=== PATIENT | male | born 1935 ===

== ENCOUNTER → 2018-06-03 11:57 | Outpatient (CLI) | payer OTHER, SELFPAY ==
[2018-06-03 12:54] LABS: BUN Creatinine Ratio 13.5 (6-22); Blood Urea Nitrogen 23 mg/dL (9-20); Calcium 9.5 mg/dL (8.4-10.2); Carbon Dioxide 31 mmol/L (22-32); Chloride 101 mmol/L (98-107); Estimated Glomerular Filt Rate 38.7 mL/min (>60); Glucose 103 mg/dL (80-110); HEMOLYSIS < 15 (0-50); Potassium 4.1 mmol/L (3.4-5.1); Sodium 143 mmol/L (137-145)
== END ==
PROVIDERS: PCP Internal Medicine; Visit Provider Internal Medicine
DX: I48.1 Persistent atrial fibrillation (principal); J44.9 Chronic obstructive pulmonary disease, unspecified; E78.00 Pure hypercholesterolemia, unspecified
CPT/HCPCS: 36415; 80048

== ENCOUNTER 2018-06-07 16:28 | Inpatient (IN) | payer OTHER, SELFPAY ==
[2018-06-07] VITALS (14 sets, daily range): BP systolic 154–196; BP diastolic 76–105; PULSE 66–94; RESP 11–79; TEMP 36.6–37.1; O2SAT 88–100; BMI 26.4; BMI 12.3
--- NOTE | 2018-06-07 16:36 | ED_ITS ---
HPI - SOB/Dyspnea General Chief Complaint: Shortness of Breath/Dyspnea Stated Complaint: sob,chest pain from coughing Time Seen by Provider: 06/07/18 16:35 Source: patient Mode of arrival: ambulatory Limitations: no limitations History of Present Illness 83-year-old male who states he does have a history of COPD who does not use regular home inhalers here for approximately 2-4 weeks of worsening shortness of breath and coughing and wheezing and decreased exercise tolerance secondary to shortness of breath. Denies any chest pain. Went to the walk-in clinic prior to arrival here in the emergency department where he was found to be wheezing bilaterally. According to the note from that visit he had an ambulation trial with a desaturation into the 80s. Patient does report a productive cough. No fevers. Related Data Home Medications Medication Instructions Recorded Confirmed [british blk radish] BID #0 10/26/16 06/07/18 atorvastatin [Lipitor] 10 mg PO HS #0 10/26/16 06/07/18 LBP medication PO 06/07/18 06/07/18 thyroid medication PO 06/07/18 06/07/18 warfarin PO 06/07/18 06/07/18 Allergies Allergy/AdvReac Type Severity Reaction Status Date / Time No Known Drug Allergies Allergy Unknown Verified 06/07/18 16:43 [NO KNOWN DRUG ALLERGIES] Review of Systems Constitutional Denies fever(s) and Denies headache(s) ENT Ears, Nose, Mouth, and Throat: Denies headache(s) Cardiovascular Denies chest pain, Denies irregular heart rhythm, Denies palpitations, Reports dyspnea and Reports dyspnea on exertion Respiratory Reports change in phlegm color, Reports cough, Reports excessive phlegm production, Denies pain with cough, Reports dyspnea, Reports dyspnea on exertion and Reports wheezing Gastrointestinal Gastrointestinal: Denies abdominal pain, Denies nausea and Denies vomiting Musculoskeletal Denies myalgias and Denies arthralgias Integumentary/Breasts Denies rash Neurologic Denies headache(s) Endocrine Denies palpitations Hematologic/Lymphatic Comments: On Coumadin Allergic/Immunologic Reports wheezing PFSH Medical History Atrial fibrillation (Acute) COPD (chronic obstructive pulmonary disease) (Acute) Colon cancer (Acute) Pacemaker (Acute) Surgical History History of colon resection (Acute) Social History marital status: Smoking Status: Former smoker Exam Initial Vital Signs Initial Vital Signs: Vital Signs Pulse Rate 69 06/07/18 16:41 Respiratory Rate 14 06/07/18 16:41 Pulse Oximetry 95 06/07/18 16:41 Const General: cooperative, well developed, well groomed and No acute distress Orientation: alert, awake and oriented x3 HENMT Head: normal to inspection and normocephalic Chest Chest: normal inspection of the chest Resp Effort & Inspection: audible wheezes, no grunting, not labored, no respiratory distress, no retractions, no stridor and tachypneic Auscultation: rhonchi upper bilaterally and lower bilaterally and wheezes expiratory wheezes, lower bilaterally and upper bilaterally Cardio Rate: regular rate Pulses: radial pulses present GI Inspection: non-distended Palpation: soft Skin Rashes: no rashes Neuro General: alert, awake and oriented x3 Extrem General: normal to inspection and no pedal edema Psych Appearance: grossly normal and well kempt Course Orders Ordered: ED Orders 06/07/18 16:35 B Type Natriuretic Peptide Stat Basic Metabolic Panel Stat Complete Blood Count AUTO DIFF Stat Prothrombin Time INR Stat 06/07/18 16:38 XR chest 1V Stat EKG-12 Lead Stat Albuterol (Ventolin) 2.5 mg INH Q20M PILAR Stop: 06/07/18 18:41 Last Admin: 06/07/18 18:27 Dose: 2.5 mg Admin: 06/07/18 18:19 Dose: 2.5 mg Admin: 06/07/18 18:19 Dose: 2.5 mg Albuterol/Ipratropium (Duoneb) 3 ml INH NOW PRN PRN Reason: Wheezing Last Admin: 06/07/18 17:09 Dose: 3 ml Admin: 06/07/18 16:53 Dose: 3 ml Discontinued Medications Albuterol/Ipratropium (Duoneb) 3 ml INH NOW ONE Stop: 06/07/18 16:37 Last Admin: 06/07/18 16:39 Dose: 3 ml Azithromycin (Zithromax) 500 mg PO NOW ONE Stop: 06/07/18 18:28 Levofloxacin (Levaquin) 750 mg PO NOW ONE Stop: 06/07/18 17:50 Methylprednisolone (Solu-Medrol 125 Mg Vial) 125 mg IV NOW ONE Stop: 06/07/18 16:56 Last Admin: 06/07/18 17:11 Dose: 125 mg Vital Signs - 8 hr 06/07/18 16:41 06/07/18 16:43 06/07/18 17:03 Temperature 97.9 F Pulse Rate 69 69 66 Respiratory Rate 14 22 11 L Blood Pressure 196/105 H Blood Pressure [Right Arm] 188/86 H Pulse Oximetry 95 100 100 06/07/18 17:38 06/07/18 17:58 06/07/18 18:00 Temperature Pulse Rate 78 94 H 79 Respiratory Rate 18 24 Blood Pressure Blood Pressure [Right Arm] 185/84 H 182/87 H Pulse Oximetry 97 88 L MDM - SOB/Dyspnea Lab Data Attestation: I reviewed the patient's lab results. Result diagrams: 06/07/18 16:35 06/07/18 16:35 Lab Results 06/07/18 06/07/18 06/07/18 Range/Units 16:35 16:35 16:35 WBC 8.6 (4.5-11.0) X10^3/uL RBC 4.12 L (4.5-5.9) X10^6/uL Hgb 13.1 L (13.5-17.5) g/dL Hct 38.3 L (41-53) % MCV 92.9 (80-100) fL MCH 31.9 (26-34) PG MCHC 34.3 (30-36) % RDW 14.8 (11.6-14.8) % Plt Count 195 (150-400) X10^3/uL Neut % (Auto) 78.6 H (50-75) % Lymph % (Auto) 10.8 L (25-40) % [place] % (Auto) 9.1 (3-14) % Eos % (Auto) 1.1 L (2-4) % Baso % (Auto) 0.4 (0-2) % Neut # (Auto) 6700 H (3902-1669) /uL PT 19.7 H (10.1-12.7) SECONDS INR 1.8 H (0.9-1.3) Sodium 143 (137-145) mmol/L Potassium 4.6 (3.4-5.1) mmol/L Chloride 101 (98-107) mmol/L Carbon Dioxide 31 (22-32) mmol/L BUN 21 H (9-20) mg/dL Creatinine 1.40 H (0.66-1.25) mg/dL Estimated GFR 48.4 L (>60) mL/min BUN/Creatinine Ratio 15.0 (6-22) Glucose 94 (80-110) mg/dL Calcium 9.6 (8.4-10.2) mg/dL Imaging Data Chest x-ray: Radiologist's impression: PROCEDURE: XR CHEST 1V INDICATIONS: Shortness of breath TECHNIQUE: One view of the chest was acquired. COMPARISON: [facility], , CHEST 2 VIEW, 03/05/2017, 13:08. FINDINGS: Surgical changes and devices: Left-sided pacer. Lungs and pleura: No pleural effusions or pneumothorax. Lungs are clear. Mediastinum: Mediastinal contours appear normal. Heart size is normal. Bones and chest wall: No suspicious bony lesions. Overlying soft tissues appear unremarkable. IMPRESSION: No acute process. Dictated by: Diaz Green M.D. on 06/07/2018 at 17:08 Approved by: Diaz Green M.D. on 06/07/2018 at 17:08 ECG Data Attestation: I personally reviewed and interpreted this ECG as follows: Prior ECG tracings: not available for review Interpretation: Ventricular paced Rate is 69 Left axis deviation QRS [address] T wave changes concerning for ischemia MDM Narrative Medical decision making narrative: Patient received 3 DuoNeb here in the emergency department with some improvement of his symptoms. He was no longer hypoxic while he was lying in bed. He was given Solu-Medrol. The patient was ambulated in the emergency department with his oxygen saturations dropping into the 80s. We sat back down in bed he was much more tachypneic and had increased work of breathing. Will start the patient on azithromycin for this COPD exacerbation and secondary to the increased sputum production. Discussed the case with Dr. Donald with internal medicine will that the patient. Discussed admission with the patient and his were at bedside. They both expressed understanding and agreement this plan. Discharge Plan Departure Patient Disposition: Admitted as Observation Clinical Impression: COPD exacerbation, Hypoxia, Hypertension
[2018-06-07] MEDS: ALBUTEROL/IPRATROPIUM 3 ML AMPUL INH ×4 (16:39→21:56)
[2018-06-07] MEDS: methylPREDNISolone 125 MG/2 ML VIAL IV (17:11)
[2018-06-07 18:12] LABS: INR 1.8 (0.9-1.3); Prothrombin Time 19.7 SECONDS (10.1-12.7)
[2018-06-07 18:13] LABS: Add Manual Diff / Slide Review NO; Basophils Percent Auto 0.4 % (0-2); Eosinophils Percent Auto 1.1 % (2-4); Hematocrit 38.3 % (41-53); Hemoglobin 13.1 g/dL (13.5-17.5); Lymphocytes Percent Auto 10.8 % (25-40); Mean Corpuscular HGB Conc 34.3 % (30-36); Mean Corpuscular Hemoglobin 31.9 PG (26-34); Mean Corpuscular Volume 92.9 fL (80-100); Monocytes Percent Auto 9.1 % (3-14); Neutrophils Absolute Auto 6700 /uL (3000-5900); Neutrophils Percent Auto 78.6 % (50-75); Platelet Count 195 X10^3/uL (150-400); Red Blood Cell Count 4.12 X10^6/uL (4.5-5.9); Red Cell Distribution Width 14.8 % (11.6-14.8); White Blood Cell Count 8.6 X10^3/uL (4.5-11.0)
[2018-06-07 18:17] LABS: Blood Urea Nitrogen 21 mg/dL (9-20); Calcium 9.6 mg/dL (8.4-10.2); Carbon Dioxide 31 mmol/L (22-32); Chloride 101 mmol/L (98-107); Estimated Glomerular Filt Rate 48.4 mL/min (>60); Glucose 94 mg/dL (80-110); HEMOLYSIS < 15 (0-50); Potassium 4.6 mmol/L (3.4-5.1); Sodium 143 mmol/L (137-145)
[2018-06-07] MEDS: ALBUTEROL 2.5 MG/3 ML NEB (ADULT) INH ×3 (18:19→18:27)
[2018-06-07] MEDS: AZITHROMYCIN 250 MG TABLET 500 MG PO (18:49)
--- NOTE | 2018-06-07 19:40 | PM.HP.1 ---
History of Present Illness Date Patient Seen: 06/07/18 Time Patient Seen: 19:41 Chief complaint: sob,chest pain from coughing Narrative: The patient is an 83-year-old male w/ PMH significant for COPD (mild), restrictive lung disease, CAD (no h/o [place]), AFIB (AC w/ warfarin), cardiomyopathy (s/p PPM, [facility], w/ complication of punctured lung / chest tube), hypothyroidism, Hodgkin's lymphoma, colon cancer (s/p colon resection 1999), sigmoid diverticulosis, and prior h/o tobacco dependence (quit 1982). Patient presented to the ED after being sent from a walk-in clinic for further evaluation of hypoxia. Patient complains of progressively worsening dyspnea (from his baseline) for a period of 4 weeks. Prior to that patient has been experiencing symptoms of bronchitis. Also, reports sinus drainage and congestion, which he experiences from time to time, but notes it to be worse recently. Reports receiving a flu shot 1 month ago. Associated symptoms include cough w/ phlegm production and increased purulence, wheezing, hypoxia (noted in the walk-in clinic today), and fatigue. Noticed purulence 1 week ago, progressively increasing in quantity, initially yellow-green in color and now reported as green-brown. Patient is known to have COPD, which is noted to be mild per PFTs on 04/05/2017; does not use bronchodilators routinely. Denies recurrent COPD exacerbations. Patient tried to use his inhaler; however, which he noted to be ineffective in symptom relief. Patient also commented that his inhaler was nearly empty. Denies recent hospitalization. Denies experiencing fever/chills, chest pain, palpitations, dizziness, lightheadedness, syncopal events, peripheal edema, PND, abdominal pain, gastrointestinal distress, change in micturition (baseline nocturia), blood in urine/stool, malaise or myalgia. Typically he does not lay flat and could not comment on orthopnea. He is known to snore, had a sleep study 6-10 yrs ago by reports. Does not wear a CPAP. He is not oxygen dependent. Does not follow w/ pulmonology. Patient is known to have cardiomyopathy with a history of pacemaker implantation (10-12 yrs ago). He does have a h/o heart failure. Weighs himself daily (typically 195 lbs), reports no change in weight. Follows w/ cardiology every 6 months (Dr. Del Haley / [facility]). Patient History Medical History Atrial fibrillation (Acute) CAD (coronary artery disease) (Acute) CHF (congestive heart failure) (Acute) COPD (chronic obstructive pulmonary disease) (Acute) Colon cancer (Acute) Hodgkin lymphoma (Acute) Pacemaker (Acute) Surgical History History of colon resection (Acute) Family & Social History Family History: Reviewed 06/07/18 by SOLOMON Shaikh Social History: , lives in his own home, functionally independent Safety & Behavioral: Feels safe in current environment yes Tobacco & Substance use: Smoking Status Former smoker, quit 1983 Substance Use Type Denies recreational drug use. Denies alcohol use. Meds Home Medications Medication Instructions Recorded Confirmed Type [argentine blk radish] BID #0 10/26/16 06/07/18 History atorvastatin [Lipitor] 10 mg PO HS #0 10/26/16 06/07/18 History amiodarone 200 mg PO DAILY 06/07/18 06/07/18 History fludrocortisone 0.1 mg PO DAILY 06/07/18 06/07/18 History levothyroxine 100 mcg PO DAILY 06/07/18 06/07/18 History midodrine 5 mg PO BID 06/07/18 06/07/18 History warfarin See Label Instructions .ROUTE 06/07/18 06/07/18 History .COMPLEX Allergies Allergy/AdvReac Type Severity Reaction Status Date / Time No Known Drug Allergies Allergy Unknown Verified 06/07/18 16:43 [NO KNOWN DRUG ALLERGIES] Review of Systems Review of Systems All systems reviewed & are unremarkable except as noted in HPI and below Constitutional Comments: Fatigue. No fever or chills. No falls. Appetite decreased 24-48 hours prior to admission. ENT Comments: Nasal congestion and discharge. Sore throat. Denies headache, ear pain, and sinus pressure. Cardiovascular Comments: Exertional dyspnea (chronic), recently worse No peripheral edema. No chest pain, palpitations, dizziness, lightheadedness, or syncopal events Unable to comment on presence of orthopnea. Sleeps w/ HOB in elevated position. Respiratory Comments: Exertional dyspnea, cough, phlegm, purulence, snoring Denies pleurisy, hemoptysis Gastrointestinal Gastrointestinal: Reports as per HPI Genitourinary Comments: Nocturia Denies dysuria, urinary frequency, hematuria, or decrease in UO Musculoskeletal Comments: Neck pain (no change from baseline, reports to be chronic) No numbness or tingling of upper extremities. Denies neck or head trauma. Gait steady. Ambulance without use of assistive device. Denies muscle weakness. Neurologic Comments: Denies confusion. Denies paresthesia of upper and lower extremities Hematologic/Lymphatic Comments: Denies history of diabetes and thrombosis. RLE (ankle) ecchymosis (present for a number of months, has been evaluated and was told it's a chronic change) Exam Vital Signs (past 8 hours): - 06/07/18 16:41 06/07/18 16:43 06/07/18 17:03 Temperature 97.9 F Pulse Rate 69 69 66 Respiratory Rate 14 22 11 L Blood Pressure 196/105 H Blood Pressure [Right Arm] 188/86 H Pulse Oximetry 95 100 100 06/07/18 17:38 06/07/18 17:58 06/07/18 18:00 Temperature Pulse Rate 78 94 H 79 Respiratory Rate 18 24 Blood Pressure Blood Pressure [Right Arm] 185/84 H 182/87 H Pulse Oximetry 97 88 L 06/07/18 18:21 06/07/18 19:01 Temperature Pulse Rate 80 84 Respiratory Rate 20 14 Blood Pressure Blood Pressure [Right Arm] 173/80 H Pulse Oximetry 99 96 Oxygen Delivery Method Room Air Narrative Exam Narrative: Constitutional: pleasant older adult male, appears stated age; observed to be in mild respiratory distress Neurologic: AOx3, no focal neurological deficits, adequate account of history and symptoms Head: NC, AT Eyes: Pupils equal and reactive, gaze conjugate Ears: external ears normal, no otorrhea, diminished hearing acuity / hearing aids present Nose: external nose normal, no rhinorrhea or epistaxis Throat: DRY MM, oropharynx w/o exudate Neck: no masses, lymphadenopathy, no JVD, neck ROM intact, no focal cervical tenderness Chest / Respiratory: equal chest rise, tachypneic (RR 26), prolonged expiratory phase w/ wheezing - b/l, rhonchi predominantly right lobe posteriorly on O2 at 2L - SpO2 97% on monitor, no retractions or accessory muscle use Heart / CV: S1S2, no murmur, PPM palpated (left upper chest, anterior aspect) Abdomen / GI: round, NT, ND, + BS, no organomegaly : no suprapubic tenderness, no CVA Peripheral / Vascular: warm to touch, DP 2+ bilat, no overt unilateral edema Musc: full ROM of upper and lower extremities, adequate muscle tone and bulk Skin: right ankle ecchymosis, hyperpigmentation of BLE, no suspicious lesions / ulcers, facial flushing noted Objective Labs Result Diagrams: 06/07/18 16:35 06/07/18 16:35 Labs: Laboratory Results - last 24 hr 06/07/18 06/07/18 06/07/18 16:35 16:35 16:35 WBC 8.6 RBC 4.12 L Hgb 13.1 L Hct 38.3 L MCV 92.9 MCH 31.9 MCHC 34.3 RDW 14.8 Plt Count 195 Neut % (Auto) 78.6 H Lymph % (Auto) 10.8 L [place] % (Auto) 9.1 Eos % (Auto) 1.1 L Baso % (Auto) 0.4 Neut # (Auto) 6700 H PT 19.7 H INR 1.8 H Sodium 143 Potassium 4.6 Chloride 101 Carbon Dioxide 31 BUN 21 H Creatinine 1.40 H Estimated GFR 48.4 L BUN/Creatinine Ratio 15.0 Glucose 94 Calcium 9.6 B-Natriuretic Peptide 444.0 H Assessment & Plan Plan: Assessment/Plan Narrative: Acute exacerbation of COPD w/ hypoxia Ddx: heart failure exacebation, pneumonia, pulmonary embolism, amiodarone induced pulmonary toxicity CXR not indicative of acute cardipulmonary process. No cardiomegaly, pulmonary congestion, atelectasis or pleural effusions. - Consult respiratory therapy, eval and treat - Supplemental oxygen, goal SpO2 88-94%; titrate O2 accordingly - DuoNeb Tx Q4H scheduled x24 hours, then re-evaluate - Baseline AGB - Empiric therapy w/ azithromycin - Consider outpatient referral to pulmonology. Patient would benefit from CT of chest, serial PFTs (given risk of amiodarone induced pumonary toxicity) and JOSE evaluation. - received flu shot 1 month ago Hypoxia - see COPD plan of care - will need to make sure that patient is able to ambulate without becoming hypoxic prior to discharge Chronic atrial fibrillation, V-Paced rhythm - Continue amiodarone for rate/rhythm control - Continue warfarin for anticoagulation Cardiomyopathy w/ PPM, h/o HF, EF not known Potentially in decompensated heart failure Does not appear to be in overt volume excess. BNP 444, but not necessarily abnormal for patient's age and renal function. Some indications of volume excess on physical exam, but could also be consistent w/ COPD exacerbation. Patient was on a diuretic at least 1 year ago. Current med list does not include a diuretic, will investigate when patient was taken off. Subtherapeutic INR Chronic anticoagulation w/ warfarin 2/2 chronic AFIB, INR 1.8 - No dose on warfarin, will need to clarify w/ family - Will plan on titrating warfarin accordingly for a goal INR range b/w 2-3 - Daily PT/INR Hypothyroidism - check TSH in am (upward trending per history); also, on amiodarone - resume QUALITY CONTROL CHEMIST regimen of levothyroxine CKD Stage 3A Baseline renal fx unknown. Patient recently made aware that he has renal problems. Current renal fx w/ sCr 1.4 is adequate for age and underlying co-morbidities. - Monitor / trend renal fx w/ routine lab Code status: Full code. Patient has a health directive, which per patient is a DNR; however, wishes to be full code at this time. Designated DPOA is kaylie Perez. Home medications reviewed and reconciled. Need to clarify diuretic use and warfarin dose w/ patient's .
--- NOTE | 2018-06-07 19:52 | P.HP_ITS ---
History of Present Illness Date Patient Seen: 06/07/18 Time Patient Seen: 19:41 Chief complaint: sob,chest pain from coughing Narrative: The patient is an 83-year-old male w/ PMH significant for COPD (mild), restrictive lung disease, CAD (no h/o KS), AFIB (AC w/ warfarin), cardiomyopathy (s/p PPM, [facility], w/ complication of punctured lung / chest tube), hypothyroidism, Hodgkin's lymphoma, colon cancer (s/p colon resection 1999), sigmoid diverticulosis, and prior h/o tobacco dependence (quit 1982). Patient presented to the ED after being sent from a walk-in clinic for further evaluation of hypoxia. Patient complains of progressively worsening dyspnea ( from his baseline) for a period of 4 weeks. Prior to that patient has been experiencing symptoms of bronchitis. Also, reports sinus drainage and congestion, which he experiences from time to time, but notes it to be worse recently. Reports receiving a flu shot 1 month ago. Associated symptoms include cough w/ phlegm production and increased purulence, wheezing, hypoxia ( noted in the walk-in clinic today), and fatigue. Noticed purulence 1 week ago, progressively increasing in quantity, initially yellow-green in color and now reported as green-brown. Patient is known to have COPD, which is noted to be mild per PFTs on 04/05/2017; does not use bronchodilators routinely. Denies recurrent COPD exacerbations. Patient tried to use his inhaler; however, which he noted to be ineffective in symptom relief. Patient also commented that his inhaler was nearly empty. Denies recent hospitalization. Denies experiencing fever/chills, chest pain, palpitations, dizziness, lightheadedness, syncopal events, peripheal edema, PND, abdominal pain, gastrointestinal distress, change in micturition (baseline nocturia), blood in urine/stool, malaise or myalgia. Typically he does not lay flat and could not comment on orthopnea. He is known to snore, had a sleep study 6-10 yrs ago by reports. Does not wear a CPAP. He is not oxygen dependent. Does not follow w/ pulmonology. Patient is known to have cardiomyopathy with a history of pacemaker implantation (10-12 yrs ago). He does have a h/o heart failure. Weighs himself daily (typically 195 lbs), reports no change in weight. Follows w/ cardiology every 6 months (Dr. Del Haley / [facility]). Patient History Medical History Atrial fibrillation (Acute) CAD (coronary artery disease) (Acute) CHF (congestive heart failure) (Acute) COPD (chronic obstructive pulmonary disease) (Acute) Colon cancer (Acute) Hodgkin lymphoma (Acute) Pacemaker (Acute) Surgical History History of colon resection (Acute) Family & Social History Family History: Reviewed 06/07/18 by SOLOMON Shaikh Social History: , lives in his own home, functionally independent Safety & Behavioral: Feels safe in current environment yes Tobacco & Substance use: Smoking Status Former smoker, quit 1983 Substance Use Type Denies recreational drug use. Denies alcohol use. Meds Home Medications Medication Instructions Recorded Confirmed Type [kittitian blk radish] BID #0 10/26/16 06/07/18 History atorvastatin [Lipitor] 10 mg PO HS #0 10/26/16 06/07/18 History amiodarone 200 mg PO DAILY 06/07/18 06/07/18 History fludrocortisone 0.1 mg PO DAILY 06/07/18 06/07/18 History levothyroxine 100 mcg PO DAILY 06/07/18 06/07/18 History midodrine 5 mg PO BID 06/07/18 06/07/18 History warfarin See Label Instructions .ROUTE 06/07/18 06/07/18 History .COMPLEX Allergies Allergy/AdvReac Type Severity Reaction Status Date / Time No Known Drug Allergies Allergy Unknown Verified 06/07/18 16:43 [NO KNOWN DRUG ALLERGIES] Review of Systems Review of Systems All systems reviewed & are unremarkable except as noted in HPI and below Constitutional Comments: Fatigue. No fever or chills. No falls. Appetite decreased 24-48 hours prior to admission. ENT Comments: Nasal congestion and discharge. Sore throat. Denies headache, ear pain , and sinus pressure. Cardiovascular Comments: Exertional dyspnea (chronic), recently worse No peripheral edema. No chest pain, palpitations, dizziness, lightheadedness, or syncopal events Unable to comment on presence of orthopnea. Sleeps w/ HOB in elevated position. Respiratory Comments: Exertional dyspnea, cough, phlegm, purulence, snoring Denies pleurisy, hemoptysis Gastrointestinal Gastrointestinal: Reports as per HPI Genitourinary Comments: Nocturia Denies dysuria, urinary frequency, hematuria, or decrease in UO Musculoskeletal Comments: Neck pain (no change from baseline, reports to be chronic) No numbness or tingling of upper extremities. Denies neck or head trauma. Gait steady. Ambulance without use of assistive device. Denies muscle weakness. Neurologic Comments: Denies confusion. Denies paresthesia of upper and lower extremities Hematologic/Lymphatic Comments: Denies history of diabetes and thrombosis. RLE (ankle) ecchymosis ( present for a number of months, has been evaluated and was told it's a chronic change) Exam Vital Signs (past 8 hours): - 06/07/18 16:41 06/07/18 16:43 06/07/18 17:03 Temperature 97.9 F Pulse Rate 69 69 66 Respiratory Rate 14 22 11 L Blood Pressure 196/105 H Blood Pressure [Right Arm] 188/86 H Pulse Oximetry 95 100 100 06/07/18 17:38 06/07/18 17:58 06/07/18 18:00 Temperature Pulse Rate 78 94 H 79 Respiratory Rate 18 24 Blood Pressure Blood Pressure [Right Arm] 185/84 H 182/87 H Pulse Oximetry 97 88 L 06/07/18 18:21 06/07/18 19:01 Temperature Pulse Rate 80 84 Respiratory Rate 20 14 Blood Pressure Blood Pressure [Right Arm] 173/80 H Pulse Oximetry 99 96 Oxygen Delivery Method Room Air Narrative Exam Narrative: Constitutional: pleasant older adult male, appears stated age; observed to be in mild respiratory distress Neurologic: AOx3, no focal neurological deficits, adequate account of history and symptoms Head: NC, AT Eyes: Pupils equal and reactive, gaze conjugate Ears: external ears normal, no otorrhea, diminished hearing acuity / hearing aids present Nose: external nose normal, no rhinorrhea or epistaxis Throat: DRY MM, oropharynx w/o exudate Neck: no masses, lymphadenopathy, no JVD, neck ROM intact, no focal cervical tenderness Chest / Respiratory: equal chest rise, tachypneic (RR 26), prolonged expiratory phase w/ wheezing - b/l, rhonchi predominantly right lobe posteriorly on O2 at 2L - SpO2 97% on monitor, no retractions or accessory muscle use Heart / CV: S1S2, no murmur, PPM palpated (left upper chest, anterior aspect) Abdomen / GI: round, NT, ND, + BS, no organomegaly : no suprapubic tenderness, no CVA Peripheral / Vascular: warm to touch, DP 2+ bilat, no overt unilateral edema Musc: full ROM of upper and lower extremities, adequate muscle tone and bulk Skin: right ankle ecchymosis, hyperpigmentation of BLE, no suspicious lesions / ulcers, facial flushing noted Objective Labs Result Diagrams: 06/07/18 16:35 06/07/18 16:35 Labs: Laboratory Results - last 24 hr 06/07/18 06/07/18 06/07/18 16:35 16:35 16:35 WBC 8.6 RBC 4.12 L Hgb 13.1 L Hct 38.3 L MCV 92.9 MCH 31.9 MCHC 34.3 RDW 14.8 Plt Count 195 Neut % (Auto) 78.6 H Lymph % (Auto) 10.8 L Hardee % (Auto) 9.1 Eos % (Auto) 1.1 L Baso % (Auto) 0.4 Neut # (Auto) 6700 H PT 19.7 H INR 1.8 H Sodium 143 Potassium 4.6 Chloride 101 Carbon Dioxide 31 BUN 21 H Creatinine 1.40 H Estimated GFR 48.4 L BUN/Creatinine Ratio 15.0 Glucose 94 Calcium 9.6 B-Natriuretic Peptide 444.0 H Assessment & Plan Plan: Assessment/Plan Narrative: Acute exacerbation of COPD w/ hypoxia Ddx: heart failure exacebation, pneumonia, pulmonary embolism, amiodarone induced pulmonary toxicity CXR not indicative of acute cardipulmonary process. No cardiomegaly, pulmonary congestion, atelectasis or pleural effusions. - Consult respiratory therapy, eval and treat - Supplemental oxygen, goal SpO2 88-94%; titrate O2 accordingly - DuoNeb Tx Q4H scheduled x24 hours, then re-evaluate - Baseline AGB - Empiric therapy w/ azithromycin - Consider outpatient referral to pulmonology. Patient would benefit from CT of chest, serial PFTs (given risk of amiodarone induced pumonary toxicity) and JOSE evaluation. - received flu shot 1 month ago Hypoxia - see COPD plan of care - will need to make sure that patient is able to ambulate without becoming hypoxic prior to discharge Chronic atrial fibrillation, V-Paced rhythm - Continue amiodarone for rate/rhythm control - Continue warfarin for anticoagulation Cardiomyopathy w/ PPM, h/o HF, EF not known Potentially in decompensated heart failure Does not appear to be in overt volume excess. BNP 444, but not necessarily abnormal for patient's age and renal function. Some indications of volume excess on physical exam, but could also be consistent w/ COPD exacerbation. Patient was on a diuretic at least 1 year ago. Current med list does not include a diuretic, will investigate when patient was taken off. Subtherapeutic INR Chronic anticoagulation w/ warfarin 2/2 chronic AFIB, INR 1.8 - No dose on warfarin, will need to clarify w/ family - Will plan on titrating warfarin accordingly for a goal INR range b/w 2-3 - Daily PT/INR Hypothyroidism - check TSH in am (upward trending per history); also, on amiodarone - resume EMR IMPLEMENTATION SPECIALIST regimen of levothyroxine CKD Stage 3A Baseline renal fx unknown. Patient recently made aware that he has renal problems. Current renal fx w/ sCr 1.4 is adequate for age and underlying co- morbidities. - Monitor / trend renal fx w/ routine lab Code status: Full code. Patient has a health directive, which per patient is a DNR; however, wishes to be full code at this time. Designated DPOA is kaylie Perez. Home medications reviewed and reconciled. Need to clarify diuretic use and warfarin dose w/ patient's .
[2018-06-07] MEDS: guaiFENesin ER 600 MG TAB PO (21:36)
--- NOTE | 2018-06-07 21:41 | PC.NURSE ---
Addendum entered by Jayleen Ohara R.N. 06/07/18 22:47: Clarified warfarin doses with . Pt uses [facility]. Pt/ deny any recent/or chronic diuretics. RT in room/ABG done. RT tx also given. DEHYDRATION PLANT OPERATOR notified of pt status/results/med clarifications. Pt using call light appropriately. Original Note: Pt to acute care from ER. Transferred via wheelchair, pivot transferred to bed. A/O, denies pain. LS decreased, coarse, audible wheezing at rest. Shortness of breath at rest/with talking. 1.5L 95%. Intermittent, productive cough. Pt informed sputum sample is needed. Tele on, paced. Continuous pulse ox on. SCDs applied. Pt is hard of hearing/hearing aides present. Oriented to room and call light. Snack given.
--- NOTE | 2018-06-07 22:15 | RT ---
SUGGESTED TO RN POSSIBLE NEED FOR DIURESING OF PT. PT APPEARS W/ FLUID OVERLOAD.
[2018-06-07 22:23] LABS: HCO3 ABG 22 mmol/L (23-27); Oxygen Saturation ABG 90 % (95-100); PO2 ABG 57 mmHg (80-105); TCO2 ABG 23 mmol/L (23-27); pH ABG 7.43 (7.35-7.45)
[2018-06-07 22:24] LABS: Fractionated Inspired Oxygen 21
[2018-06-07] MEDS: WARFARIN 5 MG TABLET 10 MG PO (23:55)
[2018-06-07] MEDS: AMIODARONE 200 MG TABLET PO (23:55)
[2018-06-07] MEDS: ATORVASTATIN 10 MG TABLET PO (23:56)
[2018-06-08] VITALS (11 sets, daily range): BP systolic 124–182; BP diastolic 71–98; PULSE 78–90; RESP 15–22; TEMP 36.3–36.8; O2SAT 93–100
--- NOTE | 2018-06-08 | DI.RAD.S_ITS ---
PROCEDURE: XR CHEST 2V INDICATIONS: dyspnea, COPD exacerbation, r/o heart failure and pneumonia TECHNIQUE: 2 views of the chest were acquired. COMPARISON: [facility], CR, XR CHEST 1V, 06/07/2018, 16:41. FINDINGS: Surgical changes and devices: Pacemaker. Lungs and pleura: Increased pulmonary vascularity is present. There is blunting of the left costophrenic angle, new compared to prior exam. There is slight appearance of increased bibasilar opacities compared to prior exam. Mediastinum: Mediastinal contours are normal. Heart size is normal. Bones and chest wall: No suspicious bony abnormalities. Soft tissues appear unremarkable. IMPRESSION: Interval increase in pulmonary vascularity trace effusion suggestive of edema. Developing area bibasilar air space disease such as atelectasis/pneumonia cannot be excluded. Dictated by: Terrie Watson M.D. on 06/08/2018 at 8:32 Approved by: Terrie Watson M.D. on 06/08/2018 at 8:33
--- NOTE | 2018-06-08 | DI.ECHO.S_ITS ---
[place] [facility]---------+ [facility] +---------+ : : [address] : : : : [id number] : : : : Phone: [phone] Echocardiogram Report + + :Name: JEFFY MARTE Study Date: 06/09/2018 Height: 72 in : :[facility] Weight: 191 lb : : Gender: Male BSA: 2.1 m2 : :: 1935 Age: 83 yrs BP: 144/87 mmHg: :Reason For Study: Dyspnea : : Performed By: Ramona Tran : :Referring: ANU LAINEZ : + + Interpretation Summary Left ventricular wall thickness is mildly increased. The ejection fraction is estimated to be 55-60%. Apical wall motion abnormality may reflect pacemaker activation. There is inferior wall hypokinesis. There is a pacemaker lead in the right ventricle. The left atrium is moderately dilated. The right atrium is severely dilated. The interatrial septum is intact with no evidence for an atrial septal defect. There is mild aortic regurgitation. There is mild tricuspid regurgitation. The right ventricular systolic pressure is estimated to be at least 38 mmHg based on an estimated right atrial pressure of 8 mm Hg. Procedure: A two-dimensional transthoracic echocardiogram with color flow and Doppler was performed. The study quality was technically adequate. There is no prior echocardiogram noted for this patient. The patient was in atrial flutter with heart rates between 74-86 bpm during the exam. Left Ventricle: The left ventricle is normal in size. Left ventricular wall thickness is mildly increased. The ejection fraction is estimated to be 55- 60%. Apical wall motion abnormality may reflect pacemaker activation. There is inferior wall hypokinesis. Diastolic function could not be accurately assessed due to atrial fibrillation. Right Ventricle: Borderline right ventricular enlargement. There is a pacemaker lead in the right ventricle. Right ventricular systolic function is mildly reduced. Atria: The left atrium is moderately dilated. The right atrium is severely dilated. There is a catheter/pacemaker lead seen in the right atrium. The interatrial septum is intact with no evidence for an atrial septal defect. Mitral Valve: The mitral valve leaflets appear mildly thickened, but open well. Aortic Valve: The aortic valve is trileaflet. The aortic valve opens well. There is mild aortic regurgitation. Tricuspid Valve: The tricuspid valve leaflets are thin and pliable. There is mild tricuspid regurgitation. The right ventricular systolic pressure is estimated to be at least 38 mmHg based on an estimated right atrial pressure of 8 mm Hg. Pulmonic Valve: The pulmonic valve is not well seen, but is grossly normal. There is trace pulmonic regurgitation. Great Vessels: The aortic root is normal size. The ascending aorta is mildly enlarged. The IVC is dilated (diameter is greater than 2.1 cm) yet it collapses greater than 50% with a sniff. This suggests a right atrial pressure of 8 mm Hg. Pericardium/ Pleura There is no pericardial effusion. There is no pleural effusion. MMode/2D Measurements & Calculations LVIDd: 5.2 cm Ao root diam: 3.7 cm LVIDs: 3.4 cm Aortic Jxn: 3.3 cm FS: 33.5 % asc Aorta Diam: 3.8 cm EPSS: 1.2 cm IVSd: 1.3 cm LVPWd: 0.96 cm LV webb. diameter/BSA (cm/m^2): 2.5 LV sys. diameter/BSA (cm/m^2): 1.6 LA dimension: 3.8 cm RA long axis: 5.2 cm LA A2 area: 27.4 cm2 RA area: 26.9 cm2 LA A4 area: 24.4 cm2 RA vol: 119.1 ml LA length (vol): 5.7 cm RA : 57.0 ml/m2 LA vol: 99.0 ml IVC diam: 2.1 cm LA vol index: 47.4 ml/m2 RVDd major: 7.2 cm RVD1 (basal): 5.7 cm RVD2 (mid): 4.7 cm Doppler Measurements & Calculations Ao V2 max: 124.0 cm/sec MV E max bao: 82.8 cm/sec Ao V2 mean: 83.8 cm/sec MV A max bao: 121.6 cm/sec Ao max P.2 mmHg MV E/A: 0.68 Ao mean P.2 mmHg Med Peak E' Bao: 2.6 cm/sec Ao V2 VTI: 28.8 cm E/E' med: 31.5 Lat Peak E' Bao: 5.5 cm/sec E/E' lat: 15.1 E/e' average: 23.3 MV dec time: 0.25 sec MV P1/2t: 75.1 msec TR max bao: 275.4 cm/sec MV P1/2t max bao: 82.9 cm/sec TR max P.3 mmHg MVA(P1/2t): 2.9 cm2 PA V2 max: 63.0 cm/sec PA V2 mean: 34.5 cm/sec PA mean P.64 mmHg PA Accel Time: 0.17 sec Reading Physician:01:23 PM
[2018-06-08] MEDS: FUROSEMIDE 20 MG/2 ML VIAL IV (01:04)
[2018-06-08 06:16] LABS: INR 1.9 (0.9-1.3); Prothrombin Time 20.8 SECONDS (10.1-12.7)
[2018-06-08 06:17] LABS: Add Manual Diff / Slide Review NO; Basophils Percent Auto 0.1 % (0-2); Hematocrit 35.3 % (41-53); Hemoglobin 12.1 g/dL (13.5-17.5); Lymphocytes Percent Auto 3.9 % (25-40); Mean Corpuscular HGB Conc 34.3 % (30-36); Mean Corpuscular Volume 93.2 fL (80-100); Monocytes Percent Auto 1.6 % (3-14); Neutrophils Absolute Auto 8900 /uL (3000-5900); Neutrophils Percent Auto 94.4 % (50-75); Platelet Count 179 X10^3/uL (150-400); Red Blood Cell Count 3.79 X10^6/uL (4.5-5.9); Red Cell Distribution Width 14.7 % (11.6-14.8); White Blood Cell Count 9.4 X10^3/uL (4.5-11.0)
[2018-06-08 06:42] LABS: BUN Creatinine Ratio 16.9 (6-22); Blood Urea Nitrogen 22 mg/dL (9-20); Calcium 9.2 mg/dL (8.4-10.2); Carbon Dioxide 27 mmol/L (22-32); Chloride 101 mmol/L (98-107); Estimated Glomerular Filt Rate 52.7 mL/min (>60); Glucose 159 mg/dL (80-110); HEMOLYSIS < 15 (0-50); Magnesium 2.4 mg/dL (1.6-2.3); Potassium 4.1 mmol/L (3.4-5.1); Sodium 141 mmol/L (137-145)
[2018-06-08 06:50] LABS: Thyroid Stimulating Hormone 5.02 uIU/mL (0.47-4.68)
[2018-06-08] MEDS: ALBUTEROL/IPRATROPIUM 3 ML AMPUL INH ×3 (07:36→20:07)
[2018-06-08] MEDS: predniSONE 20 MG TABLET 40 MG PO (09:04)
[2018-06-08] MEDS: guaiFENesin ER 600 MG TAB PO ×2 (09:04→20:34)
[2018-06-08] MEDS: LEVOTHYROXINE 100 MCG TABLET PO (09:05)
--- NOTE | 2018-06-08 09:17 | CM.DANOTE ---
DCP: Case received, EMR reviewed and met with patient. Introduced self and role. DCP template completed with information currently available. Patient is an 83 year old male who admitted yesterday afternoon to the care of the hosptitalist team. PCP: Dr. Vu. Payer: confirmed: [facility]. Patient came to hospital via family vehicle due to shortness of breath and coughing episode. Patient has history of COPD, as well as A-fib. Patient carries diagnosis of possible Pneumonia. Met with patient in room, pleasant, was coughing. Stated He was feeling better. Patient livews in [place] with his spouse. Stated that he has been independent at home, and drives as well. P: DCP to follow closely, as plan unfolds. Patient should be able to return home when stable, but will depend upon progress here at hospital. Lani Kebede RN/Glazier Apprentice
--- NOTE | 2018-06-08 09:20 | PM.PN.1 ---
Subjective Date Patient Seen: 06/08/18 Time Patient Seen: 09:21 Interval history: Follow-up on COPD exacerbation Patient seen at bedside. He is doing well, states that his breathing mildly improved. No acute overnight events, but patient continues to have significant wheezing and oxygen requirement. No fever or chills. Continues to have cough. Exam Vital Signs (past 8 hours): - 06/08/18 05:15 06/08/18 07:37 06/08/18 07:40 Temperature 97.4 F L 98.3 F Pulse Rate 78 78 90 Respiratory Rate 16 15 17 Blood Pressure 170/92 H 144/84 H Pulse Oximetry 98 96 93 Oxygen Delivery Method Nasal Cannula Oxygen Flow Rate 1.5 Narrative Exam Narrative: General: No acute distress, A/O x3 HEENT: PERRLA bilaterally, decreased hearing bilaterally. Oxygen nasal cannula in place Neck: Supple, no LAD or JVD CV: Regular rate rhythm, no murmurs or gallops Respiratory: Profound wheezes heard in all lung wheat. Intermittent rhonchi bilaterally. No crackles noted GI: Positive bowel sounds in all 4 quadrants, no tenderness to palpation, no organomegaly Extremities: No edema, 2+ pulses in all 4 extremities Musculoskeletal: Moves all extremities without difficulty Skin: No bruises or lesions Neuro: No focal deficits Psych: AAO x3, mood is appropriate Objective Labs Result Diagrams: 06/08/18 05:32 06/08/18 05:32 Labs: Laboratory Results - last 24 hr 06/07/18 06/07/18 06/07/18 16:35 16:35 16:35 WBC 8.6 RBC 4.12 L Hgb 13.1 L Hct 38.3 L MCV 92.9 MCH 31.9 MCHC 34.3 RDW 14.8 Plt Count 195 Neut % (Auto) 78.6 H Lymph % (Auto) 10.8 L Johnson % (Auto) 9.1 Eos % (Auto) 1.1 L Baso % (Auto) 0.4 Neut # (Auto) 6700 H PT 19.7 H INR 1.8 H ABG pH ABG pCO2 ABG pO2 ABG HCO3 ABG Total CO2 ABG O2 Saturation ABG Base Excess FiO2 Sodium 143 Potassium 4.6 Chloride 101 Carbon Dioxide 31 BUN 21 H Creatinine 1.40 H Estimated GFR 48.4 L BUN/Creatinine Ratio 15.0 Glucose 94 Calcium 9.6 Magnesium B-Natriuretic Peptide 444.0 H TSH 06/07/18 06/08/18 06/08/18 22:05 05:32 05:32 WBC 9.4 RBC 3.79 L Hgb 12.1 L Hct 35.3 L MCV 93.2 MCH 32.0 MCHC 34.3 RDW 14.7 Plt Count 179 Neut % (Auto) 94.4 H Lymph % (Auto) 3.9 L Johnson % (Auto) 1.6 L Eos % (Auto) 0.0 L Baso % (Auto) 0.1 Neut # (Auto) 8900 H PT INR ABG pH 7.43 ABG pCO2 34.0 L ABG pO2 57 L ABG HCO3 22 L ABG Total CO2 23 ABG O2 Saturation 90 L ABG Base Excess -2.0 FiO2 21 Sodium Potassium Chloride Carbon Dioxide BUN Creatinine Estimated GFR BUN/Creatinine Ratio Glucose Calcium Magnesium B-Natriuretic Peptide TSH 5.02 H 06/08/18 06/08/18 05:32 05:32 WBC RBC Hgb Hct MCV MCH MCHC RDW Plt Count Neut % (Auto) Lymph % (Auto) Johnson % (Auto) Eos % (Auto) Baso % (Auto) Neut # (Auto) PT 20.8 H INR 1.9 H ABG pH ABG pCO2 ABG pO2 ABG HCO3 ABG Total CO2 ABG O2 Saturation ABG Base Excess FiO2 Sodium 141 Potassium 4.1 Chloride 101 Carbon Dioxide 27 BUN 22 H Creatinine 1.30 H Estimated GFR 52.7 L BUN/Creatinine Ratio 16.9 Glucose 159 H Calcium 9.2 Magnesium 2.4 H B-Natriuretic Peptide TSH Assessment & Plan Plan: Assessment/Plan Narrative: 1. Acute on chronic COPD exacerbation with hypoxia -chest x-ray showed no acute cardiopulmonary processes, no pneumothorax, no atelectasis or pleural effusions -patient continues to have wheezes and requiring 2 L oxygen -continue DuoNeb q.4 hours scheduled as well as albuterol q.2 hours as needed -continue prednisone 40 mg p.o. daily for 5 days -continue azithromycin to 500 mg IV daily and transition to p.o. as needed on discharge -patient may need home O2 evaluation if continues to fail weaning 2. Chronic atrial fibrillation -currently rate controlled -continue amiodarone and warfarin 3. Cardiomyopathy -status post pacemaker placement -currently not in fluid overload -BNP on admission 444, however not reliable due to patient's age and renal function -echo pending, will follow up -continue atorvastatin 4. Hypothyroidism -continue levothyroxine 5. CKD stage IIIA -BUN 22, creatinine 1.3, baseline Avoid nephrotoxins and monitor renal function 6. Subtherapeutic INR -despite being on warfarin, improving -INR 1.9, trending up -Continue warfarin and monitor INR levels Quality VTE Deep Vein Thrombosis/Pulmonary Embolism Present on Admission: No
--- NOTE | 2018-06-08 10:38 | PC.NURSE ---
Day shift. 0830: Pt assessed. A/Ox3. Pt resting in bed. Denies pain at this time. Pt has fine crackles bilaterally in lungs. Expiratory wheezing while at rest. Reports SOB after talking. Education done on ambulation. Will let pt continue to rest at this time until he no longer feels SOB. 1000: Pt ambulated to bathroom with SBA. Pt tolerated will. in room while pt uses bathroom.
--- NOTE | 2018-06-08 11:07 | CM.DPC ---
Met patient's , in room, named Wanda. Kim. Stated that her is very active. Has been going to the gym, and takes care of their one acre property. Stated that they live in a home with a daylight basement in [facility]. Stated that they spend most of their time on the main living area, but patient can use stairs, but gets short of breath. Has not smoked recently, but years ago. Also have family that live in [facility] [facility], and have a daughter there that is disabled. Discussed plan at discharge. stated jokingly, if you know a good brock, we could use one. Discussed resources, such as home health, if patient needs any assist with medication management, such as proper use of inhalers. To be discussed further during hospital stay. P: DCP to continue to follow closely, to determine if patient will need any resources at discharge. Lani Kebede RN/Manager Case
[2018-06-08] MEDS: WARFARIN 5 MG TABLET 10 MG PO (18:16)
[2018-06-08] MEDS: AZITHROMYCIN 500 MG in DEXTROSE 5% IN WATER 250 ML IV (18:16)
[2018-06-08] MEDS: AMIODARONE 200 MG TABLET PO (18:16)
--- NOTE | 2018-06-08 18:47 | PC.NURSE ---
1500- assumed care of pt from outgoing shift. Pt awake. breathing treatment is under way. rt states pt is doing better. pt has been calling. up with sba. ate dinner. cooperative. brushed teeth. requested prune juice. given and Pt drank. Pt bed alarm on. cooperative with nursing staff. 2L NC on. saturations anywhere from 96-99%. when pt is sleeping he does not have any audible wheezes. Pt has been coughing up thick, greenish/bell mucous. this started after he drank juice. but no evidence of aspiration noted. Pt belongings and call light within reach. will continue to monitor pt for safety.
[2018-06-08] MEDS: FUROSEMIDE 40 MG/4 ML VIAL IV (20:34)
[2018-06-08] MEDS: ATORVASTATIN 10 MG TABLET PO (20:34)
[2018-06-08] MEDS: MIDODRINE HCL 5 MG TABLET PO (20:34)
[2018-06-09] VITALS (17 sets, daily range): BP systolic 107–157; BP diastolic 64–88; PULSE 68–77; RESP 16–22; TEMP 36.4–37.3; O2SAT 92–99
--- NOTE | 2018-06-09 02:01 | PC.NURSE ---
Addendum entered by Darshana Ruvalcaba R.N. 06/09/18 05:52: Slept at intervals. Not sounding as wheezy this morning. Continues to deny pain. O2 sat continues at 99% on 1L/min oxygen. Original Note: Patient is alert and oriented. Breath sounds with audible expiratory wheezes at rest. Auscultated coarse crackles with expiratory wheezing throughout; RT informed and will be up to give 0200 neb Rx. Is on oxygen at 1L/min with sat of 99%. Does desat with activity; was down to 92% when gotten back into bed after being up to bathroom. HRR. BP notably elevated ta 182/98. Denies nausea. BT present and did have BM tonight. At start of shift was having urinary frequency related to administration of diuretic earlier but states that has resolved; using urinal at in bed. Turns self and is up to bathroom with walker and 1 assist and states he feels unsteady on feet when initially up. Wearing bilateral SCD's. Denies pain. Fall risk score is high and bed alarm is activated.
[2018-06-09] MEDS: ALBUTEROL/IPRATROPIUM 3 ML AMPUL INH ×4 (02:09→20:41)
[2018-06-09] MEDS: LEVOTHYROXINE 100 MCG TABLET PO (05:59)
[2018-06-09 06:01] LABS: INR 2.7 (0.9-1.3); Prothrombin Time 29.8 SECONDS (10.1-12.7)
[2018-06-09 06:04] LABS: PTT Partial Thromboplastin Tim 35 SECONDS (26.4-36.2)
[2018-06-09 06:06] LABS: Add Manual Diff / Slide Review NO; Basophils Percent Auto 0.1 % (0-2); Hematocrit 34.6 % (41-53); Hemoglobin 11.9 g/dL (13.5-17.5); Lymphocytes Percent Auto 5.5 % (25-40); Mean Corpuscular HGB Conc 34.3 % (30-36); Mean Corpuscular Hemoglobin 31.6 PG (26-34); Mean Corpuscular Volume 92.3 fL (80-100); Monocytes Percent Auto 5.6 % (3-14); Neutrophils Absolute Auto 15600 /uL (3000-5900); Neutrophils Percent Auto 88.8 % (50-75); Platelet Count 191 X10^3/uL (150-400); Red Blood Cell Count 3.75 X10^6/uL (4.5-5.9); Red Cell Distribution Width 14.9 % (11.6-14.8); White Blood Cell Count 17.6 X10^3/uL (4.5-11.0)
[2018-06-09 06:11] LABS: BUN Creatinine Ratio 23.6 (6-22); Blood Urea Nitrogen 33 mg/dL (9-20); Calcium 9.4 mg/dL (8.4-10.2); Carbon Dioxide 31 mmol/L (22-32); Chloride 100 mmol/L (98-107); Estimated Glomerular Filt Rate 48.4 mL/min (>60); Glucose 120 mg/dL (80-110); HEMOLYSIS < 15 (0-50); Potassium 4.4 mmol/L (3.4-5.1); Sodium 140 mmol/L (137-145)
[2018-06-09] MEDS: predniSONE 20 MG TABLET 40 MG PO (10:05)
[2018-06-09] MEDS: SODIUM CHLORIDE 0.9% FLUSH 10 ML IV ×2 (10:05→21:12)
[2018-06-09] MEDS: guaiFENesin ER 600 MG TAB PO ×2 (10:05→21:12)
--- NOTE | 2018-06-09 10:37 | PC.NURSE ---
Addendum entered by Staci Harrison R.N. 06/09/18 12:21: Lunch was held. ECHO being done in room at this time. Original Note: Shift summary: Dozing intermittently, awakens easily. A&O X3. Definitely SOB with exertion. Denies SOB at rest. Audible expiratory wheezing throughout lung wheat- offered to call RT but patient reports he just had a treatment not too long ago and I don't really notice a difference. SpO2 on 1L mid-upper 90's. HRR, tele monitoring in place. Denies chest pain or pressure. Intermittent cough, yellow sputum. OOB with SBA, calls appropriately. in visiting. Call light in reach, bed alarm on.
--- NOTE | 2018-06-09 14:45 | P.PN_ITS ---
Subjective Date Patient Seen: 06/09/18 Time Patient Seen: 07:34 Interval history: This is an 83-year-old male for past medical history significant for prior CHF. Patient's ejection fraction is unknown. He presented to the hospital shortness of breath and significant dyspnea on exertion. At this time patient continued to report some shortness of breath. Continued to have significant dyspnea on exertion as well. He denied any fever. He reported some cough. No difficulty swallowing. reported fatigue. Tiredness. No edema to lower extremities. No recent weight loss or weight gain. No chest pain. No chest palpitations. Spoke in the room with patient present. Questions and concerns addressed Exam Vital Signs (past 8 hours): - 06/09/18 07:28 06/09/18 07:54 06/09/18 08:30 Temperature 97.6 F Pulse Rate 68 Respiratory Rate 18 Blood Pressure 144/87 H Pulse Oximetry 99 98 96 06/09/18 09:08 06/09/18 10:17 06/09/18 12:42 Temperature 97.8 F Pulse Rate 77 Respiratory Rate 20 Blood Pressure 153/78 H Pulse Oximetry 94 98 97 06/09/18 13:45 06/09/18 14:23 Temperature Pulse Rate Respiratory Rate Blood Pressure Pulse Oximetry 97 92 Oxygen Delivery Method Nasal Cannula Oxygen Flow Rate 2 Const General: cooperative, healthy appearing and comfortable [facility] Head: normal to inspection, normocephalic and atraumatic Nose: external nose normal Face and sinus: normal facial exam Eyes General: appearance normal, both eyes and all related structures Alignment and Position: alignment normal and position normal Conjunctivae: conjunctivae normal Sclera: sclerae normal Pupils: PERRL Neck Neck: normal visual inspection, full ROM, no meningeal signs, trachea midline and supple Thyroid: thyroid normal Resp Effort & Inspection: normal respiratory effort, able to speak in complete sentences and cough Auscultation: crackles, diminished lung sounds and rales Cardio Palpation: normal PMI Rate: regular rate Heart Sounds: S1 normal and S2 normal GI Inspection: normal to inspection and obesity Palpation: soft and no hepatosplenomegaly Percussion: normal to percussion Auscultation: normal bowel sounds Penis: normal penis Scrotum: scrotum normal Testes: normal Back/Spine/Pelvis Back: normal to inspection Cervical Spine: normal cervical lordosis Thoracic/Lumbar Spine: thoracic and lumbar spine normal to inspection Skin General: no rashes or lesions noted, elasticity normal and turgor normal Lesions: no lesions Rashes: no rashes Neuro General: alert, awake, oriented x3, gait normal and CN's II-XI intact bilaterally Gait: normal gait Extrem General: normal to inspection and no joint enlargement Right upper extremity: normal to inspection, full ROM and no joint enlargement Psych Appearance: grossly normal Mental Status: mental status grossly normal Thought Process: normal Judgment: judgment good Objective Labs Result Diagrams: 06/09/18 05:30 06/09/18 05:30 Labs: Laboratory Results - last 24 hr 06/09/18 06/09/18 06/09/18 05:30 05:30 05:30 WBC 17.6 H D RBC 3.75 L Hgb 11.9 L Hct 34.6 L MCV 92.3 MCH 31.6 MCHC 34.3 RDW 14.9 H Plt Count 191 Neut % (Auto) 88.8 H Lymph % (Auto) 5.5 L [place] % (Auto) 5.6 Eos % (Auto) 0.0 L Baso % (Auto) 0.1 Neut # (Auto) 13221 H PT 29.8 H D INR 2.7 H APTT 35 Sodium 140 Potassium 4.4 Chloride 100 Carbon Dioxide 31 BUN 33 H Creatinine 1.40 H Estimated GFR 48.4 L BUN/Creatinine Ratio 23.6 H Glucose 120 H Calcium 9.4 Assessment & Plan Plan: Assessment/Plan Narrative: Impression and plan Shortness of breath/dyspnea on exertion. POSSIBLE ACUTE ON CHRONIC COPD EXACERBATION Echocardiogram done today showed ejection fraction about 60%: This could be exacerbation of heart failure with preserved systolic function as well. This could also represent exacerbation of diastolic heart failure. Patient will be continued on the current therapy with Lasix daily. Electrolytes be watched closely. Daily weight weight same scale as well as strict input and output Watch fluid intake closely CONTINUE CURRENT ANTIBIOTICS. Continue DuoNeb treatment as scheduled. Repeat chest x-ray superiorly to follow. Consider serial ABGs weight any signs of respiratory distress Additional management as indicated clinically Possible acute on chronic heart failure with preserved systolic function. Treatment as above Chronic atrial fibrillation. Ventricular rate is well controlled. Continue with amiodarone. Warfarin is also on board. Leukocytosis. This is most likely acute reactant to steroid therapy. Could also be related to underlying acute on chronic bronchitis. Patient is on antibiotics. follow cx Possible physical deconditioning. PT OT will be ordered. ENCOURAGE AMBULATION TOLERATED; fall precautions anemia of cd; monitor H&H closely. Further workup as outpatient Coumadin coagulopathy. INR is therapeutic. Continue current dose CKD stage 3 to 4. Creatinine and BUN appear to be at baseline. Avoid all nephrotoxin medications. Dose all medications for GFR. Daily labs to follow. strict i/o. AEIOU Patient estimated stay in the hospital should be more than 2 midnight. Patient will need to remain inpatient for 2- 3 more days. Quality VTE Deep Vein Thrombosis/Pulmonary Embolism Present on Admission: No
[2018-06-09] MEDS: WARFARIN 5 MG TABLET PO (16:35)
[2018-06-09] MEDS: AMIODARONE 200 MG TABLET PO (16:35)
--- NOTE | 2018-06-09 17:21 | PC.NURSE ---
Addendum entered by Lillian Varner R.N. 06/09/18 21:45: Relativelynuneventful evening. Amb in hallway w/staff, tolerated w/o incidence. Continues w/wheezes throughout. Tele NSR/first degree AVB per ICU staff. Call light w/in reach, bed alarm on for pt safety. Continue w/plan of care. Original Note: Pt resting quietly this afternoon. Denies any discomfort. Lungs w/inspiratory and expiratory wheezes. SpO2 94% 2LNC. Tele in place, NSR/first degree AVB/BBB per ICU staff. Call light w/in reach.
[2018-06-09] MEDS: AZITHROMYCIN 500 MG in DEXTROSE 5% IN WATER 250 ML IV (20:30)
[2018-06-09] MEDS: ATORVASTATIN 10 MG TABLET PO (21:11)
[2018-06-09] MEDS: MIDODRINE HCL 5 MG TABLET PO (21:12)
[2018-06-10] VITALS (9 sets, daily range): BP systolic 137–168; BP diastolic 69–84; PULSE 65–78; RESP 18–20; TEMP 36.4–37; O2SAT 93–98
--- NOTE | 2018-06-10 02:14 | PC.NURSE ---
Addendum entered by Darshana Ruvalcaba R.N. 06/10/18 06:02: Slept most of shift. Denies any pain. Sat remains in upper 90's on 1L/min oxygen but still has audible expiratory wheezing. Original Note: Alert and oriented but NEWHALEN without hearing aids in for the night. Breath sounds coarse with continued expiratory wheezing/rhonchi. At shift change was on RA with sat of 90-91% so put back on oxygen and sat now in upper 90's. BP improved but still elevated at 145/74. Denies nausea. BT present and abdomen is soft. Denies urinary problems and is voiding per urinal. Turns self in bed. Unsteady on feet when first getting up but then denies weakness or unsteadiness; walks with walker and 1 assist. Agreeable now to having SCD's replaced. Fall risk score is high and bed alarm is activated. Denies pain.
[2018-06-10] MEDS: ALBUTEROL/IPRATROPIUM 3 ML AMPUL INH ×2 (02:20→09:57)
[2018-06-10] MEDS: LEVOTHYROXINE 100 MCG TABLET PO (05:59)
[2018-06-10] MEDS: guaiFENesin ER 600 MG TAB PO ×2 (08:31→21:14)
[2018-06-10] MEDS: predniSONE 20 MG TABLET 40 MG PO (08:31)
[2018-06-10] MEDS: FUROSEMIDE 40 MG TABLET PO (08:31)
[2018-06-10] MEDS: MIDODRINE HCL 5 MG TABLET PO (08:31)
[2018-06-10] MEDS: SODIUM CHLORIDE 0.9% FLUSH 10 ML IV ×2 (08:32→21:14)
[2018-06-10 09:38] LABS: Add Manual Diff / Slide Review NO; Basophils Percent Auto 0.3 % (0-2); Eosinophils Percent Auto 0.3 % (2-4); Hematocrit 40.6 % (41-53); Hemoglobin 13.6 g/dL (13.5-17.5); Lymphocytes Percent Auto 12.7 % (25-40); Mean Corpuscular HGB Conc 33.5 % (30-36); Mean Corpuscular Hemoglobin 30.9 PG (26-34); Mean Corpuscular Volume 92.3 fL (80-100); Monocytes Percent Auto 6.3 % (3-14); Neutrophils Absolute Auto 10800 /uL (3000-5900); Neutrophils Percent Auto 80.4 % (50-75); Platelet Count 232 X10^3/uL (150-400); Red Cell Distribution Width 14.9 % (11.6-14.8); White Blood Cell Count 13.4 X10^3/uL (4.5-11.0)
[2018-06-10 09:50] LABS: Alanine Aminotransferase 29 IU/L (21-72); Albumin 4.5 g/dL (3.5-5.0); Albumin Globulin Ratio 1.4 (1.0-2.8); Alkaline Phosphatase 38 U/L (38-126); Aspartate Aminotransferase 36 IU/L (17-59); BUN Creatinine Ratio 19.3 (6-22); Bilirubin Total 0.5 mg/dL (0.2-1.3); Blood Urea Nitrogen 27 mg/dL (9-20); Calcium 9.5 mg/dL (8.4-10.2); Carbon Dioxide 32 mmol/L (22-32); Chloride 99 mmol/L (98-107); Estimated Glomerular Filt Rate 48.4 mL/min (>60); Globulin 3.2 g/dL (1.7-4.1); Glucose 103 mg/dL (80-110); HEMOLYSIS 28 (0-50); Magnesium 2.6 mg/dL (1.6-2.3); Phosphorous 4.2 mg/dL (2.3-3.7); Potassium 4.4 mmol/L (3.4-5.1); Sodium 142 mmol/L (137-145); Total Protein 7.7 g/dL (6.3-8.2)
--- NOTE | 2018-06-10 10:15 | OT.IP.EVAL ---
Current Diagnoses Chronic obstructive pulmonary disease with (acute) exacerbation (06/09/18) Past Medical History (Last Updated 06/07/18 @ 21:20 by Jayleen Ohara RN) Atrial fibrillation (Acute) CAD (coronary artery disease) (Acute) CHF (congestive heart failure) (Acute) COPD (chronic obstructive pulmonary disease) (Acute) Colon cancer (Acute) Hodgkin lymphoma (Acute) Pacemaker (Acute) Surgical History (Last Reviewed 06/07/18 @ 20:45 by SOLOMON Shaikh) History of colon resection (Acute) Occupational Therapy Inpatient Evaluation/Re-Eval M1 PT/OT-IP Prior Functional Status Start: 06/10/18 10:00 Freq: NEEDED Status: Active Protocol: Document 06/10/18 10:01 [facility] (Rec: 06/10/18 10:14 [facility] [id number]) Medical Review Prior Functional Status Medical History Reviewed Yes Diet/Fluid Consistency Regular Thin Liquids Communication Independent Mobility and Gait Independent and did not use any devices. Activities of Daily Living and IADL's COmpletely independent, however per recently having to sit to put pants on versus standing. 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 Social History Household Members spouse Living Arrangements House Number of Stairs To Enter/Railing? 2 steps with no rails and able to stay on the main level. Home Environment High Toilet Walk in Shower Home Equipment Crutches Hand Held Shower Grab Bars In Shower Employment Status Retired M2 OT-IP Current Condition Start: 06/10/18 10:00 Freq: Status: Active Protocol: Document 06/10/18 10:01 [facility] (Rec: 06/10/18 10:14 [facility] [id number]) Occupational Therapy Current Condition Current Condition Evaluation Date 06/10/18 Treatment Diagnosis SOB with hypoxia Diagnosis Onset Date 06/09/18 M3 OT- IP Subjective and Pain Start: 06/10/18 10:00 Freq: Status: Active Protocol: Document 06/10/18 10:01 [facility] (Rec: 06/10/18 10:14 [facility] [id number]) OT- Subjective Occupational Therapy Visit Type Type Initial Evaluation Visit Start Time 09:28 Visit Stop Time 09:58 Total Visit Minutes 30 Occupational Therapy Visit Comments Patient Comments Pt states has had trouble with BP dropping when he gets up. Patient/Caregiver Goals Pt wanting to go home when medically stable. OT Pain Assessment Pain When Pain Assessed At Rest Pain Present Pain Present Denied Pain M4 OT- IP ADL's Start: 06/10/18 10:00 Freq: Status: Active Protocol: Document 06/10/18 10:01 [facility] (Rec: 06/10/18 10:14 [facility] [id number]) OT ADL-Grooming Comments OT Grooming Comments Pt report already did grooming needs earlier. OT ADL-Dressing General Eval Lower Body Dressing Ability Standby Assistance Comments OT Dressing Comments Pt struggling a little to wes socks while sitting from the edge of the bed, pt's O2 drops from 99 to 91%. M5 OT- IP IADL's Start: 06/10/18 10:00 Freq: Status: Active Protocol: Document 06/10/18 10:01 [facility] (Rec: 06/10/18 10:14 [facility] [id number]) OT-Instrumental Activities of Daily Living Medication Management Medication Management Comments Pt does he own. Money Management Money Management Comments Pt does all. M6 OT- IP Functional Cognition Start: 06/10/18 10:00 Freq: Status: Active Protocol: Document 06/10/18 10:01 [facility] (Rec: 06/10/18 10:14 [facility] [id number]) Cognitive Factors Limiting Selfcare Function Cognitive Ability Level of Alertness Alert Patient Orientation Name Place Situation Attention Span Ability Capable of Focused Attention Capable of Sustained Attention Ability to Follow Commands Able to Follow Multi-Step Commands Memory Description Immediate Intact Short Term Intact Safety Awareness Underestimates Need for Assistance Cognitive Comments Cognitive Assessment Comments Pt able to follow multiple commands and does realize a bit shaky on his feet and agrees to suggestion of use of shoes when up. OT- Vision and Hearing OT- Hearing Assessment OT- Hearing Assessment Use of Hearing Aids M7 OT- IP Mobility and Balance Start: 06/10/18 10:00 Freq: Status: Active Protocol: Document 06/10/18 10:01 [facility] (Rec: 06/10/18 10:14 [facility] [id number]) OT- Bed Mobility Assessment Rolling Type of Rolling Roll to Left Level of Assistance Standby Assistance Supine to Sit Supine to Sit Assist Standby Assistance Sit to Supine Sit to Supine Assist Standby Assistance Scooting Scooting to Edge of Bed Standby Assistance Scooting Up and Down in Bed Standby Assistance OT-Transfer Assessment Sit to and From Stand Sit to and from Stand Standby Assistance Transfers Transfer Ability Standby Assistance Contact Guard Assistance Devices Transfer Assistive Devices Gait Belt Front Wheeled Walker Comments Mobility Comments SBA with FWW, CGA at times without FWW, pt tends to have slight sway when up and walking without the walker. OT- Balance Assessment Sitting Balance and Reactions Static Sitting Balance Ability Normal Dynamic Sitting Balance Ability Good Standing Balance and Reactions Static Standing Balance Ability Good Dynamic Standing Balance Ability Fair M8 OT- IP Objective Assessments Start: 06/10/18 10:00 Freq: Status: Active Protocol: Document 06/10/18 10:01 [facility] (Rec: 06/10/18 10:14 [facility] [id number]) OT Gross Range of Motion Upper Extremity Range of Motion Assessment Within Functional Limits OT Strength Upper Extremity Strength Assessment Within Functional Limits M9 OT- IP Assessment and Plan Start: 06/10/18 10:00 Freq: Status: Active Protocol: Document 06/10/18 10:01 [facility] (Rec: 06/10/18 10:14 [facility] [id number]) OT Summary Assessment and Plan Potential Rehabilitation Potential Excellent Analytic Complexity at Evaluation Low Summary OT Impairments Strength Balance Functional Mobility Progress Towards Goals Progressing Toward Goals Slow Progress due to Medical Issues Slow Progress due to Activity Tolerance Assessment Summary Pt low complexity and main barrier is decreased dynamic balance, activity tolerance, and may need device for gait - PT to determine best option for safety. Pt has a supportive and looking to go home when stable. Goals Grooming Goal Independent Dressing Goal Independent Toileting Goal Independent Bathing Goal Standby Assistance Toilet Transfer Goal Independent Shower Transfer Goal Independent Patient/Caregiver Education Goal Demonstrate Energy Conservation and Pacing Days to Meet Goals 3 Frequency of Treatment Frequency Of Treatment Once a Day Treatment Plan OT Treatment Plan ADL Training Functional Mobility Patient/Family Education Discharge Planning Other Treatment Recommendations and Next Energy conservation/work Treatment Focus simplification Discharge Recommendations OT Discharge Recommendations Home with Assistance Home Equipment Needs Shower chair
--- NOTE | 2018-06-10 11:11 | PT.IIE ---
Current Diagnoses Chronic obstructive pulmonary disease with (acute) exacerbation (06/09/18) Surgical History (Last Reviewed 06/07/18 @ 20:45 by SOLOMON Shaikh) History of colon resection (Acute) Medical History (Last Updated 06/07/18 @ 21:20 by Jayleen Ohara RN) Atrial fibrillation (Acute) CAD (coronary artery disease) (Acute) CHF (congestive heart failure) (Acute) COPD (chronic obstructive pulmonary disease) (Acute) Colon cancer (Acute) Hodgkin lymphoma (Acute) Pacemaker (Acute) Physical Therapy Inpatient Evaluation/Re-Eval M1 PT/OT-IP Prior Functional Status Start: 06/10/18 10:00 Freq: NEEDED Status: Active Protocol: Document 06/10/18 10:01 [facility] (Rec: 06/10/18 10:14 [facility] [id number]) Medical Review Prior Functional Status Medical History Reviewed Yes Diet/Fluid Consistency Regular Thin Liquids Communication Independent Mobility and Gait Independent and did not use any devices. Activities of Daily Living and IADL's COmpletely independent, however per recently having to sit to put pants on versus standing. 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 Social History Household Members spouse Living Arrangements House Number of Stairs To Enter/Railing? 2 steps with no rails and able to stay on the main level. Home Environment High Toilet Walk in Shower Home Equipment Crutches Hand Held Shower Grab Bars In Shower Employment Status Retired M1 PT/OT-IP Prior Functional Status Start: 06/10/18 13:05 Freq: NEEDED Status: Active Protocol: Document 06/10/18 11:11 [facility] (Rec: 06/10/18 13:17 [facility] [id number]) Medical Review Prior Functional Status Medical History Reviewed Yes Diet/Fluid Consistency Regular Thin Liquids Communication Independent Mobility and Gait Independent and did not use any devices. Activities of Daily Living and IADL's COmpletely independent, however per recently having to sit to put pants on versus standing. 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 Social History Household Members spouse Living Arrangements House Number of Floors (Floors) Two Floors Number of Stairs To Enter/Railing? pt lives on main level of the house; 2 steps with no rails but spouse stated that there are cabinets and things on B side that pt can hold on to. Home Environment High Toilet Walk in Shower Home Equipment Crutches Hand Held Shower Grab Bars In Shower Employment Status Retired M2 PT-IP Current Condition Start: 06/10/18 13:05 Freq: NEEDED Status: Active Protocol: Document 06/10/18 11:11 [facility] (Rec: 06/10/18 13:17 AB [id number]) Physical Therapy Current Condition Current Condition Evaluation Date 06/10/18 Treatment Diagnosis COPD exacerbation; difficulty in walking Onset Date 06/09/18 M3 PT-IP Subjective Start: 06/10/18 13:05 Freq: NEEDED Status: Active Protocol: Document 06/10/18 11:11 [facility] (Rec: 06/10/18 13:17 AB [id number]) Subjective Physical Therapy Visit Type Type Initial Evaluation Visit Start Time 11:11 Visit Stop Time 11:44 Total Visit Minutes 33 Number of WOUND SPECIALIST Visits 0 Physical Therapy Visit Comments Patient Comments pt agreeable to do PT Therapy Pain Assessment Pain Present Pain Present Denied Pain M4 PT-IP Mobility and Gait Start: 06/10/18 13:05 Freq: NEEDED Status: Active Protocol: Document 06/10/18 11:11 [facility] (Rec: 06/10/18 13:17 AB [id number]) PT-Bed Mobility Assessment Supine to Sit Supine to Sit Standby Assistance Scooting Scooting to Edge of Bed Standby Assistance PT-Transfer Assessment Sit to and From Stand Sit to and from Stand Standby Assistance Equipment Transfer Assistive Device None Gait Belt Orthotic/Prosthetic Devices or Brace: No Transfers Transfer Destination Toilet Transfer Technique pt ambulated to the toilet Transfer Ability Level of Assist Contact Guard Assistance Gait Assessment Gait Gait Assistance Required: Contact Guard Assist Distance (Feet) 100 Able to Maintain Weight Bearing Status Yes During Gait Assistive Devices Assistive Device None Gait Belt Orthotic/Prosthetic Devices or Brace: No Gait Deviations General Gait Pattern Decreased Stride Length Decreased Feet Clearance Factors Limiting Gait Function Factors Limiting Gait Function Decreased Activity Tolerance Decreased Strength Respiratory Distress Comments Gait Comments O2 sat at room air : at rest: 89-92% during ambulation: 91-95% Stair Climbing Assessment Evaluation Level of Assist On Stairs Contact Guard Assistance Minimal Assistance 1 Person Assistance Devices Stair Climbing Assistive Devices None Technique/Endurance Stair Climbing Direction Ascend and Descend Stair Climbing Technique Step to Step Number of Steps Climbed 1 Query Text: Stair Climbing Set # Repetitions (reps) 3 Comments Stair Climbing Comments pt completed up/down 1 steps without support CGA ascending but required min A descending for control. PT-Balance Assessment Sitting Balance and Reactions Static Sitting Balance Ability Good Dynamic Sitting Balance Ability Good Standing Balance and Reactions Static Standing Balance Ability Fair Dynamic Standing Balance Ability Fair Device Used without AD M5 PT-IP Objective Assessments Start: 06/10/18 13:05 Freq: NEEDED Status: Active Protocol: Document 06/10/18 11:11 [facility] (Rec: 06/10/18 13:17 AB [id number]) Orientation Orientation/Cognition Level of Alertness Alert Orientation Name Age Birthday Month Date Year Day of Week Place Situation Language Function Ability Hard of Hearing Gross Range of Motion Lower Extremity ROM Assessment Within Functional Limits Strength Lower Extremity Strength Assessment Within Functional Limits Sensation Assessment Sensation Gross Sensation WNL Muscle Tone Muscle Tone WNL Yes M6 PT-IP Treatment Start: 06/10/18 13:05 Freq: NEEDED Status: Active Protocol: Document 06/10/18 11:11 [facility] (Rec: 06/10/18 13:18 AB [id number]) Physical Therapy Treatment Education Education Provided Safety M7 PT-IP Assessment and Plan Start: 06/10/18 13:05 Freq: NEEDED Status: Active Protocol: Document 06/10/18 11:11 [facility] (Rec: 06/10/18 13:17 AB [id number]) PT Summary Assessment and Plan Potential Rehabilitation Potential Fair Status of Condition at Evaluation Evolving Summary Impairments Strength Balance Bed Mobility Transfers Gait Activity Tolerance Assessment Summary pt requiring CGA with ambulation and plans to go home with spouse to assist him . pt will benefit from cardiopulmonary rehab to improve activity tolerance. Goals Bed Mobility Goal Independent Transfer Goal Independent Gait Goal Independent Gait Distance 250 Other Goals up/down 2 steps without rails SBA Days to Meet Goals 3 Frequency of Treatment Frequency Of Treatment Once a Day Treatment Plan Physical Therapy Treatment Plan Bed Mobility Training Transfer Training Gait Training Therapeutic Exercise Balance Retraining Post Op Education Discharge Planning Hot or Cold Pack Neuromuscular Re-ed Coordination Retraining Manual Therapy Other Recommendations and Next Treatment ambulation; stairclimbing Focus Recommendations To Nursing Amount of Assist Needed 1 Person Assist Discharge Recommendations PT Discharge Recommendations Home with Assistance Outpatient PT Other Discharge Recommendations home with assist and cardiopulmo rehab
--- NOTE | 2018-06-10 14:47 | PM.PN.1 ---
Subjective Date Patient Seen: 06/10/18 Time Patient Seen: 08:52 Interval history: HAD A SIGNIFICANT BM TODAY FEELING BETTER NO FEVER OR CHILLS REPORT NO CP/CHEST PALP REPORTED DIGGS NO SIGNFCT ISSUES OVERNIGHT Exam Vital Signs (past 8 hours): - 06/10/18 07:57 06/10/18 09:35 06/10/18 11:12 Temperature 98.2 F 97.5 F L Pulse Rate 67 70 Respiratory Rate 18 18 Blood Pressure 168/84 H 137/70 Pulse Oximetry 98 98 93 Oxygen Delivery Method Room Air Oxygen Flow Rate 0 Narrative Exam Narrative: NO ACUTE DISTRESS. PATIENT IS ALERT ORIENTED X3. VITAL SIGNS STABLE HEAD ATRAUMATIC NORMOCEPHALIC NECK : SUPPLE WITHOUT ADENOPATHY BECAUSE SHE WOULD HAS REVIEWED THE EYE: EOMI, PERRLA, NORMAL CONJUNCTIVA CHEST: REGULAR RATE.. NO RUBS. PMI IS NON DISPLACED. 2/6 SYSTOLIC MURMUR NOTED ON THE 2ND INTRACOSTAL IN THE RIGHT; NO HEAVE PULMONARY: DECREASED BREATH SOUNDS OVER THE BASES. BIBASILAR CRACKLES NOTED; NO INCREASED DULLNESS TO PERCUSSION; MILD WHEEZING AT THE APICES EXTREMITIES: 1+ EDEMA. NONPITTING. NO CYANOSIS CLUBBING NOTED. NEURO: CRANIAL NERVES 2-12 GROSSLY INTACT. NO FOCAL NEUROLOGICAL DEFICIT NOTED. MSK: NORMAL RANGE OF MOTION FOR AGE. NO JOINT EFFUSION. SKIN: NORMAL FOR ETHNICITY; NO ECCHYMOSIS. NO LESION. FAIR TURGOR. : NORMAL EXTERNAL GENITALIA. PSYCH : APPROPRIATE MOOD AND AFFECT. ALERT AWAKE ORIENTED X3 Objective Labs Result Diagrams: 06/10/18 09:25 06/10/18 09:25 Labs: Laboratory Results - last 24 hr 06/10/18 06/10/18 09:25 09:25 WBC 13.4 H RBC 4.40 L Hgb 13.6 Hct 40.6 L MCV 92.3 MCH 30.9 MCHC 33.5 RDW 14.9 H Plt Count 232 Neut % (Auto) 80.4 H Lymph % (Auto) 12.7 L [place] % (Auto) 6.3 Eos % (Auto) 0.3 L Baso % (Auto) 0.3 Neut # (Auto) 19744 H Sodium 142 Potassium 4.4 Chloride 99 Carbon Dioxide 32 BUN 27 H Creatinine 1.40 H Estimated GFR 48.4 L BUN/Creatinine Ratio 19.3 Glucose 103 Calcium 9.5 Phosphorus 4.2 H Magnesium 2.6 H Total Bilirubin 0.5 AST 36 ALT 29 Alkaline Phosphatase 38 Total Protein 7.7 Albumin 4.5 Globulin 3.2 Albumin/Globulin Ratio 1.4 Assessment & Plan Plan: Assessment/Plan Narrative: Impression and plan ACUTE RESP FAILURE; 2/2 TO ACOPDE AND POSS HF; CXR AND ABG TO FOLLOW INDICATED POSSIBLE ACUTE COPD EXACERBATION; WILL CONT TREATMENT WITH DUONEBS WELL STEROIDS; ABX ORDERED WELL; SERIAL CXR / ABG TO FOLLOW; CONT PULSE OX INDICATED; MONITOR CLOSELY Possible acute on chronic heart failure with preserved systolic function. echo showing ef at 60% with some mild to moderate valvulopathy; tele at all times; cont lasix; strict io; daily wt; low salt diet; restrict fluids as indicated Chronic atrial fibrillation. Ventricular rate is well controlled. Continue with amiodarone. Warfarin is also on board. Leukocytosis. consider acute reactant to steroid therapy. improved today; Could also be related to underlying acute on chronic bronchitis. Patient is on doxy. follow cx Possible physical deconditioning. PT OT will be ordered. ENCOURAGE AMBULATION TOLERATED; fall precautions anemia of cd; monitor H&H closely. Further workup as outpatient Coumadin coagulopathy. INR is therapeutic. daily pt/inr; Continue current dose CKD stage 3 to 4. Creatinine appears to be at baseline. Avoid all nephrotoxic medications. Dose all medications for GFR. Daily labs to follow. strict i/o. AEIOU dc in next 48-72 hrs if stable Quality VTE Deep Vein Thrombosis/Pulmonary Embolism Present on Admission: No
--- NOTE | 2018-06-10 15:07 | P.PN_ITS ---
Subjective Date Patient Seen: 06/10/18 Time Patient Seen: 08:52 Interval history: HAD A SIGNIFICANT BM TODAY FEELING BETTER NO FEVER OR CHILLS REPORT NO CP/CHEST PALP REPORTED DIGGS NO SIGNFCT ISSUES OVERNIGHT Exam Vital Signs (past 8 hours): - 06/10/18 07:57 06/10/18 09:35 06/10/18 11:12 Temperature 98.2 F 97.5 F L Pulse Rate 67 70 Respiratory Rate 18 18 Blood Pressure 168/84 H 137/70 Pulse Oximetry 98 98 93 Oxygen Delivery Method Room Air Oxygen Flow Rate 0 Narrative Exam Narrative: NO ACUTE DISTRESS. PATIENT IS ALERT ORIENTED X3. VITAL SIGNS STABLE HEAD ATRAUMATIC NORMOCEPHALIC NECK : SUPPLE WITHOUT ADENOPATHY BECAUSE SHE WOULD HAS REVIEWED THE EYE: EOMI, PERRLA, NORMAL CONJUNCTIVA CHEST: REGULAR RATE.. NO RUBS. PMI IS NON DISPLACED. 2/6 SYSTOLIC MURMUR NOTED ON THE 2ND INTRACOSTAL IN THE RIGHT; NO HEAVE PULMONARY: DECREASED BREATH SOUNDS OVER THE BASES. BIBASILAR CRACKLES NOTED ; NO INCREASED DULLNESS TO PERCUSSION; MILD WHEEZING AT THE APICES EXTREMITIES: 1+ EDEMA. NONPITTING. NO CYANOSIS CLUBBING NOTED. NEURO: CRANIAL NERVES 2-12 GROSSLY INTACT. NO FOCAL NEUROLOGICAL DEFICIT NOTED. MSK: NORMAL RANGE OF MOTION FOR AGE. NO JOINT EFFUSION. SKIN: NORMAL FOR ETHNICITY; NO ECCHYMOSIS. NO LESION. FAIR TURGOR. : NORMAL EXTERNAL GENITALIA. PSYCH : APPROPRIATE MOOD AND AFFECT. ALERT AWAKE ORIENTED X3 Objective Labs Result Diagrams: 06/10/18 09:25 06/10/18 09:25 Labs: Laboratory Results - last 24 hr 06/10/18 06/10/18 09:25 09:25 WBC 13.4 H RBC 4.40 L Hgb 13.6 Hct 40.6 L MCV 92.3 MCH 30.9 MCHC 33.5 RDW 14.9 H Plt Count 232 Neut % (Auto) 80.4 H Lymph % (Auto) 12.7 L [place] % (Auto) 6.3 Eos % (Auto) 0.3 L Baso % (Auto) 0.3 Neut # (Auto) 05627 H Sodium 142 Potassium 4.4 Chloride 99 Carbon Dioxide 32 BUN 27 H Creatinine 1.40 H Estimated GFR 48.4 L BUN/Creatinine Ratio 19.3 Glucose 103 Calcium 9.5 Phosphorus 4.2 H Magnesium 2.6 H Total Bilirubin 0.5 AST 36 ALT 29 Alkaline Phosphatase 38 Total Protein 7.7 Albumin 4.5 Globulin 3.2 Albumin/Globulin Ratio 1.4 Assessment & Plan Plan: Assessment/Plan Narrative: Impression and plan ACUTE RESP FAILURE; 2/2 TO ACOPDE AND POSS HF; CXR AND ABG TO FOLLOW INDICATED POSSIBLE ACUTE COPD EXACERBATION; WILL CONT TREATMENT WITH DUONEBS WELL STEROIDS; ABX ORDERED WELL; SERIAL CXR / ABG TO FOLLOW; CONT PULSE OX INDICATED; MONITOR CLOSELY Possible acute on chronic heart failure with preserved systolic function. echo showing ef at 60% with some mild to moderate valvulopathy; tele at all times; cont lasix; strict io; daily wt; low salt diet; restrict fluids as indicated Chronic atrial fibrillation. Ventricular rate is well controlled. Continue with amiodarone. Warfarin is also on board. Leukocytosis. consider acute reactant to steroid therapy. improved today; Could also be related to underlying acute on chronic bronchitis. Patient is on doxy. follow cx Possible physical deconditioning. PT OT will be ordered. ENCOURAGE AMBULATION TOLERATED; fall precautions anemia of cd; monitor H&H closely. Further workup as outpatient Coumadin coagulopathy. INR is therapeutic. daily pt/inr; Continue current dose CKD stage 3 to 4. Creatinine appears to be at baseline. Avoid all nephrotoxic medications. Dose all medications for GFR. Daily labs to follow. strict i/o. AEIOU dc in next 48-72 hrs if stable Quality VTE Deep Vein Thrombosis/Pulmonary Embolism Present on Admission: No
--- NOTE | 2018-06-10 16:34 | CM.DPNOTE ---
DCP: case received and discussed in Team Rounds today. Hospitalist stated pt was not ready yet for a d/c to home. Pt's called this afternoon hoping for an update on her 's admission status (initially oBS) and said she had been trying to figure out what they might owe. Confirmed with UR RN Nathen that admission status had been changed to INPT on 06/09 and updated her accordingly. DCP team will continue to follow prn for any d/c needs that may arise.
[2018-06-10] MEDS: AMIODARONE 200 MG TABLET PO (17:31)
[2018-06-10] MEDS: WARFARIN 5 MG TABLET 10 MG PO (17:31)
[2018-06-10 19:01] LABS: INR 2.9 (0.9-1.3); Prothrombin Time 31.5 SECONDS (10.1-12.7)
--- NOTE | 2018-06-10 20:50 | PC.NURSE ---
Student Nurse Note: Patient is pleasant, desires highest level possible of independence. Wheezes present, and exacerbated with activity (ambulation to-from bathroom), but patient reported being unsure if a breathing treatment was needed, and reports no home oxygen. Wheezes and diminished lung sounds present, but O2 stayed around the low 90's consistently.
[2018-06-10] MEDS: DOXYCYCLINE HYCLATE 100 MG TABLET PO (21:14)
[2018-06-10] MEDS: ATORVASTATIN 10 MG TABLET PO (21:14)
[2018-06-11 00:03] VITALS: BP 154/74; PULSE 69; RESP 18; TEMP 36.7; O2SAT 94
[2018-06-11 04:40] VITALS: BP 151/67; PULSE 64; RESP 16; TEMP 36.4; O2SAT 95
[2018-06-11] MEDS: LEVOTHYROXINE 100 MCG TABLET PO (06:25)
[2018-06-11 08:00] VITALS: BP 144/79; PULSE 66; RESP 18; TEMP 36.4; O2SAT 93
[2018-06-11] MEDS: predniSONE 20 MG TABLET 40 MG PO (09:07)
[2018-06-11] MEDS: DOXYCYCLINE HYCLATE 100 MG TABLET PO (09:07)
[2018-06-11] MEDS: FUROSEMIDE 40 MG TABLET PO (09:07)
[2018-06-11] MEDS: SODIUM CHLORIDE 0.9% FLUSH 10 ML IV (09:07)
[2018-06-11] MEDS: guaiFENesin ER 600 MG TAB PO (09:07)
[2018-06-11] MEDS: MIDODRINE HCL 5 MG TABLET PO (09:07)
--- NOTE | 2018-06-11 10:55 | PC.NURSE ---
Elizabeth worked with Pt in room and reported that Pt' bp was 84/51 sitting and then down to 70/48 when he stood up, after 2-3 minutes his bp was up to 93/50. After Pt walked to the bathroom to void his bp was 74/47 and then up to 118/64 after 2-[address] Gomez of this occurence. Pt has a hx of orthostatic hypotension and is aware of safety measures such as getting up slowly from chair or bed and then standing for a moment to check for dizziness before he begins walking.
--- NOTE | 2018-06-11 11:05 | PT.IPTN ---
Current Diagnoses Chronic obstructive pulmonary disease with (acute) exacerbation (06/09/18) Physical Therapy Treatment Note M2 PT-IP Current Condition Start: 06/10/18 13:05 Freq: NEEDED Status: Active Protocol: Document 06/10/18 11:11 AB (Rec: 06/10/18 13:17 AB [id number]) Physical Therapy Current Condition Current Condition Evaluation Date 06/10/18 Treatment Diagnosis COPD exacerbation; difficulty in walking Onset Date 06/09/18 M3 PT-IP Subjective Start: 06/10/18 13:05 Freq: NEEDED Status: Active Protocol: Document 06/11/18 11:05 AB (Rec: 06/11/18 11:34 AB [id number]) Subjective Physical Therapy Visit Type Visit Start Time 11:05 Visit Stop Time 11:20 Total Visit Minutes 15 Number of 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 spouse stated that he is going home. M4 PT-IP Mobility and Gait Start: 06/10/18 13:05 Freq: NEEDED Status: Active Protocol: Document 06/11/18 11:05 AB (Rec: 06/11/18 11:34 AB [id number]) PT-Transfer Assessment Sit to and From Stand Sit to and from Stand Standby Assistance Equipment Orthotic/Prosthetic Devices or Brace: No Comments Mobility Comments OT informed PT that pt has low BP during OT session. talked to pt regarding BP and stated that it is a chronic thing. nurse stated that pt has h/o low BP and has d/c orders. BP monitored. BP in sittin/ 63 . pt completed sit to stand SBA and with c/o lightheadedness: BP: 78/48. pt stated that lightheadedness is nothing unusual. BP checked in standing after 2 min: 103/56. pt ambulated in room and caregiver training conducted with pt and spouse. BP after ambulation/end of session: 135/82 Gait Assessment Gait Gait Assistance Required: Standby Assistance Distance (Feet) 30 Able to Maintain Weight Bearing Status Yes During Gait Assistive Devices Assistive Device None Gait Belt Orthotic/Prosthetic Devices or Brace: No Gait Deviations General Gait Pattern Antalgic Factors Limiting Gait Function Factors Limiting Gait Function Decreased Activity Tolerance Decreased Strength Poor Balance Poor Safety Awareness Comments Gait Comments caregiver training conducted. educated spouse on how to don /doff safety belt and how to assist pt safely. Stair Climbing Assessment Evaluation Level of Assist On Stairs Minimal Assistance Technique/Endurance Stair Climbing Direction Ascend and Descend Stair Climbing Technique Step to Step Number of Steps Climbed 1 Query Text: Stair Climbing Set # Repetitions (reps) 2 M5 PT-IP Objective Assessments Start: 06/10/18 13:05 Freq: NEEDED Status: Active Protocol: Document 06/10/18 11:11 AB (Rec: 06/10/18 13:17 AB [id number]) Orientation Orientation/Cognition Level of Alertness Alert Orientation Name Age Birthday Month Date Year Day of Week Place Situation Language Function Ability Hard of Hearing Gross Range of Motion Lower Extremity ROM Assessment Within Functional Limits Strength Lower Extremity Strength Assessment Within Functional Limits Sensation Assessment Sensation Gross Sensation WNL Muscle Tone Muscle Tone WNL Yes M6 PT-IP Treatment Start: 06/10/18 13:05 Freq: NEEDED Status: Active Protocol: Document 06/11/18 11:05 AB (Rec: 06/11/18 11:34 AB [id number]) Physical Therapy Treatment Education Education Provided Safety Other Treatments Other Treatment Performed caregiver training conducted for ambulation and stair climbing training. spouse was able to assist pt safely. educated pt on PLB and to slow down. M7 PT-IP Assessment and Plan Start: 06/10/18 13:05 Freq: NEEDED Status: Active Protocol: Document 06/11/18 11:05 AB (Rec: 06/11/18 11:34 AB [id number]) PT Summary Assessment and Plan Potential Rehabilitation Potential Fair Summary Impairments Strength Balance Bed Mobility Transfers Gait Activity Tolerance Assessment Summary pt requiring CGA with ambulation and plans to go home with spouse to assist him . pt will benefit from cardiopulmonary rehab to improve activity tolerance. Goals Bed Mobility Goal Independent Transfer Goal Independent Gait Goal Independent Gait Distance 250 Other Goals up/down 2 steps without rails SBA Days to Meet Goals 3 Frequency of Treatment Frequency Of Treatment Once a Day Treatment Plan Physical Therapy Treatment Plan Bed Mobility Training Transfer Training Gait Training Therapeutic Exercise Balance Retraining Post Op Education Discharge Planning Hot or Cold Pack Neuromuscular Re-ed Coordination Retraining Manual Therapy Other Recommendations and Next Treatment ambulation; stairclimbing Focus Recommendations To Nursing Amount of Assist Needed 1 Person Assist Discharge Recommendations PT Discharge Recommendations Home with Assistance Outpatient PT Other Discharge Recommendations home with assist and cardiopulmo rehab
--- NOTE | 2018-06-11 11:20 | PM.DS.1 ---
History of Present Illness Date Patient Seen: 06/11/18 Chief complaint: sob,chest pain from coughing Narrative: The patient is an 83-year-old male w/ PMH significant for COPD (mild), restrictive lung disease, CAD (no h/o CT), AFIB (AC w/ warfarin), cardiomyopathy (s/p PPM, [facility], w/ complication of punctured lung / chest tube), hypothyroidism, Hodgkin's lymphoma, colon cancer (s/p colon resection 1999), sigmoid diverticulosis, and prior h/o tobacco dependence (quit 1982). Patient presented to the ED after being sent from a walk-in clinic for further evaluation of hypoxia. Patient complains of progressively worsening dyspnea (from his baseline) for a period of 4 weeks. Prior to that patient has been experiencing symptoms of bronchitis. Also, reports sinus drainage and congestion, which he experiences from time to time, but notes it to be worse recently. Reports receiving a flu shot 1 month ago. Associated symptoms include cough w/ phlegm production and increased purulence, wheezing, hypoxia (noted in the walk-in clinic today), and fatigue. Noticed purulence 1 week ago, progressively increasing in quantity, initially yellow-green in color and now reported as green-brown. Patient is known to have COPD, which is noted to be mild per PFTs on 04/05/2017; does not use bronchodilators routinely. Denies recurrent COPD exacerbations. Patient tried to use his inhaler; however, which he noted to be ineffective in symptom relief. Patient also commented that his inhaler was nearly empty. Denies recent hospitalization. Denies experiencing fever/chills, chest pain, palpitations, dizziness, lightheadedness, syncopal events, peripheal edema, PND, abdominal pain, gastrointestinal distress, change in micturition (baseline nocturia), blood in urine/stool, malaise or myalgia. Typically he does not lay flat and could not comment on orthopnea. He is known to snore, had a sleep study 6-10 yrs ago by reports. Does not wear a CPAP. He is not oxygen dependent. Does not follow w/ pulmonology. Patient is known to have cardiomyopathy with a history of pacemaker implantation (10-12 yrs ago). He does have a h/o heart failure. Weighs himself daily (typically 195 lbs), reports no change in weight. Follows w/ cardiology every 6 months (Dr. Del Haley / [facility]erged With [facility]). Discharge Providers Date of admission: 06/09/18 14:32 Primary care physician: Everton Riley MD Consults: 06/07/18 19:36 Consult to Discharge Planning Routine Comment: 06/07/18 19:37 Consult to Respiratory Therapy Evaluate & Treat Comment: COPD exacerbation Physician Instructions: Evaluate and treat 06/09/18 14:54 Consult to Discharge Planning Routine Comment: might need snf on disposition Consult to Occupational Therapy Evaluate & Treat Comment: Physician Instructions: Evaluate and treat Consult to Physical Therapy Evaluate & Treat Comment: Physician Instructions: Evaluate and Treat Discharge provider: Jayleen Gomez MD Discharge Date: 06/11/18 Summary Discharge Diagnosis: Acute Hypoxic Respiratory Failure Acute COPD Exacerbation Acute on Chronic Systolic Heart Failure with preserved Systolic Function Atrial Fibrillation on A/C Chronic Renal Failure, Stage 3 Chronic bronchitis orthostatic hypotension-chronic S/P pacemaker placement Hyperlipidemia Hospital Course: Patient admitted to the hospital for acute shortness of breath. He was initially treated for a COPD exacerbation with minimal improvement. His echocardiogram demonstrated an Ejection fraction of 60% with a dilated left atrium and dilated right atrium. Pacemaker placement was noted. The patient was placed on lasix with significant improvement in his breathing. He no longer required oxygen. He continued to have orthostatic hypotension but no dizziness. He made slow but steady progress and was deemed appropriate for discharge home. The patient will follow up with Dr. Vu next week for a post discharge evaluation. Status at Discharge Functional status at discharge: independent ambulation Overall status at discharge: patient is back to baseline Time Spent with Patient Less than 30 minutes Exam Vital Signs (past 8 hours): - 06/11/18 04:40 06/11/18 08:00 Temperature 97.6 F 97.5 F L Pulse Rate 64 66 Respiratory Rate 16 18 Blood Pressure 151/67 H 144/79 H Pulse Oximetry 95 93 Oxygen Delivery Method Room Air Oxygen Flow Rate 0 Narrative Exam Narrative: Pleasant gentleman resting comfortably in NAD Lungs: decreased with coarse breath sounds at bases CV:RRR nl Sl S2 Abd: soft/ non tender/ non distended Ext: no edema Objective Labs Result Diagrams: 06/10/18 09:25 06/10/18 09:25 Labs: Laboratory Results - last 24 hr 06/10/18 18:05 PT 31.5 H INR 2.9 H Discharge Plan Discharge Plan Patient Disposition: Home Discharge Med Rec/Prescriptions Prescriptions: New prednisone 20 mg Tablet 40 mg PO DAILY 1 Days RF: 0 guaifenesin 600 mg Tablet Extended Release 12hr 600 mg PO BID 5 Days Qty: 10 RF: 0 doxycycline hyclate 100 mg Tablet 100 mg PO BID 5 Days Qty: 10 RF: 0 Continue atorvastatin [Lipitor] 10 MG tablet 10 mg PO HS Qty: 0 RF: 0 [wolof blk radish] 1 dose PO BID Qty: 0 RF: 0 amiodarone 200 mg Tablet 200 mg PO DAILY RF: 0 midodrine 5 mg Tablet 5 mg PO BID RF: 0 levothyroxine 100 mcg Tablet 100 mcg PO DAILY RF: 0 fludrocortisone 0.1 mg Tablet 0.1 mg PO DAILY RF: 0 warfarin [Jantoven] 5 mg Tablet See Label Instructions .ROUTE .COMPLEX RF: 0 Follow up/Referrals: Everton Riley MD [Primary Care Provider] - (please call and schedule a follow up appointment with dr riley [phone]) Provider Discharge Instructions Diet: Low-sodium and Low-cholesterol Activity: As tolerated Oxygen: Not indicated Visit Report/Discharge Packet Instructions: DI for Heart Failure Visit Report Forms: Congestive Heart Failure, Stroke Signs & Symptoms Discharge Data Primary Care Provider: Everton Riley Attending Provider: Wilda Donald Admit Date/Time: 06/09/18 14:32 Quality VTE Deep Vein Thrombosis/Pulmonary Embolism Present on Admission: No
--- NOTE | 2018-06-11 11:22 | CM.DPC ---
DCP Cont: Met with patient and , as patient has discharge orders. Yun supportive, patient and feel that there are no barriers for his discharge, and do not feel that they need any resources at this time. Has been cleared by respiratory therapy as well for room air. P: Patient will be discharged home today. Lani Kebede RN/Quick Sketch Artist
--- NOTE | 2018-06-11 11:26 | P.DS_ITS ---
History of Present Illness Date Patient Seen: 06/11/18 Chief complaint: sob,chest pain from coughing Narrative: The patient is an 83-year-old male w/ PMH significant for COPD (mild), restrictive lung disease, CAD (no h/o PR), AFIB (AC w/ warfarin), cardiomyopathy (s/p PPM, [facility], w/ complication of punctured lung / chest tube), hypothyroidism, Hodgkin's lymphoma, colon cancer (s/p colon resection 1999), sigmoid diverticulosis, and prior h/o tobacco dependence (quit 1982). Patient presented to the ED after being sent from a walk-in clinic for further evaluation of hypoxia. Patient complains of progressively worsening dyspnea ( from his baseline) for a period of 4 weeks. Prior to that patient has been experiencing symptoms of bronchitis. Also, reports sinus drainage and congestion, which he experiences from time to time, but notes it to be worse recently. Reports receiving a flu shot 1 month ago. Associated symptoms include cough w/ phlegm production and increased purulence, wheezing, hypoxia ( noted in the walk-in clinic today), and fatigue. Noticed purulence 1 week ago, progressively increasing in quantity, initially yellow-green in color and now reported as green-brown. Patient is known to have COPD, which is noted to be mild per PFTs on 04/05/2017; does not use bronchodilators routinely. Denies recurrent COPD exacerbations. Patient tried to use his inhaler; however, which he noted to be ineffective in symptom relief. Patient also commented that his inhaler was nearly empty. Denies recent hospitalization. Denies experiencing fever/chills, chest pain, palpitations, dizziness, lightheadedness, syncopal events, peripheal edema, PND, abdominal pain, gastrointestinal distress, change in micturition (baseline nocturia), blood in urine/stool, malaise or myalgia. Typically he does not lay flat and could not comment on orthopnea. He is known to snore, had a sleep study 6-10 yrs ago by reports. Does not wear a CPAP. He is not oxygen dependent. Does not follow w/ pulmonology. Patient is known to have cardiomyopathy with a history of pacemaker implantation (10-12 yrs ago). He does have a h/o heart failure. Weighs himself daily (typically 195 lbs), reports no change in weight. Follows w/ cardiology every 6 months (Dr. Del Haley / [facility]). Discharge Providers Date of admission: 06/09/18 14:32 Primary care physician: Everton Riley MD Consults: 06/07/18 19:36 Consult to Discharge Planning Routine Comment: 06/07/18 19:37 Consult to Respiratory Therapy Evaluate & Treat Comment: COPD exacerbation Physician Instructions: Evaluate and treat 06/09/18 14:54 Consult to Discharge Planning Routine Comment: might need snf on disposition Consult to Occupational Therapy Evaluate & Treat Comment: Physician Instructions: Evaluate and treat Consult to Physical Therapy Evaluate & Treat Comment: Physician Instructions: Evaluate and Treat Discharge provider: Jayleen Gomez MD Discharge Date: 06/11/18 Summary Discharge Diagnosis: Acute Hypoxic Respiratory Failure Acute COPD Exacerbation Acute on Chronic Systolic Heart Failure with preserved Systolic Function Atrial Fibrillation on A/C Chronic Renal Failure, Stage 3 Chronic bronchitis orthostatic hypotension-chronic S/P pacemaker placement Hyperlipidemia Hospital Course: Patient admitted to the hospital for acute shortness of breath. He was initially treated for a COPD exacerbation with minimal improvement. His echocardiogram demonstrated an Ejection fraction of 60% with a dilated left atrium and dilated right atrium. Pacemaker placement was noted. The patient was placed on lasix with significant improvement in his breathing. He no longer required oxygen. He continued to have orthostatic hypotension but no dizziness. He made slow but steady progress and was deemed appropriate for discharge home. The patient will follow up with Dr. Vu next week for a post discharge evaluation. Status at Discharge Functional status at discharge: independent ambulation Overall status at discharge: patient is back to baseline Time Spent with Patient Less than 30 minutes Exam Vital Signs (past 8 hours): - 06/11/18 04:40 06/11/18 08:00 Temperature 97.6 F 97.5 F L Pulse Rate 64 66 Respiratory Rate 16 18 Blood Pressure 151/67 H 144/79 H Pulse Oximetry 95 93 Oxygen Delivery Method Room Air Oxygen Flow Rate 0 Narrative Exam Narrative: Pleasant gentleman resting comfortably in NAD Lungs: decreased with coarse breath sounds at bases CV:RRR nl Sl S2 Abd: soft/ non tender/ non distended Ext: no edema Objective Labs Result Diagrams: 06/10/18 09:25 06/10/18 09:25 Labs: Laboratory Results - last 24 hr 06/10/18 18:05 PT 31.5 H INR 2.9 H Discharge Plan Discharge Plan Patient Disposition: Home Discharge Med Rec/Prescriptions Prescriptions: New prednisone 20 mg Tablet 40 mg PO DAILY 1 Days RF: 0 guaifenesin 600 mg Tablet Extended Release 12hr 600 mg PO BID 5 Days Qty: 10 RF: 0 doxycycline hyclate 100 mg Tablet 100 mg PO BID 5 Days Qty: 10 RF: 0 Continue atorvastatin [Lipitor] 10 MG tablet 10 mg PO HS Qty: 0 RF: 0 [maori blk radish] 1 dose PO BID Qty: 0 RF: 0 amiodarone 200 mg Tablet 200 mg PO DAILY RF: 0 midodrine 5 mg Tablet 5 mg PO BID RF: 0 levothyroxine 100 mcg Tablet 100 mcg PO DAILY RF: 0 fludrocortisone 0.1 mg Tablet 0.1 mg PO DAILY RF: 0 warfarin [Jantoven] 5 mg Tablet See Label Instructions .ROUTE .COMPLEX RF: 0 Follow up/Referrals: Everton Riley MD [Primary Care Provider] - (please call and schedule a follow up appointment with dr riley [phone]) Provider Discharge Instructions Diet: Low-sodium and Low-cholesterol Activity: As tolerated Oxygen: Not indicated Visit Report/Discharge Packet Instructions: DI for Heart Failure Visit Report Forms: Congestive Heart Failure, Stroke Signs & Symptoms Discharge Data Primary Care Provider: Everton Riley Attending Provider: Wilda Donald Admit Date/Time: 06/09/18 14:32 Quality VTE Deep Vein Thrombosis/Pulmonary Embolism Present on Admission: No
[2018-06-11 11:37] VITALS: O2SAT 93
--- NOTE | 2018-06-11 12:04 | PC.NURSE ---
Pt has showered and is ready for discharge home with Spouse as soon as he completes lunch. HL removed. Reviewed stroke education, CHF guidelines, discharge meds, time of last dose, and encouraged Pt to get up slowly to prevent orthostatic hypotension and dizziness. Spouse made Pt repeat these instructions to check for understanding. Pt and Spouse have no further questions.
--- NOTE | 2018-06-11 12:05 | OT.IP.TRT ---
Current Diagnoses Chronic obstructive pulmonary disease with (acute) exacerbation (06/09/18) Occupational Therapy Treatment Note M2 OT-IP Current Condition Start: 06/10/18 10:00 Freq: Status: Active Protocol: Document 06/10/18 10:01 [facility] (Rec: 06/10/18 10:14 [facility] [id number]) Occupational Therapy Current Condition Current Condition Evaluation Date 06/10/18 Treatment Diagnosis SOB with hypoxia Diagnosis Onset Date 06/09/18 M3 OT- IP Subjective and Pain Start: 06/10/18 10:00 Freq: Status: Active Protocol: Document 06/11/18 11:54 [facility] (Rec: 06/11/18 12:04 [facility] [id number]) OT- Subjective Occupational Therapy Visit Type Type Treatment Note Visit Start Time 10:15 Visit Stop Time 10:40 Total Visit Minutes 40 Notes Pt seen again at 1130 to 1145 for a shower. Occupational Therapy Visit Comments Patient/Caregiver Goals Pt feels ready to go home. OT Pain Assessment Pain When Pain Assessed At Rest Pain Present Pain Present Denied Pain M4 OT- IP ADL's Start: 06/10/18 10:00 Freq: Status: Active Protocol: Document 06/11/18 11:54 [facility] (Rec: 06/11/18 12:04 [facility] [id number]) OT ADL-Grooming General Evaluation Areas Needing Assistance Retrieving/Set-up of Grooming Items Comments OT Grooming Comments SBA at sink to do all grooming needs. OT ADL-Dressing General Eval Upper Body Dressing Ability Independent Lower Body Dressing Ability Moderate Assistance Areas Needing Assistance Underpants/Brief Pants/Shorts Comments OT Dressing Comments Pt insisting on standing to wes pants/brief and having to assist to wes over his feet. Pt not open to sitting down to initiate any LB dressing needs. OT ADL-Bathing Bathing Type Bathing Type Shower General Evaluation Bathing Ability Minimal Assistance Areas Needing Assistance Wash/Dry Back Wash/Dry Lower Extremities Devices Bathing Equipment Grab Bars Comments OT Bathing Comments Pt not wanting to use shower chair, insisting on standing even though noted pt wheezing and SOB while taking a shower. Pt needing to use grab bars and assisting as needed. M5 OT- IP IADL's Start: 06/10/18 10:00 Freq: Status: Active Protocol: Document 06/10/18 10:01 [facility] (Rec: 06/10/18 10:14 [facility] [id number]) OT-Instrumental Activities of Daily Living Medication Management Medication Management Comments Pt does he own. Money Management Money Management Comments Pt does all. M6 OT- IP Functional Cognition Start: 06/10/18 10:00 Freq: Status: Active Protocol: Document 06/11/18 11:54 [facility] (Rec: 06/11/18 12:04 [facility] [id number]) Cognitive Factors Limiting Selfcare Function Cognitive Ability Level of Alertness Alert Patient Orientation Name Place Situation Attention Span Ability Capable of Focused Attention Capable of Sustained Attention Ability to Follow Commands Able to Follow Multi-Step Commands Safety Awareness Underestimates Need for Assistance Cognitive Comments Cognitive Assessment Comments Pt resistant to taking rest breaks even though getting SOB . M7 OT- IP Mobility and Balance Start: 06/10/18 10:00 Freq: Status: Active Protocol: Document 06/11/18 11:54 [facility] (Rec: 06/11/18 12:04 [facility] [id number]) OT-Transfer Assessment Sit to and From Stand Sit to and from Stand Standby Assistance Transfers Transfer Ability Standby Assistance Technique Transfer Destination Chair Toilet Transfer Technique Stand Step Pivot Devices Transfer Assistive Devices None Gait Belt Comments Mobility Comments At times pt a bit unsteady on his feet and needing to hold to gait belt, especially when pt moving fast and turning. OT- Balance Assessment Sitting Balance and Reactions Static Sitting Balance Ability Normal Dynamic Sitting Balance Ability Normal Standing Balance and Reactions Static Standing Balance Ability Normal Dynamic Standing Balance Ability Good M8 OT- IP Objective Assessments Start: 06/10/18 10:00 Freq: Status: Active Protocol: Document 06/10/18 10:01 [facility] (Rec: 06/10/18 10:14 [facility] [id number]) OT Gross Range of Motion Upper Extremity Range of Motion Assessment Within Functional Limits OT Strength Upper Extremity Strength Assessment Within Functional Limits M9 OT- IP Assessment and Plan Start: 06/10/18 10:00 Freq: Status: Active Protocol: Document 06/11/18 11:54 [facility] (Rec: 06/11/18 12:04 [facility] [id number]) OT Summary Assessment and Plan Potential Rehabilitation Potential Excellent Analytic Complexity at Evaluation Low Summary OT Impairments Balance Functional Mobility Progress Towards Goals Progressing Toward Goals Slow Progress due to Cognition Assessment Summary Pt doing better, however, main barrier pt not wanting to take rest breaks, slow down or use of AED. Pt's has good understanding and demonstration for pt's needs. Goals Days to Meet Goals 1 Frequency of Treatment Frequency Of Treatment Once a Day Treatment Plan OT Treatment Plan Discharge Planning Discharge Recommendations OT Discharge Recommendations Home with Assistance Home Equipment Needs Shower chair
== END 2018-06-11 12:40 | disposition home or self-care (01) | DRG 190 ==
LOC: ED 18:01 → AC 18:31
PROVIDERS: Hospitalist; Nurse Practitioner Gerontology; Admitting Provider Internal Medicine; Emergency Provider Emergency Medicine; PCP Internal Medicine; Visit Provider Internal Medicine
DX: J44.1 Chronic obstructive pulmonary disease with (acute) exacerbation (principal); J96.01 Acute respiratory failure with hypoxia; I50.23 Acute on chronic systolic (congestive) heart failure; I48.2 Chronic atrial fibrillation; Z79.01 Long term (current) use of anticoagulants; I25.10 Atherosclerotic heart disease of native coronary artery without angina pectoris; E03.9 Hypothyroidism, unspecified; Z95.0 Presence of cardiac pacemaker; Z87.891 Personal history of nicotine dependence; N18.3 Chronic kidney disease, stage 3 (moderate); D63.8 Anemia in other chronic diseases classified elsewhere; I95.1 Orthostatic hypotension
CPT/HCPCS: 36415; 36591; 36600; 71045; 71046; 80048; 80053; 82805; 83735; 83880; 84100; 84443; 85025; 85610; 85730; 87070; 87205; 93005; 93041; 93306; 94640; 94760; 94762; 96374; 97162; 97165; 97530; 97535; 99284; 99285; G0378; J1940; J2930; J7613

== ENCOUNTER → 2018-08-19 15:54 | Outpatient (CLI) | payer MEDICARE, SELFPAY ==
[2018-06-07 20:49] VITALS: BMI 12.3
[2018-08-19 16:49] LABS: BUN Creatinine Ratio 16.9 (6-22); Blood Urea Nitrogen 27 mg/dL (9-20); Calcium 9.7 mg/dL (8.4-10.2); Carbon Dioxide 29 mmol/L (22-32); Chloride 102 mmol/L (98-107); Estimated Glomerular Filt Rate 41.5 mL/min (>60); Glucose 123 mg/dL (80-110); HEMOLYSIS < 15 (0-50); Potassium 4.5 mmol/L (3.4-5.1); Sodium 141 mmol/L (137-145)
== END ==
PROVIDERS: PCP Internal Medicine; Visit Provider Internal Medicine
DX: J44.9 Chronic obstructive pulmonary disease, unspecified (principal); J20.9 Acute bronchitis, unspecified; N18.9 Chronic kidney disease, unspecified
CPT/HCPCS: 36415; 80048

== ENCOUNTER → 2018-10-24 11:42 | Outpatient (CLI) | payer MEDICARE, SELFPAY ==
[2018-06-07 20:49] VITALS: BMI 12.3
[2018-10-24 12:50] LABS: Add Manual Diff / Slide Review NO; Basophils Absolute Auto 0 /uL (0-100); Basophils Percent Auto 0.5 % (0-2); Eosinophils Absolute Auto 100 /uL (0-450); Eosinophils Percent Auto 1.7 % (2-4); Hematocrit 39.8 % (41-53); Hemoglobin 13.6 g/dL (13.5-17.5); Lymphocytes Absolute Auto 1000 /uL (1100-4500); Lymphocytes Percent Auto 14.6 % (25-40); Mean Corpuscular HGB Conc 34.2 % (30-36); Mean Corpuscular Hemoglobin 30.8 PG (26-34); Mean Corpuscular Volume 90.1 fL (80-100); Monocytes Absolute Auto 500 /uL (0-900); Monocytes Percent Auto 7.8 % (3-14); Neutrophils Absolute Auto 5100 /uL (1500-7000); Neutrophils Percent Auto 75.4 % (50-75); Platelet Count 185 X10^3/uL (150-400); Red Blood Cell Count 4.42 X10^6/uL (4.5-5.9); Red Cell Distribution Width 14.6 % (11.6-14.8); White Blood Cell Count 6.8 X10^3/uL (4.5-11.0)
[2018-10-24 13:02] LABS: BUN Creatinine Ratio 19.3 (6-22); Blood Urea Nitrogen 29 mg/dL (9-20); Carbon Dioxide 29 mmol/L (22-32); Chloride 103 mmol/L (98-107); Estimated Glomerular Filt Rate 44.7 mL/min (>60); Glucose 85 mg/dL (80-110); HEMOLYSIS < 15 (0-50); Potassium 4.9 mmol/L (3.4-5.1); Sodium 139 mmol/L (137-145)
== END ==
PROVIDERS: PCP Internal Medicine; Visit Provider Internal Medicine
DX: I48.0 Paroxysmal atrial fibrillation (principal); N18.9 Chronic kidney disease, unspecified
CPT/HCPCS: 36415; 80048; 85025

== ENCOUNTER → 2019-04-10 11:57 | Outpatient (CLI) | payer MEDICARE, SELFPAY ==
[2018-06-07 20:49] VITALS: BMI 12.3
--- NOTE | 2019-04-10 | DI.RAD.S_ITS ---
PROCEDURE: XR CHEST 2V INDICATIONS: COUGH TECHNIQUE: 2 views of the chest were acquired. COMPARISON: [facility], CR, XR CHEST 2V, 06/08/2018, 6:53. FINDINGS: Surgical changes and devices: Left chest wall cardiac device leads are seen in the region of right atrium and right ventricle. Lungs and pleura: Lungs are clear. No pleural effusions or pneumothorax. Mediastinum: Mediastinal contours are normal. Heart size is normal. Bones and chest wall: No suspicious bony abnormalities. Soft tissues appear unremarkable. IMPRESSION: No acute cardiopulmonary pathology. Dictated by: Franklin Marks M.D. on 04/10/2019 at 12:44 Approved by: Franklin Marks M.D. on 04/10/2019 at 12:45
== END ==
PROVIDERS: PCP Internal Medicine; Visit Provider Internal Medicine
DX: R05 Cough (principal)
CPT/HCPCS: 71046

== ENCOUNTER 2019-06-23 10:24 | Inpatient (IN) | payer MEDICARE, SELFPAY ==
[2018-06-07 20:49] VITALS: BMI 12.3
[2019-06-23] VITALS (8 sets, daily range): BP systolic 106–149; BP diastolic 61–77; PULSE 74–93; RESP 14–24; TEMP 36.7–37; O2SAT 93–98; BMI 25.5
--- NOTE | 2019-06-23 10:37 | DI.RAD.S_ITS ---
PROCEDURE: XR CHEST 1V INDICATIONS: chest pain TECHNIQUE: One view of the chest was acquired. COMPARISON: [facility], CR, XR CHEST 2V, 04/10/2019, 12:01. FINDINGS: Surgical changes and devices: Left chest wall cardiac device leads are seen in the region of right atrium and right ventricle. Lungs and pleura: Lungs are clear. No pleural effusions or pneumothorax. Elevation of left hemidiaphragm is seen with left basilar atelectasis. Mediastinum: Mediastinal contours appear normal. Heart size is enlarged. Bones and chest wall: No suspicious bony lesions. Overlying soft tissues appear unremarkable. IMPRESSION: No acute cardiopulmonary pathology. Dictated by: Franklin Marks M.D. on 06/23/2019 at 11:25 Approved by: Franklin Marks M.D. on 06/23/2019 at 11:31
--- NOTE | 2019-06-23 10:42 | ED_ITS ---
HPI - Abdominal Pain General Chief Complaint: Abdominal Pain Stated Complaint: intestinal blockage,keep throwing up Time Seen by Provider: 06/23/19 10:39 Source: patient Mode of arrival: Wheelchair Limitations: other History of Present Illness HPI narrative: Patient is an 84-year-old male with history of colon cancer small bowel obstructions CHF atrial fibrillation on Coumadin pacemaker presenting with nausea vomiting abdominal pain ongoing for 2 days. He says this feels like previous small-bowel obstruction he has had many in the past. He denies any chest pain or heart palpitations. He has no increasing shortness of breath. MD complaint: abdominal pain Onset (ago): day(s) (2) Pain Consistency: constant Location: diffuse Quality: cramping and sharp Related Data Home Medications Medication Instructions Recorded Confirmed atorvastatin [Lipitor] 10 mg PO BEDTIME #0 10/26/16 06/23/19 levothyroxine 100 mcg PO DAILY 06/07/18 06/23/19 midodrine 10 mg PO QAM 06/07/18 06/23/19 CoQ-10 200 mg PO DAILY 06/23/19 06/23/19 albuterol sulfate [Ventolin HFA] 2 puff INHALATION Q6H PRN 06/23/19 06/23/19 amiodarone 100 mg PO Q OTHER DAY 06/23/19 06/23/19 cholecalciferol (vitamin D3) 1,000 unit PO DAILY 06/23/19 06/23/19 [Vitamin D3] flaxseed 4 oz PO DAILY 06/23/19 06/23/19 magnesium oxide 400 mg PO DAILY 06/23/19 06/23/19 midodrine 5 mg PO QPM 06/23/19 06/23/19 multivitamin 1 cap PO DAILY 06/23/19 06/23/19 [id number]-fish oil [[place]-3 1 cap PO DAILY 06/23/19 06/23/19 Fish Oil] tetrahydrozoline-peg 1 drp OPHTHALMIC (EYE) DIRECTED 06/23/19 06/23/19 warfarin 7.5 mg PO SUMOWEFRSA 06/23/19 06/23/19 warfarin 10 mg PO TUTH 06/23/19 06/23/19 Allergies Allergy/AdvReac Type Severity Reaction Status Date / Time No Known Drug Allergies Allergy Unknown Verified 06/23/19 10:41 [NO KNOWN DRUG ALLERGIES] Review of Systems Review of Systems Narrative: GENERAL: Denies chills, fatigue, malaise, fever, sweats, travel HEENT: Denies sinus pain, ear pain, sore throat, difficulty swallowing, neck pain RESPIRATORY: Denies dyspnea, cough, wheezing, hemoptysis, sputum. CARDIOVASCULAR: See HPI GASTROINTESTINAL: See HPI : Denies dysuria, frequency, incontinence, hematuria, urinary retention, flank pain. MUSCULOSKELETAL: Denies weakness, joint pain, or bony pain SKIN: No rash, no erythema, no pruritus NEUROLOGIC: Denies weakness, dizziness, headache, numbness, change in speech, confusion PSYCHIATRIC: No concerning psychosocial issues. 12 point review of systems is negative except for those stated above and HPI Patient History Medical History Atrial fibrillation (Acute) CAD (coronary artery disease) (Acute) CHF (congestive heart failure) (Acute) Chronic kidney disease (Acute) Colon cancer (Acute) COPD (chronic obstructive pulmonary disease) (Acute) Hearing loss (Acute) Hodgkin lymphoma (Acute) Hypothyroidism (Acute) Orthostatic hypotension (Acute) Pacemaker (Acute) Surgical History History of colon resection (Acute) Family History Mother No known health problems Father No known health problems Social History marital status: household members: spouse Smoking Status: Former smoker alcohol intake: never Smoking Status: Former smoker alcohol intake frequency: 0-2 drinks per day Substance Use Type: does not use Exam Initial Vital Signs Initial Vital Signs: Vital Signs Pulse Rate 93 H 06/23/19 10:25 Respiratory Rate 24 06/23/19 10:25 Blood Pressure 107/61 06/23/19 10:25 Pulse Oximetry 98 06/23/19 10:25 GENERAL: Weak alert male HEENT: Head atraumatic,EOMI, pupils reactive, face symmetric CARDIOVASCULAR: Regular rate and rhythm without murmurs, rubs or gallops. RESPIRATORY: Breath sounds equal bilaterally, no wheezes rales or rhonchi. ABDOMEN: Distended diffusely tender scar noted EXTREMITIES: Normal range of motion, no clubbing or edema. Neurovascularly intact NEUROLOGICAL: Alert and oriented x4.Normal gait and speech. Cranial nerves II through XII grossly intact. SKIN: Warm, dry, no laceration, no petechiae, no rashes or lesions. Course Orders Ordered: ED Orders 06/23/19 10:37 XR chest 1V Stat BNP [B Type Natriuretic Peptide] Stat Complete Blood Count AUTO DIFF Stat Comprehensive Metabolic Panel Stat Lactate (Lactic Acid) Stat Lipase Stat Partial Thromboplastin Time Stat Prothrombin Time INR Stat Troponin & CK Cardiac Panel Stat 06/23/19 10:46 EKG-12 Lead Stat 06/23/19 11:34 CT abdomen pelvis w con Stat 06/23/19 12:19 Consult to General Surgery Stat Enoxaparin Sodium (Lovenox) 85 mg 1 mg/kg (85 mg) SUBCUT BID PILAR Sodium Chloride (Normal Saline 0.9%) 1,000 mls @ 100 mls/hr IV CONT PILAR Last Admin: 06/23/19 17:09 Dose: 100 mls/hr Documented by: ANA Levothyroxine Sodium (Synthroid Inj) 50 mcg IV 1700 PILAR Metoclopramide HCl (Reglan) 10 mg IV Q8HR PILAR Morphine Sulfate (Morphine) 2 mg IV Q4HR PRN PRN Reason: Pain, Moderate (4-6) Naloxone HCl (Narcan) 0.2 mg IV Q2MIN PRN PRN Reason: Opiate Reversal Pantoprazole Sodium (Protonix) 20 mg IV BID PILAR Discontinued Medications Hydromorphone HCl (Dilaudid) 0.5 mg IV NOW ONE Stop: 06/23/19 10:39 Last Admin: 06/23/19 10:55 Dose: 0.5 mg Documented by: OPHELIA Sodium Chloride (Normal Saline 0.9%) 1,000 mls @ 1,000 mls/hr IV BOLUS ONE Stop: 06/23/19 11:36 Last Infusion: 06/23/19 13:08 Dose: 0 mls/hr Documented by: Admin: 06/23/19 10:54 Dose: 1,000 mls/hr Documented by: OPHELIA Ondansetron HCl (Zofran) 4 mg IV NOW ONE Stop: 06/23/19 10:38 Last Admin: 06/23/19 10:55 Dose: 4 mg Documented by: CSIEDLE Ondansetron HCl (Zofran) 4 mg IV Q8HR PRN PRN Reason: Nausea And Vomiting Pantoprazole Sodium (Protonix) 40 mg IV NOW ONE Stop: 06/23/19 12:19 Last Admin: 06/23/19 13:16 Dose: 40 mg Documented by: MADHAVI Consultations Consultation #1: Dr. Torrez request admit to medicine. hold coumadin. ppi Time: 12:18 Consultation #2: Dr. white and updated on patient's symptoms test results agrees with admission Vital Signs Vital signs: Vital Signs - 8 hr 06/23/19 10:25 06/23/19 11:02 06/23/19 11:31 Pulse Rate 93 H 80 80 Respiratory Rate 24 14 18 Blood Pressure 107/61 Blood Pressure [Left Arm] 106/71 106/70 Pulse Oximetry 98 94 96 06/23/19 12:30 06/23/19 13:00 Pulse Rate 74 88 Respiratory Rate 16 23 Blood Pressure Blood Pressure [Left Arm] 126/71 149/73 H Pulse Oximetry 93 95 MDM - Abdominal Pain Lab Data Attestation: I reviewed the patient's lab results. Result diagrams: 06/23/19 10:37 06/23/19 10:37 Labs: Lab Results 06/23/19 06/23/19 06/23/19 Range/Units 10:37 10:37 10:37 WBC 18.6 H (4.5-11.0) X10^3/uL RBC 4.67 (4.5-5.9) X10^6/uL Hgb 14.6 (13.5-17.5) g/dL Hct 42.3 (41-53) % MCV 90.4 (80-100) fL MCH 31.2 (26-34) PG MCHC 34.5 (30-36) % RDW 14.4 (11.6-14.8) % Plt Count 217 (150-400) X10^3/uL Neut % (Auto) 88.7 H (50-75) % Lymph % (Auto) 5.0 L (25-40) % [place] % (Auto) 6.1 (3-14) % Eos % (Auto) 0.0 L (2-4) % Baso % (Auto) 0.2 (0-2) % Neut # (Auto) 69484 H (9512-9084) /uL Lymph # (Auto) 900 L (9044-2706) /uL [place] # (Auto) 1100 H (0-900) /uL Eos # (Auto) 0 (0-450) /uL Baso # (Auto) 0 (0-100) /uL PT 17.9 H (10.1-12.7) SECONDS INR 1.5 H (0.9-1.3) APTT 37 H D (26.4-36.2) SECONDS Sodium 138 (137-145) mmol/L Potassium 4.2 (3.4-5.1) mmol/L Chloride 99 (98-107) mmol/L Carbon Dioxide 28 (22-32) mmol/L BUN 38 H (9-20) mg/dL Creatinine 1.90 H (0.66-1.25) mg/dL Estimated GFR 33.9 L (>60) mL/min BUN/Creatinine Ratio 20.0 (6-22) Glucose 139 H (80-110) mg/dL Lactate (0.7-2.1) mmol/L Calcium 10.5 H (8.4-10.2) mg/dL Total Bilirubin 1.2 (0.2-1.3) mg/dL AST 37 (17-59) IU/L ALT 21 (<50) IU/L Alkaline Phosphatase 46 (38-126) U/L Total Creatine Kinase 199 H (55-170) U/L CK-MB (CK-2) 5.49 H (<2.37) ng/mL CK-MB (CK-2) Rel Index 2.8 (1.5-5.0) % Troponin I 0.107 H (0.01-0.034) ng/mL B-Natriuretic Peptide (<100) Total Protein 8.0 (6.3-8.2) g/dL Albumin 4.7 (3.5-5.0) g/dL Globulin 3.3 (1.7-4.1) g/dL Albumin/Globulin Ratio 1.4 (1.0-2.8) Lipase 98 (23-300) U/L 06/23/19 06/23/19 06/23/19 Range/Units 10:37 10:37 13:05 WBC (4.5-11.0) X10^3/uL RBC (4.5-5.9) X10^6/uL Hgb (13.5-17.5) g/dL Hct (41-53) % MCV (80-100) fL MCH (26-34) PG MCHC (30-36) % RDW (11.6-14.8) % Plt Count (150-400) X10^3/uL Neut % (Auto) (50-75) % Lymph % (Auto) (25-40) % [place] % (Auto) (3-14) % Eos % (Auto) (2-4) % Baso % (Auto) (0-2) % Neut # (Auto) (7459-2047) /uL Lymph # (Auto) (9119-3477) /uL [place] # (Auto) (0-900) /uL Eos # (Auto) (0-450) /uL Baso # (Auto) (0-100) /uL PT (10.1-12.7) SECONDS INR (0.9-1.3) APTT (26.4-36.2) SECONDS Sodium (137-145) mmol/L Potassium (3.4-5.1) mmol/L Chloride (98-107) mmol/L Carbon Dioxide (22-32) mmol/L BUN (9-20) mg/dL Creatinine (0.66-1.25) mg/dL Estimated GFR (>60) mL/min BUN/Creatinine Ratio (6-22) Glucose (80-110) mg/dL Lactate 2.9 H 1.7 (0.7-2.1) mmol/L Calcium (8.4-10.2) mg/dL Total Bilirubin (0.2-1.3) mg/dL AST (17-59) IU/L ALT (<50) IU/L Alkaline Phosphatase (38-126) U/L Total Creatine Kinase (55-170) U/L CK-MB (CK-2) (<2.37) ng/mL CK-MB (CK-2) Rel Index (1.5-5.0) % Troponin I (0.01-0.034) ng/mL B-Natriuretic Peptide 296 H (<100) Total Protein (6.3-8.2) g/dL Albumin (3.5-5.0) g/dL Globulin (1.7-4.1) g/dL Albumin/Globulin Ratio (1.0-2.8) Lipase (23-300) U/L Imaging Data CT scan - abdomen: Radiologist's impression: PROCEDURE: CT ABDOMEN PELVIS W CON INDICATIONS: hs sbo vomiting TECHNIQUE: After the administration of oral and intravenous contrast, 5 mm thick sections acquired from the diaphragms to the symphysis. 5 mm thick coronal and sagittal reformats were performed. For radiation dose reduction, the following was used: automated exposure control, adjustment of mA and/or kV according to patient size. COMPARISON: None. FINDINGS: Image quality: Diagnostic. ABDOMEN: Lung bases: Lung bases are clear. However, there does appear to be mild scarring versus atelectasis within the lung bases. Heart size is normal. Solid organs: The liver is slightly hypodense when compared to the spleen. Small foci of low attenuation within the left hepatic lobe probably represent simple cysts, but are not adequately characterized given their small size. No intrahepatic or extrahepatic biliary dilatation is identified. The spleen, adrenals, pancreas, and kidneys appear to be within normal limits. There is no hydronephrosis of the kidneys. No definite renal calculi are appreciated. Peritoneum and bowel: There is a small hiatal hernia. The stomach is prominentl y distended with fluid. The duodenum and jejunal bowel loops aren't moderately distended and fluid-filled. The ilial bowel loops are decompressed. The exact transition point probably is at the jejunoileal junction. Colonic diverticulosis is identified without surrounding inflammation to suggest diverticulitis. Postoperative changes of the colon are present. There may be a small amount of free fluid within the right upper cord and mesentery. No drainable or loculated fluid collections are present. No definite free air is appreciated. Nodes and vessels: No retroperitoneal or mesenteric adenopathy. Aorta and inferior vena cava are normal in caliber. There is moderate aortic atherosclerosis. Iliac artery atherosclerotic changes are also present. Bones: No acute fracture or suspicious osseous lesion is evident. Age- appropriate degenerative changes of the imaged osseous structures are present. PELVIS: Genitourinary: Bladder wall thickness is normal. Miscellaneous: No definite inguinal hernias or adenopathy. No free fluid or loculated fluid collections are appreciated. Bones: No suspicious bony lesions. No acute pelvic fractures are identified. Uprc-[id number]-[id number] degenerative changes of the pelvic joints are present. IMPRESSION: 1. Small bowel obstruction with a transition point at the jejunoileal junction. This likely is on the basis of adhesions given prior bowel surgery. 2. Minimal abdominal free fluid adjacent to dilated small bowel loops probably is reactive. There is no abscess or free air. 3. Colonic diverticulosis without diverticulitis. 4. Small hiatal hernia. 5. Possible hepatic steatosis. Please correlate clinically. Dictated by: Aristeo Rios M.D. on 06/23/2019 at 10:56 Chest x-ray: Radiologist's impression: PROCEDURE: XR CHEST 1V INDICATIONS: chest pain TECHNIQUE: One view of the chest was acquired. COMPARISON: [facility], , XR CHEST 2V, 04/10/2019, 12:01. FINDINGS: Surgical changes and devices: Left chest wall cardiac device leads are seen in the region of right atrium and right ventricle. Lungs and pleura: Lungs are clear. No pleural effusions or pneumothorax. Elevation of left hemidiaphragm is seen with left basilar atelectasis. Mediastinum: Mediastinal contours appear normal. Heart size is enlarged. Bones and chest wall: No suspicious bony lesions. Overlying soft tissues appear unremarkable. IMPRESSION: No acute cardiopulmonary pathology. Dictated by: Franklin Marks M.D. on 06/23/2019 at 11:25 Approved by: Franklin Marks M.D. on 06/23/2019 at 11:31 ECG Data Attestation: I personally reviewed and interpreted this ECG as follows: Prior ECG tracings: available for review Interpretation: Paced rhythm rate 85 p.r. interval 204 QRS 209 QTC 585 similar to previous EKG no ST changes MDM Narrative Medical decision making narrative: He is noted to have leukocytosis and increased of creatinine of 1.9. He is likely dehydrated he is given IV fluids. He does not appear to be in congestive heart failure at this time. Troponin at this time is indeterminate likely from secondary response. Patient had signs symptoms consistent with small-bowel obstruction along a transition point seen on CT. NG was attempted to be placed by nursing and myself and was unsuccessful. Due to patient's complicated cardiac history surgery recommended admitting to medicine. Patient's pain overall is much better he still feels nauseous not actively vomiting. Discharge Plan Departure Patient Disposition: Admitted As Inpatient Clinical Impression: Small bowel obstruction Discharge Date/Time: 06/23/19 14:25 Admit Date/Time: 06/23/19 13:24 Admit Provider: Dennis Adams
[2019-06-23 10:45] LABS: Add Manual Diff / Slide Review NO; Basophils Absolute Auto 0 /uL (0-100); Basophils Percent Auto 0.2 % (0-2); Eosinophils Absolute Auto 0 /uL (0-450); Hematocrit 42.3 % (41-53); Hemoglobin 14.6 g/dL (13.5-17.5); Lymphocytes Absolute Auto 900 /uL (1100-4500); Mean Corpuscular HGB Conc 34.5 % (30-36); Mean Corpuscular Hemoglobin 31.2 PG (26-34); Mean Corpuscular Volume 90.4 fL (80-100); Monocytes Absolute Auto 1100 /uL (0-900); Monocytes Percent Auto 6.1 % (3-14); Neutrophils Absolute Auto 16500 /uL (1500-7000); Neutrophils Percent Auto 88.7 % (50-75); Platelet Count 217 X10^3/uL (150-400); Red Blood Cell Count 4.67 X10^6/uL (4.5-5.9); Red Cell Distribution Width 14.4 % (11.6-14.8); White Blood Cell Count 18.6 X10^3/uL (4.5-11.0)
[2019-06-23 10:53] LABS: INR 1.5 (0.9-1.3); Prothrombin Time 17.9 SECONDS (10.1-12.7)
[2019-06-23] MEDS: SODIUM CHLORIDE 0.9% 1,000 ML 1000 ML IV (10:54)
[2019-06-23] MEDS: ONDANSETRON 4 MG/2 ML INJ IV (10:55)
[2019-06-23] MEDS: HYDROMORPHONE 0.5 MG INJ IV (10:55)
[2019-06-23 10:56] LABS: PTT Partial Thromboplastin Tim 37 SECONDS (26.4-36.2)
[2019-06-23 11:01] LABS: Lactate (Lactic Acid) 2.9 mmol/L (0.7-2.1)
[2019-06-23 11:02] LABS: Alanine Aminotransferase 21 IU/L (<50); Albumin 4.7 g/dL (3.5-5.0); Albumin Globulin Ratio 1.4 (1.0-2.8); Alkaline Phosphatase 46 U/L (38-126); Aspartate Aminotransferase 37 IU/L (17-59); Bilirubin Total 1.2 mg/dL (0.2-1.3); Blood Urea Nitrogen 38 mg/dL (9-20); Calcium 10.5 mg/dL (8.4-10.2); Carbon Dioxide 28 mmol/L (22-32); Chloride 99 mmol/L (98-107); Creatine Kinase 199 U/L (55-170); Estimated Glomerular Filt Rate 33.9 mL/min (>60); Globulin 3.3 g/dL (1.7-4.1); Glucose 139 mg/dL (80-110); HEMOLYSIS < 15 (0-50); Lipase 98 U/L (23-300); Potassium 4.2 mmol/L (3.4-5.1); Sodium 138 mmol/L (137-145)
[2019-06-23 11:14] LABS: Troponin I 0.107 ng/mL (0.01-0.034)
[2019-06-23 11:15] LABS: B Type Natriuretic Peptide 296 (<100)
[2019-06-23 11:17] LABS: CKMB % Relative Index 2.8 % (1.5-5.0); Creatine Kinase MB 5.49 ng/mL (<2.37)
--- NOTE | 2019-06-23 11:34 | DI.CT.S_ITS ---
PROCEDURE: CT ABDOMEN PELVIS W CON INDICATIONS: hs sbo vomiting TECHNIQUE: After the administration of oral and intravenous contrast, 5 mm thick sections acquired from the diaphragms to the symphysis. 5 mm thick coronal and sagittal reformats were performed. For radiation dose reduction, the following was used: automated exposure control, adjustment of mA and/or kV according to patient size. COMPARISON: None. FINDINGS: Image quality: Diagnostic. ABDOMEN: Lung bases: Lung bases are clear. However, there does appear to be mild scarring versus atelectasis within the lung bases. Heart size is normal. Solid organs: The liver is slightly hypodense when compared to the spleen. Small foci of low attenuation within the left hepatic lobe probably represent simple cysts, but are not adequately characterized given their small size. No intrahepatic or extrahepatic biliary dilatation is identified. The spleen, adrenals, pancreas, and kidneys appear to be within normal limits. There is no hydronephrosis of the kidneys. No definite renal calculi are appreciated. Peritoneum and bowel: There is a small hiatal hernia. The stomach is prominently distended with fluid. The duodenum and jejunal bowel loops aren't moderately distended and fluid-filled. The ilial bowel loops are decompressed. The exact transition point probably is at the jejunoileal junction. Colonic diverticulosis is identified without surrounding inflammation to suggest diverticulitis. Postoperative changes of the colon are present. There may be a small amount of free fluid within the right upper cord and mesentery. No drainable or loculated fluid collections are present. No definite free air is appreciated. Nodes and vessels: No retroperitoneal or mesenteric adenopathy. Aorta and inferior vena cava are normal in caliber. There is moderate aortic atherosclerosis. Iliac artery atherosclerotic changes are also present. Bones: No acute fracture or suspicious osseous lesion is evident. Age-appropriate degenerative changes of the imaged osseous structures are present. PELVIS: Genitourinary: Bladder wall thickness is normal. Miscellaneous: No definite inguinal hernias or adenopathy. No free fluid or loculated fluid collections are appreciated. Bones: No suspicious bony lesions. No acute pelvic fractures are identified. Cbyv-[id number]-ohcunjbs degenerative changes of the pelvic joints are present. IMPRESSION: 1. Small bowel obstruction with a transition point at the jejunoileal junction. This likely is on the basis of adhesions given prior bowel surgery. 2. Minimal abdominal free fluid adjacent to dilated small bowel loops probably is reactive. There is no abscess or free air. 3. Colonic diverticulosis without diverticulitis. 4. Small hiatal hernia. 5. Possible hepatic steatosis. Please correlate clinically. Dictated by: Aristeo Rios M.D. on 06/23/2019 at 10:56 Approved by: Aristeo Rios M.D. on 06/23/2019 at 11:02
[2019-06-23] MEDS: LIDOCAINE 1% (PF) 2 ML (12:30)
[2019-06-23 12:45] LABS: Reflexed Lactate in 2 Hours Y
[2019-06-23] MEDS: PANTOPRAZOLE 40 MG VIAL IV (13:16)
[2019-06-23 13:28] LABS: Lactate 2HR (Lactic Acid Rflx) 1.7 mmol/L (0.7-2.1)
--- NOTE | 2019-06-23 15:31 | PC.NURSE ---
1430 Pt arrived from ED via stretcher. Pt able to stand and transfer to bed, Pt is slightly off balance, states HX of falls. Pt MARY'S IGLOO. Pt denies pain, has emesis bag in hand, with scant amt spit in the bag. Denies nausea. took Pts wallet & watch.
--- NOTE | 2019-06-23 15:48 | PM.CN ---
History of Present Illness Consult details Date Patient Seen: 06/23/19 Time Patient Seen: 15:48 Chief complaint: intestinal blockage,keep throwing up Reason for consult: BOWEL OBSTRUCTION Narrative: 84-year-old white male who had a colon resection for carcinoma approximately 20 years ago. He has had at least 3 episodes of small-bowel obstruction subsequent to that. The 1st bowel obstruction required surgery and it was only a few weeks after his colon resection. Today he comes in with a 2 day history of abdominal pain and vomiting. He passed some flatus even today but no bowel movement today was vomiting extensively yesterday.abdominal pain has subsided today. CT scan in the emergency department today reveals partial small bowel obstruction or possibly ileus. There is copious gas in the transverse and descending colon and rectum. He certainly does not have a complete bowel obstruction. I don't see any sign of recurring tumor on this scan. [facility] Medical History Atrial fibrillation (Acute) CAD (coronary artery disease) (Acute) CHF (congestive heart failure) (Acute) Chronic kidney disease (Acute) Colon cancer (Acute) COPD (chronic obstructive pulmonary disease) (Acute) Hearing loss (Acute) Hodgkin lymphoma (Acute) Hypothyroidism (Acute) Orthostatic hypotension (Acute) Pacemaker (Acute) Surgical History History of colon resection (Acute) Family History Mother No known health problems Father No known health problems Social History marital status: household members: spouse Smoking Status: Former smoker alcohol intake: never Meds Home Medications and Allergies Home Medications Medication Instructions Recorded Confirmed Type atorvastatin [Lipitor] 10 mg PO BEDTIME #0 10/26/16 06/23/19 History levothyroxine 100 mcg PO DAILY 06/07/18 06/23/19 History midodrine 10 mg PO QAM 06/07/18 06/23/19 History CoQ-10 200 mg PO DAILY 06/23/19 06/23/19 History albuterol sulfate [Ventolin HFA] 2 puff INHALATION Q6H PRN 06/23/19 06/23/19 History amiodarone 100 mg PO Q OTHER DAY 06/23/19 06/23/19 History cholecalciferol (vitamin D3) 1,000 unit PO DAILY 06/23/19 06/23/19 History [Vitamin D3] flaxseed 4 oz PO DAILY 06/23/19 06/23/19 History magnesium oxide 400 mg PO DAILY 06/23/19 06/23/19 History midodrine 5 mg PO QPM 06/23/19 06/23/19 History multivitamin 1 cap PO DAILY 06/23/19 06/23/19 History pctsq-2d-nrh-epa-fish oil [[place]-3 1 cap PO DAILY 06/23/19 06/23/19 History Fish Oil] tetrahydrozoline-peg 1 drp OPHTHALMIC (EYE) DIRECTED 06/23/19 06/23/19 History warfarin 7.5 mg PO SUMOWEFRSA 06/23/19 06/23/19 History warfarin 10 mg PO TUTH 06/23/19 06/23/19 History Allergies Allergy/AdvReac Type Severity Reaction Status Date / Time No Known Drug Allergies Allergy Unknown Verified 06/23/19 10:41 [NO KNOWN DRUG ALLERGIES] Exam Vital Signs (past 8 hours): - 06/23/19 10:25 06/23/19 11:02 06/23/19 11:31 Pulse Rate 93 H 80 80 Respiratory Rate 24 14 18 Blood Pressure 107/61 Blood Pressure [Left Arm] 106/71 106/70 Pulse Oximetry 98 94 96 06/23/19 12:30 06/23/19 13:00 06/23/19 14:24 Pulse Rate 74 88 79 Respiratory Rate 16 23 20 Blood Pressure 124/66 Blood Pressure [Left Arm] 126/71 149/73 H Pulse Oximetry 93 95 94 Oxygen Delivery Method Room Air Narrative Exam Narrative: Patient is resting comfortably in bed with no pain at this time. Patient is very hard of hearing but does communicate appropriately. Lungs are clear but he has very distant breath sounds Heart regular rhythm no murmur Abdomen is only slightly distended. It a has a well-healed midline incision with no sign of hernia. There are no inguinal hernias. He actually has no significant abdominal tenderness at this time. He does not have any abdominal masses palpable. The rectal vault is empty. Objective Labs Result Diagrams: 06/23/19 10:37 06/23/19 10:37 Labs: Laboratory Results - last 24 hr 06/23/19 06/23/19 06/23/19 10:37 10:37 10:37 WBC 18.6 H RBC 4.67 Hgb 14.6 Hct 42.3 MCV 90.4 MCH 31.2 MCHC 34.5 RDW 14.4 Plt Count 217 Neut % (Auto) 88.7 H Lymph % (Auto) 5.0 L [place] % (Auto) 6.1 Eos % (Auto) 0.0 L Baso % (Auto) 0.2 Neut # (Auto) 79923 H Lymph # (Auto) 900 L [place] # (Auto) 1100 H Eos # (Auto) 0 Baso # (Auto) 0 PT 17.9 H INR 1.5 H APTT 37 H D Sodium 138 Potassium 4.2 Chloride 99 Carbon Dioxide 28 BUN 38 H Creatinine 1.90 H Estimated GFR 33.9 L BUN/Creatinine Ratio 20.0 Glucose 139 H Lactate Calcium 10.5 H Total Bilirubin 1.2 AST 37 ALT 21 Alkaline Phosphatase 46 Total Creatine Kinase 199 H CK-MB (CK-2) 5.49 H CK-MB (CK-2) Rel Index 2.8 Troponin I 0.107 H B-Natriuretic Peptide Total Protein 8.0 Albumin 4.7 Globulin 3.3 Albumin/Globulin Ratio 1.4 Lipase 98 06/23/19 06/23/19 06/23/19 10:37 10:37 13:05 WBC RBC Hgb Hct MCV MCH MCHC RDW Plt Count Neut % (Auto) Lymph % (Auto) [place] % (Auto) Eos % (Auto) Baso % (Auto) Neut # (Auto) Lymph # (Auto) [place] # (Auto) Eos # (Auto) Baso # (Auto) PT INR APTT Sodium Potassium Chloride Carbon Dioxide BUN Creatinine Estimated GFR BUN/Creatinine Ratio Glucose Lactate 2.9 H 1.7 Calcium Total Bilirubin AST ALT Alkaline Phosphatase Total Creatine Kinase CK-MB (CK-2) CK-MB (CK-2) Rel Index Troponin I B-Natriuretic Peptide 296 H Total Protein Albumin Globulin Albumin/Globulin Ratio Lipase Assessment & Plan Assessment & Plan narrative: The patient has a history of colon resection and a subsequent enterolysis for bowel obstruction. This was all about 20 years ago. He has had several additional hospitalizations for small bowel obstruction. At this time he may have an adynamic ileus or partial mechanical small bowel obstruction. We have attempted to put an NG tube in the patient twice in the ED. We will try 1 more time up here on the floor. We will treat him with bowel rest IV fluids and enemas. I have started him on Reglan and because his obstruction is only partial. I will repeat his abdominal plain films tomorrow morning. The goal is non operative therapy for this elderly patient who has a history of a pacemaker congestive heart failure and repeated abdominal operations. Patient and his understand and agree to the plan. All questions were answered.
--- NOTE | 2019-06-23 16:23 | PM.HP.1 ---
History of Present Illness History of Present Illness Date Patient Seen: 06/23/19 Time Patient Seen: 15:45 Chief complaint: intestinal blockage,keep throwing up Narrative: Latonia Perez is an 83-year-old male w/ PMH significant for COPD (mild), restrictive lung disease, CAD (no h/o NM), AFIB (AC w/ warfarin), cardiomyopathy (s/p PPM, [facility], w/ complication of punctured lung / chest tube), hypothyroidism, Hodgkin's lymphoma, colon cancer (s/p colon resection 1999), sigmoid diverticulosis, and prior h/o tobacco dependence (quit 1982). He presented with 2 days of intermittent, sharp and severe abdominal pain, nausea and persistent bilious vomiting. He states on late Saturday night/early Saturday morning he began to have profuse vomiting with associated severe abdominal pain. He has had episodes of these before where his pain will resolve in about 8 hours however this time it continued. He continued to not be able to tolerate p.o. intake and he decided to come to the emergency room today. He may have passed gas yesterday but does not clearly recall. He has not had a bowel movement since Saturday. He states his abdominal pain has improved somewhat today, but is still present. CT scan done in the emergency room showed a small-bowel obstruction that is read is a transition point. Patient was seen by Dr. Torrez of general surgery who read the imaging as a partial obstruction and possible ileus. He recommended conservative management with NG tube placement at this time and repeat imaging in the morning. Patient was admitted to Medicine for small-bowel obstruction. Patient History Medical History Atrial fibrillation (Acute) CAD (coronary artery disease) (Acute) CHF (congestive heart failure) (Acute) Chronic kidney disease (Acute) Colon cancer (Acute) COPD (chronic obstructive pulmonary disease) (Acute) Hearing loss (Acute) Hodgkin lymphoma (Acute) Hypothyroidism (Acute) Orthostatic hypotension (Acute) Pacemaker (Acute) Surgical History History of colon resection (Acute) Family & Social History Family History Mother No known health problems Father No known health problems Social History: household members spouse Prior Living Arrangements House Safety & Behavioral: Feels Safe in Current Yes Environment Been Physically Hurt or No Threatened By a Person Tobacco & Substance use: Smoking Status Former smoker alcohol intake never alcohol intake frequency 0-2 drinks per day Substance Use Type does not use Meds Home Medications and Allergies Home Medications Medication Instructions Recorded Confirmed Type atorvastatin [Lipitor] 10 mg PO BEDTIME #0 10/26/16 06/23/19 History levothyroxine 100 mcg PO DAILY 06/07/18 06/23/19 History midodrine 10 mg PO QAM 06/07/18 06/23/19 History CoQ-10 200 mg PO DAILY 06/23/19 06/23/19 History albuterol sulfate [Ventolin HFA] 2 puff INHALATION Q6H PRN 06/23/19 06/23/19 History amiodarone 100 mg PO Q OTHER DAY 06/23/19 06/23/19 History cholecalciferol (vitamin D3) 1,000 unit PO DAILY 06/23/19 06/23/19 History [Vitamin D3] flaxseed 4 oz PO DAILY 06/23/19 06/23/19 History magnesium oxide 400 mg PO DAILY 06/23/19 06/23/19 History midodrine 5 mg PO QPM 06/23/19 06/23/19 History multivitamin 1 cap PO DAILY 06/23/19 06/23/19 History [id number]-fish oil [[place]-3 1 cap PO DAILY 06/23/19 06/23/19 History Fish Oil] tetrahydrozoline-peg 1 drp OPHTHALMIC (EYE) DIRECTED 06/23/19 06/23/19 History warfarin 7.5 mg PO SUMOWEFRSA 06/23/19 06/23/19 History warfarin 10 mg PO TUTH 06/23/19 06/23/19 History Allergies Allergy/AdvReac Type Severity Reaction Status Date / Time No Known Drug Allergies Allergy Unknown Verified 06/23/19 10:41 [NO KNOWN DRUG ALLERGIES] Review of Systems Review of Systems Narrative: All other systems reviewed with the patient and are negative unless otherwise stated. Exam Vital Signs (past 8 hours): - 06/23/19 10:25 06/23/19 11:02 06/23/19 11:31 Pulse Rate 93 H 80 80 Respiratory Rate 24 14 18 Blood Pressure 107/61 Blood Pressure [Left Arm] 106/71 106/70 Pulse Oximetry 98 94 96 06/23/19 12:30 06/23/19 13:00 06/23/19 14:24 Pulse Rate 74 88 79 Respiratory Rate 16 23 20 Blood Pressure 124/66 Blood Pressure [Left Arm] 126/71 149/73 H Pulse Oximetry 93 95 94 Oxygen Delivery Method Room Air Narrative Exam Narrative: GENERAL APPEARANCE: Well developed, well nourished, in no acute distress. SKIN: Inspection of the skin reveals no rashes, ulcerations or petechiae. HEENT: The sclerae were anicteric and conjunctivae were pink and moist. Extraocular movements were intact and pupils were equal, round with normal accommodation. External inspection of the ears and nose showed no scars, lesions, or masses. Lips, teeth, and gums showed normal mucosa. The oral mucosa, hard and soft palate, tongue and posterior pharynx were unremarkable. NECK: Supple and symmetric. There was no thyroid enlargement, and no tenderness, or masses were felt. CHEST: Normal AP diameter and normal contour without any kyphoscoliosis. LUNGS: Auscultation of the lungs revealed no wheezes, rhonchi, or rales. CARDIOVASCULAR: There was a regular rate and rhythm without any murmurs, gallops, rubs. Peripheral pulses were 2+ and symmetric. ABDOMEN: Soft and nontender, minimally distended with well-healed midline surgical scar. MUSCULOSKELETAL: There was no tenderness or effusions noted. Muscle strength and tone were normal. EXTREMITIES: No cyanosis, clubbing or edema. NEUROLOGIC: Alert and oriented x 3. Normal affect. Mild impairment in short-term memory. Strength is +5/5 in the Upper Extremities and Lower Extremities Bilaterally. Sensation to touch was normal. Objective ECG Impression: Ventricularly paced. Imaging CT scan - abdomen: Radiologist's impression: IMPRESSION: 1. Small bowel obstruction with a transition point at the jejunoileal junction. This likely is on the basis of adhesions given prior bowel surgery. 2. Minimal abdominal free fluid adjacent to dilated small bowel loops probably is reactive. There is no abscess or free air. 3. Colonic diverticulosis without diverticulitis. 4. Small hiatal hernia. 5. Possible hepatic steatosis. Please correlate clinically. Chest x-ray: My impression: Unremarkable chest x-ray Radiologist's impression: IMPRESSION: No acute cardiopulmonary pathology Labs Result Diagrams: 06/23/19 10:37 06/23/19 10:37 Labs: Laboratory Results - last 24 hr 06/23/19 06/23/19 06/23/19 10:37 10:37 10:37 WBC 18.6 H RBC 4.67 Hgb 14.6 Hct 42.3 MCV 90.4 MCH 31.2 MCHC 34.5 RDW 14.4 Plt Count 217 Neut % (Auto) 88.7 H Lymph % (Auto) 5.0 L [place] % (Auto) 6.1 Eos % (Auto) 0.0 L Baso % (Auto) 0.2 Neut # (Auto) 96449 H Lymph # (Auto) 900 L [place] # (Auto) 1100 H Eos # (Auto) 0 Baso # (Auto) 0 PT 17.9 H INR 1.5 H APTT 37 H D Sodium 138 Potassium 4.2 Chloride 99 Carbon Dioxide 28 BUN 38 H Creatinine 1.90 H Estimated GFR 33.9 L BUN/Creatinine Ratio 20.0 Glucose 139 H Lactate Calcium 10.5 H Total Bilirubin 1.2 AST 37 ALT 21 Alkaline Phosphatase 46 Total Creatine Kinase 199 H CK-MB (CK-2) 5.49 H CK-MB (CK-2) Rel Index 2.8 Troponin I 0.107 H B-Natriuretic Peptide Total Protein 8.0 Albumin 4.7 Globulin 3.3 Albumin/Globulin Ratio 1.4 Lipase 98 06/23/19 06/23/19 06/23/19 10:37 10:37 13:05 WBC RBC Hgb Hct MCV MCH MCHC RDW Plt Count Neut % (Auto) Lymph % (Auto) [place] % (Auto) Eos % (Auto) Baso % (Auto) Neut # (Auto) Lymph # (Auto) [place] # (Auto) Eos # (Auto) Baso # (Auto) PT INR APTT Sodium Potassium Chloride Carbon Dioxide BUN Creatinine Estimated GFR BUN/Creatinine Ratio Glucose Lactate 2.9 H 1.7 Calcium Total Bilirubin AST ALT Alkaline Phosphatase Total Creatine Kinase CK-MB (CK-2) CK-MB (CK-2) Rel Index Troponin I B-Natriuretic Peptide 296 H Total Protein Albumin Globulin Albumin/Globulin Ratio Lipase Assessment & Plan Assessment & Plan narrative: Latonia Perez is an 83-year-old male w/ PMH significant for COPD (mild), restrictive lung disease, CAD (no h/o NM), AFIB (AC w/ warfarin), cardiomyopathy (s/p PPM, [facility], w/ complication of punctured lung / chest tube), hypothyroidism, Hodgkin's lymphoma, colon cancer (s/p colon resection 1999), sigmoid diverticulosis, and prior h/o tobacco dependence (quit 1982) who was admitted to Medicine with a small-bowel obstruction. 1. Small-bowel obstruction, acute, present admission -CT read a small bowel obstruction a transition point. Dr. Torrez believes this to be a partial bowel obstruction or an ileus. Given his significant medical comorbidities will attempt NG tube decompression in the hopes that he will symptomatically improved. - NPO/IVF - NG tube - appreciate general surgery assistance with management 2. KAMALJIT on CKD III, present on admission - patient with cr of 1.9 up from baseline of 1.4. This is likely due to hypovolemia in setting of emesis and SBO. - continue IVF - avoid nephrotoxic medications 3. Leukocytosis, present on admission - likely reactive to SBO. Patient without other signs and symptoms of infection currently. CXR is negative. At risk for aspiration given SBO and frequent emesis. - continue to follow and treat SBO as noted above 4. Type II NM - elevated troponin of 0.107 likely secondary to demand in setting of known CAD and KAMALJIT. - repeat troponin to ensure downtrending 5. CAD / cardiomyopathy with PPM placement - - continue telemetry - appears to be euvolemic and stable - patient is ventriculary paced. - EF last admission was normal -resume home meds once tolerating PO - resume lipitor when able. 6. persistent atrial fibrilllation - V paced as noted above. On amiodarone. - resume amiodarone once tolerating PO - Lovenox 1mg / Kg BID tonight, hold in AM for possible OR until known in operative status. 7. Hypothyroidism, chronic - continue levothyroxin, home dosing 100 mcg. Continue IV at 50 mcg until tolerating PO. 8. hypotension, chronic - patient on home midodrine 10 in AM and 5 in PM. - continue to follow BP, resume if necessary and if able given Dispo: admit as inpatient Code: Full, patient elects spouse as surrogate decision maker DVT: Lovenox as noted above.
[2019-06-23] MEDS: SODIUM CHLORIDE 0.9% 1,000 ML 100 ML IV (17:09)
[2019-06-23 18:39] LABS: BUN Creatinine Ratio 22.2 (6-22); Blood Urea Nitrogen 40 mg/dL (9-20); Calcium 9.6 mg/dL (8.4-10.2); Carbon Dioxide 28 mmol/L (22-32); Chloride 103 mmol/L (98-107); Estimated Glomerular Filt Rate 36.1 mL/min (>60); Glucose 122 mg/dL (80-110); HEMOLYSIS < 15 (0-50); Potassium 4.4 mmol/L (3.4-5.1); Sodium 140 mmol/L (137-145)
[2019-06-23 18:51] LABS: Troponin I 0.074 ng/mL (0.01-0.034)
[2019-06-23] MEDS: PANTOPRAZOLE 40 MG VIAL 20 MG IV (21:05)
[2019-06-23] MEDS: ENOXAPARIN 100 MG/ML SYRINGE 85 MG SUBCUT (21:05)
[2019-06-23] MEDS: METOCLOPRAMIDE 10 MG/2 ML INJ IV (21:07)
[2019-06-23 22:47] LABS: Bacteria Urine None Seen; RBC Urine None Seen (0-5/HPF); WBC Urine None Seen (0-5/HPF)
[2019-06-23 22:52] LABS: Appearance Urine UA CLEAR; Bilirubin Urine UA NEGATIVE (NEGATIVE); Color Urine UA YELLOW; Glucose Urine UA NEGATIVE (Negative); Ketones Urine UA NEGATIVE (NEGATIVE); Leukocyte Esterase Urine UA NEGATIVE (NEGATIVE); Nitrite Urine UA NEGATIVE (Negative); Occult Blood Urine UA TRACE-LYSED (Negative); Protein Urine UA TRACE (Negative); Specific Gravity Urine UA <=1.005 (1.000-1.035); Urobilinogen Urine UA 0.2 E.U./dL (0.2)
[2019-06-23 23:13] LABS: Culture Indicated Urine Cult Not Indicated; Urine Comments Microscopic Normal
--- NOTE | 2019-06-23 23:30 | PC.NURSE ---
Report received, care assumed 1530. Pt. A&Ox3. Very [place] but cognitively appropriate. VSS. Denies pain, nausea and vomiting. Hypoactive bowel tones. NG placement attempted twice in ED. Lore at bedside, ordered another attempt. Inserted right nare, tubing pooled up in mouth. Attempted one more time, NG passed into stomach. Placement confirmed by auscultation and suction of copious volume of bile. 1300ml output initially. Kept on low continuous suction. Pt. up to bathroom, saline enema administered x2 during shift. First resulted in large, brown, formed stool. Second resulted in moderate, brown, softer stool. 1-person assist with walker.
[2019-06-24 05:00] VITALS: BP 140/73; PULSE 70; RESP 16; TEMP 36.9; O2SAT 94
[2019-06-24] MEDS: METOCLOPRAMIDE 10 MG/2 ML INJ IV ×3 (05:49→23:07)
[2019-06-24 06:01] LABS: Add Manual Diff / Slide Review NO; Basophils Absolute Auto 0 /uL (0-100); Basophils Percent Auto 0.3 % (0-2); Eosinophils Absolute Auto 100 /uL (0-450); Eosinophils Percent Auto 0.8 % (2-4); Hematocrit 36.7 % (41-53); Hemoglobin 12.4 g/dL (13.5-17.5); Lymphocytes Absolute Auto 1000 /uL (1100-4500); Lymphocytes Percent Auto 12.1 % (25-40); Mean Corpuscular HGB Conc 33.8 % (30-36); Mean Corpuscular Hemoglobin 30.9 PG (26-34); Mean Corpuscular Volume 91.3 fL (80-100); Monocytes Absolute Auto 800 /uL (0-900); Monocytes Percent Auto 9.7 % (3-14); Neutrophils Absolute Auto 6400 /uL (1500-7000); Neutrophils Percent Auto 77.1 % (50-75); Platelet Count 156 X10^3/uL (150-400); Red Blood Cell Count 4.02 X10^6/uL (4.5-5.9); Red Cell Distribution Width 14.3 % (11.6-14.8); White Blood Cell Count 8.3 X10^3/uL (4.5-11.0)
[2019-06-24 06:02] LABS: BUN Creatinine Ratio 22.9 (6-22); Blood Urea Nitrogen 39 mg/dL (9-20); Calcium 9.2 mg/dL (8.4-10.2); Carbon Dioxide 28 mmol/L (22-32); Chloride 104 mmol/L (98-107); Estimated Glomerular Filt Rate 38.6 mL/min (>60); Glucose 98 mg/dL (80-110); HEMOLYSIS < 15 (0-50); Magnesium 2.1 mg/dL (1.6-2.3); Phosphorous 3.3 mg/dL (2.3-3.7); Potassium 4.1 mmol/L (3.4-5.1); Sodium 138 mmol/L (137-145)
[2019-06-24] MEDS: PANTOPRAZOLE 40 MG VIAL 20 MG IV ×2 (08:33→20:48)
--- NOTE | 2019-06-24 08:46 | DI.RAD.S_ITS ---
PROCEDURE: XR ABDOMEN 3V INDICATIONS: Small bowel obstruction TECHNIQUE: One view chest and two views of the abdomen were acquired. COMPARISON: [facility], CT, CT ABDOMEN PELVIS W CON, 06/23/2019, 11:25. [facility], CR, XR CHEST 1V, 06/23/2019, 10:57. FINDINGS: Surgical changes and devices: Nasogastric tube is present with the tip likely in the second portion of the duodenum. Dual-lead left-sided cardiac pacemaker. Chest: Elevated left hemidiaphragm. Lungs are clear. Heart size is normal. No pleural effusions. No pneumoperitoneum. Abdomen: Bowel gas pattern demonstrates scattered fluid levels and relative paucity of small bowel gas. Small amount of gas and stool present in the distal colon.. No suspicious calcifications. Visualized solid organ contours appear normal. Excreted contrast present in the urinary bladder. Bones: No suspicious bony lesions. IMPRESSION: 1. Adequate position of nasogastric tube. 2. Scattered fluid levels suggesting persistent obstruction or ileus. Caliber of small bowel is not able to be assessed on this exam. 3. No pneumoperitoneum. Dictated by: Lianne Hua M.D. on 06/24/2019 at 8:10 Approved by: Lianne Hua M.D. on 06/24/2019 at 8:14
[2019-06-24 08:49] VITALS: BP 153/70; PULSE 76; RESP 17; TEMP 36.4; O2SAT 95
--- NOTE | 2019-06-24 09:36 | P.PN_ITS ---
Subjective Subjective Date Patient Seen: 06/24/19 Time Patient Seen: 09:36 Interval history: Patient resting comfortably in bed has no abdominal pain. He has no vomiting. Complaining of throat discomfort from his nasogastric tube. Exam Vital Signs (past 8 hours): - 06/24/19 05:00 06/24/19 08:49 Temperature 98.5 F 97.6 F Pulse Rate 70 76 Respiratory Rate 16 17 Blood Pressure 140/73 153/70 H Pulse Oximetry 94 95 Oxygen Delivery Method Room Air Oxygen Flow Rate 0 Narrative Exam Narrative: Patient is afebrile Abdomen less distended No abdominal tenderness No abdominal masses Objective Labs Result Diagrams: 06/24/19 05:20 06/24/19 05:20 Labs: Laboratory Results - last 24 hr 06/23/19 06/23/19 06/23/19 10:37 10:37 10:37 WBC 18.6 H RBC 4.67 Hgb 14.6 Hct 42.3 MCV 90.4 MCH 31.2 MCHC 34.5 RDW 14.4 Plt Count 217 Neut % (Auto) 88.7 H Lymph % (Auto) 5.0 L [place] % (Auto) 6.1 Eos % (Auto) 0.0 L Baso % (Auto) 0.2 Neut # (Auto) 19900 H Lymph # (Auto) 900 L [place] # (Auto) 1100 H Eos # (Auto) 0 Baso # (Auto) 0 PT 17.9 H INR 1.5 H APTT 37 H D Sodium 138 Potassium 4.2 Chloride 99 Carbon Dioxide 28 BUN 38 H Creatinine 1.90 H Estimated GFR 33.9 L BUN/Creatinine Ratio 20.0 Glucose 139 H Lactate Calcium 10.5 H Phosphorus Magnesium Total Bilirubin 1.2 AST 37 ALT 21 Alkaline Phosphatase 46 Total Creatine Kinase 199 H CK-MB (CK-2) 5.49 H CK-MB (CK-2) Rel Index 2.8 Troponin I 0.107 H B-Natriuretic Peptide Total Protein 8.0 Albumin 4.7 Globulin 3.3 Albumin/Globulin Ratio 1.4 Lipase 98 Urine Color Urine Appearance Urine pH Ur Specific [place] Urine Protein Urine Glucose (UA) Urine Ketones Urine Occult Blood Urine Nitrate Urine Bilirubin Urine Urobilinogen Ur Leukocyte Esterase Urine RBC Urine WBC Urine Bacteria Ur Culture Indicated? Micro UA Comment 06/23/19 06/23/19 06/23/19 10:37 10:37 13:05 WBC RBC Hgb Hct MCV MCH MCHC RDW Plt Count Neut % (Auto) Lymph % (Auto) [place] % (Auto) Eos % (Auto) Baso % (Auto) Neut # (Auto) Lymph # (Auto) [place] # (Auto) Eos # (Auto) Baso # (Auto) PT INR APTT Sodium Potassium Chloride Carbon Dioxide BUN Creatinine Estimated GFR BUN/Creatinine Ratio Glucose Lactate 2.9 H 1.7 Calcium Phosphorus Magnesium Total Bilirubin AST ALT Alkaline Phosphatase Total Creatine Kinase CK-MB (CK-2) CK-MB (CK-2) Rel Index Troponin I B-Natriuretic Peptide 296 H Total Protein Albumin Globulin Albumin/Globulin Ratio Lipase Urine Color Urine Appearance Urine pH Ur Specific [place] Urine Protein Urine Glucose (UA) Urine Ketones Urine Occult Blood Urine Nitrate Urine Bilirubin Urine Urobilinogen Ur Leukocyte Esterase Urine RBC Urine WBC Urine Bacteria Ur Culture Indicated? Micro UA Comment 06/23/19 06/23/19 06/24/19 18:22 22:30 05:20 WBC 8.3 D RBC 4.02 L Hgb 12.4 L Hct 36.7 L MCV 91.3 MCH 30.9 MCHC 33.8 RDW 14.3 Plt Count 156 Neut % (Auto) 77.1 H Lymph % (Auto) 12.1 L [place] % (Auto) 9.7 Eos % (Auto) 0.8 L Baso % (Auto) 0.3 Neut # (Auto) 6400 Lymph # (Auto) 1000 L [place] # (Auto) 800 Eos # (Auto) 100 Baso # (Auto) 0 PT INR APTT Sodium 140 Potassium 4.4 Chloride 103 Carbon Dioxide 28 BUN 40 H Creatinine 1.80 H Estimated GFR 36.1 L BUN/Creatinine Ratio 22.2 H Glucose 122 H Lactate Calcium 9.6 Phosphorus Magnesium Total Bilirubin AST ALT Alkaline Phosphatase Total Creatine Kinase CK-MB (CK-2) CK-MB (CK-2) Rel Index Troponin I 0.074 H B-Natriuretic Peptide Total Protein Albumin Globulin Albumin/Globulin Ratio Lipase Urine Color Yellow Urine Appearance Clear Urine pH 5.0 Ur Specific [place] <=1.005 Urine Protein Trace H Urine Glucose (UA) Negative Urine Ketones Negative Urine Occult Blood Trace-lysed Urine Nitrate Negative Urine Bilirubin Negative Urine Urobilinogen 0.2 Ur Leukocyte Esterase Negative Urine RBC None seen Urine WBC None seen Urine Bacteria None seen Ur Culture Indicated? Cult not indicated Micro UA Comment Microscopic normal 06/24/19 05:20 WBC RBC Hgb Hct MCV MCH MCHC RDW Plt Count Neut % (Auto) Lymph % (Auto) [place] % (Auto) Eos % (Auto) Baso % (Auto) Neut # (Auto) Lymph # (Auto) [place] # (Auto) Eos # (Auto) Baso # (Auto) PT INR APTT Sodium 138 Potassium 4.1 Chloride 104 Carbon Dioxide 28 BUN 39 H Creatinine 1.70 H Estimated GFR 38.6 L BUN/Creatinine Ratio 22.9 H Glucose 98 Lactate Calcium 9.2 Phosphorus 3.3 Magnesium 2.1 Total Bilirubin AST ALT Alkaline Phosphatase Total Creatine Kinase CK-MB (CK-2) CK-MB (CK-2) Rel Index Troponin I B-Natriuretic Peptide Total Protein Albumin Globulin Albumin/Globulin Ratio Lipase Urine Color Urine Appearance Urine pH Ur Specific [place] Urine Protein Urine Glucose (UA) Urine Ketones Urine Occult Blood Urine Nitrate Urine Bilirubin Urine Urobilinogen Ur Leukocyte Esterase Urine RBC Urine WBC Urine Bacteria Ur Culture Indicated? Micro UA Comment Assessment & Plan Assessment & Plan narrative: Patient has had several bowel movements and is passing flatus after receiving a few enemas. Nasogastric tube is put out a moderate amount of bilious dark fluid. Abdominal x-ray this morning is much better with plenty of gas and stool in the colon minimal small bowel gas. Impression is his small-bowel obstruction is improving with conservative treatment. We'll use the NG tube today to instill some mineral oil ambulate the patient use some rectal suppositories to try to stimulate his colon
[2019-06-24] MEDS: MINERAL OIL 473 ML OIL 60 ML PO (10:15)
[2019-06-24] MEDS: BISACODYL 10 MG SUPP PR (12:02)
--- NOTE | 2019-06-24 12:06 | P.PN_ITS ---
Subjective Subjective Date Patient Seen: 06/24/19 Time Patient Seen: 09:00 Interval history: Latonia Perez is an 83-year-old male w/ PMH significant for COPD (mild), restrictive lung disease, CAD (no h/o GA), AFIB (AC w/ warfarin), cardiomyopathy (s/p PPM, [facility], w/ complication of punctured lung / chest tube), hypothyroidism, Hodgkin's lymphoma, colon cancer (s/p colon resection 1999), sigmoid diverticulosis, and prior h/o tobacco dependence (quit 1982). He is admitted with a small-bowel obstruction. He had a bowel movement overnight and feels much improved this morning. He denies any nausea this morning and had no abdominal pain. He denies fevers or chills, and denies chest pain or shortness of breath. His only complaint is of throat irritation from the NG tube. His NG tube output was 1850 in the past 24 hours. His abdominal film was much improved today. He was given some bowel stimulants via the NG tube this morning to help him. Exam Vital Signs (past 8 hours): - 06/24/19 05:00 06/24/19 08:49 Temperature 98.5 F 97.6 F Pulse Rate 70 76 Respiratory Rate 16 17 Blood Pressure 140/73 153/70 H Pulse Oximetry 94 95 Oxygen Delivery Method Room Air Oxygen Flow Rate 0 Narrative Exam Narrative: GENERAL APPEARANCE: Well developed, well nourished, in no acute distress. SKIN: Inspection of the skin reveals no rashes, ulcerations or petechiae. HEENT: NG tube in place NECK: Supple and symmetric. There was no thyroid enlargement, and no tenderness, or masses were felt. CHEST: Normal AP diameter and normal contour without any kyphoscoliosis. LUNGS: Auscultation of the lungs revealed no wheezes, rhonchi, or rales. CARDIOVASCULAR: There was a regular rate and rhythm without any murmurs, gallops, rubs. Peripheral pulses were 2+ and symmetric. ABDOMEN: Soft and nontender, nondistended with well-healed midline surgical scar. MUSCULOSKELETAL: There was no tenderness or effusions noted. Muscle strength and tone were normal. EXTREMITIES: No cyanosis, clubbing or edema. NEUROLOGIC: Alert and oriented x 3. Normal affect. Mild impairment in short- term memory. Strength is +5/5 in the Upper Extremities and Lower Extremities Bilaterally. Sensation to touch was normal. Objective Labs Result Diagrams: 06/24/19 05:20 06/24/19 05:20 Labs: Laboratory Results - last 24 hr 06/23/19 06/23/19 06/23/19 13:05 18:22 22:30 WBC RBC Hgb Hct MCV MCH MCHC RDW Plt Count Neut % (Auto) Lymph % (Auto) [place] % (Auto) Eos % (Auto) Baso % (Auto) Neut # (Auto) Lymph # (Auto) [place] # (Auto) Eos # (Auto) Baso # (Auto) Sodium 140 Potassium 4.4 Chloride 103 Carbon Dioxide 28 BUN 40 H Creatinine 1.80 H Estimated GFR 36.1 L BUN/Creatinine Ratio 22.2 H Glucose 122 H Lactate 1.7 Calcium 9.6 Phosphorus Magnesium Troponin I 0.074 H Urine Color Yellow Urine Appearance Clear Urine pH 5.0 Ur Specific [place] <=1.005 Urine Protein Trace H Urine Glucose (UA) Negative Urine Ketones Negative Urine Occult Blood Trace-lysed Urine Nitrate Negative Urine Bilirubin Negative Urine Urobilinogen 0.2 Ur Leukocyte Esterase Negative Urine RBC None seen Urine WBC None seen Urine Bacteria None seen Ur Culture Indicated? Cult not indicated Micro UA Comment Microscopic normal 06/24/19 06/24/19 05:20 05:20 WBC 8.3 D RBC 4.02 L Hgb 12.4 L Hct 36.7 L MCV 91.3 MCH 30.9 MCHC 33.8 RDW 14.3 Plt Count 156 Neut % (Auto) 77.1 H Lymph % (Auto) 12.1 L [place] % (Auto) 9.7 Eos % (Auto) 0.8 L Baso % (Auto) 0.3 Neut # (Auto) 6400 Lymph # (Auto) 1000 L [place] # (Auto) 800 Eos # (Auto) 100 Baso # (Auto) 0 Sodium 138 Potassium 4.1 Chloride 104 Carbon Dioxide 28 BUN 39 H Creatinine 1.70 H Estimated GFR 38.6 L BUN/Creatinine Ratio 22.9 H Glucose 98 Lactate Calcium 9.2 Phosphorus 3.3 Magnesium 2.1 Troponin I Urine Color Urine Appearance Urine pH Ur Specific [place] Urine Protein Urine Glucose (UA) Urine Ketones Urine Occult Blood Urine Nitrate Urine Bilirubin Urine Urobilinogen Ur Leukocyte Esterase Urine RBC Urine WBC Urine Bacteria Ur Culture Indicated? Micro UA Comment Assessment & Plan Assessment & Plan narrative: Latonia Perez is an 83-year-old male w/ PMH significant for COPD (mild), restrictive lung disease, CAD (no h/o GA), AFIB (AC w/ warfarin), cardiomyopathy (s/p PPM, [facility], w/ complication of punctured lung / chest tube), hypothyroidism, Hodgkin's lymphoma, colon cancer (s/p colon resection 1999), sigmoid diverticulosis, and prior h/o tobacco dependence (quit 1982) who was admitted to Medicine with a small-bowel obstruction. 1. Small-bowel obstruction, acute, present admission -CT read a small bowel obstruction a transition point. Dr. Torrez believes this to be a partial bowel obstruction or an ileus. He is improved with conservative management this morning. He still has a moderate amount of NG tube output, he has gotten some bowel stimulation from the NG tube per general surgery recommendations. We will continue conservative management given his medical comorbidities in the hopes of avoiding surgery. - NPO/IVF - NG tube - appreciate general surgery assistance with management 2. KAMALJIT on CKD III, present on admission - patient with cr of 1.9 on admission up from baseline of 1.4. This is likely due to hypovolemia in setting of emesis and SBO. He is improved today with a creatinine of 1.7. - continue IVF - avoid nephrotoxic medications 3. Leukocytosis, present on admission, resolved- likely reactive to SBO. Patient without other signs and symptoms of infection currently. CXR is negative. At risk for aspiration given SBO and frequent emesis. - continue to follow and treat SBO as noted above 4. Type II GA - elevated troponin of 0.107 likely secondary to demand in setting of known CAD and KAMALJIT. -repeat troponin down trended. 5. CAD / cardiomyopathy with PPM placement - - continue telemetry - appears to be euvolemic and stable - patient is ventriculary paced. - EF last admission was normal -resume home meds once tolerating PO - resume lipitor when able. 6. persistent atrial fibrilllation - V paced as noted above. On amiodarone. - resume amiodarone once tolerating PO -resume Lovenox tonight until tolerating p.o., then restart Coumadin. 7. Hypothyroidism, chronic - continue levothyroxin, home dosing 100 mcg. Continue IV at 50 mcg until tolerating PO. 8. hypotension, chronic - patient on home midodrine 10 in AM and 5 in PM. - continue to follow BP, resume if necessary. He remains hypertensive this morning, however this may be due to his acute bowel obstruction. Dispo: Admitted as inpatient, anticipate discharge in the next 1-2 days as bowel obstruction is improving currently. Code: Full, patient elects spouse as surrogate decision maker DVT: Lovenox as noted above.
[2019-06-24 13:59] VITALS: BP 160/75; PULSE 76; RESP 17; TEMP 36.8; O2SAT 95
[2019-06-24] MEDS: SODIUM CHLORIDE 0.9% 1,000 ML 100 ML IV (14:47)
[2019-06-24 15:15] VITALS: BP 148/79; PULSE 73; RESP 18; TEMP 36.8; O2SAT 98
--- NOTE | 2019-06-24 15:45 | PT.IIE ---
Current Diagnoses Unspecified intestinal obstruction, unspecified as to partial versus complete obstruction (06/23/19) Surgical History (Last Reviewed 06/23/19 @ 10:55 by Meredith Pruett DO) History of colon resection (Acute) Medical History (Last Reviewed 06/23/19 @ 15:50 by Jacob Torrez MD) Atrial fibrillation (Acute) CAD (coronary artery disease) (Acute) CHF (congestive heart failure) (Acute) Chronic kidney disease (Acute) Colon cancer (Acute) COPD (chronic obstructive pulmonary disease) (Acute) Hearing loss (Acute) Hodgkin lymphoma (Acute) Hypothyroidism (Acute) Orthostatic hypotension (Acute) Pacemaker (Acute) Physical Therapy Inpatient Evaluation/Re-Eval M1 PT/OT-IP Prior Functional Status Start: 06/24/19 17:23 Freq: NEEDED Status: Active Protocol: Document 06/24/19 15:45 AB (Rec: 06/24/19 17:34 AB [id number]) Medical Review Prior Functional Status Medical History Reviewed Yes Communication able to make needs known; pt is CABAZON Mobility and Gait pt stated that he is independent with all mobilities and ambulation without AD Social History Household Members spouse Living Arrangements House Number of Floors (Floors) Two Floors Number of Stairs To Enter/Railing? pt stays on main level of the house has 1 step to enter Home Environment High Toilet,Walk in Shower Home Equipment Hand Held Shower Employment Status Retired M2 PT-IP Current Condition Start: 06/24/19 17:23 Freq: NEEDED Status: Active Protocol: Document 06/24/19 15:45 AB (Rec: 06/24/19 17:34 AB [id number]) Physical Therapy Current Condition Current Condition Evaluation Date 06/24/19 Treatment Diagnosis SBO; generalized weakness Onset Date 06/23/19 Precautions Other Precautions NG tube M3 PT-IP Subjective Start: 06/24/19 17:23 Freq: NEEDED Status: Active Protocol: Document 06/24/19 15:45 AB (Rec: 06/24/19 17:34 AB [id number]) Subjective Physical Therapy Visit Type Type Initial Evaluation Visit Start Time 15:45 Visit Stop Time 16:10 Total Visit Minutes 25 Number of INJECTION MOLDING PROCESS TECHNICIAN Visits 0 Physical Therapy Visit Comments Patient Comments pt agreeable to do PT Therapy Pain Assessment Pain When Pain Assessed At Rest Location Throat Scale Used pain scale not stated; due to ng tube per pt M4 PT-IP Mobility and Gait Start: 06/24/19 17:23 Freq: NEEDED Status: Active Protocol: Document 06/24/19 15:45 AB (Rec: 06/24/19 17:34 AB [id number]) PT-Bed Mobility Assessment Supine to Sit Supine to Sit Standby Assistance Sit to Supine Sit to Supine Standby Assistance Scooting Scooting to Edge of Bed Standby Assistance PT-Transfer Assessment Sit to and From Stand Sit to and from Stand Contact Guard Assistance Equipment Transfer Assistive Device None,Gait Belt Transfers Transfer Destination Bed,Chair Transfer Technique Stand Step Pivot Transfer Ability Level of Assist Contact Guard Assistance,Use of Upper Extremities Gait Assessment Gait Gait Assistance Required: Standby Assistance,Contact Guard Assist Distance (Feet) 25 Able to Maintain Weight Bearing Status Yes During Gait Assistive Devices Assistive Device None,Gait Belt Orthotic/Prosthetic Devices or Brace: No Factors Limiting Gait Function Factors Limiting Gait Function Decreased Activity Tolerance Comments Gait Comments (+) SOB after ambulation: O2 sat: 96-97% at room air PT-Balance Assessment Sitting Balance and Reactions Static Sitting Balance Ability Normal Dynamic Sitting Balance Ability Normal Standing Balance and Reactions Static Standing Balance Ability Good Dynamic Standing Balance Ability Fair Device Used without AD M5 PT-IP Objective Assessments Start: 06/24/19 17:23 Freq: NEEDED Status: Active Protocol: Document 06/24/19 15:45 AB (Rec: 06/24/19 17:34 AB [id number]) Orientation Orientation/Cognition Level of Alertness Alert Orientation Name,Age,Place,Situation Language Function Ability No Deficits Noted,Hard of Hearing Safety Awareness Understands Safety Issues Memory Description No Deficits Noted Gross Range of Motion Lower Extremity ROM Assessment Within Functional Limits Strength Lower Extremity Strength Assessment Within Functional Limits Coordination Assessment Gross Coordination Gross Coordination WNL Sensation Assessment Sensation Gross Sensation WNL Muscle Tone Muscle Tone WNL Yes M6 PT-IP Treatment Start: 06/24/19 17:23 Freq: NEEDED Status: Active Protocol: Document 06/24/19 15:45 AB (Rec: 06/24/19 17:34 AB [id number]) Physical Therapy Treatment Education Education Provided Safety M7 PT-IP Assessment and Plan Start: 06/24/19 17:23 Freq: NEEDED Status: Active Protocol: Document 06/24/19 15:45 AB (Rec: 06/24/19 17:34 AB [id number]) PT Summary Assessment and Plan Potential Rehabilitation Potential Good Status of Condition at Evaluation Stable Summary Impairments Pain,ROM,Strength,Balance,Bed Mobility,Transfers,Gait, Activity Tolerance Assessment Summary pt requiring SBA to CGA with mobility but unable to tolerate much activity with (+ ) SOB after ambulation. pt plans to go home with spouse to assist him. will continue to assess progress. Goals Bed Mobility Goal Independent Transfer Goal Independent Gait Goal Independent Gait Distance 300 Other Goals up/down 1 step without AD SBA Days to Meet Goals 5 Frequency of Treatment Frequency Of Treatment Once a Day Treatment Plan Physical Therapy Treatment Plan Bed Mobility Training,Transfer Training,Gait Training, Therapeutic Exercise,Balance Retraining,Discharge Planning, Neuromuscular Re-ed Other Recommendations and Next Treatment ambulation Focus Recommendations To Nursing Amount of Assist Needed 1 Person Assist Discharge Recommendations PT Discharge Recommendations Home with Assistance
--- NOTE | 2019-06-24 15:59 | CM.DANOTE ---
DCP/Assessment: Reviewed chart. Patient is a 84yr old male admitted to [facility] with SBO. PCP is Dr. Vu. Primary payor is 1)[facility]. Met with patient explained CM/SW role. Patient's spouse/Yun at bedside. Patient currently with NG tube and bowel rest in hopes that he will not have to undergo surgery. Patient reports that prior to admit he was completely I in all ADL's. Spouse and patient very active and went to the gym on regular basis. At this time d/c needs unknown. Patient hopes to d/c home once SBO resolved without having to have surgery. P: Home when stable, pending patient progress with bowel rest. DERIK Wilks Discharge Planning/Care Management CM Discharge Assessment Start: 06/24/19 15:57 Freq: Status: Active Protocol: Document 06/24/19 15:57 KJS (Rec: 06/24/19 15:59 KJS [id number]) Discharge Planning Assessment Assigned [employer] Academic Coach DERIK Wilks Contact Information Yun Ana (spouse) Advance Directives? No History Provided By Patient,Medical Record Prior Living Arrangements House Household Members spouse Type of transporation used prior to Drives own vehicle admit Independent with ADL's Yes Is patient alert and oriented? Yes Caregiver for Another No Barriers to Discharge No Discharge Plan Home Transportation Arrangement Spouse Whiteboard Updated in Patient Room with Yes name and ext. # of High School Academic Coach Review Status In Process Next Review Type Continued Stay Review
[2019-06-24] MEDS: LEVOTHYROXINE INJ 100 MCG/5 ML VIAL 50 MCG IV (17:07)
--- NOTE | 2019-06-24 17:45 | PC.NURSE ---
Addendum entered by Eli Cotton R.N. 06/24/19 18:08: Moderate sized BM at 1800. Loose, greasy, and odorous. Original Note: Wendie shift. pt AO and receptive to care. Reporting irritation to right nares and throat from NG tube, relieved mildly by ice chips. NG tube set to low/continuous suction. Left forearm PIV infusing NS at 100ml/hr. Denying pain (just irritation from NG). Bowel tones hypoactive.
[2019-06-24 20:40] VITALS: BP 157/94; PULSE 74; RESP 18; TEMP 36.7; O2SAT 97
[2019-06-24] MEDS: ENOXAPARIN 100 MG/ML SYRINGE 85 MG SUBCUT (20:47)
[2019-06-25 00:20] VITALS: BP 144/59; PULSE 72; RESP 22; TEMP 36.5; O2SAT 98
[2019-06-25] MEDS: SODIUM CHLORIDE 0.9% 1,000 ML 100 ML IV ×2 (01:54→11:45)
[2019-06-25 05:27] VITALS: BP 160/83; PULSE 74; RESP 18; TEMP 36.7; O2SAT 97
[2019-06-25] MEDS: METOCLOPRAMIDE 10 MG/2 ML INJ IV (06:03)
[2019-06-25 06:13] LABS: Add Manual Diff / Slide Review NO; Basophils Absolute Auto 0 /uL (0-100); Basophils Percent Auto 0.6 % (0-2); Eosinophils Absolute Auto 200 /uL (0-450); Eosinophils Percent Auto 2.6 % (2-4); Hematocrit 35.9 % (41-53); Hemoglobin 12.4 g/dL (13.5-17.5); Lymphocytes Absolute Auto 1000 /uL (1100-4500); Lymphocytes Percent Auto 17.1 % (25-40); Mean Corpuscular HGB Conc 34.5 % (30-36); Mean Corpuscular Hemoglobin 31.2 PG (26-34); Mean Corpuscular Volume 90.6 fL (80-100); Monocytes Absolute Auto 600 /uL (0-900); Monocytes Percent Auto 10.2 % (3-14); Neutrophils Absolute Auto 4200 /uL (1500-7000); Neutrophils Percent Auto 69.5 % (50-75); Platelet Count 146 X10^3/uL (150-400); Red Blood Cell Count 3.96 X10^6/uL (4.5-5.9); Red Cell Distribution Width 14.3 % (11.6-14.8)
[2019-06-25 06:20] LABS: Blood Urea Nitrogen 26 mg/dL (9-20); Calcium 8.9 mg/dL (8.4-10.2); Carbon Dioxide 27 mmol/L (22-32); Chloride 110 mmol/L (98-107); Estimated Glomerular Filt Rate 52.6 mL/min (>60); Glucose 80 mg/dL (80-110); HEMOLYSIS < 15 (0-50); Magnesium 2.1 mg/dL (1.6-2.3); Phosphorous 2.7 mg/dL (2.3-3.7); Sodium 143 mmol/L (137-145)
[2019-06-25 08:00] VITALS: BP 147/70; PULSE 70; RESP 16; TEMP 36.6; O2SAT 96
--- NOTE | 2019-06-25 09:00 | PM.PN.1 ---
Subjective Subjective Date Patient Seen: 06/25/19 Time Patient Seen: 09:00 Interval history: The patient is resting comfortably in bed. No nausea vomiting no abdominal pain. Patient is passing flatus and having bowel movements Exam Vital Signs (past 8 hours): - 06/25/19 05:27 Temperature 98.0 F Pulse Rate 74 Respiratory Rate 18 Blood Pressure 160/83 H Pulse Oximetry 97 Oxygen Delivery Method Room Air Oxygen Flow Rate 0 Narrative Exam Narrative: Patient has no abdominal pain. Nasogastric tube is producing a modest amount of bile. Abdomen is soft nontender and not distended Objective Labs Result Diagrams: 06/25/19 05:55 06/25/19 05:55 Labs: Laboratory Results - last 24 hr 06/25/19 06/25/19 05:55 05:55 WBC 6.0 RBC 3.96 L Hgb 12.4 L Hct 35.9 L MCV 90.6 MCH 31.2 MCHC 34.5 RDW 14.3 Plt Count 146 L Neut % (Auto) 69.5 Lymph % (Auto) 17.1 L [place] % (Auto) 10.2 Eos % (Auto) 2.6 Baso % (Auto) 0.6 Neut # (Auto) 4200 Lymph # (Auto) 1000 L [place] # (Auto) 600 Eos # (Auto) 200 Baso # (Auto) 0 Sodium 143 Potassium 4.0 Chloride 110 H Carbon Dioxide 27 BUN 26 H Creatinine 1.30 H Estimated GFR 52.6 L BUN/Creatinine Ratio 20.0 Glucose 80 Calcium 8.9 Phosphorus 2.7 Magnesium 2.1 Assessment & Plan Assessment & Plan narrative: Patient had either a partial small bowel obstruction or adynamic ileus. This has resolved. Plan is to remove the NG tube today. Will start him on a mechanically soft diet. He may be discharged per the medical service if his diet is tolerated.
[2019-06-25] MEDS: MINERAL OIL 473 ML OIL 60 ML PO (09:35)
[2019-06-25] MEDS: BISACODYL 10 MG SUPP PR (10:35)
[2019-06-25] MEDS: PANTOPRAZOLE 40 MG VIAL 20 MG IV (10:35)
--- NOTE | 2019-06-25 11:26 | PT.IPTN ---
Current Diagnoses Unspecified intestinal obstruction, unspecified as to partial versus complete obstruction (06/23/19) Physical Therapy Treatment Note M2 PT-IP Current Condition Start: 06/24/19 17:23 Freq: NEEDED Status: Active Protocol: Document 06/24/19 15:45 AB (Rec: 06/24/19 17:34 AB [id number]) Physical Therapy Current Condition Current Condition Evaluation Date 06/24/19 Treatment Diagnosis SBO; generalized weakness Onset Date 06/23/19 Precautions Other Precautions NG tube M3 PT-IP Subjective Start: 06/24/19 17:23 Freq: NEEDED Status: Active Protocol: Document 06/25/19 09:57 MB (Rec: 06/25/19 11:26 MB [id number]) Subjective Physical Therapy Visit Type Type Treatment Note Visit Start Time 09:57 Visit Stop Time 10:20 Total Visit Minutes 23 Number of ASSISTANT PROFESSOR OF PSYCHOLOGY Visits 0 Physical Therapy Visit Comments Patient Comments Pt agreeable to PT, he denies pain, he is ready to walk. No pain throughout treatment at rest or with mobility. M4 PT-IP Mobility and Gait Start: 06/24/19 17:23 Freq: NEEDED Status: Active Protocol: Document 06/25/19 09:57 MB (Rec: 06/25/19 11:26 MB [id number]) PT-Bed Mobility Assessment Supine to Sit Supine to Sit Independent Scooting Scooting to Edge of Bed Independent PT-Transfer Assessment Sit to and From Stand Sit to and from Stand Standby Assistance Equipment Transfer Assistive Device Gait Belt Gait Assessment Gait Gait Assistance Required: Contact Guard Assist,Minimum Assistance Distance (Feet) 100 Assistive Devices Assistive Device Gait Belt Factors Limiting Gait Function Factors Limiting Gait Function Decreased Activity Tolerance Comments Gait Comments Pt with DIGGS, pulse ox does not read. Pt with very cold and blueish fingers both hands. He cannot rate dyspnea. Reports light-headedness. Checked BP after gait: 152/81, 94. reports pt takes medication to keep his BP up as it runs low . Gait: 100'x3 with CGA to Min A . Pt impulsive and unsteady. He presents with LOB x2 that requires PT assist to prevent fall. Narrow GISELLE. He adamantly refuses AD. Pt very KAIBAB and has trouble following safety commands with PT at his side. PT-Balance Assessment Sitting Balance and Reactions Static Sitting Balance Ability Normal Dynamic Sitting Balance Ability Normal Standing Balance and Reactions Static Standing Balance Ability Poor Dynamic Standing Balance Ability Poor Device Used no AD Balance Tests Single Limb Standing Unable Romberg LOB, cannot get into position Comments Other Balance Tests/Deviations/Treatment Pt has trouble getting into : narrow GISELLE for static standing balance testing. He wears hospital socks and states she does not want to put on his shoes because he trips over them. M5 PT-IP Objective Assessments Start: 06/24/19 17:23 Freq: NEEDED Status: Active Protocol: Document 06/24/19 15:45 AB (Rec: 06/24/19 17:34 AB [id number]) Orientation Orientation/Cognition Level of Alertness Alert Orientation Name,Age,Place,Situation Language Function Ability No Deficits Noted,Hard of Hearing Safety Awareness Understands Safety Issues Memory Description No Deficits Noted Gross Range of Motion Lower Extremity ROM Assessment Within Functional Limits Strength Lower Extremity Strength Assessment Within Functional Limits Coordination Assessment Gross Coordination Gross Coordination WNL Sensation Assessment Sensation Gross Sensation WNL Muscle Tone Muscle Tone WNL Yes M6 PT-IP Treatment Start: 06/24/19 17:23 Freq: NEEDED Status: Active Protocol: Document 06/25/19 09:57 MB (Rec: 06/25/19 11:26 MB [id number]) Physical Therapy Treatment Other Treatments Other Treatment Performed Use of incentive spirometer M7 PT-IP Assessment and Plan Start: 06/24/19 17:23 Freq: NEEDED Status: Active Protocol: Document 06/25/19 09:57 MB (Rec: 06/25/19 11:26 MB [id number]) PT Summary Assessment and Plan Potential Rehabilitation Potential Fair Summary Assessment Summary Pt is very impulsive, SOB and reports of some light- headedness with gait. He is KAIBAB. His reports many falls at home. Pt adamantly refusing AD. PT educates pt on risk of injury with falls, benefits of AD and PT at d/c. After much encouragement, he states he might consider OPPT for balance training. is very supportive of this as she is concerned about pt's falls , low BP, light-headedness. Recommend up walking with g staff CGA 2-3 times today before d/c. Goals Bed Mobility Goal Independent Transfer Goal Independent Gait Goal Independent Gait Distance 300 Other Goals up/down 1 step without AD SBA Days to Meet Goals 5 Frequency of Treatment Frequency Of Treatment Once a Day Treatment Plan Physical Therapy Treatment Plan Bed Mobility Training,Transfer Training,Gait Training, Therapeutic Exercise,Balance Retraining,Discharge Planning, Neuromuscular Re-ed Other Recommendations and Next Treatment ambulation Focus Recommendations To Nursing Amount of Assist Needed 1 Person Assist Discharge Recommendations PT Discharge Recommendations Home with Assistance Other Discharge Recommendations OPPT consult for balance training
[2019-06-25 12:00] VITALS: BP 108/54; PULSE 71; RESP 16; TEMP 36.6; O2SAT 95
--- NOTE | 2019-06-25 15:16 | P.DS_ITS ---
History of Present Illness History of Present Illness Chief complaint: intestinal blockage,keep throwing up Narrative: Latonia Perez is an 83-year-old male w/ PMH significant for COPD (mild), restrictive lung disease, CAD (no h/o KS), AFIB (AC w/ warfarin), cardiomyopathy (s/p PPM, [facility], w/ complication of punctured lung / chest tube), hypothyroidism, Hodgkin's lymphoma, colon cancer (s/p colon r esection 1999), sigmoid diverticulosis, and prior h/o tobacco dependence (quit 1982). He presented with 2 days of intermittent, sharp and severe abdominal pain, nausea and persistent bilious vomiting. He states on late Saturday night/early Saturday morning he began to have profuse vomiting with associated severe abdominal pain. He has had episodes of these before where his pain will resolve in about 8 hours however this time it continued. He continued to not be able to tolerate p.o. intake and he decided to come to the emergency room today. He may have passed gas yesterday but does not clearly recall. He has not had a bowel movement since Saturday. He states his abdominal pain has improved somewhat today, but is still present. CT scan done in the emergency room showed a small- bowel obstruction that is read is a transition point. Patient was seen by Dr. Torrez of general surgery who read the imaging as a partial obstruction and possible ileus. He recommended conservative management with NG tube placement at this time and repeat imaging in the morning. Patient was admitted to [facility] for small-bowel obstruction. Discharge Providers Provider Date of admission: 06/23/19 13:24 Discharge Date: 06/25/19 Primary care physician: Sachin Vu MD Consults: 06/23/19 12:19 Consult to General Surgery Stat Comment: Consulting Provider: Jacob Torrez Reason for consultation: SBO Has provider been notified: Yes 06/24/19 10:49 Consult to Physical Therapy Evaluate & Treat Comment: Physician Instructions: Evaluate and Treat Discharge provider: Dennis Adams DO Summary Hospital Course Discharge Diagnosis: 1. Small-bowel obstruction, acute, present admission, resolved. 2. KAMALJIT on CKD III 3. Leukocytosis, present on admission, resolved 4. Type II KS 5. CAD / cardiomyopathy with PPM placement - 6. persistent atrial fibrilllation 7. Hypothyroidism, chronic 8. hypotension, chronic Hospital Course: Latonia Perez is an 83-year-old male w/ PMH significant for COPD (mild), restrictive lung disease, CAD (no h/o KS), AFIB (AC w/ warfarin), cardiomyopathy (s/p PPM, [facility], w/ complication of punctured lung / chest tube), hypothyroidism, Hodgkin's lymphoma, colon cancer (s/p colon resection 1999), sigmoid diverticulosis, and prior h/o tobacco dependence (quit 1982) who was admitted to Medicine with a small-bowel obstruction. He improved with conservative management with an NG tube. His NG tube was discontinued and the patient tolerated a soft diet as instructed by surgery. He was discharged home. He was passing gas and having bowel movements upon discharge. 1. Small-bowel obstruction, acute, present admission -CT read a small bowel obstruction a transition point. Dr. Torrez believes this to be a partial bowel obstruction or an ileus. He improved with conservative management with an NG tube along. He was tolerating a diet upon discharge and having bowel movements. Recommended additional bowel regimen as he was still quite constipated with adding MiraLax and senna to his daily regimen. 2. KAMALJIT on CKD III, present on admission - patient with cr of 1.9 on admission up from baseline of 1.4. This is likely due to hypovolemia in setting of emesis and SBO. He improved to a creatinine of 1.3 on the day of discharge. 3. Leukocytosis, present on admission, resolved- likely reactive to SBO. Patient without other signs and symptoms of infection currently. CXR is negative. At risk for aspiration given SBO and frequent emesis, however he did not have a fever while here and he was tolerating a diet upon discharge without cough or evidence of aspiration. 4. Type II KS - elevated troponin of 0.107 likely secondary to demand in setting of known CAD and KAMALJIT. -repeat troponin down trended. 5. CAD / cardiomyopathy with PPM placement - - appears to be euvolemic and stable - patient is ventriculary paced. - EF last admission was normal -patient to resume his home blood pressure and cholesterol medications upon discharge. 6. persistent atrial fibrilllation - V paced as noted above. On amiodarone. - resume amiodarone -discharge the patient with Lovenox b.i.d. to bridge him until his INR will be therapeutic. I asked that he continue his regular Coumadin and follow-up with his Coumadin clinic next week. I further asked, given reported history of difficulty managing his Coumadin, to see if he could switch to a NOAC. He will follow-up with his mdm sr and primary care provider for this. 7. Hypothyroidism, chronic - continue levothyroxin, home dosing 100 mcg. 8. hypotension, chronic - patient on home midodrine 10 in AM and 5 in PM. -patient can continue at home of hypotensive. Dispo: Admitted as inpatient, anticipate discharge in the next 1-2 days as bowel obstruction is improving currently. Code: Full, patient elects spouse as surrogate decision maker DVT: Lovenox as noted above. Time Spent with Patient Time spent: Greater than 30 minutes Exam Vital Signs (past 8 hours): - 06/25/19 08:00 Temperature 97.8 F Pulse Rate 70 Respiratory Rate 16 Blood Pressure 147/70 H Pulse Oximetry 96 Oxygen Delivery Method Room Air Oxygen Flow Rate 0 Narrative Exam Narrative: GENERAL APPEARANCE: Well developed, well nourished, in no acute distress. SKIN: Inspection of the skin reveals no rashes, ulcerations or petechiae. HEENT: Oral mucosa moist, mild posterior erythema, NG tube removed with mild rhinorrhea. NECK: Supple and symmetric. There was no thyroid enlargement, and no tenderness, or masses were felt. CHEST: Normal AP diameter and normal contour without any kyphoscoliosis. LUNGS: Auscultation of the lungs revealed no wheezes, rhonchi, or rales. CARDIOVASCULAR: There was a regular rate and rhythm without any murmurs, gallops, rubs. Peripheral pulses were 2+ and symmetric. ABDOMEN: Soft and nontender, nondistended with well-healed midline surgical scar. MUSCULOSKELETAL: There was no tenderness or effusions noted. Muscle strength and tone were normal. EXTREMITIES: No cyanosis, clubbing or edema. NEUROLOGIC: Alert and oriented x 3. Normal affect. Mild impairment in short- term memory. Strength is +5/5 in the Upper Extremities and Lower Extremities Bilaterally. Sensation to touch was normal. Objective Labs Result Diagrams: 06/25/19 05:55 06/25/19 05:55 Labs: Laboratory Results - last 24 hr 06/25/19 06/25/19 05:55 05:55 WBC 6.0 RBC 3.96 L Hgb 12.4 L Hct 35.9 L MCV 90.6 MCH 31.2 MCHC 34.5 RDW 14.3 Plt Count 146 L Neut % (Auto) 69.5 Lymph % (Auto) 17.1 L [place] % (Auto) 10.2 Eos % (Auto) 2.6 Baso % (Auto) 0.6 Neut # (Auto) 4200 Lymph # (Auto) 1000 L [place] # (Auto) 600 Eos # (Auto) 200 Baso # (Auto) 0 Sodium 143 Potassium 4.0 Chloride 110 H Carbon Dioxide 27 BUN 26 H Creatinine 1.30 H Estimated GFR 52.6 L BUN/Creatinine Ratio 20.0 Glucose 80 Calcium 8.9 Phosphorus 2.7 Magnesium 2.1 Discharge Plan Discharge Plan Patient Disposition: Home Discharge comment: You were admitted to the hospital with a small-bowel obstruction. You improved with an NG tube and you tolerated a diet after at this was removed. Your passing gas and having bowel movements. Please continue your home bowel regimen, you can also add MiraLax and senna if you continue to have problems with constipation. If you have any further nausea or vomiting, or abdominal pain please do not hesitate to return to the emergency room once you go home. While here your warfarin was held, and your INR was low. I have discharged you on Lovenox injections until you can be seen in your Coumadin clinic next week. Please continue taking your Coumadin as you were supposed to be for you were admitted. You should also have a discussion with her mdm sr or primary care doctor regarding your anticoagulation to see if Eliquis or Xarelto is an appropriate treatment option for you given your struggles with Coumadin. Discharge orders & Medications Prescriptions: New enoxaparin 80 mg/0.8 mL syringe 80 mg SUBCUT Q12H 7 Days Qty: 11.2 RF: 0 Continued atorvastatin [Lipitor] 10 MG tablet 10 mg PO BEDTIME Qty: 0 RF: 0 midodrine 5 mg Tablet 10 mg PO QAM RF: 0 levothyroxine 100 mcg Tablet 100 mcg PO DAILY RF: 0 midodrine 5 mg tablet 5 mg PO QPM RF: 0 magnesium oxide 400 mg (241.3 mg magnesium) Tablet 400 mg PO DAILY RF: 0 warfarin 5 mg tablet 7.5 mg PO SUMOWEFRSA RF: 0 warfarin 5 mg tablet 10 mg PO TUTH RF: 0 tetrahydrozoline-peg 0.05-1 % Drops 1 drp OPHTHALMIC (EYE) DIRECTED RF: 0 albuterol sulfate [Ventolin HFA] 90 mcg/actuation Hfa Aerosol Inhaler 2 puff INHALATION Q6H PRN (Reason: Shortness Of Breath) RF: 0 multivitamin Capsule 1 cap PO DAILY RF: 0 cholecalciferol (vitamin D3) [Vitamin D3] 1,000 unit Capsule 1,000 unit PO DAILY RF: 0 amiodarone 100 mg tablet 100 mg PO Q OTHER DAY RF: 0 [place]-3 Fish Oil 300-1,000 mg Capsule 1 cap PO DAILY RF: 0 CoQ-10 200 mg 200 mg PO DAILY RF: 0 flaxseed 4 oz PO DAILY RF: 0 Follow up/Referrals: Sachin Vu MD [Primary Care Provider] - Discharge Health Status Health Concerns: Small Bowel Obstruction Diet/Activity/Treatments Diet: Diet as Tolerated Diet comment: Soft diet, low residue diet for a few days then regular. Visit Report/Discharge Packet Instructions: Low-Fiber/Low-Residue Diet, Soft Diet, DI for Heart Failure, DI for Small Bowel Obstruction, How to Prevent Falls Discharge Data Primary Care Provider: Sachin Vu Discharges patient from system. Discharge Date/Time: 06/25/19 17:00
[2019-06-25 15:50] VITALS: BP 146/70; PULSE 63; RESP 17; TEMP 36.6; O2SAT 97
--- NOTE | 2019-06-25 16:51 | PC.NURSE ---
Pt up in chair and resting quietly with eyes closed on window seat in room. Discharge instructions as per Dr. Adams. Noted pt to be sent home with lovenox injections. Questioned pt and pt's spouse re previous use of these injections and both state have not used previously. Spouse states pt will be giving own injections. Discussion with Kennedi from care management and Dr. Adams that neither of these parties have any experience with lovenox. Per Dr. Adams, pt and spouse were given basic instructions by MD and to proceed with plan for discharge. Printed information on lovenox printed per [employer] and given to pt and pt's spouse. Verbal and written discharge instructions provided to pt and pt's spouse. Both parties state will have follow up at coagulation clinic next week for INR check. Encouraged follow up with PCP and/or aluminum molding machine operator to manage anticoagulation as per Dr. Adams's summary. Pt and spouse report all pt's personal effects are accounted for. IV dc'd on dayshift per report and tele dc'd by this instructional writer. Pt able to dress self. TEACHER OF THE HEARING IMPAIRED escorted pt via wheelchair with pt's spouse to private vehicle. Pt left hospital in stable condition. No concerns or complaints verbalized. Instructed to follow up in ER if symptoms r/t bowel obstruction recur.
--- NOTE | 2019-06-26 08:14 | CM.DPNOTE ---
Late Entry/ DC Note: Pt DC 06.25.19 home w/spouse and [facility] . Therapy team had cleared pt for return home w/spouse to assist. Cognitive deficits noted yesterday by therapy team and RN team. Dr Adams aware. This FAMILY COURT REGISTRAR reviewed HH options w/pt and spouse before DC, no agency preference but agency needs to take [facility]. Placed call to [facility], spoke w/ Chucho. He expected to get authorization from [facility] but admitted he could call [facility] if [facility] could not contract w/[facility]. This FAMILY COURT REGISTRAR faxed face sheet, completed F2F, HH order, H+P, DC Summary (in draft form at the time), therapy notes and surgical prog note. Explained efforts to spouse Yun and gave brochure for [facility], strongly encouraged her to call [facility] if she did not hear from them 06.26.19, spouse agreeable. Later spoke w/ evening RN Sarahi who felt uneasy about patient discharging on daily Lovenox shots when he and spouse admitted to staff technologist w/this med or injectable meds. Dr Adams consulted and he felt, based on his time w/pt/spouse and the short term dosing, pt would be safe to return home w/this Rx. P: DC 06.25.19 home w/spouse via pov and [facility] PT/OT per spouse request (did not want HH RN). Close outpt f/u by PCP Dr Sachin Vu. Davina Rosas, FAMILY COURT REGISTRAR
== END 2019-06-25 17:00 | disposition home health service (06) | DRG 388 ==
LOC: ED 13:00 → AC 13:24
PROVIDERS: Admitting Provider Internal Medicine; Emergency Provider Emergency Medicine; PCP Internal Medicine; Visit Provider Internal Medicine
DX: K56.600 Partial intestinal obstruction, unspecified as to cause (principal); I21.A1 Myocardial infarction type 2; N17.9 Acute kidney failure, unspecified; I42.9 Cardiomyopathy, unspecified; I48.19 Other persistent atrial fibrillation; N18.3 Chronic kidney disease, stage 3 (moderate); I25.10 Atherosclerotic heart disease of native coronary artery without angina pectoris; D72.829 Elevated white blood cell count, unspecified; J44.9 Chronic obstructive pulmonary disease, unspecified; E03.9 Hypothyroidism, unspecified; Z79.01 Long term (current) use of anticoagulants; Z85.030 Personal history of malignant carcinoid tumor of large intestine; Z87.891 Personal history of nicotine dependence; I95.9 Hypotension, unspecified; Z85.72 Personal history of non-Hodgkin lymphomas; Z95.0 Presence of cardiac pacemaker
CPT/HCPCS: 36415; 71045; 74021; 74177; 80048; 80053; 81001; 82550; 82553; 83605; 83690; 83735; 83880; 84100; 84484; 85025; 85610; 85730; 93005; 93010; 96361; 96374; 96375; 97116; 97161; 99231; 99232; 99282; 99285; C9113; J1170; J1650; J2405; J2765; Q9967

== ENCOUNTER 2019-12-23 19:05 | Inpatient (IN) | payer MEDICARE, SELFPAY ==
[2019-06-23 16:06] VITALS: BMI 25.5
[2019-12-23 19:29] VITALS: BP 112/59; PULSE 83; RESP 20; TEMP 36.2; O2SAT 97
[2019-12-23 19:40] LABS: Add Manual Diff / Slide Review NO; Basophils Absolute Auto 0 /uL (0-100); Basophils Percent Auto 0.2 % (0-2); Eosinophils Absolute Auto 0 /uL (0-450); Eosinophils Percent Auto 0.1 % (2-4); Hematocrit 42.5 % (41-53); Hemoglobin 14.5 g/dL (13.5-17.5); Lymphocytes Absolute Auto 500 /uL (1100-4500); Lymphocytes Percent Auto 3.3 % (25-40); Mean Corpuscular HGB Conc 34.1 % (30-36); Monocytes Absolute Auto 800 /uL (0-900); Neutrophils Absolute Auto 14300 /uL (1500-7000); Neutrophils Percent Auto 91.4 % (50-75); Platelet Count 197 X10^3/uL (150-400); Red Blood Cell Count 4.66 X10^6/uL (4.5-5.9); Red Cell Distribution Width 14.4 % (11.6-14.8); White Blood Cell Count 15.6 X10^3/uL (4.5-11.0)
--- NOTE | 2019-12-23 19:44 | ED_ITS ---
HPI - Abdominal Pain General Chief Complaint: Abdominal Pain Stated Complaint: intestine issues Time Seen by Provider: 12/23/19 19:35 Source: patient Mode of arrival: Ambulatory History of Present Illness HPI narrative: 84-year-old gentleman with a history of chronic kidney disease, atherosclerosis with coronary artery disease and cardiomyopathy, persistent atrial fibrillation, hypothyroidism presents with increasing nausea vomiting for the last 24 hours. He did have a bowel movement this morning with moderate leuk relief of symptoms. He has had a history of colon cancer with colon surgery, adhesions and prior bowel obstructions. They are concerned with the severity of the vomiting that he again has a bowel obstruction. He does note that his belly is somewhat distended he is not particularly complaining of pain. He has not p assed any flatus since earlier this morning. He describes no fevers, chills, chest pain, cough. He states that he has not had anything to eat or drink today because he is worried that it will come back up. He states he is not currently nauseated nor having any pain. Presentation with admission in June of last year. Was managed conservatively and eventually resolved. Related Data Home Medications Medication Instructions Recorded Confirmed atorvastatin [Lipitor] 10 mg PO BEDTIME #0 10/26/16 12/23/19 levothyroxine 100 mcg PO DAILY 06/07/18 12/23/19 midodrine 10 mg PO QAM 06/07/18 06/23/19 CoQ-10 200 mg PO DAILY 06/23/19 12/23/19 [place]-3 Fish Oil 1 cap PO DAILY 06/23/19 12/23/19 albuterol sulfate [Ventolin HFA] 2 puff INHALATION Q6H PRN 06/23/19 12/23/19 amiodarone 100 mg PO Q OTHER DAY 06/23/19 12/23/19 cholecalciferol (vitamin D3) 1,000 unit PO DAILY 06/23/19 12/23/19 [Vitamin D3] flaxseed 4 oz PO DAILY 06/23/19 06/23/19 magnesium oxide 400 mg PO DAILY 06/23/19 06/23/19 midodrine 5 mg PO QPM 06/23/19 12/23/19 multivitamin 1 cap PO DAILY 06/23/19 12/23/19 tetrahydrozoline-peg 1 drp OPHTHALMIC (EYE) DIRECTED 06/23/19 12/23/19 warfarin 7.5 mg PO SUMOWEFRSA 06/23/19 12/23/19 warfarin 10 mg PO TUTH 06/23/19 12/23/19 Allergies Allergy/AdvReac Type Severity Reaction Status Date / Time No Known Drug Allergies Allergy Unknown Verified 06/23/19 10:41 [NO KNOWN DRUG ALLERGIES] Review of Systems Review of Systems Narrative: Pertinent positive and negative findings as per HPI Remainder of review of systems is otherwise unremarkable for ENT: No sore throat, neck pain, ear pain CV: Chest pain, palpitations, dyspnea on exertion Respiratory: Cough, wheeze, dyspnea : Dysuria, hematuria, flank pain MS: Muscle weakness, numbness, joint swelling or warmth Skin: Rashes, nonhealing lesions Neuro: Syncope, dizziness, tingling Psych: Depression, anxiety, suicidal ideation Endocrine: Fatigue, heat or cold intolerance, very dry skin Heme: Easy bruising or bleeding Patient History Medical History (Updated 12/23/19 @ 22:50 by Katelyn Sterling MD) Atrial fibrillation (Acute) CAD (coronary artery disease) (Acute) CHF (congestive heart failure) (Acute) Chronic kidney disease (Acute) Colon cancer (Acute) COPD (chronic obstructive pulmonary disease) (Acute) Hearing loss (Acute) Hodgkin lymphoma (Acute) Hypertension (Acute) Hypothyroidism (Acute) Orthostatic hypotension (Acute) Pacemaker (Acute) Small bowel obstruction (Inactive) Surgical History History of colon resection (Acute) Family History Mother No known health problems Father No known health problems Social History marital status: household members: spouse Smoking Status: Former smoker alcohol intake: never Smoking Status: Former smoker alcohol intake frequency: 0-2 drinks per day Substance Use Type: does not use Exam Narrative Exam Narrative: General: Healthy appearing, in no acute distress. Able to give a complete and coherent history. Well-nourished well-developed HEENT: Dry mucous membranes, normal sclera with reactive pupils, Neck: No JVD, supple Respiratory: Lungs are clear to auscultation, no wheezing no rales no rhonchi. Full and symmetrical air movement Cardiac: Regular rate and rhythm no murmurs no bruits Abdomen: Distended, nontender, absent bowel tones, no flank pain Skin: Warm and dry, no rashes Neurologic: Grossly neurologically intact with no obvious asymmetries or abnormalities Extremities: No trauma, well perfused Psych: Cooperative, appropriate insight and affect Initial Vital Signs Initial Vital Signs: Vital Signs Temperature 97.2 F L 12/23/19 19:29 Pulse Rate 83 12/23/19 19:29 Respiratory Rate 20 12/23/19 19:29 Blood Pressure 112/59 L 12/23/19 19:29 Pulse Oximetry 97 12/23/19 19:29 Course Orders Ordered: ED Orders 12/23/19 19:15 Complete Blood Count AUTO DIFF Stat Comprehensive Metabolic Panel Stat Lipase Stat Procalcitonin Routine Prothrombin Time INR Stat 12/23/19 19:58 XR acute abdomen series Stat 12/23/19 20:31 CT abdomen pelvis w con Stat 12/23/19 23:10 Blood Culture Stat Lactate (Lactic Acid) Stat Acetaminophen (Tylenol) 650 mg VT Q4HR PRN PRN Reason: Fever/Mild Pain (1-3) Albuterol (Ventolin Hfa (Vent/Covid R/O)) 2 puff INH Q6H PRN PRN Reason: Shortness Of Breath Amiodarone HCl (Pacerone) 100 mg PO QOD PILAR Atorvastatin Calcium (Lipitor) 10 mg PO BEDTIME PILAR Bisacodyl (Dulcolax) 10 mg VT DAILY PRN PRN Reason: Constipation Heparin Sodium (Porcine) (Heparin) 5,000 unit SUBCUT BID [facility] Sodium Chloride (Normal Saline 0.9%) 1,000 mls @ 100 mls/hr IV CONT PILAR Last Admin: 12/24/19 00:51 Dose: 100 mls/hr Documented by: Admin: 12/24/19 00:51 Dose: Not Given Documented by: NOHELIA Azithromycin 500 mg/ Dextrose 250 mls @ 250 mls/hr IV Q24H PILAR Stop: 12/26/19 22:59 Piperacillin/Tazobactam/Dextrose (Zosyn) 3.375 gm in 50 mls @ 100 mls/hr IV Q8H [facility] Levothyroxine Sodium (Synthroid) 100 mcg PO QACBREAK PILAR Midodrine (Midodrine) 5 mg PO QPM [facility] Naloxone HCl (Narcan) 0.2 mg IV Q2MIN PRN PRN Reason: Opiate Reversal Non-Formulary Medication (Tetrahydrozoline-Peg) 1 drop EYE-BOTH SEEINSTR PILAR Ondansetron HCl (Zofran) 4 mg IV Q6HR PRN PRN Reason: Nausea And Vomiting Pantoprazole Sodium (Protonix) 40 mg IV NOW ONE Stop: 12/24/19 01:58 Prochlorperazine (Compazine) 5 mg IV NOW ONE Stop: 12/24/19 01:58 Discontinued Medications Sodium Chloride (Normal Saline 0.9%) 1,000 mls @ 150 mls/hr IV CONT PILAR Last Admin: 12/23/19 21:04 Dose: Not Given Documented by: MMCFARL Sodium Chloride (Normal Saline 0.9%) 1,000 mls @ 1,000 mls/hr IV BOLUS ONE Stop: 12/23/19 20:57 Last Infusion: 12/23/19 21:14 Dose: 1,000 mls/hr Documented by: Admin: 12/23/19 20:00 Dose: 1,000 mls/hr Documented by: MMCFARL Sodium Chloride (Normal Saline 0.9%) 1,000 mls @ 150 mls/hr IV CONT PILAR Last Infusion: 12/24/19 00:20 Dose: 150 mls/hr Documented by: Admin: 12/23/19 22:06 Dose: 150 mls/hr Documented by: MMCFARL Ceftriaxone Sodium/Dextrose (Rocephin) 2 gm in 50 mls @ 100 mls/hr IV NOW ONE Stop: 12/23/19 23:15 Last Infusion: 12/23/19 23:20 Dose: 100 mls/hr Documented by: Admin: 12/23/19 22:55 Dose: 100 mls/hr Documented by: MMCWILLY Azithromycin 500 mg/ Dextrose 250 mls @ 250 mls/hr IV NOW ONE Stop: 12/23/19 22:47 Last Infusion: 12/24/19 02:05 Dose: 0 mls/hr Documented by: Admin: 12/24/19 00:51 Dose: 250 mls/hr Documented by: AHAEDVIN Piperacillin/Tazobactam/Dextrose (Zosyn) 3.375 gm in 50 mls @ 100 mls/hr IV Q8H [facility] Last Admin: 12/24/19 02:03 Dose: Not Given Documented by: NOHELIA Lorazepam (Ativan) 1 mg IV NOW ONE Stop: 12/23/19 22:47 Last Admin: 12/23/19 22:55 Dose: 1 mg Documented by: JERONIMO Ondansetron HCl (Zofran) 4 mg IV NOW ONE Stop: 12/23/19 22:01 Last Admin: 12/23/19 22:06 Dose: 4 mg Documented by: JERONIMO Vital Signs Vital signs: Vital Signs - 8 hr 12/23/19 19:29 12/23/19 20:15 12/23/19 20:30 Temperature 97.2 F L Pulse Rate 83 77 75 Respiratory Rate 20 24 26 H Blood Pressure 112/59 L Blood Pressure [Right Arm] 156/69 H 155/72 H Pulse Oximetry 97 94 93 12/23/19 21:30 12/23/19 22:30 Temperature Pulse Rate 80 79 Respiratory Rate 24 24 Blood Pressure Blood Pressure [Right Arm] 172/73 H 175/77 H Pulse Oximetry 95 97 MDM - Abdominal Pain Medical Records Attestation: I reviewed the patient's medical records. Lab Data Attestation: I reviewed the patient's lab results. Lab results narrative: Mild leukocytosis and renal function is slightly elevated over baseline Result diagrams: 12/23/19 19:15 12/23/19 19:15 Labs: Lab Results 12/23/19 12/23/19 12/23/19 Range/Units 19:15 19:15 19:15 WBC 15.6 H (4.5-11.0) X10^3/uL RBC 4.66 (4.5-5.9) X10^6/uL Hgb 14.5 (13.5-17.5) g/dL Hct 42.5 (41-53) % MCV 91.0 (80-100) fL MCH 31.0 (26-34) PG MCHC 34.1 (30-36) % RDW 14.4 (11.6-14.8) % Plt Count 197 (150-400) X10^3/uL Neut % (Auto) 91.4 H (50-75) % Lymph % (Auto) 3.3 L (25-40) % [place] % (Auto) 5.0 (3-14) % Eos % (Auto) 0.1 L (2-4) % Baso % (Auto) 0.2 (0-2) % Neut # (Auto) 22142 H (4930-6387) /uL Lymph # (Auto) 500 L (8334-2955) /uL [place] # (Auto) 800 (0-900) /uL Eos # (Auto) 0 (0-450) /uL Baso # (Auto) 0 (0-100) /uL PT (10.1-12.7) SECONDS INR (0.9-1.3) Sodium 139 (137-145) mmol/L Potassium 4.1 (3.4-5.1) mmol/L Chloride 102 (98-107) mmol/L Carbon Dioxide 28 (22-32) mmol/L BUN 36 H (9-20) mg/dL Creatinine 1.88 H (0.66-1.25) mg/dL Estimated GFR 34.4 L (>60) mL/min BUN/Creatinine Ratio 19.1 (6-22) Glucose 162 H (80-110) mg/dL Lactate (0.7-2.1) mmol/L Calcium 10.1 (8.4-10.2) mg/dL Magnesium (1.6-2.3) mg/dL Total Bilirubin 1.3 (0.2-1.3) mg/dL AST 29 (17-59) IU/L ALT 20 (<50) IU/L Alkaline Phosphatase 37 L (38-126) U/L Troponin I (0.01-0.034) ng/mL Total Protein 7.9 (6.3-8.2) g/dL Albumin 4.6 (3.5-5.0) g/dL Globulin 3.3 (1.7-4.1) g/dL Albumin/Globulin Ratio 1.4 (1.0-2.8) Lipase 74 (23-300) U/L Procalcitonin 0.16 (<0.5) ng/mL 12/23/19 12/23/19 12/23/19 Range/Units 19:15 19:15 19:15 WBC (4.5-11.0) X10^3/uL RBC (4.5-5.9) X10^6/uL Hgb (13.5-17.5) g/dL Hct (41-53) % MCV (80-100) fL MCH (26-34) PG MCHC (30-36) % RDW (11.6-14.8) % Plt Count (150-400) X10^3/uL Neut % (Auto) (50-75) % Lymph % (Auto) (25-40) % [place] % (Auto) (3-14) % Eos % (Auto) (2-4) % Baso % (Auto) (0-2) % Neut # (Auto) (0341-0552) /uL Lymph # (Auto) (3698-9795) /uL [place] # (Auto) (0-900) /uL Eos # (Auto) (0-450) /uL Baso # (Auto) (0-100) /uL PT 22.1 H (10.1-12.7) SECONDS INR 1.9 H (0.9-1.3) Sodium (137-145) mmol/L Potassium (3.4-5.1) mmol/L Chloride (98-107) mmol/L Carbon Dioxide (22-32) mmol/L BUN (9-20) mg/dL Creatinine (0.66-1.25) mg/dL Estimated GFR (>60) mL/min BUN/Creatinine Ratio (6-22) Glucose (80-110) mg/dL Lactate (0.7-2.1) mmol/L Calcium (8.4-10.2) mg/dL Magnesium 2.1 (1.6-2.3) mg/dL Total Bilirubin (0.2-1.3) mg/dL AST (17-59) IU/L ALT (<50) IU/L Alkaline Phosphatase (38-126) U/L Troponin I 0.052 H (0.01-0.034) ng/mL Total Protein (6.3-8.2) g/dL Albumin (3.5-5.0) g/dL Globulin (1.7-4.1) g/dL Albumin/Globulin Ratio (1.0-2.8) Lipase (23-300) U/L Procalcitonin (<0.5) ng/mL 12/23/19 Range/Units 23:10 WBC (4.5-11.0) X10^3/uL RBC (4.5-5.9) X10^6/uL Hgb (13.5-17.5) g/dL Hct (41-53) % MCV (80-100) fL MCH (26-34) PG MCHC (30-36) % RDW (11.6-14.8) % Plt Count (150-400) X10^3/uL Neut % (Auto) (50-75) % Lymph % (Auto) (25-40) % [place] % (Auto) (3-14) % Eos % (Auto) (2-4) % Baso % (Auto) (0-2) % Neut # (Auto) (3817-1769) /uL Lymph # (Auto) (7218-0832) /uL [place] # (Auto) (0-900) /uL Eos # (Auto) (0-450) /uL Baso # (Auto) (0-100) /uL PT (10.1-12.7) SECONDS INR (0.9-1.3) Sodium (137-145) mmol/L Potassium (3.4-5.1) mmol/L Chloride (98-107) mmol/L Carbon Dioxide (22-32) mmol/L BUN (9-20) mg/dL Creatinine (0.66-1.25) mg/dL Estimated GFR (>60) mL/min BUN/Creatinine Ratio (6-22) Glucose (80-110) mg/dL Lactate 1.2 (0.7-2.1) mmol/L Calcium (8.4-10.2) mg/dL Magnesium (1.6-2.3) mg/dL Total Bilirubin (0.2-1.3) mg/dL AST (17-59) IU/L ALT (<50) IU/L Alkaline Phosphatase (38-126) U/L Troponin I (0.01-0.034) ng/mL Total Protein (6.3-8.2) g/dL Albumin (3.5-5.0) g/dL Globulin (1.7-4.1) g/dL Albumin/Globulin Ratio (1.0-2.8) Lipase (23-300) U/L Procalcitonin (<0.5) ng/mL Imaging Data CT scan - abdomen/pelvis: Radiologist's Impression: IMPRESSION: 1. The stomach is probably fluid dilated, and the small bowel is also generally fluid-dilated. Note is made of a pattern of small bowel obstruction which extends to the left lower abdomen/pelvis junction. Beyond this point there is a pattern of collapse of small bowel and relative collapse of the lung. High-grade obstruction is considered likely present as the underlying cause. Etiology is not found as a discrete entity, however. 2. Note is made of a patchy asymmetric mild lung base pneumonia pattern left greater than right. Given the degree of fluid distention of the stomach it is possible that reflux and aspiration has produced this appearance. Dictated by: Barrington Pimentel M.D. on 12/23/2019 at 22:13 Abdominal x-ray: Radiologist's Impression: IMPRESSION: Nonspecific mild prominence of several small bowel loops across the midabdomen but no definite obstruction found. No free air seen. Dictated by: Barrington Pimentel M.D. on 12/23/2019 at 20:51 MDM Narrative Medical decision making narrative: Continued vomiting with concern for high- grade bowel obstruction on CT scan. Will place an NG tube, talk with surgery, planned for admission. CT scan also suggests possibility of a developing lung base pneumonia will also treat for that and plan on hospital admission 1043pm Care reviewed with Dr Randle. Will consult in the am. Concurs with NG tube placement. 1048pm [facility] hospitalist service. I agrees with admission questions are answered. Findings and plantar explained patient and his . He is safe for transfer to hospital floor. Discharge Plan Departure Patient Disposition: Admitted As Inpatient Clinical Impression: SBO (small bowel obstruction) Pneumonia Qualifiers: Pneumonia type: due to unspecified organism Laterality: bilateral Lung location: lower lobe of lung Qualified Code(s): J18.9 - Pneumonia, unspecified organism Discharge Date/Time: 12/24/19 00:20 Referrals: Sachin Vu MD [Primary Care Provider] - Admit Date/Time: 12/23/19 23:11 Admit Provider: Dennis Ferris
[2019-12-23 19:49] LABS: Alanine Aminotransferase 20 IU/L (<50); Albumin 4.6 g/dL (3.5-5.0); Albumin Globulin Ratio 1.4 (1.0-2.8); Alkaline Phosphatase 37 U/L (38-126); Aspartate Aminotransferase 29 IU/L (17-59); BUN Creatinine Ratio 19.1 (6-22); Bilirubin Total 1.3 mg/dL (0.2-1.3); Blood Urea Nitrogen 36 mg/dL (9-20); Calcium 10.1 mg/dL (8.4-10.2); Carbon Dioxide 28 mmol/L (22-32); Chloride 102 mmol/L (98-107); Estimated Glomerular Filt Rate 34.4 mL/min (>60); Globulin 3.3 g/dL (1.7-4.1); Glucose 162 mg/dL (80-110); HEMOLYSIS < 15 (0-50); Lipase 74 U/L (23-300); Potassium 4.1 mmol/L (3.4-5.1); Sodium 139 mmol/L (137-145); Total Protein 7.9 g/dL (6.3-8.2)
--- NOTE | 2019-12-23 19:58 | DI.RAD.S_ITS ---
PROCEDURE: XR ACUTE ABDOMEN SERIES INDICATIONS: likely SBO TECHNIQUE: One view chest and two views of the abdomen were acquired. COMPARISON: None. FINDINGS: Surgical changes and devices: None. Chest: Lungs are clear. Heart size is normal. No pleural effusions. No pneumoperitoneum. Abdomen: Bowel gas pattern is normal. No suspicious calcifications. Visualized solid organ contours appear normal. Bones: No suspicious bony lesions. IMPRESSION: Nonspecific mild prominence of several small bowel loops across the midabdomen but no definite obstruction found. No free air seen. Dictated by: Barrington Pimentel M.D. on 12/23/2019 at 20:51 Approved by: Barrington Pimentel M.D. on 12/23/2019 at 20:53
[2019-12-23] MEDS: SODIUM CHLORIDE 0.9% 1,000 ML 1000 ML IV (20:00)
[2019-12-23 20:15] VITALS: BP 156/69; PULSE 77; RESP 24; O2SAT 94
[2019-12-23 20:30] VITALS: BP 155/72; PULSE 75; RESP 26; O2SAT 93
--- NOTE | 2019-12-23 20:31 | DI.CT.S_ITS ---
PROCEDURE: CT ABDOMEN PELVIS W CON INDICATIONS: abd pain, ? bowel obstruction TECHNIQUE: After the administration of intravenous contrast, 5 mm thick sections acquired from the diaphragm to the symphysis. 5 mm coronal and sagittal reformats were acquired. For radiation dose reduction, the following was used: automated exposure control, adjustment of mA and/or kV according to patient size. COMPARISON: [facility], CT, CT ABDOMEN PELVIS W CON, 06/23/2019, 11:25. FINDINGS: Image quality: Excellent. ABDOMEN: Lung bases: Lung bases are abnormal with a mild patchy asymmetric left greater than right pneumonia pattern at the lung bases. Heart size is normal. The stomach is fluid-distended, and some fluid extends into the lower esophagus. Solid organs: Liver is normal in size and enhancement. Gallbladder appears contracted. Biliary system is non dilated. Pancreas enhances normally. Spleen is normal in size and enhancement. No adrenal nodules. Kidneys demonstrate normal size and enhancement, without hydronephrosis. Peritoneum and bowel: Colonic bowel loops demonstrate normal wall thickness and caliber and are relatively collapsed. In contrast the small bowel is abnormally dilated and fluid-filled, over the upper abdomen and extending into the pelvis. There are portions of the small bowel distally which appear collapsed, and the point of transition appears located at the left lower abdomen/pelvis junction. No free air. There is a slight degree of peritoneal free fluid. Nodes and vessels: No retroperitoneal or mesenteric adenopathy by size criteria. Aorta and inferior vena cava are normal in size. Miscellaneous: No ventral hernias. PELVIS: Genitourinary: Bladder wall thickness is normal. Miscellaneous: No inguinal hernias or adenopathy. Bones: No suspicious bony lesions. No vertebral body compression fractures. IMPRESSION: 1. The stomach is probably fluid dilated, and the small bowel is also generally fluid-dilated. Note is made of a pattern of small bowel obstruction which extends to the left lower abdomen/pelvis junction. Beyond this point there is a pattern of collapse of small bowel and relative collapse of the lung. High-grade obstruction is considered likely present as the underlying cause. Etiology is not found as a discrete entity, however. 2. Note is made of a patchy asymmetric mild lung base pneumonia pattern left greater than right. Given the degree of fluid distention of the stomach it is possible that reflux and aspiration has produced this appearance. Dictated by: Barrington Pimentel M.D. on 12/23/2019 at 22:13 Approved by: Barrington Pimentel M.D. on 12/23/2019 at 22:18
--- NOTE | 2019-12-23 20:56 | PC.NURSE ---
Pt states onset of Abd pain and several episodes of nausea and vomiting last night, pt denies pain or nausea at present. Concerned for kinked intestines. Pt has hx of Colon cancer with colon surgery, adhesions and bowel obstructions. Pt abd is distended nontender and absent bowel sounds upon auscultation. States he had a moderated BM this morning with no signs of blood. Denies fever. Admission last June for similar symptoms. LS clear Bi laterally.
[2019-12-23 21:30] VITALS: BP 172/73; PULSE 80; RESP 24; O2SAT 95
[2019-12-23] MEDS: SODIUM CHLORIDE 0.9% 1,000 ML 150 ML IV (22:06)
[2019-12-23] MEDS: ONDANSETRON 4 MG/2 ML INJ IV (22:06)
[2019-12-23 22:30] VITALS: BP 175/77; PULSE 79; RESP 24; O2SAT 97
[2019-12-23] MEDS: LORazepam 2 MG/ML INJ 1 MG IV (22:55)
[2019-12-23] MEDS: CEFTRIAXONE 2 GM/50 ML FROZ.PIGGY IV (22:55)
[2019-12-23 23:21] LABS: INR 1.9 (0.9-1.3); Prothrombin Time 22.1 SECONDS (10.1-12.7)
[2019-12-23 23:27] LABS: Magnesium 2.1 mg/dL (1.6-2.3)
[2019-12-23 23:39] LABS: Lactate (Lactic Acid) 1.2 mmol/L (0.7-2.1)
--- NOTE | 2019-12-23 23:43 | PM.HP.1 ---
History of Present Illness History of Present Illness Date Patient Seen: 12/24/19 Chief complaint: intestine issues/ vomiting Narrative: Mr. Latonia Perez is an 83-year-old male w/ PMH significant for COPD (mild), restrictive lung disease, CAD (no h/o CT), AFIB (AC w/ warfarin), cardiomyopathy (s/p PPM, [facility], w/ complication of punctured lung / chest tube), hypothyroidism, Hodgkin's lymphoma, colon cancer (s/p colon resection 1999), sigmoid diverticulosis, and prior h/o tobacco dependence (quit 1982) who presents to the ER with worsening nausea and vomiting. The patient states he had abdominal pain sharp in character with nausea vomiting for 24 hours. He did have a bowel movement this morning which improved his abdominal pain and only transient relief of his nausea vomiting which progressed along with associated distension. He has had no flatus since his morning BM. Patient has a history of colon cancer with resection 20 years ago and has had multiple episodes of recurrent small-bowel obstruction. Patient was last admitted to the hospital in June 2019 which was effectively treated conservatively with gastric decompression. Patient reports no complaints of fevers or chills, nasal congestion or sore throat. He has had no chest pain or palpitations. He has a history of mild COPD but has not typically felt short of breath. He has had no abdominal pain complaints of heartburn, nausea vomiting. The patient denies urinary symptoms. Upon arrival to the ER the patient has temperature 97.2?, heart rate of 83, blood pressure 112/59, respirations of 20, oxygen saturation 97% on room air. A CT of the abdomen pelvis is obtained which finds: Of D Hanis stomach and small bowel is generally fluid filled with small-bowel obstruction that extends to the left lower abdominal pelvic junction count which there is a pattern of collapse small-bowel, high-grade obstruction is considered likely as the underlying cause. Additionally noted made is patchy asymmetric mild lung base pneumonia pattern left greater than right, given the degree of fluid distention of the stomach considerations given of possible reflux and aspiration. On laboratory analysis patient has white count of 15.6, hemoglobin of 14.5, hematocrit 42.5 and platelets 197. Electrolytes are all within normal range however has a BUN of 36 with a creatinine 1.88. His EGFR is 34.4. A nonfasting glucose is 62 and magnesium is 2.1. He has a PT of 22.1 and INR 1.9. His liver functions reveal a total bilirubin 1.3, AST of 29, ALT of 20 and AST of 37. Albumin is 4.[address] Phan is contacted to the emergency department agrees to consult for small-bowel obstruction. In the ER the patient is given lorazepam to facilitate placement of NG 2, Zofran and normal saline bolus 1 L and 150 cc/hour. Blood cultures are drawn and the patient receives ceftriaxone and azithromycin. Patient is admitted to the medicine service for small-bowel obstruction with aspiration pneumonia. Patient History Medical History (Updated 12/24/19 @ 03:15 by SOLOMON Mendez) Atrial fibrillation (Acute) CAD (coronary artery disease) (Acute) CHF (congestive heart failure) (Acute) Chronic kidney disease (Acute) Colon cancer (Acute) COPD (chronic obstructive pulmonary disease) (Acute) Hearing loss (Acute) History of skin cancer (Acute) Hodgkin lymphoma (Acute) Hypertension (Acute) Hypothyroidism (Acute) Orthostatic hypotension (Acute) Small bowel obstruction (Inactive) Surgical History (Updated 12/24/19 @ 03:14 by SOLOMON Mendez) History of carotid endarterectomy (Acute) History of colon resection (Acute) Pacemaker (Acute) Family & Social History Family History (Updated 12/24/19 @ 03:16 by SOLOMON Mendez) Mother Traumatic amputation of leg Father Heart disease Smoker Social History: household members spouse Tobacco & Substance use: Smoking Status Former smoker alcohol intake never alcohol intake frequency 0-2 drinks per day Substance Use Type does not use Meds Home Medications and Allergies Home Medications Medication Instructions Recorded Confirmed Type atorvastatin [Lipitor] 10 mg PO BEDTIME #0 10/26/16 12/23/19 History levothyroxine 100 mcg PO DAILY 06/07/18 12/23/19 History midodrine 10 mg PO QAM 06/07/18 06/23/19 History CoQ-10 200 mg PO DAILY 06/23/19 12/23/19 History [place]-3 Fish Oil 1 cap PO DAILY 06/23/19 12/23/19 History albuterol sulfate [Ventolin HFA] 2 puff INHALATION Q6H PRN 06/23/19 12/23/19 History amiodarone 100 mg PO Q OTHER DAY 06/23/19 12/23/19 History cholecalciferol (vitamin D3) 1,000 unit PO DAILY 06/23/19 12/23/19 History [Vitamin D3] flaxseed 4 oz PO DAILY 06/23/19 06/23/19 History magnesium oxide 400 mg PO DAILY 06/23/19 06/23/19 History midodrine 5 mg PO QPM 06/23/19 12/23/19 History multivitamin 1 cap PO DAILY 06/23/19 12/23/19 History tetrahydrozoline-peg 1 drp OPHTHALMIC (EYE) DIRECTED 06/23/19 12/23/19 History warfarin 7.5 mg PO SUMOWEFRSA 06/23/19 12/23/19 History warfarin 10 mg PO TUTH 06/23/19 12/23/19 History Allergies Allergy/AdvReac Type Severity Reaction Status Date / Time No Known Drug Allergies Allergy Unknown Verified 06/23/19 10:41 [NO KNOWN DRUG ALLERGIES] Review of Systems Review of Systems ROS: Yes All systems reviewed with the patient and are negative except as otherwise documented Exam Vital Signs (past 8 hours): - 12/23/19 19:29 12/23/19 20:15 12/23/19 20:30 Temperature 97.2 F L Pulse Rate 83 77 75 Respiratory Rate 20 24 26 H Blood Pressure 112/59 L Blood Pressure [Right Arm] 156/69 H 155/72 H Pulse Oximetry 97 94 93 12/23/19 21:30 12/23/19 22:30 Temperature Pulse Rate 80 79 Respiratory Rate 24 24 Blood Pressure Blood Pressure [Right Arm] 172/73 H 175/77 H Pulse Oximetry 95 97 Oxygen Delivery Method Room Air Narrative Exam Narrative: GENERAL APPEARANCE: well developed, chronically ill-appearing elderly male uncomfortable appearing with hiccups in no acute distress. HEENT: Normocephalic, PERRLA, conjunctiva clear, EOMs intact without nystagmus, no sinus tenderness to percussion, no rhinorrhea, mucous membranes are moist and pink without lesions or exudate. NECK/THYROID: neck supple, no JVD, no carotid bruit, no thyromegaly, trachea midline. LYMPH NODES: no cervical or supraclavicular lymphadenopathy. SKIN: [place], warm and dry, no visible lesions, rashes, ulcerations or petechiae. HEART: Pacemaker left anterior chest, regular rate and rhythm, S1-S2 distant, no murmur, no rubs or gallops, brisk capillary refill, no edema LUNGS: Coarse breath sounds bilaterally left greater than right, no wheezing, no cough present CHEST: Symmetrical movement, no accessory muscle use, fair tidal volume. ABDOMEN: Well-healed midline surgical scar, mild distention, generalized abdominal tenderness, no guarding or peritoneal signs, no organomegaly, hiccups, hyperactive bowel tones. BACK: Normal curvature, nontender to palpation, no CVA tenderness on percussion EXTREMITIES: moves all extremities, strength is 5/5 and symmetrical, no deformities or joint effusions. NEUROLOGIC: AAO x4, no focal neurologic deficits, cranial nerves II-XII grossly intact, sensation intact to light touch, significantly hard of hearing PSYCH: Good my contact, tangential thought process, cooperative, appropriate with stable behavior Objective Imaging CT scan - abdomen: Radiologist's impression: 1. The stomach is probably fluid dilated, and the small bowel is also generally fluid-dilated. Note is made of a pattern of small bowel obstruction which extends to the left lower abdomen/pelvis junction. Beyond this point there is a pattern of collapse of small bowel and relative collapse of the lung. High-grade obstruction is considered likely present as the underlying cause. Etiology is not found as a discrete entity, however. 2. Note is made of a patchy asymmetric mild lung base pneumonia pattern left greater than right. Given the degree of fluid distention of the stomach it is possible that reflux and aspiration has produced this appearance. Abdominal x-ray: Radiologist's impression: Chest: Lungs are clear. Heart size is normal. No pleural effusions. No pneumoperitoneum. Abdomen: Bowel gas pattern is normal. No suspicious calcifications. Visualized solid organ contours appear normal. Bones: No suspicious bony lesions. IMPRESSION: Nonspecific mild prominence of several small bowel loops across the midabdomen but no definite obstruction found. No free air seen. Labs Result Diagrams: 12/23/19 19:15 12/23/19 19:15 Labs: Laboratory Results - last 24 hr 12/23/19 12/23/19 12/23/19 19:15 19:15 19:15 WBC 15.6 H RBC 4.66 Hgb 14.5 Hct 42.5 MCV 91.0 MCH 31.0 MCHC 34.1 RDW 14.4 Plt Count 197 Neut % (Auto) 91.4 H Lymph % (Auto) 3.3 L [place] % (Auto) 5.0 Eos % (Auto) 0.1 L Baso % (Auto) 0.2 Neut # (Auto) 63026 H Lymph # (Auto) 500 L [place] # (Auto) 800 Eos # (Auto) 0 Baso # (Auto) 0 PT 22.1 H INR 1.9 H Sodium 139 Potassium 4.1 Chloride 102 Carbon Dioxide 28 BUN 36 H Creatinine 1.88 H Estimated GFR 34.4 L BUN/Creatinine Ratio 19.1 Glucose 162 H Lactate Calcium 10.1 Magnesium Total Bilirubin 1.3 AST 29 ALT 20 Alkaline Phosphatase 37 L Total Protein 7.9 Albumin 4.6 Globulin 3.3 Albumin/Globulin Ratio 1.4 Lipase 74 12/23/19 12/23/19 19:15 23:10 WBC RBC Hgb Hct MCV MCH MCHC RDW Plt Count Neut % (Auto) Lymph % (Auto) [place] % (Auto) Eos % (Auto) Baso % (Auto) Neut # (Auto) Lymph # (Auto) [place] # (Auto) Eos # (Auto) Baso # (Auto) PT INR Sodium Potassium Chloride Carbon Dioxide BUN Creatinine Estimated GFR BUN/Creatinine Ratio Glucose Lactate 1.2 Calcium Magnesium 2.1 Total Bilirubin AST ALT Alkaline Phosphatase Total Protein Albumin Globulin Albumin/Globulin Ratio Lipase Assessment & Plan Assessment & Plan narrative: This is an 84-year-old male patient who presents to the ER recurrent small-bowel obstruction status post colon cancer with bowel resection. 1. Small-bowel obstruction, acute, present admission, active -CT finds a small bowel obstruction with a transition point in left lower quadrant, this appears to be high-grade obstruction with no other etiology identified that would produce the blockage. No retroperitoneal or mesenteric adenopathy is noted -patient has numerous comorbid conditions complicating his clinical course including coronary artery disease, atrial fibrillation, CHF and CKD. -Dr. Randle is contacted through the emergency department and agrees to consult, we appreciate her evaluation and recommendations. -NG tube was placed in the emergency department with return copious dark green bilious material. -patient is NPO -IV fluid normal saline at 100 cc/hour 2. Aspiration pneumonia, present on admission, active. -CT scan finds patchy asymmetric lung base pneumonia pattern left greater than right with a concomitant finding of gastric distension likely leading to aspiration. -the patient has a history of COPD reports shortness of breath greater than typical, no cough present, breathing nonlabored with oxygen saturation 96% on room air. -white count of 15.6 with neutrophils of 91.4%, added on procalcitonin finding of 0.16. -ordered Zosyn 3.375 g every 8 hours. -ordered azithromycin 500 mg daily for 3 days. 3. Acute kidney injury superimposed on Chronic kidney disease stage 3, present on admission, active -admission once find a BUN of 36 and a creatinine of 1.88. Previous creatinine in June 2019 was 1.31. -filter represent hypovolemia with emesis and SBO. -IV fluid normal saline 100 cc/hour -will avoid nephrotoxic agents and renal dose medications as needed. 4. Type II CT - elevated troponin of 0. 0.52 -likely secondary to demand in setting of CAD, CHF and KAMALJIT. -follow troponin until downtrending 5. Persistent atrial fibrilllation, present on admission, active. -patient with history CAD and cardiomyopathy with permanent pacemaker implantation -obtain 12 lead EKG finding sinus rhythm with ventricular pacing. -will continue home regimen of amiodarone 100 mg when taking p.o. -Patient has been anticoagulated on warfarin 7.5 mg daily except for 10 mg on Saturday and which is held pending possible surgery. -ordered enoxaparin 85 mg subcu twice daily until such time surgical decision is made. 6. Hypothyroidism, chronic, present on admission, stable -ordered levothyroxine IV 50 mcg daily, will continue home regimen of levothyroxine 100 mcg daily when taking p.o. 7. hypotension, chronic, present on admission, stable -patient on home regimen of midodrine 10 mg in AM and 5 mg in PM. -will follow blood pressure and treat if necessary. VTE prophylaxis: SCDs, therapeutic Lovenox IV fluid: Normal saline 100 cc/hour Diet: NPO Code status: FULL CODE. Patient designates his to be his surrogate decision maker. The patient is admitted to the hospital due to the severity of his obstruction requiring surgical evaluation and aspiration pneumonia. The patient is admitted as an inpatient with expected length of stay to be greater than 2 midnights. Scores GCS [place] coma scale eye opening: Spontaneous [place] coma scale verbal response: Orientated [place] coma scale motor response: Obey commands [place] coma scale total score: 15
[2019-12-23 23:51] LABS: Procalcitonin 0.16 ng/mL (<0.5)
[2019-12-24] VITALS (7 sets, daily range): BP systolic 128–158; BP diastolic 53–87; PULSE 73–82; RESP 16–18; TEMP 36.7–37.3; O2SAT 91–96; BMI 24.6
[2019-12-24 00:02] LABS: Troponin I 0.052 ng/mL (0.01-0.034)
[2019-12-24] MEDS: AZITHROMYCIN 500 MG in DEXTROSE 5% IN WATER 250 ML IV ×3 (00:51→22:30)
[2019-12-24] MEDS: SODIUM CHLORIDE 0.9% 1,000 ML 100 ML IV ×2 (01:03→13:45)
[2019-12-24] MEDS: PIPERACILLIN-TAZO 3.375 GM/50 ML FROZ.PIGGY IV ×3 (02:54→17:30)
[2019-12-24] MEDS: PANTOPRAZOLE 40 MG VIAL IV (02:54)
[2019-12-24] MEDS: PROCHLORPERAZINE 10 MG/2 ML VIAL 5 MG IV (02:54)
--- NOTE | 2019-12-24 03:14 | PC.ADMIT ---
Patient admitted to room 219 per stretcher from ER at 0020. Is alert and oriented. Very [place] and did not bring hearing aids with making communication difficult. Breath sounds with expiratory rhonchi throughout; RA sat 96% and is on continuous pulse oximetry. HRR; telemetry reading was SR w/1st degree AVB + BBB. Denies nausea but has frequent hiccoughs which causes stomach to hurt. NG to LIS with bile green colored liquid in cannister. BT absent; did have BM yesterday. Abdomen is soft but distended. Rates abdominal pain severity as 2/10 and tolerable. Is able to turn himself in bed. Bilateral calf SCD's applied. Reports falls in past 3 months due to increasing weakness and unsteadiness but denies use of assistive device. Is currently NPO due to SBO. Oriented to bed controls and call light. [facility] Admission Note: The patient,Tess Perez,84 y/o, was given written information regarding hospital policies, unit procedures and contact persons. Patient's smoking status: Former smoker. Vital Signs - 8 hr 12/23/19 19:29 12/23/19 20:15 12/23/19 20:30 Temperature 97.2 F L Pulse Rate 83 77 75 Respiratory Rate 20 24 26 H Blood Pressure 112/59 L Blood Pressure [Right Arm] 156/69 H 155/72 H Pulse Oximetry 97 94 93 12/23/19 21:30 12/23/19 22:30 12/24/19 00:43 Temperature 98.1 F Pulse Rate 80 79 82 Respiratory Rate 24 24 16 Blood Pressure 139/67 Blood Pressure [Right Arm] 172/73 H 175/77 H Pulse Oximetry 95 97 96 12/24/19 02:54 Temperature Pulse Rate 74 Respiratory Rate Blood Pressure 130/63 Blood Pressure [Right Arm] Pulse Oximetry
[2019-12-24 03:38] LABS: Add Manual Diff / Slide Review NO; Basophils Absolute Auto 0 /uL (0-100); Basophils Percent Auto 0.2 % (0-2); Eosinophils Absolute Auto 0 /uL (0-450); Hematocrit 37.9 % (41-53); Hemoglobin 12.9 g/dL (13.5-17.5); Lymphocytes Absolute Auto 500 /uL (1100-4500); Lymphocytes Percent Auto 4.2 % (25-40); Mean Corpuscular HGB Conc 34.1 % (30-36); Mean Corpuscular Volume 90.9 fL (80-100); Monocytes Absolute Auto 800 /uL (0-900); Monocytes Percent Auto 6.2 % (3-14); Neutrophils Absolute Auto 11500 /uL (1500-7000); Neutrophils Percent Auto 89.4 % (50-75); Platelet Count 163 X10^3/uL (150-400); Red Blood Cell Count 4.17 X10^6/uL (4.5-5.9); Red Cell Distribution Width 14.8 % (11.6-14.8); White Blood Cell Count 12.9 X10^3/uL (4.5-11.0)
[2019-12-24 03:49] LABS: BUN Creatinine Ratio 20.1 (6-22); Blood Urea Nitrogen 34 mg/dL (9-20); Calcium 9.1 mg/dL (8.4-10.2); Carbon Dioxide 30 mmol/L (22-32); Chloride 104 mmol/L (98-107); Estimated Glomerular Filt Rate 38.9 mL/min (>60); Glucose 141 mg/dL (80-110); HEMOLYSIS < 15 (0-50); Potassium 4.1 mmol/L (3.4-5.1); Sodium 139 mmol/L (137-145)
[2019-12-24 04:01] LABS: Troponin I 0.035 ng/mL (0.01-0.034)
[2019-12-24 04:13] LABS: Procalcitonin 0.16 ng/mL (<0.5)
[2019-12-24] MEDS: ENOXAPARIN 80 MG/0.8 ML SYRINGE SUBCUT ×2 (08:01→21:04)
--- NOTE | 2019-12-24 08:02 | PM.CN ---
History of Present Illness Consult details Date Patient Seen: 12/24/19 Time Patient Seen: 08:02 Chief complaint: intestine issues/ vomiting Reason for consult: SBO Requesting provider: Katelyn Sterling Narrative: This is an 84yo man with PMH of COPD, CAD, AFIB on coumadin (INR 1.9), cardiomyopathy, hypothyroid, hodgkin's lymphoma, diverticulosis, and colon cancer who had a colon resection for carcinoma about 20 years ago. He has had several episodes of small-bowel obstruction subsequent to that, the most recent about six months ago. He had surgery for the first bowel obstruction a few weeks after his colon resection. His last colonoscopy was in 2015 and was normal. He was to have a follow up colonoscopy in five years. Since then his SBO's have been managed non-surgically. He came into the ER last evening after a day of vomiting and abdominal pain, and was found to have evidence of SBO and pneumonia on imaging. His last BM/flatus was yesterday morning. An NGT was placed with copious output. He was admitted to the hospitalist service and started on antibiotics for aspiration pneumonia. He reports feeling better this morning. ROS: He denies fevers/chills/cold symptoms/chest pain/palpitations. Denies urinary symptoms. PE: GENERAL: Alert, mild distress due to NGT and abdominal distension. Appears stated age. Answers questions promptly and appropriately. Vital signs noted. HENT: Normocephalic, atraumatic. Hard of hearing. Oral mucosa is pink and moist. NGT in place with bilious output. EYES: Conjunctiva pink, sclera white, no periorbital swelling. CARDIOVASCULAR: Regular rate. No pedal edema. RESPIRATORY: Non-tachypneic, breathing comfortably on room air. GASTROINTESTINAL: Abdomen soft, moderately distended, nontender to palpation GENITALURINARY: No flank tenderness. MUSCULOSKELETAL: Equal tone and mass bilaterally. SKIN: Warm, dry, soft, appropriate color for ethnicity. No other lesions, rashes, or wounds. NEURO: Alert and Oriented X 3. No gross sensory deficits, or cognitive issues. PSYCH: Appropriate affect and mood. Meds Home Medications and Allergies Home Medications Medication Instructions Recorded Confirmed Type atorvastatin [Lipitor] 10 mg PO BEDTIME #0 10/26/16 12/23/19 History levothyroxine 100 mcg PO DAILY 06/07/18 12/23/19 History midodrine 10 mg PO QAM 06/07/18 06/23/19 History CoQ-10 200 mg PO DAILY 06/23/19 12/23/19 History [place]-3 Fish Oil 1 cap PO DAILY 06/23/19 12/23/19 History albuterol sulfate [Ventolin HFA] 2 puff INHALATION Q6H PRN 06/23/19 12/23/19 History amiodarone 100 mg PO Q OTHER DAY 06/23/19 12/23/19 History cholecalciferol (vitamin D3) 1,000 unit PO DAILY 06/23/19 12/23/19 History [Vitamin D3] flaxseed 4 oz PO DAILY 06/23/19 06/23/19 History magnesium oxide 400 mg PO DAILY 06/23/19 06/23/19 History midodrine 5 mg PO QPM 06/23/19 12/23/19 History multivitamin 1 cap PO DAILY 06/23/19 12/23/19 History tetrahydrozoline-peg 1 drp OPHTHALMIC (EYE) DIRECTED 06/23/19 12/23/19 History warfarin 7.5 mg PO SUMOWEFRSA 06/23/19 12/23/19 History warfarin 10 mg PO TUTH 06/23/19 12/23/19 History Allergies Allergy/AdvReac Type Severity Reaction Status Date / Time No Known Drug Allergies Allergy Unknown Verified 06/23/19 10:41 [NO KNOWN DRUG ALLERGIES] Exam Vital Signs (past 8 hours): - 12/24/19 00:43 12/24/19 02:54 12/24/19 05:46 Temperature 98.1 F 98.2 F Pulse Rate 82 74 76 Respiratory Rate 16 16 Blood Pressure 139/67 130/63 129/53 L Pulse Oximetry 96 96 Oxygen Delivery Method Room Air Oxygen Flow Rate [address] scan - abdomen: My impression: CT scan looks very similar to scan from June 2019, his last episode of obstruction Radiologist's impression: stomach and small bowel is generally fluid filled with small-bowel obstruction that extends to the left lower abdominal pelvic junction count which there is a pattern of collapse small-bowel, high-grade obstruction is considered likely as the underlying cause. Additionally noted made is patchy asymmetric mild lung base pneumonia pattern left greater than right, given the degree of fluid distention of the stomach considerations given of possible reflux and aspiration Labs Result Diagrams: 12/24/19 03:15 12/24/19 03:15 Labs: Laboratory Results - last 24 hr 12/23/19 12/23/19 12/23/19 19:15 19:15 19:15 WBC 15.6 H RBC 4.66 Hgb 14.5 Hct 42.5 MCV 91.0 MCH 31.0 MCHC 34.1 RDW 14.4 Plt Count 197 Neut % (Auto) 91.4 H Lymph % (Auto) 3.3 L [place] % (Auto) 5.0 Eos % (Auto) 0.1 L Baso % (Auto) 0.2 Neut # (Auto) 48844 H Lymph # (Auto) 500 L [place] # (Auto) 800 Eos # (Auto) 0 Baso # (Auto) 0 PT INR Sodium 139 Potassium 4.1 Chloride 102 Carbon Dioxide 28 BUN 36 H Creatinine 1.88 H Estimated GFR 34.4 L BUN/Creatinine Ratio 19.1 Glucose 162 H Lactate Calcium 10.1 Magnesium Total Bilirubin 1.3 AST 29 ALT 20 Alkaline Phosphatase 37 L Troponin I Total Protein 7.9 Albumin 4.6 Globulin 3.3 Albumin/Globulin Ratio 1.4 Lipase 74 Procalcitonin 0.16 12/23/19 12/23/19 12/23/19 19:15 19:15 19:15 WBC RBC Hgb Hct MCV MCH MCHC RDW Plt Count Neut % (Auto) Lymph % (Auto) [place] % (Auto) Eos % (Auto) Baso % (Auto) Neut # (Auto) Lymph # (Auto) [place] # (Auto) Eos # (Auto) Baso # (Auto) PT 22.1 H INR 1.9 H Sodium Potassium Chloride Carbon Dioxide BUN Creatinine Estimated GFR BUN/Creatinine Ratio Glucose Lactate Calcium Magnesium 2.1 Total Bilirubin AST ALT Alkaline Phosphatase Troponin I 0.052 H Total Protein Albumin Globulin Albumin/Globulin Ratio Lipase Procalcitonin 12/23/19 12/24/19 12/24/19 23:10 03:15 03:15 WBC 12.9 H RBC 4.17 L Hgb 12.9 L Hct 37.9 L MCV 90.9 MCH 31.0 MCHC 34.1 RDW 14.8 Plt Count 163 Neut % (Auto) 89.4 H Lymph % (Auto) 4.2 L [place] % (Auto) 6.2 Eos % (Auto) 0.0 L Baso % (Auto) 0.2 Neut # (Auto) 82198 H Lymph # (Auto) 500 L [place] # (Auto) 800 Eos # (Auto) 0 Baso # (Auto) 0 PT INR Sodium 139 Potassium 4.1 Chloride 104 Carbon Dioxide 30 BUN 34 H Creatinine 1.69 H Estimated GFR 38.9 L BUN/Creatinine Ratio 20.1 Glucose 141 H Lactate 1.2 Calcium 9.1 Magnesium Total Bilirubin AST ALT Alkaline Phosphatase Troponin I Total Protein Albumin Globulin Albumin/Globulin Ratio Lipase Procalcitonin 12/24/19 12/24/19 03:15 03:15 WBC RBC Hgb Hct MCV MCH MCHC RDW Plt Count Neut % (Auto) Lymph % (Auto) [place] % (Auto) Eos % (Auto) Baso % (Auto) Neut # (Auto) Lymph # (Auto) [place] # (Auto) Eos # (Auto) Baso # (Auto) PT INR Sodium Potassium Chloride Carbon Dioxide BUN Creatinine Estimated GFR BUN/Creatinine Ratio Glucose Lactate Calcium Magnesium Total Bilirubin AST ALT Alkaline Phosphatase Troponin I 0.035 H Total Protein Albumin Globulin Albumin/Globulin Ratio Lipase Procalcitonin 0.16 Assessment & Plan Assessment and plan (1) SBO (small bowel obstruction): Status: Acute (2) Pneumonia: Qualifiers: Laterality: bilateral Lung location: lower lobe of lung Pneumonia type: due to unspecified organism Qualified Code(s): J18.9 - Pneumonia, unspecified organism Status: Acute (3) Hypertension: Qualifiers: Hypertension type: unspecified Qualified Code(s): I10 - Essential (primary) hypertension Status: Acute (4) COPD exacerbation: Status: Acute (5) Atrial fibrillation: Status: Acute (6) CAD (coronary artery disease): Status: Acute (7) Chronic kidney disease: Status: Acute (8) Hypothyroidism: Status: Acute (9) Anticoagulated by anticoagulation treatment: Status: Acute Assessment & Plan narrative: This is an 84 yo man with complex medical and surgical history, admitted with SBO and pneumonia. For now, we will attempt to manage him with NGT decompression, ambulation, and hydration. If he does not progress he may need to go to the OR for adhesiolysis or bowel resection. Plan: Ok for DVT ppx, but would hold therapeutic anticoagulation if possible NPO, except for sips/ice chips for comfort and pills as needed NGT to LIWS Ok to clamp NGT to ambulate Ambulate as much as tolerated IV hydration COVID test in case OR is needed, or will need rapid test if decision is made to go to surgery
--- NOTE | 2019-12-24 10:33 | PC.NURSE ---
Encouraged patient to take a walk with this RN, still too tired at this time, reports he will try in a little while. Call light and urinal within reach. NG tube to low-intermittent suction, tolerating well. Denies pain or nausea at htis time.
--- NOTE | 2019-12-24 14:04 | CM.IDA ---
Initial DCP Assessment Note: Patient is an 84 yo male, resident of [place]. Patient is admitted w/ SBO and pneumonia, admitted by hospitalist team, surgery consulted. PCP: Sachin Vu Payer: Jose Antonio [facility] Reviewed chart. Dr Randle has consulted and suggests management w/NGT decompression, ambulation and hydration. Patient remains NPO and encouraged to ambulate w/nursing staff. Met w/patient and his Yun during multidisciplinary bedside rounds, introduced role. Patient is not feeling well this morning. Patient is indp. 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 Patient/spouse hopeful patient will not require surgery. Spouse intends to take patient home upon medical clearance, but spouse very concerned this morning about what surgery will suggest (?) Following closely in case any DC needs or concerns arise. DERIK Mcpherson Discharge Planning/Care Management CM Discharge Assessment Start: 12/24/19 13:57 Freq: Status: Active Protocol: Document 12/24/19 13:57 MAIRA (Rec: 12/24/19 14:04 MAIRA [id number]) Discharge Planning Assessment Assigned Marketing Operations Analyst DERIK Manzano DPOA/Assigned Designee Name Eri Cole, spouse Contact Information [phone] Advance Directives? Yes History Provided By Patient,Medical Record Prior Living Arrangements House Household Members spouse Type of transporation used prior to Drives own vehicle admit Independent with ADL's Yes Is patient alert and oriented? Yes Barriers to Discharge No Comment Likely home w/family after medical management Discharge Plan Home Transportation Arrangement Spouse Referrals Initiated None needed Additional Comment At this time Review Status In Process
[2019-12-24] MEDS: LEVOTHYROXINE INJ 100 MCG/5 ML VIAL 50 MCG IV (17:14)
[2019-12-24] MEDS: MIDODRINE HCL 5 MG TABLET PO (17:18)
--- NOTE | 2019-12-24 18:27 | PC.NURSE ---
Addendum entered by Sarahi Aldana R.N. 12/24/19 22:00: Pt has produced bell colored sputum. NG clamped for po meds and ambulation. With walker and gait belt, pt ambulated with minimal assistance from room to south end of acute care wing to room 213 and turned around and back to room. Back to bed and BL calf scd's replaced. NG returned to suction one hour following po meds. No concerns or complaints verbalized. Continuous pulse oximeter in place. Original Note: Pt is hard of hearing, but appropriate mentation and conversation. Denies nausea. Admits to occasional short-lived abdominal pains, but declines offer for analgesia. Reports abdomen is slightly distended and denies passage of flatus. Bowel tones present but rare to left lower abdominal quadrant. Room air 96%. NG clamped following pt's po med. Returned to suction one hour later. Head of bed elevated. NPO other than meds. BL calf scd's in place.
[2019-12-24] MEDS: ATORVASTATIN 10 MG TABLET PO (21:04)
[2019-12-24] MEDS: ONDANSETRON 4 MG/2 ML INJ IV (23:26)
[2019-12-25] VITALS (9 sets, daily range): BP systolic 129–188; BP diastolic 73–94; PULSE 78–94; RESP 14–21; TEMP 36.6–37.2; O2SAT 89–95
[2019-12-25] MEDS: ACETAMINOPHEN 650 MG SUPP PR (00:55)
[2019-12-25] MEDS: SODIUM CHLORIDE 0.9% 1,000 ML 100 ML IV ×2 (01:03→14:52)
[2019-12-25] MEDS: PIPERACILLIN-TAZO 3.375 GM/50 ML FROZ.PIGGY IV ×3 (01:48→17:00)
--- NOTE | 2019-12-25 01:57 | PC.NURSE ---
Addendum entered by Darhsana Ruvalcaba R.N. 12/25/19 06:27: Found with 200cc bile liquid in emesis bag this morning; unknown when occurred. Noted suction not working so new suction applied and set to LIS. Patient denies nausea currently. Original Note: Patient seen and assessed at 0055. At shift change had vomited bile green stomach contents and was medicated with Zofran. Continuing to expectorate bile colored mucus. Continues to have hiccoughs which is exacerbating abdominal pain which he rates at 8/10; medicated with Tylenol suppository and is now asleep. Minimal drainage from NG so air instilled to check for placement with initial resistance and is now connected again to LIS. Is alert and oriented but KLUTI KAAH without hearing aids in. Breath sounds still with coarse, expiratory rhonchi; RA sat 94% and is on continuous oximetry. HRR; telemetry reading was v-paced. BT present but is not passing flatus and abdomen is distended. Voiding per urinal; denies dysuria, frequency or urgency. Is able to move self in bed. When out of bed uses walker and 1 assist due to weakness. Refusing SCD's despite education re: DVT prevention so reminded to ankle wave. Fall risk score is high as patient reports falls within past 3 months; bed alarm is activated.
[2019-12-25 05:30] LABS: Add Manual Diff / Slide Review NO; Basophils Absolute Auto 0 /uL (0-100); Basophils Percent Auto 0.3 % (0-2); Eosinophils Absolute Auto 0 /uL (0-450); Eosinophils Percent Auto 0.3 % (2-4); Hematocrit 36.7 % (41-53); Hemoglobin 12.5 g/dL (13.5-17.5); Lymphocytes Absolute Auto 800 /uL (1100-4500); Lymphocytes Percent Auto 8.4 % (25-40); Mean Corpuscular HGB Conc 34.1 % (30-36); Mean Corpuscular Hemoglobin 31.2 PG (26-34); Mean Corpuscular Volume 91.4 fL (80-100); Monocytes Absolute Auto 700 /uL (0-900); Monocytes Percent Auto 7.9 % (3-14); Neutrophils Absolute Auto 7800 /uL (1500-7000); Neutrophils Percent Auto 83.1 % (50-75); Platelet Count 163 X10^3/uL (150-400); Red Blood Cell Count 4.01 X10^6/uL (4.5-5.9); Red Cell Distribution Width 14.7 % (11.6-14.8); White Blood Cell Count 9.4 X10^3/uL (4.5-11.0)
[2019-12-25 05:42] LABS: Alanine Aminotransferase 16 IU/L (<50); Albumin 3.7 g/dL (3.5-5.0); Albumin Globulin Ratio 1.2 (1.0-2.8); Alkaline Phosphatase 36 U/L (38-126); Aspartate Aminotransferase 27 IU/L (17-59); BUN Creatinine Ratio 16.7 (6-22); Bilirubin Total 0.8 mg/dL (0.2-1.3); Bilirubin Unconjugated 0.7 mg/dL (0.0-1.1); Blood Urea Nitrogen 27 mg/dL (9-20); Calcium 8.8 mg/dL (8.4-10.2); Carbon Dioxide 27 mmol/L (22-32); Chloride 106 mmol/L (98-107); Estimated Glomerular Filt Rate 40.8 mL/min (>60); Globulin 3.1 g/dL (1.7-4.1); Glucose 108 mg/dL (80-110); HEMOLYSIS < 15 (0-50); Magnesium 2.1 mg/dL (1.6-2.3); Potassium 3.8 mmol/L (3.4-5.1); Sodium 141 mmol/L (137-145); Total Protein 6.8 g/dL (6.3-8.2)
--- NOTE | 2019-12-25 07:00 | DI.RAD.S_ITS ---
PROCEDURE: XR KUB INDICATIONS: follow up for small bowel obstruction TECHNIQUE: One view of the abdomen acquired. COMPARISON: [facility], CT, CT ABDOMEN PELVIS W CON, 12/23/2019, 21:10. [facility], CR, XR ACUTE ABDOMEN SERIES, 12/23/2019, 19:59. FINDINGS: Surgical changes and devices: Partially visualized enteric tube seen with the tip projecting in the distal stomach/proximal duodenum Bowel: Bowel gas pattern is nonspecific. No definite transition point or pathologic bowel dilatation. Soft tissues: No suspicious abdominal calcifications. Visualized solid organ contours appear normal in size. Bones: No suspicious bony lesions. Lumbar spondylosis IMPRESSION: Enteric tube as above. Probably unchanged appearance of bowel since 12/23/19 CT, of note, fluid-filled bowel loops described on prior CT are not radiographically visible on the current study. Dictated by: Jackson Marion M.D. on 12/25/2019 at 8:43 Approved by: Jackson Marion M.D. on 12/25/2019 at 8:51
--- NOTE | 2019-12-25 09:51 | DI.RAD.S_ITS ---
PROCEDURE: FL SMALL BOWEL FOLLOW THROUGH INDICATIONS: small bowel obstruction, therapeutic and diagnostic COMPARISON: None. FINDINGS: Of note, due to technical error the last image in the series is incorrect patient. (Labeled 2 hours 10 minutes) KUB: Preprocedural manager program management film demonstrates a normal bowel gas pattern. Enteric tube is seen with the tip in the duodenum or distal stomach. No suspicious abdominal calcifications. Visualized solid organ contours appear normal. No suspicious bony abnormalities. Small bowel: There is delayed transit time of barium through the small bowel. Small bowel loops are dilated throughout. At the 70 minute time point, there is large amount of residual contrast material seen in the stomach and small bowel without definite contrast opacification of the colon the rectal vault. The exam was terminated per clinician request. IMPRESSION: At the 70 minute time point, contrast remains within the stomach and dilated loops of small bowel. No definite contrast material identified within the colon at this time. Dictated by: Jackson Marion M.D. on 12/25/2019 at 16:54 Approved by: Jackson Marion M.D. on 12/25/2019 at 16:58
[2019-12-25] MEDS: ENOXAPARIN 80 MG/0.8 ML SYRINGE SUBCUT ×2 (10:23→20:00)
[2019-12-25] MEDS: METOCLOPRAMIDE 10 MG/2 ML INJ IV ×3 (10:23→21:22)
--- NOTE | 2019-12-25 10:30 | PC.NURSE ---
Addendum entered by Kaci Cochran R.N. 12/25/19 15:48: Correction from last entry. Pt had approx 600 mls of emesis around NGT. At 1530, pt had additional 50mls of green emesis. At 1540, spoke with Dr. Adams and made aware. NGT back to suction? Dr. Adams left message for Dr. Randle at this time. Evening RN aware also. Addendum entered by Kaci Cochran R.N. 12/25/19 15:23: pt has had a total of approx 1225mls from NGT and 60mls of emesis around the NGT. pt has also had leaking issues from NGT throughout morning. Addendum entered by Kaci Cochran R.N. 12/25/19 14:39: pt back to room around 1430, nauseated, emesis around NGT. Stated feeling miserable. XR next in 2 hours. Addendum entered by Kaci Cochran R.N. 12/25/19 14:17: pt back to XR via bed at 1415. Pt's remains in pt's room. Addendum entered by Kaci Cochran R.N. 12/25/19 13:58: pt back from small bowel follow through at 1310. NGT remains clamped. Transport to miner pick pt again around 1415. Addendum entered by Kaci Cochran R.N. 12/25/19 11:18: pt to [place] bowel follow through at 1115 via bed. NGT clamped and IVF paused at this time. Pt's waiting in room. Original Note: Day Shift- This AM, NGT to left nare tape partially coming off, re-taped. To LIWS per order. Leaking to blue air lumen port. Spilled onto pt's gown and bedding. Using syringe with tip, Air pushed through blue lumen several times, continued to leak. Pt assisted up to chair with 1PA and walker. Positioned blue lumen upwards at shoulder level and continued to leak, flushed again with air and continued to leak. Suction increased momentarily to assess if pt had increased in fluid but fluid had not increased in tubing. Placed back to LIWS. Dr. Adams made aware at 1000 of issue as was happening yesterday and over night per night RN. Okay to place anti reflux valve to blue port. This was done at 1005. Pt did ambulate in halls with SUPER[employer] then settled back to bed. Around 1040, Dr. Randle present on unit wanting update on pt. Made aware of above situation regarding flushing and leaking. Currently looking at Xray from this AM. Dr. Randle verbal order to pull out NGT by 10cm. This was done at 1045 and re-taped at nose with skin prep. NGT remains to LIWS and after 10 mins after 10cm difference, NG canister filled approx. 600mls and pt stated starting to feel slightly better. At 1055, Dr. Adams also aware of this change and aware pt having intermittent hiccups.
--- NOTE | 2019-12-25 11:35 | PM.PN.1 ---
Subjective Subjective Date Patient Seen: 12/25/19 Time Patient Seen: 11:35 Interval history: Pt denies nausea, vomiting, flatus or BM. He says he feels better than when he came in. Exam Vital Signs (past 8 hours): - 12/25/19 04:00 12/25/19 07:36 12/25/19 11:05 Temperature 99.0 F 98.2 F 98.3 F Pulse Rate 80 81 78 Respiratory Rate 18 15 14 Blood Pressure 159/89 H 188/94 H 154/73 H Pulse Oximetry 92 95 95 Oxygen Delivery Method Room Air Oxygen Flow Rate 0 Narrative Exam Narrative: GENERAL: Alert, comfortable. Appears stated age. Answers questions promptly and appropriately. Vital signs noted. HENT: Normocephalic, atraumatic. Hard of hearing. Oral mucosa is pink and moist. NGT in place with bilious output. NGT is backing up into the blue port; flushed with air through both ports; not sumping EYES: Conjunctiva pink, sclera white, no periorbital swelling. CARDIOVASCULAR: Regular rate. No pedal edema. RESPIRATORY: Non-tachypneic, breathing comfortably on room air. GASTROINTESTINAL: Abdomen soft, moderately distended, nontender to palpation GENITALURINARY: No flank tenderness. MUSCULOSKELETAL: Equal tone and mass bilaterally. SKIN: Warm, dry, soft, appropriate color for ethnicity. No other lesions, rashes, or wounds. NEURO: Alert and Oriented X 3. No gross sensory deficits, or cognitive issues. PSYCH: Appropriate affect and mood. Objective Imaging Abdominal x-ray: My impression: Fluid filled loops of bowel Radiologist's impression: Unchanged from CT scan; NGT is in distal stomach or proximal duodenum Labs Result Diagrams: 12/25/19 05:08 12/25/19 05:08 Labs: Laboratory Results - last 24 hr 12/25/19 12/25/19 05:08 05:08 WBC 9.4 RBC 4.01 L Hgb 12.5 L Hct 36.7 L MCV 91.4 MCH 31.2 MCHC 34.1 RDW 14.7 Plt Count 163 Neut % (Auto) 83.1 H Lymph % (Auto) 8.4 L [place] % (Auto) 7.9 Eos % (Auto) 0.3 L Baso % (Auto) 0.3 Neut # (Auto) 7800 H Lymph # (Auto) 800 L [place] # (Auto) 700 Eos # (Auto) 0 Baso # (Auto) 0 Sodium 141 Potassium 3.8 Chloride 106 Carbon Dioxide 27 BUN 27 H Creatinine 1.62 H Estimated GFR 40.8 L BUN/Creatinine Ratio 16.7 Glucose 108 Calcium 8.8 Magnesium 2.1 Total Bilirubin 0.8 Conjugated Bilirubin 0.0 Unconjugated Bilirubin 0.7 AST 27 ALT 16 Alkaline Phosphatase 36 L Total Protein 6.8 Albumin 3.7 Globulin 3.1 Albumin/Globulin Ratio 1.2 Assessment & Plan Assessment and plan (1) Anticoagulated by anticoagulation treatment: Status: Acute (2) Hypothyroidism: Status: Acute (3) Chronic kidney disease: Status: Acute (4) CAD (coronary artery disease): Status: Acute (5) Atrial fibrillation: Status: Acute (6) SBO (small bowel obstruction): Status: Acute (7) Pneumonia: Qualifiers: Laterality: bilateral Lung location: lower lobe of lung Pneumonia type: due to unspecified organism Qualified Code(s): J18.9 - Pneumonia, unspecified organism Status: Acute (8) Hypertension: Qualifiers: Hypertension type: unspecified Qualified Code(s): I10 - Essential (primary) hypertension Status: Acute (9) COPD exacerbation: Status: Acute Assessment & Plan narrative: This is an 84 yo man with complex medical and surgical history, admitted with SBO and pneumonia. He is not passing any gas, and his KUB is unchanged. I believe his NGT is not working because it is too far in. We will pull back the NGT. Plan: Pull back NGT by 10cm SBFT today Ok for DVT ppx, but would hold therapeutic anticoagulation if possible NPO, except for sips/ice chips for comfort and pills as needed NGT to LIWS Ok to clamp NGT to ambulate Ambulate as much as tolerated IV hydration COVID test in case OR is needed, or will need rapid test if decision is made to go to surgery COVID-19 COVID-19 status: Not tested Time Spent With Patient Time with patient: 25 - 35 minutes Quality VTE Deep Vein Thrombosis/Pulmonary Embolism Present on Admission: No
--- NOTE | 2019-12-25 13:12 | P.PN_ITS ---
Subjective Subjective Date Patient Seen: 12/25/19 Time Patient Seen: 13:13 Interval history: Mr. Latonia Perez is an 83-year-old male w/ PMH significant for COPD (mild), restrictive lung disease, CAD (no h/o UT), AFIB (AC w/ warfarin), cardiomyopathy (s/p PPM, [facility], w/ complication of punctured lung / chest tube), hypothyroidism, Hodgkin's lymphoma, colon cancer (s/p colon resection 1999), sigmoid diverticulosis, and prior h/o tobacco dependence (quit 1982) who is admitted for small-bowel obstruction. He was not feeling very well this morning, and there was some difficulties with his NG tube. Ultimately NG tube was repositioned and quite a bit of fluid was subsequently removed and patient began to start feeling better. He still complains of mild abdominal pain, but not passed gas. He did feel nauseous this morning but better after NG tube adjustment. Still attempting to avoid operative intervention given his significant medical comorbidities at this point. Exam Vital Signs (past 8 hours): - 12/25/19 07:36 12/25/19 11:05 Temperature 98.2 F 98.3 F Pulse Rate 81 78 Respiratory Rate 15 14 Blood Pressure 188/94 H 154/73 H Pulse Oximetry 95 95 Oxygen Delivery Method Room Air Oxygen Flow Rate 0 Narrative Exam Narrative: GENERAL APPEARANCE: well developed, chronically ill-appearing elderly male uncomfortable appearing with hiccups in no acute distress. HEENT: Normocephalic, PERRLA, conjunctiva clear, EOMs intact without nystagmus, no sinus tenderness to percussion, no rhinorrhea, mucous membranes are moist and pink without lesions or exudate. NG tube in place with dark green output. NECK/THYROID: neck supple, no JVD, no carotid bruit, no thyromegaly, trachea midline. LYMPH NODES: no cervical or supraclavicular lymphadenopathy. SKIN: [place], warm and dry, no visible lesions, rashes, ulcerations or petechiae. HEART: Pacemaker left anterior chest, regular rate and rhythm, S1-S2 distant, no murmur, no rubs or gallops, brisk capillary refill, no edema LUNGS: diminished breath sounds without wheezing, no cough present CHEST: Symmetrical movement, no accessory muscle use, fair tidal volume. ABDOMEN: Well-healed midline surgical scar, mild distention, generalized abdominal tenderness, no guarding or peritoneal signs, no organomegaly, hiccups, hyperactive bowel tones. BACK: Normal curvature, nontender to palpation, no CVA tenderness on percussion EXTREMITIES: moves all extremities, strength is 5/5 and symmetrical, no defor mities or joint effusions. NEUROLOGIC: AAO x4, no focal neurologic deficits, cranial nerves II-XII grossly intact, sensation intact to light touch, significantly hard of hearing PSYCH: Good my contact, tangential thought process, cooperative, appropriate with stable behavior Objective Labs Result Diagrams: 12/25/19 05:08 12/25/19 05:08 Labs: Laboratory Results - last 24 hr 12/25/19 12/25/19 05:08 05:08 WBC 9.4 RBC 4.01 L Hgb 12.5 L Hct 36.7 L MCV 91.4 MCH 31.2 MCHC 34.1 RDW 14.7 Plt Count 163 Neut % (Auto) 83.1 H Lymph % (Auto) 8.4 L [place] % (Auto) 7.9 Eos % (Auto) 0.3 L Baso % (Auto) 0.3 Neut # (Auto) 7800 H Lymph # (Auto) 800 L [place] # (Auto) 700 Eos # (Auto) 0 Baso # (Auto) 0 Sodium 141 Potassium 3.8 Chloride 106 Carbon Dioxide 27 BUN 27 H Creatinine 1.62 H Estimated GFR 40.8 L BUN/Creatinine Ratio 16.7 Glucose 108 Calcium 8.8 Magnesium 2.1 Total Bilirubin 0.8 Conjugated Bilirubin 0.0 Unconjugated Bilirubin 0.7 AST 27 ALT 16 Alkaline Phosphatase 36 L Total Protein 6.8 Albumin 3.7 Globulin 3.1 Albumin/Globulin Ratio 1.2 Assessment & Plan Assessment & Plan narrative: Mr. Latonia Perez is an 83-year-old male w/ PMH significant for COPD (mild), restrictive lung disease, CAD (no h/o UT), AFIB (AC w/ warfarin), cardiomyopathy (s/p PPM, [facility], w/ complication of punctured lung / chest tube), hypothyroidism, Hodgkin's lymphoma, colon cancer (s/p colon resection 1999), sigmoid diverticulosis, and prior h/o tobacco dependence (quit 1982) who is admitted for small-bowel obstruction. 1. Small-bowel obstruction, acute, present admission, active -CT finds a small bowel obstruction with a transition point in left lower quadrant, this appears to be high-grade obstruction with no other etiology identified that would produce the blockage. No retroperitoneal or mesenteric adenopathy is noted. -patient has numerous comorbid conditions complicating his clinical course including coronary artery disease, atrial fibrillation, CHF and CKD. -Appreciate surgical management and consultation. -NG tube was placed in the emergency department with return copious dark green bilious material. Slight adjustment today with return of good function. -patient is NPO. Small bowel follow through planned for possibly tomorrow after adequate NG decompression per surgery. -IV fluid normal saline at 100 cc/hour -consider COVID testing depending on liklihood of needed surgery, will hold off today given output from NG tube. 2. Aspiration pneumonia, present on admission, active. -CT scan finds patchy asymmetric lung base pneumonia pattern left greater than right with a concomitant finding of gastric distension likely leading to aspiration. -the patient has a history of COPD reports shortness of breath greater than typical, no cough present, breathing nonlabored with oxygen saturation 96% on room air. -white count of 15.6 with neutrophils of 91.4%, added on procalcitonin finding of 0.16. -continue Zosyn 3.375 g every 8 hours. -continue azithromycin 500 mg daily for 3 days. 3. Acute kidney injury superimposed on Chronic kidney disease stage 3, present on admission, active -admission BUN of 36 and a creatinine of 1.88. Previous creatinine in June 2019 was 1.31. Improved to 1.62 today. -filter represent hypovolemia with emesis and SBO. -IV fluid normal saline 100 cc/hour -will avoid nephrotoxic agents and renal dose medications as needed. 4. elevated troponin of 0. 0.52, present on admission. -likely secondary to demand in setting of CAD, CHF and KAMALJIT. -repeat troponin downtrended after admission. -patient was without chest pain and no ischemic EKG changes noted. 5. Persistent atrial fibrilllation, present on admission, active. -patient with history CAD and cardiomyopathy with permanent pacemaker implantation -obtain 12 lead EKG finding sinus rhythm with ventricular pacing. -will continue home regimen of amiodarone 100 mg when taking p.o. Okay to hold if temporary. Consider IV dosing if rate control is an issue. -Patient has been anticoagulated on warfarin 7.5 mg daily except for 10 mg on Saturday and which is held pending possible surgery. -ordered enoxaparin 85 mg subcu twice daily until such time surgical decision is made. 6. Hypothyroidism, chronic, present on admission, stable -ordered levothyroxine IV 50 mcg daily, will continue home regimen of levothyroxine 100 mcg daily when taking p.o. 7. hypotension, chronic, present on admission, stable -patient on home regimen of midodrine 10 mg in AM and 5 mg in PM. -will follow blood pressure and treat if necessary. VTE prophylaxis: SCDs, therapeutic Lovenox IV fluid: Normal saline 100 cc/hour Diet: NPO Code status: FULL CODE. Patient designates his to be his surrogate decision maker. Quality VTE Deep Vein Thrombosis/Pulmonary Embolism Present on Admission: No
--- NOTE | 2019-12-25 14:50 | CM.DPC ---
DCP Cont: Per MD, pt continues to need NG suction and having some nausea now with an episode of vomiting today and NG suction has had some challenges with correct placement. Per RN, pt still distended and per Bedside MD rounding pt will have bowel follow through today. Pt concerned about the possible need for surgery due to his age but pt states he still feels quite sick and agreeable with conservative treatment at this time. Plan: SW to follow closely after bowel follow through and conservative measures towards determining d/c planning needs and if pt will be safe for d/c back home with spouse and any further identified needs. Jeanine Smith MSW
--- NOTE | 2019-12-25 16:01 | DIET.PN ---
Dietary Progress Note Pt currently NPO c NGT suction as conservative management for high grade SBO. Following.
[2019-12-25] MEDS: MIDODRINE HCL 5 MG TABLET PO (16:59)
[2019-12-25] MEDS: LEVOTHYROXINE INJ 100 MCG/5 ML VIAL 50 MCG IV (17:09)
[2019-12-25] MEDS: ONDANSETRON 4 MG/2 ML INJ IV (19:44)
[2019-12-25] MEDS: ATORVASTATIN 10 MG TABLET PO (20:04)
[2019-12-25] MEDS: AZITHROMYCIN 500 MG in DEXTROSE 5% IN WATER 250 ML IV (21:28)
--- NOTE | 2019-12-25 22:54 | PC.NURSE ---
5 liters of NG fluid removed from patient this shift, low intermittent suction. Pt continues to be on oxygen to stsay about 92 %, 1.5 L. Pt denies pain but is hiccuping a lot. He gets some relief from Reglan and Zofran. VSS. A and O x 4, CIRCLE, not wearing bilat HAs.
[2019-12-26] VITALS (9 sets, daily range): BP systolic 98–187; BP diastolic 44–87; PULSE 71–81; RESP 14–21; TEMP 36.4–36.9; O2SAT 92–95
[2019-12-26] MEDS: PIPERACILLIN-TAZO 3.375 GM/50 ML FROZ.PIGGY IV ×3 (02:31→17:43)
[2019-12-26] MEDS: SODIUM CHLORIDE 0.9% 1,000 ML 100 ML IV (02:36)
--- NOTE | 2019-12-26 02:44 | PC.NURSE ---
Addendum entered by Rubi Simpson R.N. 12/26/19 06:46: 3.1kg weight loss. Presumably from about 6L fluid loss from NGT. Addendum entered by Rubi Simpson R.N. 12/26/19 05:46: Notified transitional care nurse provider about 25ml urine output, bladder scan estimate of 253, and NGT loss over both shifts. New orders placed. Original Note: AxOx3, can make needs known. Uses call light appropriately. At start of shift LIS was not working, after adjustment of regulator was able to get 650ml out almost immediately. Patient had c/o nausea at time of assessment but at recheck @ 0200, nausea had resolved. LS are expiratory rhonchi throughout, titrated O2 by NC from 1.5L to 3L to increase saturations. Denies chest pain or SOB. High fall risk d/t hx of falls, NGT, and SCDs. Bed alarm on and functioning, call light in reach.
[2019-12-26 05:39] LABS: Add Manual Diff / Slide Review NO; Basophils Absolute Auto 0 /uL (0-100); Basophils Percent Auto 0.1 % (0-2); Eosinophils Absolute Auto 0 /uL (0-450); Hematocrit 37.7 % (41-53); Hemoglobin 12.8 g/dL (13.5-17.5); Lymphocytes Absolute Auto 600 /uL (1100-4500); Mean Corpuscular HGB Conc 33.9 % (30-36); Mean Corpuscular Hemoglobin 31.2 PG (26-34); Mean Corpuscular Volume 92.1 fL (80-100); Monocytes Absolute Auto 700 /uL (0-900); Monocytes Percent Auto 5.6 % (3-14); Neutrophils Absolute Auto 10500 /uL (1500-7000); Neutrophils Percent Auto 89.3 % (50-75); Platelet Count 171 X10^3/uL (150-400); Red Blood Cell Count 4.09 X10^6/uL (4.5-5.9); Red Cell Distribution Width 14.5 % (11.6-14.8); White Blood Cell Count 11.8 X10^3/uL (4.5-11.0)
[2019-12-26 05:52] LABS: Alanine Aminotransferase 17 IU/L (<50); Albumin 3.8 g/dL (3.5-5.0); Albumin Globulin Ratio 1.2 (1.0-2.8); Alkaline Phosphatase 31 U/L (38-126); Aspartate Aminotransferase 26 IU/L (17-59); Bilirubin Total 1.1 mg/dL (0.2-1.3); Bilirubin Unconjugated 1.1 mg/dL (0.0-1.1); Blood Urea Nitrogen 33 mg/dL (9-20); Calcium 9.3 mg/dL (8.4-10.2); Carbon Dioxide 33 mmol/L (22-32); Chloride 105 mmol/L (98-107); Estimated Glomerular Filt Rate 26.4 mL/min (>60); Globulin 3.2 g/dL (1.7-4.1); Glucose 147 mg/dL (80-110); HEMOLYSIS < 15 (0-50); Magnesium 2.2 mg/dL (1.6-2.3); Potassium 3.6 mmol/L (3.4-5.1); Sodium 146 mmol/L (137-145)
[2019-12-26] MEDS: METOCLOPRAMIDE 10 MG/2 ML INJ IV ×3 (06:06→21:33)
[2019-12-26] MEDS: SODIUM CHLORIDE 0.9% 250 ML 1000 ML IV (06:06)
--- NOTE | 2019-12-26 07:28 | DI.RAD.S_ITS ---
PROCEDURE: XR KUB INDICATIONS: follow exam up sbo TECHNIQUE: One view of the abdomen acquired. COMPARISON: [facility], CT, CT ABDOMEN PELVIS W CON, 12/23/2019, 21:10. [facility], CR, XR ACUTE ABDOMEN SERIES, 12/23/2019, 19:59. [facility], CR, XR KUB, 12/25/2019, 5:34. FINDINGS: Surgical changes and devices: Tracheostomy tube is seen, with the tip near the pylorus, as before. Pacer leads are partially seen. Bowel: Bowel gas pattern is normal. Soft tissues: No suspicious abdominal calcifications. Visualized solid organ contours appear normal in size. Bones: No suspicious bony lesions. Age-appropriate bony degenerative changes are seen. IMPRESSION: The bowel gas pattern appears nonobstructive. No significant change from the prior plain film. The fluid-filled loops that can be seen on the recent prior CT are not perceived on this plain film study. If it would be helpful for clinical management decision making, please consider a dedicated repeat CT with oral contrast with a long dwell time. The tip of the gastric tube is seen near the pylorus. Dictated by: Hi Kent M.D. on 12/26/2019 at 7:48 Approved by: Hi Kent M.D. on 12/26/2019 at 7:50
[2019-12-26] MEDS: ENOXAPARIN 80 MG/0.8 ML SYRINGE SUBCUT (08:20)
[2019-12-26] MEDS: SODIUM CHLORIDE 0.9% 1,000 ML 1000 ML IV ×3 (08:20→14:34)
--- NOTE | 2019-12-26 10:56 | PM.PN.1 ---
Subjective Subjective Date Patient Seen: 12/26/19 Time Patient Seen: 10:56 Interval history: May be passage of flatus this morning, patient unsure. Feels slightly less this morning as compared to yesterday. Minimal abdominal pain. Exam Vital Signs (past 8 hours): - 12/26/19 04:32 12/26/19 08:03 12/26/19 08:52 Temperature 97.9 F 97.5 F L Pulse Rate 79 75 Respiratory Rate 18 16 Blood Pressure 120/56 L 126/58 L Pulse Oximetry 94 95 92 12/26/19 09:00 Temperature Pulse Rate Respiratory Rate Blood Pressure Pulse Oximetry 95 Oxygen Delivery Method Room Air Oxygen Flow Rate 0 Narrative Exam Narrative: General elderly man alert oriented with nasogastric tube with gastric and bilious output Abdomen compressible mildly distended midline laparotomy scar Objective Labs Result Diagrams: 12/26/19 05:22 12/26/19 05:22 Labs: Laboratory Results - last 24 hr 12/26/19 12/26/19 05:22 05:22 WBC 11.8 H RBC 4.09 L Hgb 12.8 L Hct 37.7 L MCV 92.1 MCH 31.2 MCHC 33.9 RDW 14.5 Plt Count 171 Neut % (Auto) 89.3 H Lymph % (Auto) 5.0 L [place] % (Auto) 5.6 Eos % (Auto) 0.0 L Baso % (Auto) 0.1 Neut # (Auto) 06066 H Lymph # (Auto) 600 L [place] # (Auto) 700 Eos # (Auto) 0 Baso # (Auto) 0 Sodium 146 H Potassium 3.6 Chloride 105 Carbon Dioxide 33 H BUN 33 H Creatinine 2.36 H Estimated GFR 26.4 L BUN/Creatinine Ratio 14.0 Glucose 147 H Calcium 9.3 Magnesium 2.2 Total Bilirubin 1.1 Conjugated Bilirubin 0.0 Unconjugated Bilirubin 1.1 AST 26 ALT 17 Alkaline Phosphatase 31 L Total Protein 7.0 Albumin 3.8 Globulin 3.2 Albumin/Globulin Ratio 1.2 Assessment & Plan Assessment & Plan narrative: 84-year-old man with a small-bowel obstruction secondary to adhesions. I reviewed his abdominal x-ray from today which demonstrates significant improvement in his small-bowel dilation. He remained distended he is unsure was to whether he is passing flatus and the nasogastric tube had high volume output over the past 24 hours period, continue conservative management of small-bowel obstruction. -continue nasogastric tube to intermittent low wall suction -okay for ice chips -tomorrow if passing flatus and less distended will likely remove NGT and start clears Quality VTE Deep Vein Thrombosis/Pulmonary Embolism Present on Admission: No
--- NOTE | 2019-12-26 11:12 | PM.PN.1 ---
Subjective Subjective Date Patient Seen: 12/26/19 Interval history: Mr. Latonia Perez is an 83-year-old male w/ PMH significant for COPD (mild), restrictive lung disease, CAD (no h/o VA), AFIB (AC w/ warfarin), cardiomyopathy (s/p PPM, [facility], w/ complication of punctured lung / chest tube), hypothyroidism, Hodgkin's lymphoma, colon cancer (s/p colon resection 1999), sigmoid diverticulosis, and prior h/o tobacco dependence (quit 1982) who is admitted for small-bowel obstruction. Patient reports improvement in abdominal distension and denies abdominal pain. He has not had flatus. NG output has been fairly high with 6 L bilious fluid on overnight shift. Also his creatinine has bumped up on this morning's labs. He has chronic dyspnea which he says is unchanged. Exam Vital Signs (past 8 hours): - 12/26/19 04:32 12/26/19 08:03 12/26/19 08:52 Temperature 97.9 F 97.5 F L Pulse Rate 79 75 Respiratory Rate 18 16 Blood Pressure 120/56 L 126/58 L Pulse Oximetry 94 95 92 12/26/19 09:00 Temperature Pulse Rate Respiratory Rate Blood Pressure Pulse Oximetry 95 Oxygen Delivery Method Room Air Oxygen Flow Rate 0 Narrative Exam Narrative: General: Alert and pleasant male in no acute distress Lungs: Coarse breath sounds but otherwise clear to auscultation Heart: Regular paced rhythm Abdomen: Scattered bowel sounds present, probably moderately distended, nontender Extremities: No edema Extremities: Sensorium intact, nonfocal Skin: No rash or petechia Objective Labs Result Diagrams: 12/26/19 05:22 12/26/19 05:22 Labs: Laboratory Results - last 24 hr 12/26/19 12/26/19 05:22 05:22 WBC 11.8 H RBC 4.09 L Hgb 12.8 L Hct 37.7 L MCV 92.1 MCH 31.2 MCHC 33.9 RDW 14.5 Plt Count 171 Neut % (Auto) 89.3 H Lymph % (Auto) 5.0 L [place] % (Auto) 5.6 Eos % (Auto) 0.0 L Baso % (Auto) 0.1 Neut # (Auto) 53412 H Lymph # (Auto) 600 L [place] # (Auto) 700 Eos # (Auto) 0 Baso # (Auto) 0 Sodium 146 H Potassium 3.6 Chloride 105 Carbon Dioxide 33 H BUN 33 H Creatinine 2.36 H Estimated GFR 26.4 L BUN/Creatinine Ratio 14.0 Glucose 147 H Calcium 9.3 Magnesium 2.2 Total Bilirubin 1.1 Conjugated Bilirubin 0.0 Unconjugated Bilirubin 1.1 AST 26 ALT 17 Alkaline Phosphatase 31 L Total Protein 7.0 Albumin 3.8 Globulin 3.2 Albumin/Globulin Ratio 1.2 Assessment & Plan Assessment & Plan narrative: Mr. Latonia Perez is an 83-year-old male w/ PMH significant for COPD (mild), restrictive lung disease, CAD (no h/o VA), AFIB (AC w/ warfarin), cardiomyopathy (s/p PPM, [facility], w/ complication of punctured lung / chest tube), hypothyroidism, Hodgkin's lymphoma, colon cancer (s/p colon resection 1999), sigmoid diverticulosis, and prior h/o tobacco dependence (quit 1982) who is admitted for small-bowel obstruction. 1. Small-bowel obstruction, acute, present admission, active -CT finds a small bowel obstruction with a transition point in left lower quadrant, this appears to be high-grade obstruction with no other etiology identified that would produce the blockage. No retroperitoneal or mesenteric adenopathy is noted. -patient has numerous comorbid conditions complicating his clinical course including coronary artery disease, atrial fibrillation, CHF and CKD. -NG tube was placed in the emergency department with return copious dark green bilious material. -unable to complete small-bowel follow-through due to vomiting -he has high output from NG tube and getting additional fluids via IV -continue NPO -NS bolus x2 L and increase continuous NS to 150 cc/hour -appreciate surgical management and consultation. 2. Aspiration pneumonia, present on admission, active. -CT scan finds patchy asymmetric lung base pneumonia pattern left greater than right with a concomitant finding of gastric distension likely leading to aspiration. -the patient has a history of COPD reports shortness of breath greater than typical, no cough present, breathing nonlabored with oxygen saturation 96% on room air. -initial white count of 15.6 with neutrophils of 91.4%, procalcitonin 0.16. WBC trending down. -continue Zosyn 3.375 g every 8 hours although can probably stop after 5 days IV antibiotic; azithromycin discontinued after 2 doses. 3. Acute kidney injury superimposed on chronic kidney disease stage 3, present on admission, active -admission BUN of 36 and a creatinine of 1.88. Previous creatinine in June 2019 was 1.31 a baseline probably 1.3-1.6 range. -on 12/25 creatinine bumped up to 2.36 due to NG output, addressed with NS bolus and increasing continuous NS rate -avoid nephrotoxic agents and renal dose medications as needed. -repeat BMP in a.m. 4. elevated troponin of 0. 0.52, present on admission. -likely secondary to demand in setting of CAD, CHF and KAMALJIT. -repeat troponin downtrended after admission. -patient was without chest pain and no ischemic EKG changes noted. 5. Persistent atrial fibrilllation, present on admission, active. -patient with history CAD and cardiomyopathy with permanent pacemaker implantation -continue home regimen of amiodarone 100 mg when taking p.o. Okay to hold if temporary. Consider IV dosing if rate control is an issue. -Patient has been anticoagulated on warfarin 7.5 mg daily except for 10 mg on Saturday and which is held pending possible surgery. -decrease enoxaparin to 30 mg subcu daily for DVT prophylaxis only until patient can resume warfarin 6. Hypothyroidism, chronic, present on admission, stable -ordered levothyroxine IV 50 mcg daily, will continue home regimen of levothyroxine 100 mcg daily when taking p.o. 7. Hypotension, chronic, present on admission, stable -patient on home regimen of midodrine 10 mg in AM and 5 mg in PM. -will follow blood pressure and treat if necessary. VTE prophylaxis: SCDs, Lovenox IV fluid: Normal saline 150 cc/hour Diet: NPO Code status: FULL CODE. Patient designates his to be his surrogate decision maker. Quality VTE Deep Vein Thrombosis/Pulmonary Embolism Present on Admission: No
--- NOTE | 2019-12-26 11:46 | CM.DPC ---
DCP Cont: SW met bedside with pt and spouse with MD during MD rounds and pt states he is beginning to feel better since his NG tube was repositioned yesterday and pt had at least 6 liters suctioned last night. Pt continues to need NG tube at this time and pt is still NPO and diet not advanced at this time. Spouse confirms that pt was discharged home with HH once in the past but when HH arrived and completed home assessment it was determined that pt was not homebound and did not need HH services. Pt and spouse would be agreeable to HH if needed pending pt's progress and hopeful to d/c home in the next couple days if he tolerates his diet eventually advanced. Plan: SW to continue to follow for eventual NG tube removal and advancing of diet to confirm pt safe for d/c home with spouse and r/o HH. Jeanine Smith MSW
[2019-12-26] MEDS: BENZOCAINE/MENTHOL 1 LOZ PKT 1 EACH PO (11:47)
[2019-12-26] MEDS: SODIUM CHLORIDE 0.9% 1,000 ML 150 ML IV ×2 (17:43→23:23)
[2019-12-26] MEDS: MIDODRINE HCL 5 MG TABLET PO (17:43)
[2019-12-26] MEDS: LEVOTHYROXINE INJ 100 MCG/5 ML VIAL 50 MCG IV (17:43)
[2019-12-26] MEDS: ATORVASTATIN 10 MG TABLET PO (21:33)
[2019-12-27] VITALS (9 sets, daily range): BP systolic 132–188; BP diastolic 69–95; PULSE 60–97; RESP 16–26; TEMP 36.3–36.9; O2SAT 91–98
--- NOTE | 2019-12-27 | DI.RAD.S_ITS ---
PROCEDURE: XR CHEST 1V INDICATIONS: acute dyspnea TECHNIQUE: One view of the chest was acquired. COMPARISON: [facility], CR, XR KUB, 12/26/2019, 8:30. [facility], CR, XR CHEST 2V, 06/08/2018, 6:53. [facility], CR, XR CHEST 1V, 06/07/2018, 16:41. [facility], CR, XR ACUTE ABDOMEN SERIES, 12/23/2019, 19:59. [facility], CR, XR CHEST 2V, 04/10/2019, 12:01. [facility], CR, XR CHEST 1V, 06/23/2019, 10:57. FINDINGS: Surgical changes and devices: A pacer device is seen. The leads are seen in stable positions. The previously seen gastric tube has been removed. Lungs and pleura: Low lung volumes are noted. This causes a crowded appearance to the lung markings and limits evaluation. Mild interstitial prominence is seen. No large pneumothorax or large pleural effusions are seen. Mediastinum: The cardiac contours are within normal limits. The aorta demonstrates calcification and tortuosity. Bones and chest wall: No suspicious bony lesions. Age-appropriate bony degenerative changes are seen. Overlying soft tissues appear unremarkable. IMPRESSION: Interstitial prominence is seen throughout. The interstitial prominence is nonspecific, yet may be related to pulmonary edema. Low lung volumes. Dictated by: Hi Kent M.D. on 12/27/2019 at 17:04 Approved by: Hi Kent M.D. on 12/27/2019 at 17:06
[2019-12-27] MEDS: PIPERACILLIN-TAZO 3.375 GM/50 ML FROZ.PIGGY IV ×3 (01:54→17:59)
[2019-12-27 05:30] LABS: Add Manual Diff / Slide Review NO; Basophils Absolute Auto 0 /uL (0-100); Basophils Percent Auto 0.3 % (0-2); Eosinophils Absolute Auto 100 /uL (0-450); Eosinophils Percent Auto 1.5 % (2-4); Hematocrit 34.6 % (41-53); Hemoglobin 11.7 g/dL (13.5-17.5); Lymphocytes Absolute Auto 700 /uL (1100-4500); Mean Corpuscular HGB Conc 33.8 % (30-36); Mean Corpuscular Hemoglobin 31.2 PG (26-34); Mean Corpuscular Volume 92.3 fL (80-100); Monocytes Absolute Auto 600 /uL (0-900); Monocytes Percent Auto 6.4 % (3-14); Neutrophils Absolute Auto 7500 /uL (1500-7000); Neutrophils Percent Auto 83.8 % (50-75); Platelet Count 152 X10^3/uL (150-400); Red Blood Cell Count 3.75 X10^6/uL (4.5-5.9); Red Cell Distribution Width 14.5 % (11.6-14.8)
[2019-12-27 05:43] LABS: Alanine Aminotransferase 16 IU/L (<50); Albumin 3.3 g/dL (3.5-5.0); Albumin Globulin Ratio 1.1 (1.0-2.8); Alkaline Phosphatase 36 U/L (38-126); Aspartate Aminotransferase 34 IU/L (17-59); BUN Creatinine Ratio 17.1 (6-22); Bilirubin Total 0.7 mg/dL (0.2-1.3); Bilirubin Unconjugated 0.6 mg/dL (0.0-1.1); Blood Urea Nitrogen 29 mg/dL (9-20); Calcium 8.5 mg/dL (8.4-10.2); Carbon Dioxide 28 mmol/L (22-32); Chloride 112 mmol/L (98-107); Estimated Glomerular Filt Rate 38.6 mL/min (>60); Globulin 2.9 g/dL (1.7-4.1); Glucose 95 mg/dL (80-110); HEMOLYSIS < 15 (0-50); Magnesium 2.2 mg/dL (1.6-2.3); Potassium 3.5 mmol/L (3.4-5.1); Sodium 146 mmol/L (137-145); Total Protein 6.2 g/dL (6.3-8.2)
[2019-12-27] MEDS: METOCLOPRAMIDE 10 MG/2 ML INJ IV ×3 (05:55→21:51)
[2019-12-27] MEDS: SODIUM CHLORIDE 0.9% 1,000 ML 150 ML IV (06:48)
[2019-12-27] MEDS: POTASSIUM CHLORIDE 10 MEQ in SODIUM CHLORIDE 0.45% 1,000 ML 150 MEQ IV (09:37)
[2019-12-27] MEDS: AMIODARONE 100 MG TABLET PO (09:37)
[2019-12-27] MEDS: ENOXAPARIN 30 MG/0.3 ML SYRINGE SUBCUT (09:58)
--- NOTE | 2019-12-27 10:55 | PM.PN.1 ---
Subjective Subjective Date Patient Seen: 12/27/19 Time Patient Seen: 10:55 Interval history: Feels well less distended. Positive flatus. Minimal abdominal pain Exam Vital Signs (past 8 hours): - 12/27/19 04:10 12/27/19 08:15 Temperature 98.5 F 97.7 F Pulse Rate 81 83 Respiratory Rate 20 16 Blood Pressure 169/89 H 188/95 H Pulse Oximetry 98 92 Oxygen Delivery Method Room Air Oxygen Flow Rate 0 Narrative Exam Narrative: General elderly man alert oriented no acute distress Abdomen soft nondistended non tender Objective Labs Result Diagrams: 12/27/19 05:05 12/27/19 05:05 Labs: Laboratory Results - last 24 hr 12/27/19 12/27/19 05:05 05:05 WBC 9.0 RBC 3.75 L Hgb 11.7 L Hct 34.6 L MCV 92.3 MCH 31.2 MCHC 33.8 RDW 14.5 Plt Count 152 Neut % (Auto) 83.8 H Lymph % (Auto) 8.0 L [place] % (Auto) 6.4 Eos % (Auto) 1.5 L Baso % (Auto) 0.3 Neut # (Auto) 7500 H Lymph # (Auto) 700 L [place] # (Auto) 600 Eos # (Auto) 100 Baso # (Auto) 0 Sodium 146 H Potassium 3.5 Chloride 112 H Carbon Dioxide 28 BUN 29 H Creatinine 1.70 H Estimated GFR 38.6 L BUN/Creatinine Ratio 17.1 Glucose 95 Calcium 8.5 Magnesium 2.2 Total Bilirubin 0.7 Conjugated Bilirubin 0.0 Unconjugated Bilirubin 0.6 AST 34 ALT 16 Alkaline Phosphatase 36 L Total Protein 6.2 L Albumin 3.3 L Globulin 2.9 Albumin/Globulin Ratio 1.1 Assessment & Plan Assessment & Plan narrative: 84-year-old man with a small-bowel obstruction secondary to adhesions, resolving with conservative management. -removed nasogastric tube -start clear liquid diet made bands as tolerated. Quality VTE Deep Vein Thrombosis/Pulmonary Embolism Present on Admission: No
--- NOTE | 2019-12-27 12:28 | PC.NURSE ---
Pt resting in bed with Spouse at the bedside. Clear liquid diet initiated after Dr. Mcqueen removed NG tube. Pt now stating he is having trouble breathing and clearing his throat. O2 sat 80% on RA. Placed Pt on 2l O2 via NC, encouraged deep breathing and coughing of secretions. RT called and worked with Pt with flutter valve, IS, and coughing and clearing. Suctioned a small amount of secretions from the back of the throat. Pt O2 sat now 93% on 1L O2 and states he is no longer having difficulty breathing.
--- NOTE | 2019-12-27 14:58 | P.PN_ITS ---
Subjective Subjective Date Patient Seen: 12/27/19 Interval history: Mr. Latonia Perez is an 83-year-old male w/ PMH significant for COPD (mild), restrictive lung disease, CAD (no h/o VT), AFIB (AC w/ warfarin), cardiomyopathy (s/p PPM, [facility], w/ complication of punctured lung / chest tube), hypothyroidism, Hodgkin's lymphoma, colon cancer (s/p colon resection 1999), sigmoid diverticulosis, and prior h/o tobacco dependence (quit 1982) who is admitted for small-bowel obstruction. Patient is passing flatus and denies abdominal pain. He was seen by surgery earlier today and NG was taken out and patient started on clear liquid diet. Nursing staff noted he was coughing and having difficulty swallowing liquids. Exam Vital Signs (past 8 hours): - 12/27/19 08:15 12/27/19 10:58 12/27/19 11:30 Temperature 97.7 F 97.6 F Pulse Rate 83 80 Respiratory Rate 16 20 Blood Pressure 188/95 H 173/78 H Pulse Oximetry 92 97 91 Oxygen Delivery Method Room Air Oxygen Flow Rate 0 Narrative Exam Narrative: General: Alert and pleasant male in no acute distress Lungs: Coarse breath sounds but otherwise clear to auscultation Heart: Regular paced rhythm Abdomen: Scattered bowel sounds present, nontender Extremities: No edema Extremities: Sensorium intact, nonfocal Skin: No rash or petechia Objective Labs Result Diagrams: 12/27/19 05:05 12/27/19 05:05 Labs: Laboratory Results - last 24 hr 12/27/19 12/27/19 05:05 05:05 WBC 9.0 RBC 3.75 L Hgb 11.7 L Hct 34.6 L MCV 92.3 MCH 31.2 MCHC 33.8 RDW 14.5 Plt Count 152 Neut % (Auto) 83.8 H Lymph % (Auto) 8.[address] [place] % (Auto) 6.4 Eos % (Auto) 1.5 L Baso % (Auto) 0.3 Neut # (Auto) 7500 H Lymph # (Auto) [address] [place] # (Auto) 600 Eos # (Auto) 100 Baso # (Auto) 0 Sodium 146 H Potassium 3.5 Chloride 112 H Carbon Dioxide 28 BUN 29 H Creatinine 1.70 H Estimated GFR 38.6 L BUN/Creatinine Ratio 17.1 Glucose 95 Calcium 8.5 Magnesium 2.2 Total Bilirubin 0.7 Conjugated Bilirubin 0.0 Unconjugated Bilirubin 0.6 AST 34 ALT 16 Alkaline Phosphatase 36 L Total Protein 6.2 L Albumin 3.3 L Globulin 2.9 Albumin/Globulin Ratio 1.1 Assessment & Plan Assessment & Plan narrative: Mr. Latonia Perez is an 83-year-old male w/ PMH significant for COPD (mild), restrictive lung disease, CAD (no h/o VT), AFIB (AC w/ warfarin), cardiomyopathy (s/p PPM, [facility], w/ complication of punctured lung / chest tube), hypothyroidism, Hodgkin's lymphoma, colon cancer (s/p colon resection 1999), sigmoid diverticulosis, and prior h/o tobacco dependence (quit 1982) who is admitted for small-bowel obstruction. 1. Small-bowel obstruction, acute, present admission, active, resolved -CT finds a small bowel obstruction with a transition point in left lower quadrant, this appears to be high-grade obstruction with no other etiology identified that would produce the blockage. No retroperitoneal or mesenteric adenopathy is noted. -patient has numerous comorbid conditions complicating his clinical course including coronary artery disease, atrial fibrillation, CHF and CKD. -NG tube was placed in the emergency department with return copious dark green bilious material. Patient had high output from NG for several days. -unable to complete small-bowel follow-through due to vomiting -NG removed 12/26 and started on clear liquid diet -appreciate surgical management and consultation. 2. Aspiration pneumonia, present on admission, active. -CT scan finds patchy asymmetric lung base pneumonia pattern left greater than r ight with a concomitant finding of gastric distension likely leading to aspiration. -the patient has a history of COPD reports shortness of breath greater than typical, no cough present, breathing nonlabored with oxygen saturation 96% on room air. -initial white count of 15.6 with neutrophils of 91.4%, procalcitonin 0.16. WBC trending down, last 9.0. -continue Zosyn 3.375 g every 8 hours although can probably stop after 5 days IV antibiotic; azithromycin discontinued after 2 doses. 3. Acute kidney injury superimposed on chronic kidney disease stage 3, present on admission, active -admission BUN of 36 and a creatinine of 1.88. Previous creatinine in June 2019 was 1.31 a baseline probably 1.3-1.6 range. -on 12/25 creatinine bumped up to 2.36 due to NG output, addressed with NS bolus and increasing continuous NS rate -renal function now improving with last creatinine 1.70, close to baseline -avoid nephrotoxic agents and renal dose medications as needed. -continue 1/2 NS at 100 cc/hour until reliably taking p.o. -repeat BMP in a.m. 4. elevated troponin of 0.052, present on admission. -likely secondary to demand in setting of CAD, CHF and KAMALJIT. -repeat troponin downtrended after admission. -patient was without chest pain and no ischemic EKG changes noted. 5. Persistent atrial fibrilllation, present on admission, active. -patient with history CAD and cardiomyopathy with permanent pacemaker implantation -continue home regimen of amiodarone 100 mg when taking p.o. Okay to hold if temporary. Consider IV dosing if rate control is an issue. -Patient has been anticoagulated on warfarin 7.5 mg daily except for 10 mg on Saturday and which is held pending possible surgery. -decrease enoxaparin to 30 mg subcu daily for DVT prophylaxis only until patient back on warfarin 6. Hypothyroidism, chronic, present on admission, stable -continue home regimen of levothyroxine 100 mcg daily when taking p.o. 7. Hypotension, chronic, present on admission, stable -patient on home regimen of midodrine 10 mg in AM and 5 mg in PM. -will follow blood pressure and treat if necessary. 8. Dysphagia post NG removed -speech therapy swallow eval requested VTE prophylaxis: SCDs, Lovenox Code status: FULL CODE. Patient designates his to be his surrogate decision maker. Quality VTE Deep Vein Thrombosis/Pulmonary Embolism Present on Admission: No
--- NOTE | 2019-12-27 17:41 | RT ---
PT HYPOXIC! Called by nursing, pt was 'having difficulties keeping his sats up, and he may have aspirated on green jello'. Observed O2 sats to 82%, and pt looked dusky, per staff. Now on 3 lpm, his O2 sats 97%, pulse 95, RR 28. Color looks pink and normal now. Pt is now NPO again. Upon entering room, pt sits in chair in obvious moderate resp distress. Resp rate 28, accessory/sternocleidomastoid muscle usage, wet audible rhonchi heard. Lung sounds extrememly coarse and wet to auscultation too (L>R). Immediately informed Dr Lopez who came to bedside for assessment, and he ordered a stat! CXR.
--- NOTE | 2019-12-27 17:45 | PC.NURSE ---
Assumed care of pt at 1500. Pt sleeping during bedside hand-off. Audible gurgle airway. 94% RA. Denies difficulty breathing once awake. During dinner at 1730 pt noted to be coughing and desating on clear liquid diet. Desat to mid 80's. NC 6L applied; oral suctioned, Summoned R.T. Sats returned to high 90's. Decreased O2 to 2L sats 95%. Pt reports feeling improvement. MD in for exam. Chest x-ray ordered and completed. Pt placed on NPO until RUBBER TI[employer] AND TUBES SUPERVISOR eval is completed.
[2019-12-27] MEDS: FUROSEMIDE 100 MG/10 ML VIAL 80 MG IV (19:13)
[2019-12-27] MEDS: POTASSIUM CHLORIDE 10 MEQ in SODIUM CHLORIDE 0.45% 1,000 ML 50 MEQ IV (19:13)
[2019-12-28] VITALS (8 sets, daily range): BP systolic 136–155; BP diastolic 70–79; PULSE 68–75; RESP 16–20; TEMP 36.3–36.9; O2SAT 93–96
--- NOTE | 2019-12-28 01:33 | PC.NURSE ---
Patient has recent IV. [address] new site, were not able to. Spoke with Consuelo Marion and she stated it was ok to leave in place for tonight.
[2019-12-28] MEDS: PIPERACILLIN-TAZO 3.375 GM/50 ML FROZ.PIGGY IV ×3 (01:59→17:18)
[2019-12-28 05:35] LABS: BUN Creatinine Ratio 13.7 (6-22); Blood Urea Nitrogen 21 mg/dL (9-20); Calcium 8.8 mg/dL (8.4-10.2); Carbon Dioxide 33 mmol/L (22-32); Chloride 103 mmol/L (98-107); Estimated Glomerular Filt Rate 43.6 mL/min (>60); Glucose 99 mg/dL (80-110); HEMOLYSIS < 15 (0-50); Potassium 3.1 mmol/L (3.4-5.1); Sodium 140 mmol/L (137-145)
[2019-12-28] MEDS: METOCLOPRAMIDE 10 MG/2 ML INJ IV (05:39)
--- NOTE | 2019-12-28 07:41 | DI.RAD.S_ITS ---
PROCEDURE: XR ABDOMEN 1V INDICATIONS: aspiration ? SBO TECHNIQUE: One view of the abdomen acquired. COMPARISON: [facility], CR, XR KUB, 12/26/2019, 8:30. [facility], CR, XR ABDOMEN 3V, 06/24/2019, 5:15. FINDINGS: Surgical changes and devices: Nasogastric tube, if present is not seen on the film. Bowel: Relative paucity of small bowel gas, mainly centered in the left abdomen. There is a moderate amount of solid rectal stool present.. Soft tissues: No suspicious abdominal calcifications. Visualized solid organ contours appear normal in size. The abdominal aortic atherosclerotic calcification. Bones: No suspicious bony lesions. Degenerative changes in the lower lumbar spine IMPRESSION: 1. Rectal obstipation. 2. Relative paucity of small bowel gas. Consider upright film to assess for air-fluid levels. Dictated by: Lianne Hua M.D. on 12/28/2019 at 8:29 Approved by: Lianne Hua M.D. on 12/28/2019 at 8:31
--- NOTE | 2019-12-28 08:39 | PM.PN.1 ---
Subjective Subjective Date Patient Seen: 12/28/19 Time Patient Seen: 08:39 Interval history: Nasogastric tube was removed yesterday and he was started on clear liquid diet. He had an episode of aspiration and was subsequently made NPO. He had no nausea or vomiting. He continues to pass flatus and had has no abdominal pain. Exam Vital Signs (past 8 hours): - 12/28/19 04:00 12/28/19 07:34 Temperature 97.4 F L 97.8 F Pulse Rate 68 70 Respiratory Rate 16 18 Blood Pressure 136/74 149/79 H Pulse Oximetry 93 96 Oxygen Delivery Method Room Air Oxygen Flow Rate 1 Narrative Exam Narrative: General elderly man alert no acute distress Abdomen soft nondistended nontender Objective Labs Result Diagrams: 12/27/19 05:05 12/28/19 05:07 Labs: Laboratory Results - last 24 hr 12/28/19 05:07 Sodium 140 Potassium 3.1 L Chloride 103 Carbon Dioxide 33 H BUN 21 H Creatinine 1.53 H Estimated GFR 43.6 L BUN/Creatinine Ratio 13.7 Glucose 99 Calcium 8.8 Assessment & Plan Assessment & Plan narrative: 84-year-old man with a resolving small bowel obstruction secondary to adhesions. He was started on clear liquids yesterday but had an episode of aspiration but does not appear to be related to any recurrence of his obstruction. I reviewed his abdominal x-ray from this morning which demonstrates no evidence of small-bowel obstruction. -will need workup for aspiration and may resume clear liquid diet and advanced as tolerated when safe to do so Quality VTE Deep Vein Thrombosis/Pulmonary Embolism Present on Admission: No
[2019-12-28] MEDS: ENOXAPARIN 30 MG/0.3 ML SYRINGE SUBCUT (09:02)
[2019-12-28] MEDS: FLEETS ENEMA 1 EACH PR (09:02)
--- NOTE | 2019-12-28 10:38 | DIET.PN ---
Dietary Progress Note Assessment: NG tube removed 12/27/19. Diet advanced to clear liquid w/aspiration. Returned to NPO until DIGITAL MEDIA MANAGER eval completed.
--- NOTE | 2019-12-28 10:41 | PC.NURSE ---
pt had large results from administered fleets enema this am- he showered and is sitting up in chair- seen by speech therapy and clearedfor a diet- and thin liquids- pt and his spouse are hopeful to go home later this date
--- NOTE | 2019-12-28 11:23 | ST.IPCSEOM ---
Addendum entered and electronically signed by Iliana Perez 12/28/19 11:26: Spoke with RN Catia, who reports patient has been cleared by MD to advance diet beyond clear liquids. Per Catia, patient is implementing recommended strategies/precautions with oral intake and vocal quality continues to improve. Recommend Dysphagia Mechanical textures, thin liquids with pills crushed in carrier given patient's reports of difficulty with meds. Original Note: Visit Care Team Role Provider Type Katelyn Sterling MD Referring Provider Physician Specialty: Emergency Medicine Address: [address] [place] [address] Email: Sachin Vu MD Primary Care Provider Physician Specialty: Internal Medicine Address: [address] [place] [address], [facility] Email: [email or web address] Joie Randle MD Other Providers Physician Specialty: General Surgery Address: [address] [place] [address], [facility] Email: [email or web address] SOLOMON Vasquez Emergency Provider Advanced [employer] Brusher Specialty: FP Address: [address] [place] [address], [facility] Email: SOLOMON Mendez Admit Provider Physician Attending Provider Specialty: Internal Medicine Address: [address] [place] [address] Email: [email or web address] Current Diagnoses Hypothyroidism, unspecified (12/23/19) Essential (primary) hypertension (12/23/19) Atherosclerotic heart disease of [place] coronary artery without angina pectoris (12/23/19) Unspecified atrial fibrillation (12/23/19) Pneumonia, unspecified organism (12/23/19) Chronic obstructive pulmonary disease with (acute) exacerbation (12/23/19) Unspecified intestinal obstruction, unspecified as to partial versus complete obstruction (12/23/19) Chronic kidney disease, unspecified (12/23/19) [place] (current) use of anticoagulants (12/23/19) Past Medical History (Last Reviewed 12/24/19 @ 08:12 by Joie Randle MD) Atrial fibrillation (Acute Medical) CAD (coronary artery disease) (Acute Medical) CHF (congestive heart failure) (Acute Medical) Chronic kidney disease (Acute Medical) Colon cancer (Acute Medical) COPD (chronic obstructive pulmonary disease) (Acute Medical) Hearing loss (Acute Medical) History of skin cancer (Acute Medical) Melanoma Hodgkin lymphoma (Acute Medical) X2 with lymphnode removal Hypertension (Acute Medical) Hypothyroidism (Acute Medical) Orthostatic hypotension (Acute Medical) Small bowel obstruction (Inactive Medical) Speech-Language Pathology Swallow Evaluation 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 After this, patient had episode of aspiration while lying down in bed. Patient has no documented history of dysphagia prior to this hospitalization; but states he has difficulty with pills getting stuck. Subjective Observations Patient [place], but with bilateral aids in. Alert, oriented and pleasant. Evaluation Liquids Trialed Ice Chips,Thin Solids Trialed Puree Administration Type Self-Feeding Oral Impairment WFL Oral Phase Comments No oral phase dysphagia observed. Pharyngeal Phase Comments Observed immediate throat clearing and some coughing following initial sips of water. Discussed recommendations for instrumental evaluation to assess pharyngeal function, and patient declined MBSS at this time stating he feels his swallowing will improve over time and he wishes to go home. Discussed and educated patient on risk of aspiration and the following safe swallow strategies ; small bites/sips , slow rate of intake, throat clear and reswallow and effortful swallow. Patient demonstrated understanding by implementing strategies independently which notably decreased throat clearing and coughing. As trials progressed , patient's vocal quality improved. Findings Rehabilitation Potential Good Impressions Patient had recent aspiration event when he took a sip of water while lying in bed. Suspect some degree of atrophy of swallowing musculature and /or post extubation dysphagia which I expect to improve with time and use. Patient declined MBSS as recommended, but agreed to implement strategies discussed to decrease risk of further episodes of aspiration. Diet Recommendations Liquids Order Thin Diet Order Clear Liquids Medication Recommendations Crushed in Carrier Treatment Plan Placement Recommendations after Home Discharge Appropriate for Therapy Yes Therapy Recommendations If patient is not discharged today, follow-up to assess compliance with recommendations and advance diet per MD recommendations related to bowel obstruction.
[2019-12-28] MEDS: POTASSIUM CHLORIDE 20 MEQ TAB 40 MEQ PO ×2 (12:07→17:18)
[2019-12-28 14:51] LABS: NT-proBNP (BNP-Adult 18+) 5080 pg/mL (<450)
--- NOTE | 2019-12-28 17:08 | P.PN_ITS ---
Subjective Subjective Date Patient Seen: 12/28/19 Interval history: Patient is an 84-year-old male who was admitted to the hospital for small bowel obstruction. He had his diet advanced yesterday which he tolerated. However he did have an aspiration event. The patient was seen by speech pathology today. His diet was again advanced. He continues to have some wheezing related to his prior aspiration. He is somewhat short of breath. His voice is hoarse which he relates to intubation. Patient and his were anxious for him to return home. Exam Vital Signs (past 8 hours): - 12/28/19 11:18 12/28/19 16:15 Temperature 97.8 F 98.5 F Pulse Rate 71 75 Respiratory Rate 16 19 Blood Pressure 154/72 H 140/70 Pulse Oximetry 94 95 Oxygen Delivery Method Room Air Oxygen Flow Rate 0 Narrative Exam Narrative: Elderly male ill-appearing with audible wheezing Lungs: Decreased breath sounds with end-expiratory wheezing Cardiac exam: Regular rate and rhythm normal S1-S2 with a 2/6 systolic ejection Abdomen: Soft, nontender, nondistended Extremities: No edema Objective Labs Result Diagrams: 12/27/19 05:05 12/28/19 05:07 Labs: Laboratory Results - last 24 hr 12/28/19 12/28/19 05:07 14:15 Sodium 140 Potassium 3.1 L Chloride 103 Carbon Dioxide 33 H BUN 21 H Creatinine 1.53 H Estimated GFR 43.6 L BUN/Creatinine Ratio 13.7 Glucose 99 Calcium 8.8 NT-Pro-B Natriuret Pep 5080 H Assessment & Plan Assessment & Plan narrative: Assessment & Plan narrative: Mr. Latonia Perez is an 83-year-old male w/ PMH significant for COPD (mild), restrictive lung disease, CAD (no h/o [place]), AFIB (AC w/ warfarin), cardiomyopathy (s/p PPM, [facility], w/ complication of punctured lung / chest tube), hypothyroidism, Hodgkin's lymphoma, colon cancer (s/p colon resection 1999), sigmoid di verticulosis, and prior h/o tobacco dependence (quit 1982) who is admitted for small-bowel obstruction. 1. Small-bowel obstruction, acute, present admission, active, resolved -SBO resolved -Diet advanced, Patient tolerated diet except for Aspiration event -Repeat KUB no evidence of obstruction 2. Aspiration pneumonia, present on admission, active. -CT scan finds patchy asymmetric lung base pneumonia pattern left greater than right with a concomitant finding of gastric distension likely leading to aspiration. -the patient has a history of COPD reports shortness of breath greater than typ ical, no cough present, breathing nonlabored with oxygen saturation 96% on room air. -initial white count of 15.6 with neutrophils of 91.4%, procalcitonin 0.16. WBC trending down, last 9.0. -continue Zosyn 3.375 g every 8 hours although can probably stop after 5 days IV antibiotic; azithromycin discontinued after 2 doses. 3. Acute kidney injury superimposed on chronic kidney disease stage 3, present on admission, active - repeat BMP 4. elevated troponin of 0.052, present on admission. NO Evidence of [place] -likely secondary to demand in setting of CAD, CHF and KAMALJIT. -repeat troponin downtrended after admission. -patient was without chest pain and no ischemic EKG changes noted. 5. Persistent atrial fibrilllation, present on admission, active. -patient with history CAD and cardiomyopathy with permanent pacemaker implantation -continue home regimen of amiodarone 100 mg when taking p.o. Okay to hold if temporary. Consider IV dosing if rate control is an issue. - resume coumadin 6. Hypothyroidism, chronic, present on admission, stable -continue home regimen of levothyroxine 100 mcg daily when taking p.o. 7. Hypotension, chronic, present on admission, stable -patient on home regimen of midodrine 10 mg in AM and 5 mg in PM. -will follow blood pressure and treat if necessary. 8. Dysphagia post NG removed -speech therapy swallow eval requested Home tomorrow if no further aspiration and wheezing has resolved. Quality VTE Deep Vein Thrombosis/Pulmonary Embolism Present on Admission: No
[2019-12-28] MEDS: MIDODRINE HCL 5 MG TABLET PO (17:18)
[2019-12-28] MEDS: SODIUM CHLORIDE 0.9% 250 ML 21 ML IV (17:19)
[2019-12-28] MEDS: WARFARIN 7.5 MG TABLET PO (17:36)
[2019-12-28] MEDS: ATORVASTATIN 10 MG TABLET PO (21:37)
--- NOTE | 2019-12-28 22:30 | PC.NURSE ---
pt desat to 86% on RA while sleeping. placed NC 2L 93%. pt denied pain. +1 edema to bilat feet. dysphagia diet. call light in reach. bed alarm active. pt voiding without difficulty.
[2019-12-28] MEDS: FUROSEMIDE 40 MG/4 ML VIAL IV (23:46)
[2019-12-29] MEDS: PIPERACILLIN-TAZO 3.375 GM/50 ML FROZ.PIGGY IV ×2 (01:36→09:03)
[2019-12-29] MEDS: METOCLOPRAMIDE 10 MG/2 ML INJ IV (05:49)
[2019-12-29] MEDS: LEVOTHYROXINE 100 MCG TABLET PO (05:50)
[2019-12-29 06:34] LABS: INR 1.3 (0.9-1.3); Prothrombin Time 14.5 SECONDS (10.1-12.7)
[2019-12-29 06:38] LABS: Blood Urea Nitrogen 21 mg/dL (9-20); Calcium 8.8 mg/dL (8.4-10.2); Carbon Dioxide 31 mmol/L (22-32); Chloride 101 mmol/L (98-107); Estimated Glomerular Filt Rate 41.1 mL/min (>60); Glucose 106 mg/dL (80-110); HEMOLYSIS < 15 (0-50); Potassium 3.2 mmol/L (3.4-5.1); Sodium 138 mmol/L (137-145)
[2019-12-29 08:20] VITALS: BP 131/67; PULSE 79; RESP 17; TEMP 36.8; O2SAT 97
[2019-12-29] MEDS: AMIODARONE 100 MG TABLET PO (09:03)
[2019-12-29] MEDS: ENOXAPARIN 30 MG/0.3 ML SYRINGE SUBCUT (09:03)
[2019-12-29] MEDS: SODIUM CHLORIDE 0.9% FLUSH 10 ML IV (09:03)
[2019-12-29] MEDS: POTASSIUM CHLORIDE 20 MEQ TAB 40 MEQ PO (13:23)
--- NOTE | 2019-12-29 13:47 | ST.IPDYTX ---
Visit Care Team Role Provider Type Katelyn Sterling MD Referring Provider Physician Specialty: Emergency Medicine Address: [address] [place] [address], [address] Email: Sachin Vu MD Primary Care Provider Physician Specialty: Internal Medicine Address: [address] [place] [address], [facility] Email: [email or web address] Joie Randle MD Other Providers Physician Specialty: General Surgery Address: [address] [place] [address], [facility] Email: [email or web address] SOLOMON Vasquez Emergency Provider Advanced [employer] Seat Cover Installer Specialty: FP Address: [address] [place] [address] Email: SOLOMON Mendez Admit Provider Physician Attending Provider Specialty: Internal Medicine Address: [address] [place] [address], [facility] Email: [email or web address] SUPERVISOR COOK ROOM Dysphagia Treatment SUPERVISOR COOK ROOM Dysphagia Treatment Start: 12/29/19 13:22 Freq: Status: Active Protocol: Document 12/29/19 13:22 VANITA (Rec: 12/29/19 13:47 VANITA [email or web address]) Dysphagia Treatment Session Time Visit Start Time 10:16 Visit Stop Time 11:58 Total Visit Minutes 42 Setting Assessment Location Acute Care Visit Type Note Type Treatment Note Next Note Type Next Note Type Treatment Note Patient Information Identification Type Name,ID Card Subjective Observations Pt was sitting upright in chair with present. Had just completed oral care at sink with 's standby assistance. He reported feeling better with exception of continued mild discomfort at throat and roughness of voice secondary to intubation. Treatment Liquids Trialed Thin Solids Trialed Puree,Dysphagia Mechanical, Mechanical Soft,Regular Administration Type Straw,Self-Feeding Oral Strategies Upright at 90 degrees Pharyngeal Strategies Sitting Upright (90 deg),Small Bites and Sips Treatment Activities Dysphagia: Pt exhibited immediate cough between piecemeal swallows of diced peaches in juice (mixed texture). The bite had been moderately large in size. Reassessed with smaller bite of peaches only without added juice, and the pt tolerated without s/sx of aspiration. Mildly wet voice was observed with dysphagia mechanical texture and soft sandwich x1 each. The pt followed SUPERVISOR COOK ROOM instructions for cough and swallow to clear voice after first episode, and performed spontaneously with the bite of sandwich. Education was provided to the pt and his RE indication of airway compromise with wet vocal quality after swallow, and throat clearing + swallow strategy to clear. They verbalized understanding. No other overt s/sx of aspiration were observed with trials. The pt was instructed to consume small bites and sips and chew well, particularly in the coming week or two while VFs heal from intubation. General aspiration risks and precautions were provided orally and in writing, and the couple verbalized understanding. All questions were answered. Voice: The pt exhibited moderately rough voice throughout the session, with improved quality following brief periods of vocal rest. Education was provided RE potential impact of intubation of voice production, and two exercises (sustained and staccato phonation) were trained. Pt performed these exercises with SUPERVISOR COOK ROOM prompting both as vocal exercise and swallow assessment strategies. Instructions for vocal exercises were provide in writing alongside diet recommendations and aspiration precautions (on green sheet taped to pt's wall). Recommended to pt/spouse and to Nsg that the sheet be included in the pt's discharge paperwork for home use. Assessment Patient Response to Treatment Good Rehab Potential Excellent Assessment of Improvement Pt exhibits improved swallow safety with continued rough voice, indicating progressing but incomplete adduction of VFs s/p intubation. He remains at mild risk of aspiration d/ t reduced airway protection, particularly with mixed textures and large bites boluses. He is appropriate for advancement of diet and was responsive to education and training of aspiration risks/ precautions as well as exercises to promote VF adduction for both improved vocal quality and airway protection. Outpatient voice and/or dysphagia therapy was recommended to the couple if the pt's symptoms do not improve within 2 wks. They verbalized agreement. Diet Recommendations Recommendations Upgrade Diet Order Liquids Order Thin Diet Order Regular Medication Recommendations As Tolerated Comments No mixed textures. Meds in carrier if helpful. Aspiration Precautions Recommended Precautions Upright at 90 Degrees,Small Bites/Sips Treatment Plan Placement Recommendation after Discharge Home Appropriate for Continued Therapy Yes: F/U 1-2x for ongoing assessment Therapy Recommendations Continued assessment of swallow safety and vocal quality. Training in compensatory strategies and VF adduction exercises to improve airway protection and vocal quality. Modification of diet as indicated. Follow up with outpatient therapy if dysphagia and/or voice symptoms do not resolve within 2 wks. Dysphagia Goals 1. The pt will tolerate regular textures and thin liquids without overt s/sx of aspiration. 2. The pt will perform VF adduction exercises to improve airway protection and vocal quality.
--- NOTE | 2019-12-29 14:48 | PC.NURSE ---
Discharge: pt feels ready to d/c home. Apparently he thought he would be d/c first on saturday and then saturday which didn't occur. Pt reports he is more than ready to leave. Denies any sob, feels good. Reviewed d/c packet. Rx's have already been e-sent to his pharmacy. Questions answered. Covid test obtained and sent to lab. D/c home via auto w/spouse.
--- NOTE | 2019-12-29 18:08 | P.DS_ITS ---
History of Present Illness History of Present Illness Date Patient Seen: 12/29/19 Chief complaint: intestine issues/ vomiting Narrative: Mr. Latonia Perez is an 83-year-old male w/ PMH significant for COPD (mild), restrictive lung disease, CAD (no h/o [place]), AFIB (AC w/ warfarin), cardiomyopathy (s/p PPM, [facility], w/ complication of punctured lung / chest tube), hypothyroidism, Hodgkin's lymphoma, colon cancer (s/p colon resection 1999), sigmoid diverticulosis, and prior h/o tobacco dependence (quit 1982) who presents to the ER with worsening nausea and vomiting. The patient states he had abdominal pain sharp in character with nausea vomiting for 24 hours. He did have a bowel movement this morning which improved his abdominal pain and only transient relief of his nausea vomiting which progressed along with associated distension. He has had no flatus since his morning BM. Patient has a history of colon cancer with resection 20 years ago and has had multiple episodes of recurrent small-bowel obstruction. Patient was last admitted to the hospital in June 2019 which was effectively treated conservatively with gastric decompression. Patient reports no complaints of fevers or chills, nasal congestion or sore throat. He has had no chest pain or palpitations. He has a history of mild COPD but has not typically felt short of breath. He has had no abdominal pain complaints of heartburn, nausea vomiting. The patient denies urinary symptoms. Upon arrival to the ER the patient has temperature 97.2?, heart rate of 83, blood pressure 112/59, respirations of 20, oxygen saturation 97% on room air. A CT of the abdomen pelvis is obtained which finds: Of [place] stomach and small bowel is generally fluid filled with small-bowel obstruction that extends to the left lower abdominal pelvic junction count which there is a pattern of collapse small-bowel, high-grade obstruction is considered likely as the underlying cause. Additionally noted made is patchy asymmetric mild lung base pneumonia pattern left greater than right, given the degree of fluid distention of the stomach considerations given of possible reflux and aspiration. On laboratory analysis patient has white count of 15.6, hemoglobin of 14.5, hematocrit 42.5 and platelets 197. Electrolytes are all within normal range however has a BUN of 36 with a creatinine 1.88. His EGFR is 34.4. A nonfasting glucose is 62 and magnesium is 2.1. He has a PT of 22.1 and INR 1.9. His liver functions reveal a total bilirubin 1.3, AST of 29, ALT of 20 and AST of 37. Albumin is 4.[address] Phan is contacted to the emergency department agrees to consult for small-bowel obstruction. In the ER the patient is given lorazepam to facilitate placement of NG 2, Zofran and normal saline bolus 1 L and 150 cc/hour. Blood cultures are drawn and the patient receives ceftriaxone and azithromycin. Patient is admitted to the medicine service for small-bowel obstruction with aspiration pneumonia. Discharge Providers Provider Date of admission: 12/23/19 23:11 Discharge Date: 12/29/19 Primary care physician: Sachin Vu MD Consults: 12/23/19 23:37 Consult to Discharge Planning Routine Comment: Consult to Respiratory Therapy Evaluate & Treat Comment: COPD, CHF, possible aspiration pneumonia Physician Instructions: Evaluate and treat 12/23/19 23:38 Consult to General Surgery Routine Comment: Consulting Provider: Joie Randle Reason for consultation: Small-bowel obstruction Has provider been notified: Yes 12/24/19 01:39 Consult to Dietitian, Adult Routine Comment: Reason For Exam: MNA score = 11 12/24/19 12:40 Consult to Respiratory Therapy Evaluate & Treat Comment: Physician Instructions: Evaluate and treat 12/27/19 12:52 Consult to Speech Therapy Evaluate & Treat Comment: Physician Instructions: Evaluate and treat Discharge provider: Jayleen Gomez MD Summary Hospital Course Discharge Diagnosis: 1. Small-bowel obstruction 2. Acute congestive heart failure with preserved systolic function ejection fraction 50-55% 3. Persistent atrial fibrillation 4. Hypothyroidism 5. Aspiration pneumonitis 6. COPD 7. Restrictive lung disease 8. Coronary disease history of myocardial infarct 9. Cardiomyopathy with a permanent pacemaker 10. Hodgkin's lymphoma 11. History of colon cancer status post sigmoid resection in 1999 12. Chronic kidney disease stage 3 Hospital Course: Patient was admitted to the hospital for small bowel obstruction. He was seen in consultation by General surgery. CT scan of the abdomen and pelvis confirmed the found The stomach is probably fluid dilated, and the small bowel is also generally fluid-dilated. Note is made of a pattern of small bowel obstruction which extends to the left lower abdomen/pelvis junction. Beyond this point there is a pattern of collapse of small bowel and relative collapse of the lung. High-grade obstruction is considered likely present as the underlying cause. Etiology is not found as a discrete entity, however. 2. Note is made of a patchy asymmetric mild lung base pneumonia pattern left greater than right. Given the degree of fluid distention of the stomach it is possible that reflux and aspiration has produced this appearance. Patient had NG tube placed, he was able to have some flatus, he ultimately had a upper GI wilth small-bowel follow-through. Patient had his diet advanced. He tolerated the diet without difficulty. However the patient had a witnessed aspiration event. Chest x-ray showed interstitial fluid. Patient was felt to have pulmonary edema. He was treated empirically with antibiotics. Patient continued to have significant crackles with wheezing. He had an elevated BNP of 5000. He was diuresed with IV Lasix. His breathing improved, he tolerated his diet well, he was deemed appropriate for discharge home. Patient's heart rate remained well controlled during the hospital stay. Patient was discharged home on Lasix. Will follow-up with his primary care for provider Dr. Vu next week for further evaluation. Exam Vital Signs (past 8 hours): Oxygen Delivery Method Room Air Oxygen Flow Rate 0 Narrative Exam Narrative: Pleasant elderly male in no obvious distress Lungs: Occasional scattered crackles in the bases bilaterally Cardiac exam irregularly irregular normal S1-S2 with a 2/6 systolic ejection murmur Abdomen: Soft, nontender, nondistended Extremities: No edema Objective Labs Result Diagrams: 12/27/19 05:05 12/29/19 05:49 Labs: Laboratory Results - last 24 hr 12/29/19 12/29/19 05:49 05:49 PT 14.5 H D INR 1.3 Sodium 138 Potassium 3.2 L Chloride 101 Carbon Dioxide 31 BUN 21 H Creatinine 1.61 H Estimated GFR 41.1 L BUN/Creatinine Ratio 13.0 Glucose 106 Calcium 8.8 Discharge Plan Discharge Plan Patient Disposition: Home Discharge comment: follow up with Dr. Sachin Vu within one week Discharge orders & Medications Prescriptions: New furosemide [Lasix] 40 mg tablet 40 mg PO DAILY Qty: 10 RF: 0 potassium chloride 20 mEq tablet extended release 20 meq PO DAILY Qty: 10 RF: 0 Continued atorvastatin [Lipitor] 10 MG tablet 10 mg PO BEDTIME Qty: 0 RF: 0 levothyroxine 100 mcg Tablet 100 mcg PO DAILY RF: 0 midodrine 5 mg tablet 5 mg PO QPM RF: 0 magnesium oxide 400 mg (241.3 mg magnesium) Tablet 400 mg PO DAILY RF: 0 warfarin 5 mg tablet 7.5 mg PO SUMOWE RF: 0 warfarin 5 mg tablet 10 mg PO TUTH RF: 0 tetrahydrozoline-peg 0.05-1 % Drops 1 drp OPHTHALMIC (EYE) DIRECTED RF: 0 albuterol sulfate [Ventolin HFA] 90 mcg/actuation Hfa Aerosol Inhaler 2 puff INHALATION Q6H PRN (Reason: Shortness Of Breath) RF: 0 multivitamin Capsule 1 cap PO DAILY RF: 0 cholecalciferol (vitamin D3) [Vitamin D3] 1,000 unit Capsule 1,000 unit PO DAILY RF: 0 amiodarone 100 mg tablet 100 mg PO Q OTHER DAY RF: 0 [place]-3 Fish Oil 300-1,000 mg Capsule 1 cap PO DAILY RF: 0 CoQ-10 200 mg 200 mg PO DAILY RF: 0 flaxseed 4 oz PO DAILY RF: 0 Follow up/Referrals: Sachin Vu MD [Primary Care Provider] - Diet/Activity/Treatments Diet: Low-sodium and Low-cholesterol Activity: as tolerated Visit Report/Discharge Packet Instructions: DI for Heart Failure, DI for Aspiration Pneumonia, DI for Small Bowel Obstruction, How to Prevent Falls Visit Report Forms: Patient Portal/API, Stroke Signs & Symptoms Discharge Data Primary Care Provider: Sachin Vu Discharges patient from system. Discharge Date/Time: 12/29/19 14:05 Quality VTE Deep Vein Thrombosis/Pulmonary Embolism Present on Admission: No
[2019-12-31 10:10] LABS: COVID19 Sendout Not Detected (Not Detected)
== END 2019-12-29 14:05 | disposition home or self-care (01) | DRG 388 ==
LOC: ED 22:50 → AC 23:12
PROVIDERS: Internal Medicine; Admitting Provider Nurse Practitioner Adult Health; Emergency Provider Nurse Practitioner Family; PCP Internal Medicine; Referring Provider Emergency Medicine; Visit Provider Nurse Practitioner Adult Health
DX: K56.609 Unspecified intestinal obstruction, unspecified as to partial versus complete obstruction (principal); J69.0 Pneumonitis due to inhalation of food and vomit; I50.31 Acute diastolic (congestive) heart failure; N17.9 Acute kidney failure, unspecified; I48.19 Other persistent atrial fibrillation; I42.9 Cardiomyopathy, unspecified; N18.3 Chronic kidney disease, stage 3 (moderate); I95.9 Hypotension, unspecified; J44.9 Chronic obstructive pulmonary disease, unspecified; Z79.01 Long term (current) use of anticoagulants; E03.9 Hypothyroidism, unspecified; I25.10 Atherosclerotic heart disease of native coronary artery without angina pectoris; R13.10 Dysphagia, unspecified; Z85.038 Personal history of other malignant neoplasm of large intestine; Z87.891 Personal history of nicotine dependence; E78.5 Hyperlipidemia, unspecified; Z95.0 Presence of cardiac pacemaker; Z11.59 Encounter for screening for other viral diseases
CPT/HCPCS: 36415; 36592; 71045; 74018; 74022; 74177; 74250; 80048; 80053; 80076; 81003; 83605; 83690; 83735; 83880; 84145; 84484; 85025; 85610; 87040; 87635; 92526; 92610; 93005; 94760; 94762; 96361; 96365; 96375; 99285; C9113; J0696; J0780; J1650; J1940; J2060; J2405; J2543; J2765; J3480; J7050; Q9967

== ENCOUNTER → 2020-01-01 09:49 | Outpatient (CLI) | payer MEDICARE, SELFPAY ==
[2019-12-24 01:32] VITALS: BMI 24.6
--- NOTE | 2020-01-01 | DI.CT.S_ITS ---
PROCEDURE: CT CHEST HIGH RESOLUTION INDICATIONS: Interstitial pulmonary disease, unspecified TECHNIQUE: Noncontrast 1.0 and 5.0 mm thick contiguous axial sections from the pulmonary apex to the posterior costophrenic angles, with 7 mm thick coronal and sagittal MIP reformats. 1 mm thick dynamic expiratory images acquired through the upper, mid, and lower lungs. 1.0 mm thick axial sections acquired from the miroslava to the posterior costophrenic angles in the prone end-inspiration position. For radiation dose reduction, the following was used: automated exposure control, adjustment of mA and/or kV according to patient size. COMPARISON: [facility], CT, THORAX WITHOUT CONTRAST, 04/16/2017, 10:02. [facility], CT, CT ABDOMEN PELVIS W CON, 06/23/2019, 11:25. [facility], CT, CT ABDOMEN PELVIS W CON, 12/23/2019, 21:10. FINDINGS: Image quality: Excellent. Lungs: There is worsening left lower lobe dense consolidation and surrounding groundglass opacities. Scattered lingular, and right basilar aspiration versus atelectasis or early pneumonia. No pneumothorax. Bilateral upper lobe centrilobular emphysema Airway thickening in keeping with nonspecific bronchitis and/or reactive airways disease. No areas of honeycombing or subpleural reticulation identified. Pleura: No pleural effusions or pneumothorax. Mediastinum: Heart size is normal. Coronary artery calcifications are present. No pericardial effusion. Thoracic aorta and central pulmonary arteries are normal in size. Esophagus is normal in caliber. Bones and chest wall: No suspicious bony lesions. Mild upper thoracic compression fractures, one of which unchanged since 04/16/17 however the superiormost is technically age-indeterminate; recommend clinical correlation. Abdomen: Visualized upper abdominal solid organs and bowel loops appear normal. IMPRESSION: Worsening dense left lower lobe pneumonia, and also involving the right lung base and lingula since 12/23/19. Airway thickening in keeping with nonspecific bronchitis and/or reactive airways disease. Coronary artery disease Dictated by: Jackson Marion M.D. on 01/01/2020 at 15:52 Approved by: Jackson Marion M.D. on 01/01/2020 at 16:28
== END ==
PROVIDERS: PCP Internal Medicine; Referring Provider Internal Medicine; Visit Provider Internal Medicine
DX: J18.9 Pneumonia, unspecified organism (principal); J43.2 Centrilobular emphysema; I25.10 Atherosclerotic heart disease of native coronary artery without angina pectoris
CPT/HCPCS: 71250

== ENCOUNTER → 2020-01-01 09:51 | Outpatient (CLI) | payer MEDICARE, SELFPAY ==
[2019-12-24 01:32] VITALS: BMI 24.6
--- NOTE | 2020-01-06 09:37 | PM.PFT.1 ---
Pulmonary Function Test Referral & Results Date Patient Seen: 01/01/20 Requesting provider: Isaac Rodríguez Results: The spirometry demonstrates an FVC of 2.55 L which is 58% of predicted. The FEV1 was measured at 1.39 L which is 44% of predicted. The FEV1/FVC ratio was 54 which is 77% of predicted. No bronchodilator was administered No lung volumes were performed The diffusing capacity was measured at 14.65 which is 40% of predicted. No hemoglobin value was provided, so no correction for potential anemia could be made, if appropriate. Interpretation: This study demonstrates moderately severe obstructive lung disease. There is also severe reduction in diffusing capacity Compared to PFTs performed March 2017, current study shows progression of obstructive lung disease with FEV1 previously at 2.02 L, currently 1.39 L. diffusing capacity also was at 50% of predicted previously currently 40% of predicted Clinical correlation suggested
== END ==
PROVIDERS: PCP Internal Medicine; Referring Provider Internal Medicine; Visit Provider Internal Medicine
DX: J84.89 Other specified interstitial pulmonary diseases (principal); J18.9 Pneumonia, unspecified organism; I25.10 Atherosclerotic heart disease of native coronary artery without angina pectoris; J43.2 Centrilobular emphysema; Z87.891 Personal history of nicotine dependence
CPT/HCPCS: 71250; 94010; 94726; 94729

== ENCOUNTER → 2020-01-26 13:17 | Outpatient (CLI) | payer MEDICARE, SELFPAY ==
[2019-12-24 01:32] VITALS: BMI 24.6
--- NOTE | 2020-01-26 | DI.RAD.S_ITS ---
PROCEDURE: XR CHEST 2V INDICATIONS: Hypothydroidism and Aspiration Pneumonia TECHNIQUE: 2 views of the chest were acquired. COMPARISON: [facility], CR, XR CHEST 1V, 06/23/2019, 10:57. [facility], CT, CT CHEST HIGH RESOLUTION, 01/01/2020, 10:34. [facility], CR, XR CHEST 1V, 12/27/2019, 17:37. FINDINGS: Surgical changes and devices: Pacemaker. Lungs and pleura: Persistent appearance of bibasilar interstitial opacities. These are overall unchanged compared to prior exam. It is noted that they appear slightly more prominent when compared to 2019. Mediastinum: Mediastinal contours are normal. Heart size is normal. Bones and chest wall: No suspicious bony abnormalities. Soft tissues appear unremarkable. IMPRESSION: Persistent appearance of bibasilar and retrocardiac opacities, appearing more prominent compared to 2019. This can represent superimposed airspace disease such as pneumonia. In addition, mild interval progression of chronic interstitial changes should be considered. Continued interval follow-up with appropriate therapy is recommended if concern for pneumonia persists. Dictated by: Terrie Watson M.D. on 01/26/2020 at 16:50 Approved by: Terrie Watson M.D. on 01/26/2020 at 16:51
== END ==
PROVIDERS: PCP Internal Medicine; Referring Provider Internal Medicine; Visit Provider Internal Medicine
DX: E03.9 Hypothyroidism, unspecified (principal); J69.0 Pneumonitis due to inhalation of food and vomit; Z95.0 Presence of cardiac pacemaker
CPT/HCPCS: 71046

== ENCOUNTER → 2020-02-16 13:12 | Outpatient (CLI) | payer MEDICARE, SELFPAY ==
[2019-12-24 01:32] VITALS: BMI 24.6
--- NOTE | 2020-02-16 | DI.CT.S_ITS ---
PROCEDURE: CT CHEST WO CON INDICATIONS: Other nonspecific abnormal finding of lung field TECHNIQUE: Noncontrast 5 mm thick sections acquired from the pulmonary apices to the posterior costophrenic angles. 1 mm lung window, 5 mm thick coronal and sagittal and 7 mm axial MIP reformats were then acquired. For radiation dose reduction, the following was used: automated exposure control, adjustment of mA and/or kV according to patient size. COMPARISON: [facility], CT, CT CHEST HIGH RESOLUTION, 01/01/2020, 10:34. FINDINGS: Image quality: Excellent. Since the prior study there has been interval improvement in dense consolidation seen within the left lower lobe. There are few nodular islands of consolidation remaining, as well as presumed scarring/atelectasis seen in the left fissure and left upper lobe which is unchanged. No new focal consolidation is seen. No pleural effusions or pneumothorax. Airway thickening in keeping with nonspecific bronchitis and/or reactive airways disease. Mediastinum: Heart size is normal. Coronary artery calcifications are present. No pericardial effusion. No mediastinal adenopathy by size criteria. Thoracic aorta and central pulmonary arteries are normal in size. Esophagus is normal in caliber. No hiatal hernia. Bones and chest wall: No suspicious bony lesions. No vertebral body compression fractures. No axillary or supraclavicular adenopathy by size criteria. Thyroid gland negative . Abdomen: Visualized upper abdominal solid organs and bowel loops appear normal in the absence of contrast. IMPRESSION: Interval improvement in multifocal presumed left-sided pneumonia, with few islands of nodular consolidation remaining. Recommend continued follow-up with CT chest in 2-3 months to document resolution and exclude underlying pulmonary nodule No new focal or acute consolidation Coronary artery disease Dictated by: Jackson Marion M.D. on 02/16/2020 at 16:34 Approved by: Jackson Marion M.D. on 02/16/2020 at 16:39
== END ==
PROVIDERS: PCP Internal Medicine; Referring Provider Internal Medicine; Visit Provider Internal Medicine
DX: R91.8 Other nonspecific abnormal finding of lung field (principal); I25.10 Atherosclerotic heart disease of native coronary artery without angina pectoris
CPT/HCPCS: 71250

== ENCOUNTER → 2020-03-31 14:41 | Outpatient (CLI) | payer MEDICARE, SELFPAY ==
[2019-12-24 01:32] VITALS: BMI 24.6
[2020-03-31 16:00] LABS: BUN Creatinine Ratio 20.9 (6-22); Blood Urea Nitrogen 34 mg/dL (9-20); Calcium 9.6 mg/dL (8.4-10.2); Carbon Dioxide 30 mmol/L (22-32); Chloride 103 mmol/L (98-107); Estimated Glomerular Filt Rate 40.5 mL/min (>60); Glucose 86 mg/dL (80-110); HEMOLYSIS < 15 (0-50); Potassium 4.8 mmol/L (3.4-5.1); Sodium 139 mmol/L (137-145)
[2020-03-31 16:23] LABS: TSH w/ Reflex to FT4 5.77 uIU/mL (0.47-4.68)
[2020-03-31 17:22] LABS: Free T4, Direct Thyroxine 1.32 ng/dL (0.78-2.19)
== END ==
PROVIDERS: PCP Internal Medicine; Referring Provider Internal Medicine; Visit Provider Internal Medicine
DX: E03.9 Hypothyroidism, unspecified (principal); N18.9 Chronic kidney disease, unspecified
CPT/HCPCS: 36415; 80048; 84439; 84443

== ENCOUNTER → 2020-05-09 15:08 | Outpatient (CLI) | payer MEDICARE, SELFPAY ==
[2019-12-24 01:32] VITALS: BMI 24.6
--- NOTE | 2020-05-09 15:11 | DI.RAD.S_ITS ---
PROCEDURE: XR LUMBAR SPINE 2-3V INDICATIONS: LOW BACK PAIN TECHNIQUE: 3 views of the lumbar spine were acquired. COMPARISON: None. FINDINGS: Bones: No fracture. Multilevel degenerative endplate sclerosis and spurring. Diffuse facet arthropathy. Moderate narrowing of the L5-S1 disc space. Diffuse mild narrowing of the remaining lumbar disc spaces. Lateral curvature of the spine. Soft tissues: Scattered vascular calcifications seen in the aorta. IMPRESSION: Severe multilevel lumbar spondylosis and facet disease. Dictated by: Jackson Marion M.D. on 05/09/2020 at 16:17 Approved by: Jackson Marion M.D. on 05/09/2020 at 16:40
--- NOTE | 2020-05-09 15:11 | DI.RAD.S_ITS ---
PROCEDURE: XR CERVICAL SPINE 2V OR 3V INDICATIONS: CERVICALGIA TECHNIQUE: 3 view(s) of the cervical spine were acquired. COMPARISON: None. FINDINGS: Bones: No fracture identified. Suboptimal evaluation however due to advanced discogenic changes. Grade 1 anterolisthesis of C5 on C6. Multilevel degenerative endplate sclerosis and spurring. Diffuse facet arthropathy. Lateral curvature of the spine. Soft tissues: No prevertebral soft tissue swelling. Incidentally noted vascular stent. Carotid atherosclerotic plaques incidentally noted. IMPRESSION: Severe cervical spondylosis and facet arthropathy as detailed above Dictated by: Jackson Marion M.D. on 05/09/2020 at 16:36 Approved by: Jackson Marion M.D. on 05/09/2020 at 16:38
== END ==
PROVIDERS: PCP Internal Medicine; Referring Provider Physician Assistant; Visit Provider Physician Assistant
DX: M54.2 Cervicalgia (principal); M54.5 Low back pain; M47.812 Spondylosis without myelopathy or radiculopathy, cervical region; M47.816 Spondylosis without myelopathy or radiculopathy, lumbar region
CPT/HCPCS: 72040; 72100

== ENCOUNTER 2020-06-21 11:03 | Inpatient (IN) | payer MEDICARE, SELFPAY ==
[2019-12-24 01:32] VITALS: BMI 24.6
[2020-06-21] VITALS (18 sets, daily range): BP systolic 115–197; BP diastolic 58–95; PULSE 73–86; RESP 10–24; TEMP 36.6; O2SAT 91–100; BMI 24.5
--- NOTE | 2020-06-21 11:17 | ED_ITS ---
HPI - General Adult General Chief complaint: Fall Stated complaint: fell down stairs/cut left side of head/bleeding Time Seen by Provider: 06/21/20 11:14 Source: patient Mode of arrival: Ambulatory Limitations: no limitations History of Present Illness HPI narrative: Patient is an 85-year-old male on anticoagulation here for evaluation of a fall down approximately 16 wooden stairs. He is unsure exactly how he fell. Is unsure if he passed out. He arrived by private vehicle. Occurred at 0700 hours in the morning. He reports a headache and rib pain. Has a laceration left side of his head. No intervention prior to arrival. Has no extremity tenderness. Has been ambulatory since the event. Modified trauma called secondary to mechanism and anticoagulation. Related Data Home Medications Medication Instructions Recorded Confirmed atorvastatin [Lipitor] 10 mg PO BEDTIME #0 10/26/16 06/21/20 levothyroxine 100 mcg PO DAILY 06/07/18 06/21/20 CoQ-10 200 mg PO DAILY 06/23/19 06/21/20 [place]-3 Fish Oil 1 cap PO DAILY 06/23/19 06/21/20 albuterol sulfate [Ventolin HFA] 2 puff INHALATION Q6H PRN 06/23/19 06/21/20 amiodarone 100 mg PO Q OTHER DAY 06/23/19 06/21/20 cholecalciferol (vitamin D3) 1,000 unit PO DAILY 06/23/19 12/23/19 [Vitamin D3] flaxseed 4 oz PO DAILY 06/23/19 12/24/19 magnesium oxide 400 mg PO DAILY 06/23/19 12/24/19 midodrine 5 mg PO QPM 06/23/19 06/21/20 multivitamin 1 cap PO DAILY 06/23/19 06/21/20 tetrahydrozoline-peg 1 drp OPHTHALMIC (EYE) DIRECTED 06/23/19 06/21/20 warfarin 7.5 mg PO SUMOWEFRSA 06/23/19 06/21/20 warfarin 10 mg PO TUTH 06/23/19 06/21/20 fludrocortisone 0.1 mg PO Q OTHER DAY 06/21/20 06/21/20 Previous Rx's Medication Instructions Recorded furosemide [Lasix] 40 mg PO DAILY #10 tab 12/29/19 potassium chloride 20 meq PO DAILY #10 tab 12/29/19 Allergies Allergy/AdvReac Type Severity Reaction Status Date / Time No Known Drug Allergies Allergy Unknown Verified 06/21/20 11:35 [NO KNOWN DRUG ALLERGIES] Review of Systems Constitutional Constitutional: Reports headache(s) Eyes Eyes: Denies change in vision ENT Ears, Nose, Mouth, and Throat: Denies vertigo, Denies dizziness, Reports h eadache(s) and Reports disequilibrium Cardiovascular Cardiovascular: Denies chest pain, Reports lightheadedness and Denies dyspnea Comments: Rib pain Respiratory Respiratory: Denies cough and Denies dyspnea Gastrointestinal Gastrointestinal: Denies abdominal pain, Denies nausea and Denies vomiting Genitourinary Genitourinary: Denies dysuria Genitourinary: Denies dysuria Musculoskeletal Musculoskeletal: Denies arthralgias, Denies back pain and Denies myalgias Integumentary/Breasts Comments: Cut to left side of had Neurologic Neurologic: Denies confusion, Denies vertigo, Denies dizziness, Reports headache(s) and Reports disequilibrium Psychiatric Psychiatric: Denies confusion Hematologic/Lymphatic Hematologic/Lymphatic: Denies easy bleeding and Denies easy bruising Allergic/Immunologic Allergic/Immunologic: Denies urticaria Patient History Medical History (Updated 06/21/20 @ 17:21 by Ron Clark DO) Atrial fibrillation CAD (coronary artery disease) CHF (congestive heart failure) Chronic kidney disease Colon cancer COPD (chronic obstructive pulmonary disease) Hearing loss History of skin cancer Hodgkin lymphoma Hypertension Hypothyroidism Orthostatic hypotension Small bowel obstruction Surgical History History of carotid endarterectomy History of colon resection Pacemaker Family History Mother Traumatic amputation of leg Father Heart disease Smoker Social History marital status: household members: spouse Smoking Status: Former smoker alcohol intake: never Smoking Status: Former smoker alcohol intake frequency: 0-2 drinks per day Substance Use Type: does not use Exam Initial Vital Signs Initial Vital Signs: Vital Signs Temperature 97.9 F 06/21/20 11:05 Pulse Rate 79 06/21/20 11:05 Respiratory Rate 18 06/21/20 11:05 Blood Pressure 123/61 06/21/20 11:05 Pulse Oximetry 99 06/21/20 11:05 Const General: cooperative Limitations: mental status not altered [facility] Head: abrasion (Forehead), laceration (Left temporal region) and temporal artery tenderness Chest Chest: No crepitus and No tenderness Resp Effort & Inspection: normal respiratory effort Auscultation: clear to auscultation bilaterally Cardio Rate: regular rate Rhythm: regular rhythm GI Inspection: non-distended Back/Spine/Pelvis Cervical Spine: No cervical spinal tenderness Thoracic/Lumbar Spine: No paraspinal tenderness, No thoracic spinal tenderness and No lumbar spinal tenderness Neuro General: patient alert, patient awake and patient oriented x3 Speech: speech normal Extrem General: capillary refill normal Psych Appearance: grossly normal and well kempt Scores GCS [place] coma scale eye opening: Spontaneous [place] coma scale verbal response: Orientated [place] coma scale motor response: Obey commands [place] coma scale total score: 15 Course Orders Ordered: ED Orders 06/21/20 11:17 CT chest abd pel w con Stat 06/21/20 11:18 CT cervical spine wo con Stat 06/21/20 11:19 CT head/brain wo con Stat EKG-12 Lead Stat 06/21/20 11:20 Complete Blood Count AUTO DIFF Stat Comprehensive Metabolic Panel Stat Lipase Stat Partial Thromboplastin Time Stat Prothrombin Time INR Stat Troponin & CK Cardiac Panel Stat 06/21/20 12:57 COVID19 Stat 06/21/20 13:01 Consult to General Surgery Stat 06/21/20 13:56 Consult to Physical Therapy Evaluate & Treat Methocarbamol (Methocarbamol 500 Mg Tablet) 500 mg PO Q6H PRN PRN Reason: Muscle Spasm Discontinued Medications Sodium Chloride (Normal Saline 0.9%) 1,000 mls @ 500 mls/hr IV BOLUS ONE Stop: 06/21/20 13:16 Last Infusion: 06/21/20 14:02 Dose: 0 mls/hr Documented by: Admin: 06/21/20 11:47 Dose: 500 mls/hr Documented by: BRITTANY Lidocaine/Epinephrine (Lidocaine 1% W/Epi) 1 ml SUBCUT NOW ONE Stop: 06/21/20 11:18 Last Admin: 06/21/20 11:47 Dose: 1 ml Documented by: BRITTANY Oxycodone HCl (Oxycodone Ir 5 Mg Tablet) 5 mg PO NOW ONE Stop: 06/21/20 13:56 Vital Signs Vital signs: Vital Signs - 8 hr 06/21/20 11:05 06/21/20 11:13 06/21/20 11:36 Temperature 97.9 F Pulse Rate 79 81 83 Respiratory Rate 18 10 L Blood Pressure 123/61 Pulse Oximetry 99 100 06/21/20 12:00 06/21/20 12:22 06/21/20 12:30 Temperature Pulse Rate 78 77 78 Respiratory Rate 12 16 17 Blood Pressure 197/88 H 180/87 H Pulse Oximetry 97 99 97 06/21/20 13:00 06/21/20 13:30 06/21/20 14:00 Temperature Pulse Rate 86 83 83 Respiratory Rate 15 13 24 Blood Pressure 149/68 H 178/83 H Pulse Oximetry 94 99 06/21/20 14:01 06/21/20 14:30 Temperature Pulse Rate 81 77 Respiratory Rate 14 13 Blood Pressure 148/95 H 162/77 H Pulse Oximetry 91 100 Medical Decision Making Lab Data Lab results reviewed: Yes I reviewed the patient's lab results. Result diagrams: 06/21/20 11:20 06/21/20 11:20 Labs: Lab Results 06/21/20 06/21/20 06/21/20 Range/Units 11:20 11:20 11:20 WBC 14.3 H (4.5-11.0) X10^3/uL RBC 4.24 L (4.5-5.9) X10^6/uL Hgb 12.7 L (13.5-17.5) g/dL Hct 38.1 L (41-53) % MCV 89.8 (80-100) fL MCH 30.0 (26-34) PG MCHC 33.4 (30-36) % RDW 14.6 (11.6-14.8) % Plt Count 181 (150-400) X10^3/uL Neut % (Auto) 88.3 H (50-75) % Lymph % (Auto) 6.0 L (25-40) % [place] % (Auto) 4.8 (3-14) % Eos % (Auto) 0.5 L (2-4) % Baso % (Auto) 0.4 (0-2) % Neut # (Auto) 50127 H (1788-3717) /uL Lymph # (Auto) 900 L (9313-0724) /uL [place] # (Auto) 700 (0-900) /uL Eos # (Auto) 100 (0-450) /uL Baso # (Auto) 100 (0-100) /uL PT 27.8 H (10.1-12.7) SECONDS INR 2.4 H (0.9-1.3) APTT 39 H D (26.4-36.2) SECONDS Sodium 139 (137-145) mmol/L Potassium 4.4 (3.4-5.1) mmol/L Chloride 106 (98-107) mmol/L Carbon Dioxide 28 (22-32) mmol/L BUN 33 H (9-20) mg/dL Creatinine 1.37 H (0.66-1.25) mg/dL Estimated GFR 49.4 L (>60) mL/min BUN/Creatinine Ratio 24.1 H (6-22) Glucose 117 H (80-110) mg/dL Calcium 9.5 (8.4-10.2) mg/dL Total Bilirubin 0.7 (0.2-1.3) mg/dL AST 33 (17-59) IU/L ALT 28 (<50) IU/L Alkaline Phosphatase 46 (38-126) U/L Total Creatine Kinase 218 H (55-170) U/L CK-MB (CK-2) 3.33 H (<2.37) ng/mL CK-MB (CK-2) Rel Index 1.5 (1.5-5.0) % Troponin I < 0.012 (0.01-0.034) ng/mL Total Protein 7.5 (6.3-8.2) g/dL Albumin 4.3 (3.5-5.0) g/dL Globulin 3.2 (1.7-4.1) g/dL Albumin/Globulin Ratio 1.3 (1.0-2.8) Lipase 96 (23-300) U/L COVID-19 PCR (Negative) 06/21/20 Range/Units 12:57 WBC (4.5-11.0) X10^3/uL RBC (4.5-5.9) X10^6/uL Hgb (13.5-17.5) g/dL Hct (41-53) % MCV (80-100) fL MCH (26-34) PG MCHC (30-36) % RDW (11.6-14.8) % Plt Count (150-400) X10^3/uL Neut % (Auto) (50-75) % Lymph % (Auto) (25-40) % [place] % (Auto) (3-14) % Eos % (Auto) (2-4) % Baso % (Auto) (0-2) % Neut # (Auto) (8287-8406) /uL Lymph # (Auto) (9610-7021) /uL [place] # (Auto) (0-900) /uL Eos # (Auto) (0-450) /uL Baso # (Auto) (0-100) /uL PT (10.1-12.7) SECONDS INR (0.9-1.3) APTT (26.4-36.2) SECONDS Sodium (137-145) mmol/L Potassium (3.4-5.1) mmol/L Chloride (98-107) mmol/L Carbon Dioxide (22-32) mmol/L BUN (9-20) mg/dL Creatinine (0.66-1.25) mg/dL Estimated GFR (>60) mL/min BUN/Creatinine Ratio (6-22) Glucose (80-110) mg/dL Calcium (8.4-10.2) mg/dL Total Bilirubin (0.2-1.3) mg/dL AST (17-59) IU/L ALT (<50) IU/L Alkaline Phosphatase (38-126) U/L Total Creatine Kinase (55-170) U/L CK-MB (CK-2) (<2.37) ng/mL CK-MB (CK-2) Rel Index (1.5-5.0) % Troponin I (0.01-0.034) ng/mL Total Protein (6.3-8.2) g/dL Albumin (3.5-5.0) g/dL Globulin (1.7-4.1) g/dL Albumin/Globulin Ratio (1.0-2.8) Lipase (23-300) U/L COVID-19 PCR Negative (Negative) Imaging Data CT scan - head: Radiologist's Impression: [address] [id number] Scan ReportSigned Patient: Tess Perez [facility]#: [id number]: 5Acct:[id number]/Sex: 85 / MDate of Service: 06/21/20Loc: EDAccession Number: [id number] Procedure: CT head/brain wo con Ordering Provider: Ron Clark D.O. PROCEDURE: CT HEAD/BRAIN WO CON INDICATIONS: Fell on blood thinners TECHNIQUE: Noncontrast 4.5 mm thick angled axial sections acquired from the foramen magnum to the vertex, with coronal and sagittal reformats. For radiation dose reduction, the following was used: automated exposure control, adjustment of mA and/or kV according to patient size. COMPARISON: Head CT with and without contrast, 12/25/2012. FINDINGS: Image quality: Excellent. CSF spaces: Basal cisterns are patent. No extra-axial fluid collections. The ventricles are symmetric in size and shape. Brain: No intracranial bleeds or masses. There is cerebral volume loss for age, with resultant ventricular and sulcal prominence. There are periventricular and deep white matter chronic small vessel ischemic changes. There is intracranial internal carotid artery atherosclerosis. Skull and face: Calvarium and visualized facial bones appear intact, without suspicious lesions. Mild left frontal soft tissue contusion. Sinuses: Visualized sinuses and mastoids are clear. IMPRESSION: 1. No acute intracranial abnormalities. 2. Cerebral volume loss and chronic microvascular ischemic changes. Dictated by: Kari Stewart M.D. on 06/21/2020 at 12:09 Approved by: Kari Stewart M.D. on 06/21/2020 at 12:10 CT - cervical spine: Radiologist's Impression: [address] [id number] Scan ReportSigned Patient: Tess Perez [facility]#: [id number]: 5Acct:[id number]/Sex: 85 / MDate of Service: 06/21/20Loc: EDAccession Number: [id number] Procedure: CT cervical spine wo con Ordering Provider: Ron Clark D.O. PROCEDURE: CT CERVICAL SPINE WO CON INDICATIONS: Fell on blood thinners TECHNIQUE: Noncontrast 3 mm thick sections acquired from the skull base to the T4 level. Sagittal and coronal reformats were then constructed. For radiation dose reduction, the following was used: automated exposure control, adjustment of mA and/or kV according to patient size. COMPARISON: [facility], CT, THORAX WITHOUT CONTRAST, 04/16/2017, 10:02. [facility], CT, CT CHEST ABD PEL W CON, 06/21/2020, 11:20. [facility], CR, XR CERVICAL SPINE 2V OR 3V, 05/09/2020, 15:02. FINDINGS: Image quality: Excellent. Bones: No acute fractures or dislocations in cervical spine. Mild loss of vertebral body height at T1, T3 and T4. There is grade 1 anterolisthesis of C5 on C6. Mild degenerative disease in the cervical spine. Severe facet arthropathy at C4-C5 and C5-C6 on the left. Severe atlantoaxial joint degeneration. Visualized superior ribs are intact. Soft tissues: Prevertebral soft tissues are normal in thickness. No paravertebral hematomas. No apical pneumothoraces. There is a linear soft tissue in the left upper lobe, probably a scar. IMPRESSION: 1. No acute fracture in cervical spine. 2. Mild T1, T3, and T4 compression fractures of indeterminate chronicity. 3. Degenerative changes in cervical spine as described. 4. Left apical scarring. Dictated by: Kari Stewart M.D. on 06/21/2020 at 12:12 Approved by: Kari Stewart M.D. on 06/21/2020 at 12:18 CT chest abd and pelvis: Radiologist's Impression: [address] [id number] Scan ReportSigned Patient: Tess Perez [facility]#: [id number]: 5Acct:[id number]/Sex: 85 / MDate of Service: 06/21/20Loc: EDAccession Number: [id number] Procedure: CT chest abd pel w con Ordering Provider: Ron Clark D.O. PROCEDURE: CT CHEST ABD PEL W CON INDICATIONS: fall down 16 stairs TECHNIQUE: After the administration of oral and intravenous contrast, 5 mm thick sections acquired from the lung apices to the symphysis. 5 mm coronal and sagittal reformats were performed, with additional 7 mm coronal MIP reformats through the lungs. For radiation dose reduction, the following was used: automated exposure control, adjustment of mA and/or kV according to patient size. COMPARISON: [facility], CT, CT ABDOMEN PELVIS W CON, 12/23/2019, 21:10. [facility], CT, CT CHEST WO CON, 02/16/2020, 13:10. FINDINGS: Image quality: Excellent. CHEST: Lungs and pleura: There is biapical scarring. Small airspace consolidation in anterior medial aspect of right apex is also seen. Airspace opacity in posterior aspect of left upper lobe extending to oblique fissure is seen which may represent focal contusion versus atelectasis. Dependent atelectasis and scarring in posterior and lateral periphery of bilateral lung wheat are also seen. Patient's known tiny nodular consolidations in left lower lobe seen on previous CT study has near completely resolved. [id number] centrilobular emphysema is seen. No pleural effusions or pneumothorax. Central and peripheral airways appear patent and normal in caliber. Mediastinum: Heart size is mildly enlarged. No pericardial effusion. Left chest wall pacemaker is seen with leads noted in the region of right atrium and right ventricle. Moderate atherosclerotic calcifications are seen. No mediastinal or hilar adenopathy by size criteria. Thoracic aorta and central pulmonary arteries are normal in size. Esophagus is normal in caliber. No hiatal hernia. Chest wall: No axillary or supraclavicular adenopathy by size criteria. Right thyroid lobe is asymmetrically enlarged with suggestion of small hypodense thyroid nodules. ABDOMEN: Solid organs: Liver is normal in size and enhancement. Tiny cyst in left hepatic lobe is again seen, unchanged from previous study. Gallbladder is distended and shows no gross abnormality. Biliary system is non dilated. Pancreas enhances normally. Spleen is normal in size and enhancement. No adrenal nodules. Kidneys demonstrate normal size and enhancement, without hydronephrosis. Peritoneum and bowel: Bowel loops demonstrate normal wall thickness and caliber. No free fluid or air. Fecal stasis throughout the colon is seen. Nodes and vessels: No retroperitoneal or mesenteric adenopathy by size criteria. Aorta and inferior vena cava are normal in size. Miscellaneous: No ventral hernias. PELVIS: Genitourinary: Bladder wall thickness is normal. Enlarged prostate gland with mass effect on floor of urinary bladder is noted. Miscellaneous: No inguinal lymphadenopathy. Fat containing left inguinal hernia is seen. Bones: Fracture involving left transverse processes of L1 and L2 vertebral bodies are seen. Irregularity involving left distal radial shaft is noted, which may be due to motion. A comminuted distal radial shaft fracture cannot be excluded. Clinical correlation is recommended. No acute compression fracture is noted in thoracic or lumbar spine. Chronic appearing mild anterior wedge compression deformities involving T3 and T4 vertebral bodies are noted unchanged from recent CT study. IMPRESSION: 1. Nondisplaced left transverse processes fractures of L1 and L2 vertebral bodies. 2. Chronic anterior wedge compression deformity at T3 and T4 level. No acute compression fracture or spondylolisthesis in thoracic or lumbar spine. 3. No gross acute rib fractures. No acute pelvic fracture. Irregularity involving partially visualized left distal radial shaft, which may be due to motion artifacts. Clinical correlation is recommended to rule out comminuted distal radial shaft fracture. 4. Small patchy airspace opacity in right apex and posterior aspect of left upper lobe as described above which may represent contusion versus focal area of small infiltrate/atelectasis. Interval significant improvement in left lower lobe aeration with minimal amount of residual atelectasis/small infiltrates posteriorly. Scattered atelectasis in right lung base is also seen. No pneumothorax. No pleural effusion. Airway is patent. 5. No solid organ injury within abdomen or pelvis. No free fluid or free air. Dictated by: Franklin Marks M.D. on 06/21/2020 at 10:58 Approved by: Franklin Marks M.D. on 06/21/2020 at 11:35 ECG Data Attestation: I personally reviewed and interpreted this ECG as follows: Prior ECG tracings: not available for review Interpretation: Ventricular paced Rate of 81 MDM Narrative Medical decision making narrative: Forehead contusion needs no intervention. Laceration left temporal region was cleaned and closed with georgie. Head CT is unremarkable. Cervical spine is unremarkable. CT scan the chest abdomen pelvis reports somewhat concerning for pulmonary contusions. Patient is not hypoxic. Not tachypneic. Given his age, the uncertainties acne how he fell, the potential pulmonary contusion, his anticoagulation status will admit for further evaluation treatment. Discussed the case with Dr. Giron with General surgery who will admit for further evaluation and treatment. Discharge Plan Departure Patient Disposition: Admitted as Observation Clinical Impression: Fall, Contusion of lung, Laceration of scalp, Contusion of forehead Admit Date/Time: 06/21/20 14:42 Admit Provider: Beck Giron
[2020-06-21 11:36] LABS: Add Manual Diff / Slide Review NO; Basophils Absolute Auto 100 /uL (0-100); Basophils Percent Auto 0.4 % (0-2); Eosinophils Absolute Auto 100 /uL (0-450); Eosinophils Percent Auto 0.5 % (2-4); Hematocrit 38.1 % (41-53); Hemoglobin 12.7 g/dL (13.5-17.5); Lymphocytes Absolute Auto 900 /uL (1100-4500); Mean Corpuscular HGB Conc 33.4 % (30-36); Mean Corpuscular Volume 89.8 fL (80-100); Monocytes Absolute Auto 700 /uL (0-900); Monocytes Percent Auto 4.8 % (3-14); Neutrophils Absolute Auto 12600 /uL (1500-7000); Neutrophils Percent Auto 88.3 % (50-75); Platelet Count 181 X10^3/uL (150-400); Red Blood Cell Count 4.24 X10^6/uL (4.5-5.9); Red Cell Distribution Width 14.6 % (11.6-14.8); White Blood Cell Count 14.3 X10^3/uL (4.5-11.0)
[2020-06-21 11:38] LABS: INR 2.4 (0.9-1.3); Prothrombin Time 27.8 SECONDS (10.1-12.7)
[2020-06-21 11:40] LABS: PTT Partial Thromboplastin Tim 39 SECONDS (26.4-36.2)
[2020-06-21 11:41] LABS: Alanine Aminotransferase 28 IU/L (<50); Albumin 4.3 g/dL (3.5-5.0); Albumin Globulin Ratio 1.3 (1.0-2.8); Alkaline Phosphatase 46 U/L (38-126); Aspartate Aminotransferase 33 IU/L (17-59); BUN Creatinine Ratio 24.1 (6-22); Bilirubin Total 0.7 mg/dL (0.2-1.3); Blood Urea Nitrogen 33 mg/dL (9-20); Calcium 9.5 mg/dL (8.4-10.2); Carbon Dioxide 28 mmol/L (22-32); Chloride 106 mmol/L (98-107); Creatine Kinase 218 U/L (55-170); Estimated Glomerular Filt Rate 49.4 mL/min (>60); Globulin 3.2 g/dL (1.7-4.1); Glucose 117 mg/dL (80-110); HEMOLYSIS < 15 (0-50); Lipase 96 U/L (23-300); Potassium 4.4 mmol/L (3.4-5.1); Sodium 139 mmol/L (137-145); Total Protein 7.5 g/dL (6.3-8.2)
[2020-06-21] MEDS: SODIUM CHLORIDE 0.9% 1,000 ML 500 ML IV (11:47)
[2020-06-21] MEDS: LIDOCAINE 1% W/EPI 1 ML SUBCUT (11:47)
[2020-06-21 11:53] LABS: Troponin I < 0.012 ng/mL (0.01-0.034)
[2020-06-21 12:00] LABS: CKMB % Relative Index 1.5 % (1.5-5.0); Creatine Kinase MB 3.33 ng/mL (<2.37)
[2020-06-21 13:26] LABS: COVID19 -Nasal RAPID Negative (Negative)
--- NOTE | 2020-06-21 14:01 | PM.PN.1 ---
Subjective Subjective Date Patient Seen: 06/21/20 Time Patient Seen: 14:01 Interval history: Brief update note. ER requesting admission for lung contusion in this 85 year old with multiple medical problems after suffering a fall down 15 wooden steps at home. He complains of R chest wall pain but no back pain. He denies any shortness of breath. He only has his at home. Have ordered for him to get some pain medications as there are L1 and L2 transvere process fractures and old L3/[address] read as possible pulmonary contusions or atelectasis however upon review this area of concern appears similar to prior CT imaging from earlier this year. He is not hypoxic on room air. Have ordered for PT eval in addition to pain medications. If pain is unable to be controlled or patient cannot ambulate adequately after his fall to go home would be happy to admit under observation. Patient and spouse would like him to go home if safe. Full H&P or consult note pending final disposition. Exam Vital Signs (past 8 hours): - 06/21/20 11:05 06/21/20 11:13 06/21/20 11:36 Temperature 97.9 F Pulse Rate 79 81 83 Respiratory Rate 18 10 L Blood Pressure 123/61 Pulse Oximetry 99 100 06/21/20 12:00 06/21/20 12:22 06/21/20 12:30 Temperature Pulse Rate 78 77 78 Respiratory Rate 12 16 17 Blood Pressure 197/88 H 180/87 H Pulse Oximetry 97 99 97 06/21/20 13:00 Temperature Pulse Rate 86 Respiratory Rate 15 Blood Pressure 149/68 H Pulse Oximetry 94 Oxygen Delivery Method Room Air Objective Labs Result Diagrams: 06/21/20 11:20 06/21/20 11:20 Labs: Laboratory Results - last 24 hr 06/21/20 06/21/20 06/21/20 11:20 11:20 11:20 WBC 14.3 H RBC 4.24 L Hgb 12.7 L Hct 38.1 L MCV 89.8 MCH 30.0 MCHC 33.4 RDW 14.6 Plt Count 181 Neut % (Auto) 88.3 H Lymph % (Auto) 6.0 L [place] % (Auto) 4.8 Eos % (Auto) 0.5 L Baso % (Auto) 0.4 Neut # (Auto) 86416 H Lymph # (Auto) 900 L [place] # (Auto) 700 Eos # (Auto) 100 Baso # (Auto) 100 PT 27.8 H INR 2.4 H APTT 39 H D Sodium 139 Potassium 4.4 Chloride 106 Carbon Dioxide 28 BUN 33 H Creatinine 1.37 H Estimated GFR 49.4 L BUN/Creatinine Ratio 24.1 H Glucose 117 H Calcium 9.5 Total Bilirubin 0.7 AST 33 ALT 28 Alkaline Phosphatase 46 Total Creatine Kinase 218 H CK-MB (CK-2) 3.33 H CK-MB (CK-2) Rel Index 1.5 Troponin I < 0.012 Total Protein 7.5 Albumin 4.3 Globulin 3.2 Albumin/Globulin Ratio 1.3 Lipase 96 COVID-19 PCR 06/21/20 12:57 WBC RBC Hgb Hct MCV MCH MCHC RDW Plt Count Neut % (Auto) Lymph % (Auto) [place] % (Auto) Eos % (Auto) Baso % (Auto) Neut # (Auto) Lymph # (Auto) [place] # (Auto) Eos # (Auto) Baso # (Auto) PT INR APTT Sodium Potassium Chloride Carbon Dioxide BUN Creatinine Estimated GFR BUN/Creatinine Ratio Glucose Calcium Total Bilirubin AST ALT Alkaline Phosphatase Total Creatine Kinase CK-MB (CK-2) CK-MB (CK-2) Rel Index Troponin I Total Protein Albumin Globulin Albumin/Globulin Ratio Lipase COVID-19 PCR Negative PFSH Medical History (Updated 06/21/20 @ 13:16 by Ron Clark DO) Atrial fibrillation CAD (coronary artery disease) CHF (congestive heart failure) Chronic kidney disease Colon cancer COPD (chronic obstructive pulmonary disease) Hearing loss History of skin cancer Hodgkin lymphoma Hypertension Hypothyroidism Orthostatic hypotension Small bowel obstruction Surgical History History of carotid endarterectomy History of colon resection Pacemaker Family History Mother Traumatic amputation of leg Father Heart disease Smoker Social History marital status: household members: spouse Smoking Status: Former smoker alcohol intake: never
--- NOTE | 2020-06-21 15:01 | PT-IP ANOTE ---
Went to see pt and surgeon noted pt will be brought upstairs soon. MD said to wait until pt on floor.
--- NOTE | 2020-06-21 17:35 | PM.CN ---
History of Present Illness Consult details Date Patient Seen: 06/21/20 Time Patient Seen: 13:45 Chief complaint: fell down stairs/cut left side of head/bleeding Narrative: Mr. Latonia Perez is an 83-year-old male w/ PMH significant for COPD (mild), restrictive lung disease, CAD (no h/o AL), AFIB (AC w/ warfarin), cardiomyopathy (s/p PPM, [facility], w/ complication of punctured lung / chest tube), hypothyroidism, Hodgkin's lymphoma, colon cancer (s/p colon resection 1999), sigmoid diverticulosis, and prior h/o tobacco dependence (quit 1982) who presented to the ER after falling down 15 hard[address] steps in his home. He did hit his head, believes fall was mechanical. He complains of R chest wall pain but no back pain. He denies any shortness of breath. He denies any dizziness prior to falling. He denies any recent fever, chills, shortness of breath, chest pain, nausea, vomiting, abdominal pain. In the emergency room, patient was initially hypertensive but this improved with pain control, remainder of his vital signs were unremarkable. Initial laboratory evaluation showed a mild leukocytosis with a WBC of 14.3, stable hemoglobin at 12.7 from his prior admission, and a platelet count of 181. INR was 2.4. Chemistries revealed a creatinine of 1.37 which is actually improved from his prior admission. CK was 218. Troponin was negative. COVID-[address] head did not show any evidence of bleeding. CT of his cervical spine did not reveal any acute fractures. CT chest abdomen pelvis showed L1 and L2 transvere process fractures and old L3/[address] read as possible pulmonary contusions or atelectasis however upon review this area of concern appears similar to prior CT imaging from earlier this year. Medicine service asked to evaluate for admission, I recommended a PT eval after giving pain control and reassessment. Dr. Giron then accepted the patient to surgical / trauma service for observation. Meds Home Medications and Allergies Home Medications Medication Instructions Recorded Confirmed Type atorvastatin [Lipitor] 10 mg PO BEDTIME #0 10/26/16 06/21/20 History levothyroxine 100 mcg PO DAILY 06/07/18 06/21/20 History CoQ-10 200 mg PO DAILY 06/23/19 06/21/20 History [place]-3 Fish Oil 1 cap PO DAILY 06/23/19 06/21/20 History albuterol sulfate [Ventolin HFA] 2 puff INHALATION Q6H PRN 06/23/19 06/21/20 History amiodarone 100 mg PO Q OTHER DAY 06/23/19 06/21/20 History cholecalciferol (vitamin D3) 1,000 unit PO DAILY 06/23/19 12/23/19 History [Vitamin D3] flaxseed 4 oz PO DAILY 06/23/19 12/24/19 History magnesium oxide 400 mg PO DAILY 06/23/19 12/24/19 History midodrine 5 mg PO QPM 06/23/19 06/21/20 History multivitamin 1 cap PO DAILY 06/23/19 06/21/20 History tetrahydrozoline-peg 1 drp OPHTHALMIC (EYE) DIRECTED 06/23/19 06/21/20 History warfarin 7.5 mg PO SUMOWEFRSA 06/23/19 06/21/20 History warfarin 10 mg PO TUTH 06/23/19 06/21/20 History furosemide [Lasix] 40 mg PO DAILY #10 tab 12/29/19 Rx potassium chloride 20 meq PO DAILY #10 tab 12/29/19 Rx fludrocortisone 0.1 mg PO Q OTHER DAY 06/21/20 06/21/20 History Allergies Allergy/AdvReac Type Severity Reaction Status Date / Time No Known Drug Allergies Allergy Unknown Verified 06/21/20 11:35 [NO KNOWN DRUG ALLERGIES] Review of Systems Review of Systems Narrative: All other systems reviewed with the patient and are negative unless otherwise stated. Exam Vital Signs (past 8 hours): - 06/21/20 11:05 06/21/20 11:13 06/21/20 11:36 Temperature 97.9 F Pulse Rate 79 81 83 Respiratory Rate 18 10 L Blood Pressure 123/61 Pulse Oximetry 99 100 06/21/20 12:00 06/21/20 12:22 06/21/20 12:30 Temperature Pulse Rate 78 77 78 Respiratory Rate 12 16 17 Blood Pressure 197/88 H 180/87 H Pulse Oximetry 97 99 97 06/21/20 13:00 06/21/20 13:30 06/21/20 14:00 Temperature Pulse Rate 86 83 83 Respiratory Rate 15 13 24 Blood Pressure 149/68 H 178/83 H Pulse Oximetry 94 99 06/21/20 14:01 06/21/20 14:30 06/21/20 15:00 Temperature Pulse Rate 81 77 80 Respiratory Rate 14 13 17 Blood Pressure 148/95 H 162/77 H 152/74 H Pulse Oximetry 91 100 06/21/20 15:30 06/21/20 16:00 06/21/20 16:30 Temperature Pulse Rate 86 80 79 Respiratory Rate 17 13 12 Blood Pressure 154/75 H 140/70 138/63 Pulse Oximetry 91 06/21/20 17:00 Temperature Pulse Rate 79 Respiratory Rate 18 Blood Pressure 135/63 Pulse Oximetry 91 Oxygen Delivery Method Room Air Narrative Exam Narrative: GENERAL APPEARANCE: Elderly male, appears uncomfortable and in pain (prior to medications given) SKIN: Inspection of the skin reveals no rashes, ulcerations or petechiae. HEENT: scalp laceration now stapled, no erythema or induration, dried blood. Contusion R forehead NECK: Supple and symmetric. There was no thyroid enlargement, and no tenderness, or masses were felt. No posterior midline tenderness. CHEST: Normal AP diameter and normal contour without any kyphoscoliosis. LUNGS: Auscultation of the lungs revealed no wheezes, rhonchi, or rales. CARDIOVASCULAR: There was a regular rate and rhythm without any murmurs, gallops, rubs. Peripheral pulses were 2+ and symmetric. ABDOMEN: Soft and nontender with normal bowel sounds. No ascites was noted. MUSCULOSKELETAL: No stepoffs midline back, no reported midline tenderness, tight paraspinal musculature. EXTREMITIES: No cyanosis, clubbing or edema. NEUROLOGIC: Alert and oriented. Hard of hearing and without hearing aids. Strength is +5/5 in the Upper Extremities and Lower Extremities Bilaterally. Sensation to touch was normal. Objective Labs Result Diagrams: 06/21/20 11:20 06/21/20 11:20 Labs: Laboratory Results - last 24 hr 06/21/20 06/21/20 06/21/20 11:20 11:20 11:20 WBC 14.3 H RBC 4.24 L Hgb 12.7 L Hct 38.1 L MCV 89.8 MCH 30.0 MCHC 33.4 RDW 14.6 Plt Count 181 Neut % (Auto) 88.3 H Lymph % (Auto) 6.0 L [place] % (Auto) 4.8 Eos % (Auto) 0.5 L Baso % (Auto) 0.4 Neut # (Auto) 15099 H Lymph # (Auto) 900 L [place] # (Auto) 700 Eos # (Auto) 100 Baso # (Auto) 100 PT 27.8 H INR 2.4 H APTT 39 H D Sodium 139 Potassium 4.4 Chloride 106 Carbon Dioxide 28 BUN 33 H Creatinine 1.37 H Estimated GFR 49.4 L BUN/Creatinine Ratio 24.1 H Glucose 117 H Calcium 9.5 Total Bilirubin 0.7 AST 33 ALT 28 Alkaline Phosphatase 46 Total Creatine Kinase 218 H CK-MB (CK-2) 3.33 H CK-MB (CK-2) Rel Index 1.5 Troponin I < 0.012 Total Protein 7.5 Albumin 4.3 Globulin 3.2 Albumin/Globulin Ratio 1.3 Lipase 96 COVID-19 PCR 06/21/20 12:57 WBC RBC Hgb Hct MCV MCH MCHC RDW Plt Count Neut % (Auto) Lymph % (Auto) [place] % (Auto) Eos % (Auto) Baso % (Auto) Neut # (Auto) Lymph # (Auto) Swift # (Auto) Eos # (Auto) Baso # (Auto) PT INR APTT Sodium Potassium Chloride Carbon Dioxide BUN Creatinine Estimated GFR BUN/Creatinine Ratio Glucose Calcium Total Bilirubin AST ALT Alkaline Phosphatase Total Creatine Kinase CK-MB (CK-2) CK-MB (CK-2) Rel Index Troponin I Total Protein Albumin Globulin Albumin/Globulin Ratio Lipase COVID-19 PCR Negative Assessment & Plan Assessment & Plan narrative: Mr. Latonia Benitezer is an 83-year-old male w/ PMH significant for COPD (mild), restrictive lung disease, CAD (no h/o AL), AFIB (AC w/ warfarin), cardiomyopathy (s/p PPM, [facility], w/ complication of punctured lung / chest tube), hypothyroidism, Hodgkin's lymphoma, colon cancer (s/p colon resection 1999), sigmoid diverticulosis who presented to the ER after falling down 15 hardwood steps in his home. He has old spinal fractures identified on CT imaging and lumbar transverse process fractures likely traumatic from his fall. He is being admitted to the surgical / trauma service for observation. There is concern for pulmonary contusion, however findings concerning for contusion on CT performed today are also present on prior chest CT imaging. 1. L1/2 transverse process fractures, traumatic, present on admission - management per admitting service. 2. Chronic kidney disease stage 3, present on admission, active -admission cr 1.37, similar to prior baseline known from 2019 and improved from admission for bowel obstruction earlier this year. -avoid nephrotoxic medications 3. Persistent atrial fibrilllation, present on admission, active. -patient with history CAD and cardiomyopathy with permanent pacemaker implantation -EKG showing a paced rhythm -continue home regimen of amiodarone 100 mg -continue home warfarin 4. Hypothyroidism, chronic, present on admission, stable -continue home levothyroxine 5. CAD - continue home statin 6. mild COPD and restrictive lung disease, stable - continue home inhalers. Code status: FULL CODE. Patient designates his to be his surrogate decision maker. Should you have any questions for the medical service, do not hesitate to ask for further recommendations.
--- NOTE | 2020-06-21 17:40 | P.HP_ITS ---
History of Present Illness History of Present Illness Date Patient Seen: 06/21/20 Time Patient Seen: 13:59 Date of Onset of Symptoms: 06/21/20 Chief complaint: fell down stairs/cut left side of head/bleeding Narrative: The patient is a gentleman who fell down 16 stairs at home. His believes he was getting a code out of the closet and stepped back and tumbled down the stairs. He does not remember what caused the fall. She does not believe he lost consciousness. He complains of pain in his left leg left chest and his back. Also he had a laceration on his left side of his head that according to his the blood a lot at home. It is been stapled. It appears that his back pain is chronic. He is rather hard of hearing and it makes getting an accurate history a bit challenging. He denies any numbness in his arms or legs. He has chronic visual changes but nothing acute in new. Patient History Medical History Atrial fibrillation CAD (coronary artery disease) CHF (congestive heart failure) Chronic kidney disease Colon cancer COPD (chronic obstructive pulmonary disease) Hearing loss History of skin cancer Hodgkin lymphoma Hypertension Hypothyroidism Orthostatic hypotension Small bowel obstruction Surgical History History of carotid endarterectomy History of colon resection Pacemaker Family & Social History Family History Mother Traumatic amputation of leg Father Heart disease Smoker Social History: household members spouse Safety & Behavioral: Feels Safe in Current Yes Environment Been Physically Hurt or No Threatened By a Person Tobacco & Substance use: Tobacco type cigarettes Smoking Status Former smoker alcohol intake never alcohol intake frequency 0-2 drinks per day Substance Use Type does not use Meds Home Medications and Allergies Home Medications Medication Instructions Recorded Confirmed Type atorvastatin [Lipitor] 10 mg PO BEDTIME #0 10/26/16 06/21/20 History levothyroxine 100 mcg PO DAILY 06/07/18 06/21/20 History CoQ-10 200 mg PO DAILY 06/23/19 06/21/20 History [place]-3 Fish Oil 1 cap PO DAILY 06/23/19 06/21/20 History albuterol sulfate [Ventolin HFA] 2 puff INHALATION Q6H PRN 06/23/19 06/21/20 History amiodarone 100 mg PO Q OTHER DAY 06/23/19 06/21/20 History cholecalciferol (vitamin D3) 1,000 unit PO DAILY 06/23/19 12/23/19 History [Vitamin D3] flaxseed 4 oz PO DAILY 06/23/19 12/24/19 History magnesium oxide 400 mg PO DAILY 06/23/19 12/24/19 History midodrine 5 mg PO QPM 06/23/19 06/21/20 History multivitamin 1 cap PO DAILY 06/23/19 06/21/20 History tetrahydrozoline-peg 1 drp OPHTHALMIC (EYE) DIRECTED 06/23/19 06/21/20 History warfarin 7.5 mg PO SUMOWEFRSA 06/23/19 06/21/20 History warfarin 10 mg PO TUTH 06/23/19 06/21/20 History furosemide [Lasix] 40 mg PO DAILY #10 tab 12/29/19 Rx potassium chloride 20 meq PO DAILY #10 tab 12/29/19 Rx fludrocortisone 0.1 mg PO Q OTHER DAY 06/21/20 06/21/20 History Allergies Allergy/AdvReac Type Severity Reaction Status Date / Time No Known Drug Allergies Allergy Unknown Verified 06/21/20 11:35 [NO KNOWN DRUG ALLERGIES] Review of Systems Review of Systems Narrative: Prior to this patient denies any pain in his eyes. He has had some changes in his visual acuity. No acute double vision. He says sometimes his vision is a bit blurred. This is not new but an old symptom. Patient does not hear well left side being worse than right. He has an appointment with an ear Dr. to evaluate this. Patient denies tooth aches. No trouble swallowing. No cough cold or asthma. The patient smoked but stopped 40 years ago. Patient has been not had a heart attack according to he and his . He is in atrial fibrillation is anticoagulated because of that. He also has a pacemaker. His says his heart is strong except for the atrial fibrillation. No black or bloody bowel movements. No seizures or blackouts. No anxiety or depression. He has a very slow urinary stream and gets up at night to urinate frequently. No dysuria or kidney stones. No psychiatric illnesses like anxiety or depression. Bruises easily and has friable skin. Exam Vital Signs (past 8 hours): - 06/21/20 11:05 06/21/20 11:13 06/21/20 11:36 Temperature 97.9 F Pulse Rate 79 81 83 Respiratory Rate 18 10 L Blood Pressure 123/61 Pulse Oximetry 99 100 06/21/20 12:00 06/21/20 12:22 06/21/20 12:30 Temperature Pulse Rate 78 77 78 Respiratory Rate 12 16 17 Blood Pressure 197/88 H 180/87 H Pulse Oximetry 97 99 97 06/21/20 13:00 06/21/20 13:30 06/21/20 14:00 Temperature Pulse Rate 86 83 83 Respiratory Rate 15 13 24 Blood Pressure 149/68 H 178/83 H Pulse Oximetry 94 99 06/21/20 14:01 06/21/20 14:30 06/21/20 15:00 Temperature Pulse Rate 81 77 80 Respiratory Rate 14 13 17 Blood Pressure 148/95 H 162/77 H 152/74 H Pulse Oximetry 91 100 06/21/20 15:30 06/21/20 16:00 06/21/20 16:30 Temperature Pulse Rate 86 80 79 Respiratory Rate 17 13 12 Blood Pressure 154/75 H 140/70 138/63 Pulse Oximetry 91 06/21/20 17:00 Temperature Pulse Rate 79 Respiratory Rate 18 Blood Pressure 135/63 Pulse Oximetry 91 Oxygen Delivery Method Room Air Narrative Exam Narrative: Vital signs noted. Cooperative gentleman in no apparent distress. Stapled laceration left side of his scalp. Blood-tinged tear in the region. Small amount of blood on the external ear. He has a small round abrasion on his forehead. No other face to trauma noted. Extraocular movements are intact. Pupils equal round reactive to light. Ears there TM appears to be intact. There is absolutely no tenderness of his midline neck or spinal column. There is also no paravertebral tenderness. I do not feel any swelling areas. Oral mucosa is dry no open lesions. Teeth are intact. Bony face is nontender without displacement or bruising. Clavicles and chest wall are nontender. It remedies without cyanosis clubbing or edema. Left antecubital IV noted. Heart irregularly irregular. I do not appreciate a murmur at this time. No gallop. No bruit in the neck. Patient has a pacemaker left infraclavicular fossa. Abdomen is scaphoid soft nontender without mass. Liver and spleen are not enlarged. Pelvis is stable. Extremities without cyanosis clubbing or edema. No deformity of the joints. Patient has 2+ dorsalis pedal pulses. His sensation is intact to light touch on his face torso and extremities. He is not able to relax enough for me to test his patellar reflexes despite my asking him to do so. His forearm and biceps reflexes are 2+ intact. Strength is equal mid level java developer extension and flexion at the elbows knees and ankles. Patient appears to be alert. His he is hard of hearing which makes some communication difficult but when he hears the question appropriately answers appropriately. His affect is a bit flat. His skin is pale and thin. Decreased turgor. Objective Labs Result Diagrams: 06/21/20 11:20 06/21/20 11:20 Labs: Laboratory Results - last 24 hr 06/21/20 06/21/20 06/21/20 11:20 11:20 11:20 WBC 14.3 H RBC 4.24 L Hgb 12.7 L Hct 38.1 L MCV 89.8 MCH 30.0 MCHC 33.4 RDW 14.6 Plt Count 181 Neut % (Auto) 88.3 H Lymph % (Auto) 6.0 L [place] % (Auto) 4.8 Eos % (Auto) 0.5 L Baso % (Auto) 0.4 Neut # (Auto) 48141 H Lymph # (Auto) 900 L [place] # (Auto) 700 Eos # (Auto) 100 Baso # (Auto) 100 PT 27.8 H INR 2.4 H APTT 39 H D Sodium 139 Potassium 4.4 Chloride 106 Carbon Dioxide 28 BUN 33 H Creatinine 1.37 H Estimated GFR 49.4 L BUN/Creatinine Ratio 24.1 H Glucose 117 H Calcium 9.5 Total Bilirubin 0.7 AST 33 ALT 28 Alkaline Phosphatase 46 Total Creatine Kinase 218 H CK-MB (CK-2) 3.33 H CK-MB (CK-2) Rel Index 1.5 Troponin I < 0.012 Total Protein 7.5 Albumin 4.3 Globulin 3.2 Albumin/Globulin Ratio 1.3 Lipase 96 COVID-19 PCR 06/21/20 12:57 WBC RBC Hgb Hct MCV MCH MCHC RDW Plt Count Neut % (Auto) Lymph % (Auto) [place] % (Auto) Eos % (Auto) Baso % (Auto) Neut # (Auto) Lymph # (Auto) [place] # (Auto) Eos # (Auto) Baso # (Auto) PT INR APTT Sodium Potassium Chloride Carbon Dioxide BUN Creatinine Estimated GFR BUN/Creatinine Ratio Glucose Calcium Total Bilirubin AST ALT Alkaline Phosphatase Total Creatine Kinase CK-MB (CK-2) CK-MB (CK-2) Rel Index Troponin I Total Protein Albumin Globulin Albumin/Globulin Ratio Lipase COVID-19 PCR Negative Assessment & Plan Assessment & Plan narrative: Patient into a good coagulated had a fall down 16 steps. I have reviewed his CT scans both the images reports and reviewed them with the radiologist. He has multiple spinal injuries all of which appeared to be old. These include compression fractures in the thoracic vertebra and lumbar vertebrae transverse processes. He has no other fractures seen. He had a head laceration. I would like to admit him due to his head injury which probably includes up concussion and his being anticoagulated. At age 85 with a history of dizziness I think that is appropriate. He could have a delayed bleed. Will do serial neuro checks during observation. Continue his medications for his atrial fibrillation which is chronic. Continue his thyroid medication for his hypothyroidism which is chronic Continue his Lipitor for his elevated cholesterol Patient probably has benign prostatic hypertrophy. He appears to have a large median lobe of his prostate on CT scan according to my reading. Hold but will not reverse his warfarin at this time.
[2020-06-21] MEDS: ATORVASTATIN 20 MG TABLET 10 MG PO (20:25)
--- NOTE | 2020-06-21 23:17 | PC.NURSE ---
admit note: A&OX3. 97%RA. denied sob or chest pain. denied any dizziness or vision changes. denied head ache. pain to R.rib and Lt. ankle. refused pain meds. oriented pt to the room. voiding without difficulty. not oob. call light in reach. bed alarm active.
[2020-06-22] VITALS (10 sets, daily range): BP systolic 79–142; BP diastolic 41–64; PULSE 66–80; RESP 15–17; TEMP 36.1–37.3; O2SAT 92–100
--- NOTE | 2020-06-22 | DI.CT.S_ITS ---
PROCEDURE: CT HEAD/BRAIN WO CON INDICATIONS: mental status change after fall.on coumadin.r/o bleed TECHNIQUE: Noncontrast 4.5 mm thick angled axial sections acquired from the foramen magnum to the vertex, with coronal and sagittal reformats. For radiation dose reduction, the following was used: automated exposure control, adjustment of mA and/or kV according to patient size. COMPARISON: [facility], CT, CT HEAD/BRAIN WO CON, 06/21/2020, 11:20. FINDINGS: Image quality: Excellent. CSF spaces: There is a new small amount of left subarachnoid hemorrhage within the left basilar cisterns along the midbrain and alfonzo and extending to the medial aspect of the left tentorium. This measures up to approximately 0.4 cm in thickness. There is minimal associated mass effect on the adjacent brainstem and medial left temporal lobe. There is mild cerebral volume loss with prominence of the ventricles and sulci. Brain: No intraparenchymal hemorrhage, mass, or midline shift. There are subcortical, periventricular and deep white matter hypodensities consistent with mild chronic small vessel ischemic changes. There is intracranial internal carotid artery atherosclerosis. Skull and face: Calvarium and visualized facial bones appear intact, without suspicious lesions. Sinuses: Visualized sinuses and mastoids are clear. IMPRESSION: 1. New small amount of subarachnoid hemorrhage in the left basilar cisterns. Given history of fall on Coumadin, findings are likely traumatic. Findings discussed with Dr. Giron on 06/22/20 at 10:20 AM. Dictated by: Nathen Tinoco M.D. on 06/22/2020 at 10:15 Approved by: Nathen Tinoco M.D. on 06/22/2020 at 10:36
[2020-06-22] MEDS: LEVOTHYROXINE 100 MCG TABLET PO (05:21)
--- NOTE | 2020-06-22 09:37 | DI.RAD.S_ITS ---
PROCEDURE: XR ANKLE LT 2V INDICATIONS: pain distal medial leg at ankle after fall r/o bony injury TECHNIQUE: To views of the ankle were acquired. COMPARISON: None. FINDINGS: Bones: No fractures or dislocations. Osteoarthritic changes are noted at tibiotalar joint. Ankle mortise is normally aligned. No suspicious bony lesions. Soft tissues: No tibiotalar joint effusion. Achilles tendon appears normal. Lateral ankle soft tissue swelling is seen. IMPRESSION: No ankle fracture or dislocation. Ankle joint osteoarthritis. Mild lateral ankle soft tissue swelling. Dictated by: Franklin Marks M.D. on 06/22/2020 at 9:01 Approved by: Franklin Marks M.D. on 06/22/2020 at 9:05
[2020-06-22] MEDS: MIDODRINE HCL 5 MG TABLET PO (09:53)
[2020-06-22] MEDS: PROTHROMBIN CPLX(PCC)4FACT 2,000 UNIT in ISOOSMOTIC VEHICLE 0 ML 672 ML IV (10:41)
[2020-06-22] MEDS: LACTATED RINGERS 1,000 ML 500 ML IV (10:42)
[2020-06-22] MEDS: POTASSIUM CHLORIDE 20 MEQ TAB PO (10:55)
[2020-06-22] MEDS: AMIODARONE 100 MG TABLET PO (10:55)
--- NOTE | 2020-06-22 11:05 | PT-IP ANOTE ---
1012 am. per nurse, pt became unresponsive this morning. CT scan just completed. Pt on hold for this morning per nurse. 1100 am: nurse informed PT that pt will be transferred to another facility due to a bleed and does not need PT.
--- NOTE | 2020-06-22 11:24 | PC.NURSE ---
Addendum entered by Angelica Bah R.N. 06/22/20 14:55: Patient ended up not being transferred down to [place]. He is sleeping now and denies pain. remains in room. Patient went down earlier for a second ct scan, have not seen results up as of yet. Original Note: Patient disoriented this morning and not responsive to voices. He also had a hard time waking up to a sternal rub. Blood pressure 79/40s. Elevated his legs in bed and bp up to 100s/60s. notified of patient not arousing well. He ordered a bolus of LR, which is hanging now, CT scan of his brain, and Kcentra iv. This was infused in 7 minutes. He had his CT scan, he does have some changes in his scan, and [place]. He started to arouse before he went down to his scan, he is awake now and knows that he is in the hospital, but he said in the emergency room, he also knows the year. His is at bedside and aware that patient will be transferred out. She is calm but concerned. Patient has voided and was able to eat some breakfast this am.
--- NOTE | 2020-06-22 11:35 | CM.DPNOTE ---
Addendum entered by DERIK Mcpherson 06/23/20 13:00: According to Dr Giron's prog note [id number]: Assessment & Plan narrative: Patient is a gentleman who was anticoagulated who fell down stairs and injured his scalp on the left. He developed a subarachnoid hemorrhage which appears to be stable. Per the recommendations of the neurosurgeon with which I spoke, warfarin should not be begun before 3 days from now. Unless he has some deterioration or extension of this bleed he can be managed locally without transfer. Which contact them if he deteriorates. Original Note: DCP Note Patient is an 85 yo male, resident of [place]. Patient presents w/ after falling down stairs at his home, on blood thinners, now found to have a new brain bleed and being transferred to higher level of care. PCP: Sachin Vu Payer: Jose Antonio ROACH Reviewed chart, attempted to see patient and spouse this morning, was warned by MAKENNA Dominguez that nursing staff having a difficult time arousing patient, STAT CT scan found new subarachnoid hemorrhage. No assessment completed, patient transferring. MAIRA
[2020-06-22] MEDS: PHYTONADIONE (VIT K1) 10 MG in DEXTROSE 5 % IN WATER 50 ML 102 ML IV (13:08)
[2020-06-22 13:34] LABS: INR 1.2 (0.9-1.3); Prothrombin Time 13.7 SECONDS (10.1-12.7)
--- NOTE | 2020-06-22 16:00 | DI.CT.S_ITS ---
PROCEDURE: CT HEAD/BRAIN WO CON INDICATIONS: f/u subarachnoid bleed. Any increase in size? TECHNIQUE: Noncontrast 4.5 mm thick angled axial sections acquired from the foramen magnum to the vertex, with coronal and sagittal reformats. For radiation dose reduction, the following was used: automated exposure control, adjustment of mA and/or kV according to patient size. COMPARISON: [facility], CT, CT HEAD/BRAIN WO CON, 06/21/2020, 11:20. [facility], CT, CT HEAD/BRAIN WO CON, 06/22/2020, 10:02. FINDINGS: Image quality: Excellent. CSF spaces: Basal cisterns are patent. The ventricles are symmetric in size and shape. Brain: There is again seen acute hemorrhage within the left basal cistern. The volume of hemorrhage is not progressed compared to the examination performed earlier in the day. No intracranial masses. There is cerebral volume loss for age, with resultant ventricular and sulcal prominence. There are periventricular and deep white matter chronic small vessel ischemic changes. There is intracranial internal carotid artery atherosclerosis. Skull and face: Scalp soft tissue swelling and hematoma can be seen on the left laterally, as before. Calvarium and visualized facial bones appear intact, without suspicious lesions. Sinuses: Visualized sinuses and mastoids are clear. IMPRESSION: There is stable acute subarachnoid hemorrhage seen which is centered within the left basal cistern. No significant progression can be seen when compared to the examination performed earlier in the day. Note: Case discussed by telephone with Dr. Giron at 2:56 P.M. [place] time on June 22, 2020. Dictated by: Hi Kent M.D. on 06/22/2020 at 14:54 Approved by: Hi Kent M.D. on 06/22/2020 at 14:58
--- NOTE | 2020-06-22 17:38 | P.PN_ITS ---
Subjective Subjective Date Patient Seen: 06/22/20 Time Patient Seen: 17:38 Interval history: Patient has been seen intermittently throughout the day and I have been reviewing data throughout the day. This morning I saw him he was fairly alert and on examination had no lateralizing findings. After finished my exam 5 minutes later the nurses came to me because the patient was hypotensive and they were having difficulty arousing him. I went into the room and he was arousable again. His stated that this sometimes occurs at home and he does become hypotensive at home and dizzy. I ordered a fluid bolus and a CT scan of his head. This showed a subarachnoid hemorrhage near the brainstem. I contacted [facility] and had films pushed to them and was able to talk with a neurosurgeon (Dr. Blackmon I believe). After discussing the patient's history and what had been done thus far(patient had been given Kcentra immediately to reverse the effect of his Coumadin and also was ordered vitamin K). The neurosurgeon did not feel the bleed was that significant and that the sequela if it did not expand would probably only be a severe headache. Re-evaluation did not show any lateralizing signs throughout the day. He recommended a repeat CT of the head 6 hours after the 1st which was accomplished and showed no increase in the size of his subarachnoid hemorrhage. The patient is seen this evening. He is sitting up and fairly alert. He is eating dinner and has eaten most of the tray actually. He is presently on D esert. He says he feels okay. His is concerned that he sleeps a lot but also states that at home he sleeps most of the morning. He is having chest pain where his chest hit when he fell down the steps. Denies any double vision. No numbness or tingling. No seizures or blackouts. Exam Vital Signs (past 8 hours): - 06/22/20 09:55 06/22/20 10:04 06/22/20 10:06 Temperature Pulse Rate 78 73 71 Respiratory Rate Blood Pressure 81/50 L 131/61 141/60 H Pulse Oximetry 92 94 06/22/20 11:56 06/22/20 15:57 Temperature 99.0 F 98.4 F Pulse Rate 72 67 Respiratory Rate 15 17 Blood Pressure 127/63 134/57 L Pulse Oximetry 100 95 Oxygen Delivery Method Room Air Oxygen Flow Rate 0 Narrative Exam Narrative: Cooperative gentleman no apparent distress. Generally alert and oriented. Extraocular movements are intact. Pupils equal round reactive to light. Decreased hearing which has been present throughout and is unchanged. Hearing aid in right ear. Face is symmetric. Touch intact on the face. Tongue is midline in uvula elevates in the midline. Sternocleidomastoid strength equal bilaterally. Shoulder shrug equal bilaterally. Electromedical Equipment Repairer equal bilateral. Plantar and dorsiflexion strength 2+ equal. Touch intact on the torso and extremities. Decreased swelling of the left pentecostalism area where the laceration was. Lungs are clear to auscultation with good effort. Heart slow and fairly regular rate and rhythm. There is some variation however. No bruit in the neck. Abdomen is scaphoid soft nontender without mass. Liver and spleen are not enlarged. No new bruises have appeared on his skin. No new open areas. Objective Imaging CT scan - head: Radiologist's impression: Subarachnoid hemorrhage which has not increased in size from earlier film. Labs Result Diagrams: 06/21/20 11:20 06/21/20 11:20 Labs: Laboratory Results - last 24 hr 06/22/20 13:10 PT 13.7 H D INR 1.2 PFSH Medical History Atrial fibrillation CAD (coronary artery disease) CHF (congestive heart failure) Chronic kidney disease Colon cancer COPD (chronic obstructive pulmonary disease) Hearing loss History of skin cancer Hodgkin lymphoma Hypertension Hypothyroidism Orthostatic hypotension Small bowel obstruction Surgical History History of carotid endarterectomy History of colon resection Pacemaker Family History Mother Traumatic amputation of leg Father Heart disease Smoker Social History marital status: household members: spouse Smoking Status: Former smoker alcohol intake: never Assessment & Plan Assessment & Plan narrative: Patient is a gentleman who was anticoagulated who fell down stairs and injured his scalp on the left. He developed a subarachnoid hemorrhage which appears to be stable. Per the recommendations of the neurosurgeon with which I spoke, warfarin should not be begun before 3 days from now. Unless he has some deterioration or extension of this bleed he can be managed locally without transfer. Which contact them if he deteriorates. Continue all of his medications for his other issues that is his hypotension, his hypothyroidism, his elevated cholesterol and his cardiac dysrhythmia. Time Spent With Patient Time with patient: Greater than 35 minutes Quality VTE Deep Vein Thrombosis/Pulmonary Embolism Present on Admission: No
--- NOTE | 2020-06-22 17:46 | P.PN_ITS ---
Subjective Subjective Date Patient Seen: 06/22/20 Time Patient Seen: 17:46 Interval history: Mr. Latonia Perez is an 83-year-old male w/ PMH significant for COPD (mild), restrictive lung disease, CAD (no h/o RI), AFIB (AC w/ warfarin), cardiomyopathy (s/p PPM, [facility], w/ complication of punctured lung / chest tube), hypothyroidism, Hodgkin's lymphoma, colon cancer (s/p colon resection 1999), sigmoid diverticulosis, and prior h/o tobacco dependence (quit 1982) who presented to the ER after falling down 15 hardwood steps in his home. He was admitted overnight and repeat CT scan of his head this morning showed a new delayed sub arachnoid hemorrhage. Patient was given PCC for reversal, repeat CT head this afternoon showed stable bleed without increase in size. Patient was briefly difficult to arouse this morning, and is slightly more lethargic than his baseline, but he is improving this evening and no focal deficits are noted at this time. He was also hypotensive this AM, had not gotten his usual evening midodrine dose yesterday and blood pressures have improved this evening after receiving a dose earlier today. Exam Vital Signs (past 8 hours): - 06/22/20 09:55 06/22/20 10:04 06/22/20 10:06 Temperature Pulse Rate 78 73 71 Respiratory Rate Blood Pressure 81/50 L 131/61 141/60 H Pulse Oximetry 92 94 06/22/20 11:56 06/22/20 15:57 Temperature 99.0 F 98.4 F Pulse Rate 72 67 Respiratory Rate 15 17 Blood Pressure 127/63 134/57 L Pulse Oximetry 100 95 Oxygen Delivery Method Room Air Oxygen Flow Rate 0 Narrative Exam Narrative: GENERAL APPEARANCE: Elderly male, appears uncomfortable and in pain (prior to medications given) SKIN: Inspection of the skin reveals no rashes, ulcerations or petechiae. HEENT: scalp laceration now stapled, no erythema or induration, dried blood. Contusion R forehead NECK: Supple and symmetric. There was no thyroid enlargement, and no tenderness, or masses were felt. No posterior midline tenderness. CHEST: Normal AP diameter and normal contour without any kyphoscoliosis. LUNGS: Auscultation of the lungs revealed no wheezes, rhonchi, or rales. CARDIOVASCULAR: There was a regular rate and rhythm without any murmurs, gallops, rubs. Peripheral pulses were 2+ and symmetric. ABDOMEN: Soft and nontender with normal bowel sounds. No ascites was noted. MUSCULOSKELETAL: No stepoffs midline back, no reported midline tenderness, tight paraspinal musculature. EXTREMITIES: No cyanosis, clubbing or edema. NEUROLOGIC: Alert and oriented. Hard of hearing and without hearing aids. Strength is +5/5 in the Upper Extremities and Lower Extremities Bilaterally. Sensation to touch was normal. Objective Imaging CT scan - head: Radiologist's impression: IMPRESSION: 1. New small amount of subarachnoid hemorrhage in the left basilar cisterns. Given history of fall on Coumadin, findings are likely traumatic. Labs Result Diagrams: 06/21/20 11:20 06/21/20 11:20 Labs: Laboratory Results - last 24 hr 06/22/20 13:10 PT 13.7 H D INR 1.2 PFSH Medical History Atrial fibrillation CAD (coronary artery disease) CHF (congestive heart failure) Chronic kidney disease Colon cancer COPD (chronic obstructive pulmonary disease) Hearing loss History of skin cancer Hodgkin lymphoma Hypertension Hypothyroidism Orthostatic hypotension Small bowel obstruction Surgical History History of carotid endarterectomy History of colon resection Pacemaker Family History Mother Traumatic amputation of leg Father Heart disease Smoker Social History marital status: household members: spouse Smoking Status: Former smoker alcohol intake: never Assessment & Plan Assessment & Plan narrative: Mr. Latonia Perez is an 83-year-old male w/ PMH significant for COPD (mild), restrictive lung disease, CAD (no h/o RI), AFIB (AC w/ warfarin), cardiomyopathy (s/p PPM, [facility], w/ complication of punctured lung / chest tube), hypothyroidism, Hodgkin's lymphoma, colon cancer (s/p colon resection 1999), sigmoid diverticulosis who presented to the ER after falling down 15 hardwood steps in his home. He unfortunately had a delayed subarachnoid hemorrhage on repeat CT this AM, but neurologically is improving and 3rd CT showed a stable head bleed. Coumadin was reversed with PCC after CT showing subarachnoid hemorrhage. 1. subarachnoid hemorrhage, traumatic, not present on admission - likely delayed bleeding in the setting of anticoagulation and trauma. - repeat CT showing stable bleeding. hold warfarin given subarachnoid hemorrha ge, recommend discussion as an outpatient with his cardiolgist about possibly resuming anticoagulation in this setting. Given traumatic etiology more likely to resume in the near future. Patient was given PCC for reversal. Repeat INR this afternoon 1.2. - continue PT. Consider OT/speech. - management per surgery 1. L1/2 transverse process fractures, traumatic, present on admission - management per admitting service. 2. Chronic kidney disease stage 3, present on admission, active -admission cr 1.37, similar to prior baseline known from 2019 and improved from admission for bowel obstruction earlier this year. -avoid nephrotoxic medications 3. Persistent atrial fibrilllation, present on admission, active. -patient with history CAD and cardiomyopathy with permanent pacemaker implantation -EKG showing a paced rhythm -continue home regimen of amiodarone 100 mg -hold warfarin given subarachnoid hemorrhage, recommend discussion as an outpatient with his cardiolgist about possibly resuming anticoagulation in this setting. Given traumatic etiology more likely to resume in the near future. 4. Hypothyroidism, chronic, present on admission, stable -continue home levothyroxine 5. CAD, chronic - continue home statin 6. mild COPD and restrictive lung disease, stable - continue home inhalers. 7. Orthostatic hypotension, chronic - continue home midodrine, 5 mg nightly. Code status: FULL CODE. Patient designates his to be his surrogate decision maker. COVID-19 COVID-19 status: Negative Quality VTE Deep Vein Thrombosis/Pulmonary Embolism Present on Admission: No
[2020-06-22] MEDS: LACTATED RINGERS 1,000 ML 63 ML IV (18:01)
[2020-06-22] MEDS: ATORVASTATIN 20 MG TABLET 10 MG PO (21:10)
[2020-06-23] VITALS (7 sets, daily range): BP systolic 131–160; BP diastolic 61–81; PULSE 73–82; RESP 16–20; TEMP 36.6–37.4; O2SAT 95–99
[2020-06-23] MEDS: LEVOTHYROXINE 100 MCG TABLET PO (05:11)
[2020-06-23] MEDS: LACTATED RINGERS 1,000 ML 63 ML IV (10:36)
[2020-06-23] MEDS: SODIUM CHLORIDE 0.9% FLUSH 10 ML IV ×2 (10:36→21:24)
[2020-06-23] MEDS: POTASSIUM CHLORIDE 20 MEQ TAB PO (10:36)
--- NOTE | 2020-06-23 11:16 | PT.IIE ---
Current Diagnoses Traumatic subarachnoid hemorrhage without loss of consciousness, initial encounter (06/21/20) Surgical History (Last Reviewed 06/22/20 @ 18:03 by Beck Giron MD) History of carotid endarterectomy History of colon resection Pacemaker Medical History (Last Reviewed 06/22/20 @ 18:03 by Beck Giron MD) Atrial fibrillation CAD (coronary artery disease) CHF (congestive heart failure) Chronic kidney disease Colon cancer COPD (chronic obstructive pulmonary disease) Hearing loss History of skin cancer Hodgkin lymphoma Hypertension Hypothyroidism Orthostatic hypotension Small bowel obstruction Physical Therapy Inpatient Evaluation/Re-Eval M1 PT/OT-IP Prior Functional Status Start: 06/23/20 13:28 Freq: NEEDED Status: Active Protocol: Document 06/23/20 11:16 AB (Rec: 06/23/20 13:50 AB [email or web address]) Medical Review Prior Functional Status Medical History Reviewed Yes Communication able to make needs know but very [place] Mobility and Gait spouse stated that pt is independent with all mobilities and ambulation without AD and occasionally uses a SPC. Social History Household Members spouse Living Arrangements House Number of Floors (Floors) Two Floors Number of Stairs To Enter/Railing? pt can stay on main level of the house 1 steps to enter the house from th front; has 2 steps to enter from the garage without rails but has cabinets on B sides that pt can hold on to per spouse Home Environment High Toilet,Walk in Shower Home Equipment Straight Cane,Hand Held Shower Employment Status Retired M2 PT-IP Current Condition Start: 06/23/20 13:28 Freq: NEEDED Status: Active Protocol: Document 06/23/20 11:16 AB (Rec: 06/23/20 13:50 AB [id number]) Physical Therapy Current Condition Current Condition Evaluation Date 06/23/20 Treatment Diagnosis s/p fall; L1/2 transverse proc . fx; subarachnoid hemorrhage; diff. walk Onset Date 06/21/20 Precautions Other Precautions falls; BP M3 PT-IP Subjective Start: 06/23/20 13:28 Freq: NEEDED Status: Active Protocol: Document 06/23/20 11:16 AB (Rec: 06/23/20 13:50 AB [id number]) Subjective Physical Therapy Visit Type Type Initial Evaluation Visit Start Time 11:16 Visit Stop Time 12:00 Total Visit Minutes 44 Notes pt was suppose to transfer to a higher care facility yesterday but did not happen and pt still in the hospital. per MD's note: per neuro's recommendation, pt does not have to transfer if hemorrhage is stable. Number of LEPIDOPTERIST Visits 0 Physical Therapy Visit Comments Patient Comments pt agreed to get up Therapy Pain Assessment Pain Present Pain Present Denied Pain M4 PT-IP Mobility and Gait Start: 06/23/20 13:28 Freq: NEEDED Status: Active Protocol: Document 06/23/20 11:16 AB (Rec: 06/23/20 13:50 AB [id number]) PT-Bed Mobility Assessment Rolling Type of Rolling Log Rolling Level of Assist Maximal Assistance Supine to Sit Supine to Sit Moderate Assistance,Maximum Assistance Scooting Scooting to Edge of Bed Contact Guard Assistance PT-Transfer Assessment Sit to and From Stand Sit to and from Stand Moderate Assistance,Maximum Assistance,1 Person Assistance ,Use of Upper Extremities Equipment Transfer Assistive Device Gait Belt,Front Wheeled Walker Orthotic/Prosthetic Devices or Brace: No Transfers Transfer Destination Toilet Transfer Technique ambulated using FWW Transfer Ability Level of Assist Moderate Assistance,Maximum Assistance,1 Person Assistance ,Use of Upper Extremities Comments Mobility Comments educated pt and spouse regarding back precautions and log roll bed mobility. handout copy provided. BP in supine: 120/56. completed log roll supine to sit mod to max A and max cues. pt was able to sit on EOB CGA. pt without any complaints; requested to use the toilet. nurse came in to assist if needed. pt completed sit to stand mod to max A and max cues and ambulated to the toilet mod to max A and max cues. pt with slow processing/ following directions; presents with increase bilateral knee flexion and trunk flexion requiring cues for upright posture. pt was able stand using fWW for support mod A while assisted with brief management. pt completed toileting, nurse assist with hygiene care and brief managment. completed sit to stand from the toilet using grab bar max A and max cues. ambulated out of the toilet using FWW mod to max A and cues. pt saw on chair. positioned on chair. set up for lunch. chair alarm on. call light within reach. BP checked again: 94/57. informed pt's spouse regarding pt's level of assistance at this time and possible SNF rehab. spouse stated that pt will not want to go to rehab. educated spouse regarding safety and will conduct caregiver training when appropriate and agreed. Gait Assessment Gait Gait Assistance Required: Moderate Assistance,Maximum Assistance Distance (Feet) 10 Able to Maintain Weight Bearing Status Yes During Gait Assistive Devices Assistive Device Gait Belt,Front Wheeled Walker Orthotic/Prosthetic Devices or Brace: No Gait Deviations General Gait Pattern Antalgic,Decreased Stride Length,Decreased Feet Clearance,Flexed Trunk,Step-to Gait Factors Limiting Gait Function Factors Limiting Gait Function Decreased Activity Tolerance, Decreased Strength,Difficulty Following Directions,Poor Balance,Poor Safety Awareness PT-Balance Assessment Sitting Balance and Reactions Static Sitting Balance Ability Good Dynamic Sitting Balance Ability Fair Standing Balance and Reactions Static Standing Balance Ability Fair Dynamic Standing Balance Ability Poor Device Used FWW M5 PT-IP Objective Assessments Start: 06/23/20 13:28 Freq: NEEDED Status: Active Protocol: Document 06/23/20 11:16 AB (Rec: 06/23/20 13:50 AB [email or web address]) Orientation Orientation/Cognition Level of Alertness Alert Orientation Name Safety Awareness Decreased Safety Awareness Memory Description Short Term Impaired Comments requires increase time to complete tasks and difficulty following directions Gross Range of Motion Lower Extremity ROM Assessment Within Functional Limits Strength Lower Extremity Strength Hip 4-/5 Knee 4-/5 Muscle Tone Muscle Tone WNL Yes M6 PT-IP Treatment Start: 06/23/20 13:28 Freq: NEEDED Status: Active Protocol: Document 06/23/20 11:16 AB (Rec: 06/23/20 13:50 AB [email or web address]) Physical Therapy Treatment Education Education Provided Precautions,Weight Bearing Status,Post-Op Packet,Safety M7 PT-IP Assessment and Plan Start: 06/23/20 13:28 Freq: NEEDED Status: Active Protocol: Document 06/23/20 11:16 AB (Rec: 06/23/20 13:50 AB [email or web address]) PT Summary Assessment and Plan Potential Rehabilitation Potential Fair Status of Condition at Evaluation Evolving Summary Impairments Pain,ROM,Strength,Balance, Coordination,Sensation,Tone, Cognition,Bed Mobility, Transfers,Gait,Activity Tolerance Assessment Summary pt requiring mod to max A with mobility and has decrease activity tolerance, requires increase time to complete and follow directions. d/c plan depending on progress but at this time will require SNF rehab. will conduct caregiver training if appropriate. will continue to assess. Goals Bed Mobility Goal Standby Assistance Transfer Goal Standby Assistance,Front Wheeled Walker Gait Goal Standby Assistance,Front Wheel Walker Gait Distance 100 Other Goals ambulation using FWW/SPC 150 ft SBA up/down 1 step to enter using FWW SBA Days to Meet Goals 10 Frequency of Treatment Frequency Of Treatment Once a Day Treatment Plan Physical Therapy Treatment Plan Bed Mobility Training,Transfer Training,Gait Training, Therapeutic Exercise,Balance Retraining,Discharge Planning, Neuromuscular Re-ed, Coordination Retraining Other Recommendations and Next Treatment ambulation, caregiver training Focus Recommendations To Nursing Amount of Assist Needed 2 Person Assist Discharge Recommendations PT Discharge Recommendations SNF Rehab Transportation Needs at Discharge Wheelchair/Cabulance
--- NOTE | 2020-06-23 13:51 | CM.IDA ---
Initial DCP Assessment Note Met w/patient and spouse Yun, introduced role. Yun explains patient is extremely hard of hearing (even w/hearing aids) and spouse will try to include patient when possible in conversation. Patient and spouse live in [place] on one acre of land that they take care of themselves. They are active and indp and have not required assist, HH or SNF. They have been for 63 years and have adult children and grandchildren that live in the [facility]. Discussed DCP; SNF vs Home w/ HH (PT recommending SNF) and spouse would like to take patient home w/ HH, no agency preference. Yun is expecting that patient could come home this evening or tomorrow, and that she would not be burdened by his return home. Placed completed F2F near patient's chart for provider signature, this [employer]OCK [employer]ANGER unsure whether patient will return home today vs tomorrow?....will request SUSAN Koroma to make HH referral per calendar rotation for HH choice. MAIRA
[2020-06-23] MEDS: MIDODRINE HCL 5 MG TABLET PO (17:33)
--- NOTE | 2020-06-23 19:00 | P.PN_ITS ---
Subjective Subjective Date Patient Seen: 06/23/20 Time Patient Seen: 19:00 Interval history: No acute events. No pain or changes in mental status over past 24 hrs. Physical therapy recommending SNF. Exam Vital Signs (past 8 hours): - 06/23/20 16:13 Temperature 98.9 F Pulse Rate 80 Respiratory Rate 18 Blood Pressure 155/77 H Pulse Oximetry 99 Oxygen Delivery Method Room Air Oxygen Flow Rate 0 Narrative Exam Narrative: General elderly man GCS 15 nonfocal exam Nonlabored respiration Abdomen soft nontender Objective Labs Result Diagrams: 06/21/20 11:20 06/21/20 11:20 [facility] Medical History Atrial fibrillation CAD (coronary artery disease) CHF (congestive heart failure) Chronic kidney disease Colon cancer COPD (chronic obstructive pulmonary disease) Hearing loss History of skin cancer Hodgkin lymphoma Hypertension Hypothyroidism Orthostatic hypotension Small bowel obstruction Surgical History History of carotid endarterectomy History of colon resection Pacemaker Family History Mother Traumatic amputation of leg Father Heart disease Smoker Social History marital status: household members: spouse Smoking Status: Former smoker alcohol intake: never Assessment & Plan Assessment & Plan narrative: 85M acute trauma-lung conusion, subarachnoid hemorrhage, hemodynamically stable GCS 15 -Lung contusion-breathing well on room air, no pneumothorax. Continue incentive spirometry. -Subarachnoid hemorrhage-stable on repeat CTH. No acute neurologic changes. Q4 hr neurochecks. Hold warfarin, recieved Kcentra for reversal. Reimage if change in neurochecks -Dispo-per physical therapy needs SNF Quality VTE Deep Vein Thrombosis/Pulmonary Embolism Present on Admission: No
[2020-06-23] MEDS: ATORVASTATIN 20 MG TABLET 10 MG PO (21:23)
[2020-06-24] MEDS: LACTATED RINGERS 1,000 ML 63 ML IV ×2 (01:40→21:05)
[2020-06-24 04:04] VITALS: BP 159/75; PULSE 73; RESP 18; TEMP 36.8; O2SAT 97
[2020-06-24] MEDS: LEVOTHYROXINE 100 MCG TABLET PO (05:38)
[2020-06-24 09:50] VITALS: BP 136/67; PULSE 83; RESP 12; TEMP 36.3; O2SAT 99
[2020-06-24] MEDS: POTASSIUM CHLORIDE 20 MEQ TAB PO (10:07)
[2020-06-24] MEDS: AMIODARONE 100 MG TABLET PO (10:07)
--- NOTE | 2020-06-24 11:00 | PT.IPTN ---
Current Diagnoses Traumatic subarachnoid hemorrhage without loss of consciousness, initial encounter (06/21/20) Physical Therapy Treatment Note M2 PT-IP Current Condition Start: 06/23/20 13:28 Freq: NEEDED Status: Active Protocol: Document 06/23/20 11:16 AB (Rec: 06/23/20 13:50 AB [email or web address]) Physical Therapy Current Condition Current Condition Evaluation Date 06/23/20 Treatment Diagnosis s/p fall; L1/2 transverse proc . fx; subarachnoid hemorrhage; diff. 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 Visits 0 Physical Therapy Visit Comments Patient Comments spouse in room and agreed to caregiver training Therapy Pain Assessment Location Generalized Scale Used pain scale not stated but stated that he is sore Pain Management Techniques Distraction,Modification of Treatment,Timing of Activity with Medications M4 PT-IP Mobility and Gait Start: 06/23/20 13:28 Freq: NEEDED Status: Active Protocol: Document 06/24/20 11:00 AB (Rec: 06/24/20 12:31 AB [email or web address]) PT-Bed Mobility Assessment Supine to Sit Supine to Sit Minimal Assistance,1 Person Assistance Sit to Supine Sit to Supine Minimal Assistance,1 Person Assistance PT-Transfer Assessment Sit to and From Stand Sit to and from Stand Moderate Assistance,1 Person Assistance,Use of Upper Extremities Equipment Transfer Assistive Device Gait Belt,Front Wheeled Walker Orthotic/Prosthetic Devices or Brace: No Transfers Transfer Destination Chair Transfer Technique Stand Step Pivot Transfer Ability Level of Assist Moderate Assistance,1 Person Assistance,Use of Upper Extremities Comments Mobility Comments caregiver training conducted. educated spouse on how to assist pt with bed mobility. reviewed back precautions. PT demonstrated initially with assisting pt and spouse counter demonstrated. spouse was able to assist but requires cues from PT on how to assist and how to cue pt. educated spouse on how to use safety belt on how to assist pt. spouse was able to put safety belt on. pt completed sit to stand from chair. educated pt and spouse on safe techniques. pt repeated wtih spouse assisting. pt ambulated in room using FWW with spouse assisting. instructed spouse to cue pt when needed for safety. pt is impulsive and spouse was not able to cue and direct pt appropriately and PT has to instruct pt. pt completed ~ 25 ft of ambulation using FWW mod A with (+) LOB x 2 requiring mod to max A and cues and PT stabilized pt as spouse was not able to cue pt. educated spouse on how to assist and cue the pt for safety. pt ambulated again with spouse assisting and was able to assist pt using FWW and cued pt better but continues to require instruction from PT. pt ambulated again using FWW in room with spouse assisting and instructed to sit down to rest. educated spouse and pt on how to do platform step using FWW. spouse assist pt again for sit to stand and was able to instruct pt appropriately, ambulated towards the step using FWW ~ 20 ft. completed up/down platform step using FWW initially with PT assisting min to mod A and cues. pt repeated with spouse assisting and completed safely. pt ambulated back to his room using FWW with spouse assisting and sat on chair. positioned on chair. chair alarm on. call light and table within reach. pt and spouse without further concerns. informed spouse to have caregivers for a few hours if possible to assist her with pt care. spouse concern about financial issues affecting caregiver assistance. Gait Assessment Gait Gait Assistance Required: Moderate Assistance,1 Person Assist Distance (Feet) 25 Able to Maintain Weight Bearing Status Yes During Gait Assistive Devices Assistive Device Gait Belt,Front Wheeled Walker Orthotic/Prosthetic Devices or Brace: No Gait Deviations General Gait Pattern Antalgic,Decreased Stride Length,Decreased Feet Clearance,Flexed Trunk,Step-to Gait Factors Limiting Gait Function Factors Limiting Gait Function Decreased Activity Tolerance, Decreased Strength,Difficulty Following Directions,Limited Range of Motion,Pain,Poor Balance,Poor Safety Awareness Comments Gait Comments pls refer to mobility section for details Stair Climbing Assessment Evaluation Level of Assist On Stairs Moderate Assistance,1 Person Assistance Devices Stair Climbing Assistive Devices Front Wheel Walker Technique/Endurance Stair Climbing Direction Ascend and Descend Stair Climbing Technique Step to Step Number of Steps Climbed 1 Stair Climbing Set # Repetitions (reps) 2 Comments Stair Climbing Comments pls refer to mobility section for details M5 PT-IP Objective Assessments Start: 06/23/20 13:28 Freq: NEEDED Status: Active Protocol: Document 06/23/20 11:16 AB (Rec: 06/23/20 13:50 AB [id number]) Orientation Orientation/Cognition Level of Alertness Alert Orientation Name Safety Awareness Decreased Safety Awareness Memory Description Short Term Impaired Comments requires increase time to complete tasks and difficulty following directions Gross Range of Motion Lower Extremity ROM Assessment Within Functional Limits Strength Lower Extremity Strength Hip 4-/5 Knee 4-/5 Muscle Tone Muscle Tone WNL Yes M6 PT-IP Treatment Start: 06/23/20 13:28 Freq: NEEDED Status: Active Protocol: Document 06/24/20 11:00 AB (Rec: 06/24/20 12:31 AB [email or web address]) Physical Therapy Treatment Education Education Provided Precautions,Safety M7 PT-IP Assessment and Plan Start: 06/23/20 13:28 Freq: NEEDED Status: Active Protocol: Document 06/24/20 11:00 AB (Rec: 06/24/20 12:31 AB [email or web address]) PT Summary Assessment and Plan Potential Rehabilitation Potential Fair Summary Impairments Pain,ROM,Strength,Balance, Coordination,Sensation,Tone, Cognition,Bed Mobility, Transfers,Gait,Activity Tolerance Progress Towards Goals Slow Progress due to Medical Issues,Slow Progress due to Activity Tolerance,Slow Progress - Other Assessment Summary caregiver training conducted but further caregiver training is required for safety. pt will need homehealth PT. informed spouse regarding obtaining a w/c for outdoor long distance mobility and understood. will continue to assess progress. Goals Bed Mobility Goal Standby Assistance Transfer Goal Standby Assistance,Front Wheeled Walker Gait Goal Standby Assistance,Front Wheel Walker Gait Distance 100 Other Goals up/down platform step using FWW SBA Days to Meet Goals 5 Frequency of Treatment Frequency Of Treatment Once a Day Treatment Plan Physical Therapy Treatment Plan Bed Mobility Training,Transfer Training,Gait Training, Therapeutic Exercise,Balance Retraining,Discharge Planning, Hot or Cold Pack,Neuromuscular Re-ed,Coordination Retraining Recommendations To Nursing Amount of Assist Needed 1 Person Assist Discharge Recommendations PT Discharge Recommendations Home with 04/02 Assist,Home Health Transportation Needs at Discharge Private Vehicle
[2020-06-24] MEDS: ACETAMINOPHEN 325 MG TABLET 650 MG PO (14:07)
--- NOTE | 2020-06-24 14:09 | OT.IP.EVAL ---
Current Diagnoses Traumatic subarachnoid hemorrhage without loss of consciousness, initial encounter (06/21/20) Past Medical History (Last Reviewed 06/22/20 @ 18:03 by Beck Giron MD) Atrial fibrillation CAD (coronary artery disease) CHF (congestive heart failure) Chronic kidney disease Colon cancer COPD (chronic obstructive pulmonary disease) Hearing loss History of skin cancer Hodgkin lymphoma Hypertension Hypothyroidism Orthostatic hypotension Small bowel obstruction Surgical History (Last Reviewed 06/22/20 @ 18:03 by Beck Giron MD) History of carotid endarterectomy History of colon resection Pacemaker Occupational Therapy Inpatient Evaluation/Re-Eval M1 PT/OT-IP Prior Functional Status Start: 06/23/20 13:28 Freq: NEEDED Status: Active Protocol: Document 06/24/20 14:12 CGR (Rec: 06/24/20 14:37 CGR [email or web address]) Medical Review Prior Functional Status Medical History Reviewed Yes Communication able to make needs know but very [place] Mobility and Gait spouse stated that pt is independent with all mobilities and ambulation without AD and occasionally uses a SPC. Activities of Daily Living and IADL's Pt was IND in all ADLs. Prior Functional Level (Other details) Pt's [place] [facility] [place]. Social History Household Members spouse Living Arrangements House Number of Floors (Floors) Two Floors Number of Stairs To Enter/Railing? pt can stay on main level of the house 2 steps to enter the house from the front; has 2 steps to enter from the garage without rails but has cabinets on B sides that pt can hold on to per spouse Home Environment High Toilet,Walk in Shower Home Equipment Front Wheel Walker,Straight Cane,Shower Seat with Backrest ,Hand Held Shower Employment Status Retired M2 OT-IP Current Condition Start: 06/24/20 14:11 Freq: Status: Active Protocol: Document 06/24/20 14:12 CGR (Rec: 06/24/20 14:37 CGR [email or web address]) Occupational Therapy Current Condition Current Condition Evaluation Date 06/24/20 Treatment Diagnosis Fall down stairs, subarachniod hemorrhage, lung contusion Diagnosis Onset Date 06/21/20 M3 OT- IP Subjective and Pain Start: 06/24/20 14:11 Freq: Status: Active Protocol: Document 06/24/20 14:12 CGR (Rec: 06/24/20 14:37 CGR [email or web address]) OT- Subjective Occupational Therapy Visit Type Type Initial Evaluation Visit Start Time 13:33 Visit Stop Time 14:09 Total Visit Minutes 36 Notes Pt's present throguhout session. OT Pain Assessment Pain When Pain Assessed At Rest Pain Present Pain Present Pain Reported Location Generalized Intensity 8 Scale Used Numeric (0 - 10) Management Techniques Distraction,Modification of Treatment,Re-positioning M4 OT- IP ADL's Start: 06/24/20 14:11 Freq: Status: Active Protocol: Document 06/24/20 14:12 CGR (Rec: 06/24/20 14:37 CGR [email or web address]) OT [id number] Comments OT Self-Feeding Comments Not meal time OT ADL-Grooming Comments OT Grooming Comments Pt declined OT ADL-Oral Care Comments Oral Care Comments Pt declined OT ADL-Dressing General Eval Lower Body Dressing Ability Minimal Assistance Areas Needing Assistance Socks Comments OT Dressing Comments Pt was able to doff socks but needed min a to thread socks. OT ADL-Toileting General Evaluation Toileting Ability Standby Assistance Devices Toileting Assistive Devices Grab Bars Comments OT Toileting Comments Pt used GB for transfer and was unable to perform without grab bar. OT ADL-Bathing Comments OT Bathing Comments Not performed M5 OT- IP IADL's Start: 06/24/20 14:11 Freq: Status: Active Protocol: Document 06/24/20 14:12 CGR (Rec: 06/24/20 14:37 CGR [email or web address]) OT-Instrumental Activities of Daily Living Deficits IADL Deficits Identified Deficits Home Safety Awareness Awareness of Need for Assistance at Home Decreased Awareness Ability to Problem Solve Emergency Unable to Problem Solve Situations Medication Management Medication Management Caregiver Administers Money Management Money Management Caregiver Provides Assistance Meal Preparation Meal Preparation Caregiver Provides Assist Mainframe Consultant Mainframe Consultant Caregiver Provides Assist Driving Driving Comments 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 M6 OT- IP Functional Cognition Start: 06/24/20 14:11 Freq: Status: Active Protocol: Document 06/24/20 14:12 CGR (Rec: 06/24/20 14:37 CGR [email or web address]) Cognitive Factors Limiting Selfcare Function Cognitive Ability Level of Alertness Alert,Drowsy Patient Orientation Name,Age,Birthday,Month,Date, Year,Day of Week,Place, Situation Attention Span Ability Capable of Focused Attention, Capable of Sustained Attention Ability to Follow Commands Able to Follow One Step Commands with Increased Time, Able to Follow One Step Commands with Repetition OT- Vision and Hearing OT- Hearing Assessment OT- Hearing Assessment Hearing Impaired,Use of Hearing Aids OT- Vision Assessment Visual Acuity Glasses All The Time Visual Attentiveness WFL Occular Pursuits WFL Visual Convergence WFL Vision Assessment Comments Pt without smooth persuits. M7 OT- IP Mobility and Balance Start: 06/24/20 14:11 Freq: Status: Active Protocol: Document 06/24/20 14:12 CGR (Rec: 06/24/20 14:37 CGR [email or web address]) OT- Bed Mobility Assessment Rolling Type of Rolling Log Rolling,Roll to Left Level of Assistance Minimal Assistance,Moderate Assistance,1 Person Assistance ,Bedrails Supine to Sit Supine to Sit Assist Minimal Assistance Scooting Scooting to Edge of Bed Contact Guard Assistance OT-Transfer Assessment Sit to and From Stand Sit to and from Stand Contact Guard Assistance, Minimal Assistance Transfers Transfer Ability Minimal Assistance,Moderate Assistance Technique Transfer Destination Bed,Chair,Toilet Transfer Technique Stand Step Pivot Devices Transfer Assistive Devices Gait Belt,Front Wheeled Walker Comments Mobility Comments Pt was min a for most trasnfers but needed mod a for sit to stand from toilet d/t posterior lean during pulling up of briefs. OT- Gait Assessment Gait Gait Assistance Required: Minimum Assistance Assistive Devices Assistive Device Gait Belt,Front Wheeled Walker OT- Balance Assessment Sitting Balance and Reactions Static Sitting Balance Ability Good Dynamic Sitting Balance Ability Fair M8 OT- IP Objective Assessments Start: 06/24/20 14:11 Freq: Status: Active Protocol: Document 06/24/20 14:12 CGR (Rec: 06/24/20 14:37 CGR [email or web address]) OT Gross Range of Motion Upper Extremity Range of Motion Assessment Within Functional Limits OT Strength Upper Extremity Strength Assessment Within Functional Limits Comments Strength Comments grossly 4/5 OT- Coordination Assessment Upper Extremity Finger to Nose Test Within Functional Limits Finger Tapping Test Within Functional Limits OT-Muscle Tone Assessment Muscle Tone WNL Yes OT Sensation Assessment Edema Edema Absent M9 OT- IP Assessment and Plan Start: 06/24/20 14:11 Freq: Status: Active Protocol: Document 06/24/20 14:12 CGR (Rec: 06/24/20 14:37 CGR [email or web address]) OT Summary Assessment and Plan Potential Rehabilitation Potential Good Analytic Complexity at Evaluation Moderate Summary OT Impairments Pain,Balance,Functional Cognition,Functional Mobility, Grooming,Dressing,Toileting, Bathing,Toilet Transfers, Shower Transfers,Activity Tolerance Progress Towards Goals Slow Progress due to Pain Assessment Summary Pt presents as a moderate complexity evaluation s/p admit for fall. Pt found to have a subarachnoid hemorrhage and a lung contusion. Pt currently needs min to mod a for mobiltiy and ADLs. Pt will continue to benefit from OT services while hospitalized and recommend d/c home with home health and 24 hour assist . Goals Grooming Goal Independent Dressing Goal Independent Toileting Goal Independent Bathing Goal Independent Toilet Transfer Goal Independent Shower Transfer Goal Independent Days to Meet Goals 5 Frequency of Treatment Frequency Of Treatment Once a Day Treatment Plan OT Treatment Plan ADL Training,Functional Cognition Training,Functional Mobility,Patient/Family Education,Discharge Planning Other Treatment Recommendations and Next shower Treatment Focus Discharge Recommendations OT Discharge Recommendations Home with Assistance Home Equipment Needs grab bars, per she just purchased 2ww and shower chair with back. Transportation Needs at Discharge Private Vehicle
--- NOTE | 2020-06-24 14:40 | CM.DPNOTE ---
DCP Cont Therapy team recommending SNF, although spouse would like to take patient home. Dr Randle suggests DC Saturday w/ HH and patient/spouse agreeable to such. Faxed HH referral to [facility] according to calendar rotation. Requested RN/PT/OT/M1 [employer] Need to f/u w/ [facility] and w/patient's spouse Yun Saturday JW
[2020-06-24 14:41] VITALS: BP 84/43; PULSE 83; RESP 13; TEMP 36.9; O2SAT 99
[2020-06-24 14:57] VITALS: BP 142/64; PULSE 81
[2020-06-24 15:58] VITALS: BP 106/52; PULSE 70; RESP 18; TEMP 37.1; O2SAT 95
--- NOTE | 2020-06-24 16:21 | PM.PN.1 ---
Subjective Subjective Date Patient Seen: 06/24/20 Time Patient Seen: 12:00 Interval history: No acute events overnight. The patient says that he feels better today, and his only complaint is his neck pain which per him is chronic. He has been seen by physical therapy, and per the patient and his they work together to develop strategies for mobility at home. I spoke with the physical therapist, who felt that the patient was very impulsive, and his may not be able to handle him at home without further teaching. She recommended occupational therapy to see him today and tomorrow, and physical therapy to see him again tomorrow before ultimately deciding about sending him home. Exam Vital Signs (past 8 hours): - 06/24/20 09:50 06/24/20 14:41 06/24/20 14:57 Temperature 97.4 F L 98.4 F Pulse Rate 83 83 81 Respiratory Rate 12 13 Blood Pressure 136/67 84/43 L 142/64 H Pulse Oximetry 99 99 06/24/20 15:58 Temperature 98.7 F Pulse Rate 70 Respiratory Rate 18 Blood Pressure 106/52 L Pulse Oximetry 95 Oxygen Delivery Method Room Air Oxygen Flow Rate 0 Narrative Exam Narrative: GENERAL APPEARANCE: Elderly male, appears comfortable, sitting up in a chair, eating a meal, in no distress SKIN: Inspection of the skin reveals no rashes, ulcerations or petechiae. HEENT: scalp laceration now stapled, no erythema or induration, dried blood. Contusion R forehead CHEST: Normal AP diameter and normal contour without any kyphoscoliosis. CARDIOVASCULAR: Regular rate and rhythm, no significant pedal edema ABDOMEN: Soft and Nondistended EXTREMITIES: No cyanosis, clubbing or edema. NEUROLOGIC: Alert and oriented. Hard of hearing and without hearing aids. Halting speech, but appropriate responses questions Objective Labs Result Diagrams: 06/21/20 11:20 06/21/20 11: [facility] Medical History (Updated 06/24/20 @ 16:31 by Joie Randle MD) Atrial fibrillation CAD (coronary artery disease) CHF (congestive heart failure) Chronic kidney disease Colon cancer COPD (chronic obstructive pulmonary disease) Hearing loss History of skin cancer Hodgkin lymphoma Hypertension Hypothyroidism Orthostatic hypotension Small bowel obstruction Surgical History History of carotid endarterectomy History of colon resection Pacemaker Family History Mother Traumatic amputation of leg Father Heart disease Smoker Social History marital status: household members: spouse Smoking Status: Former smoker alcohol intake: never Assessment & Plan Assessment and plan (1) Fall: Status: Acute (2) Contusion of lung: Status: Acute (3) Laceration of scalp: Status: Acute (4) Contusion of forehead: Status: Acute (5) Anticoagulated by anticoagulation treatment: Status: Acute (6) Hypothyroidism: Status: Acute (7) Chronic kidney disease: Status: Acute (8) CAD (coronary artery disease): Status: Acute (9) Atrial fibrillation: Status: Acute (10) SBO (small bowel obstruction): Status: Acute (11) Subarachnoid hemorrhage: Status: Acute Assessment & Plan narrative: 85-year-old man admitted after acute trauma, fall down stairs with lung conusion and subarachnoid hemorrhage. He is hemodynamically stable, his repeat head CT was stable, and we are holding his anticoagulation. He seems to be gradually improving with physical therapy. He and his are very optimistic about going home rather than sending him to physical therapy rehab or SNF. They were avid to go home today, but based on physical therapy recommendations have agreed to stay till tomorrow and receive more training for managing at home. I have asked the care coordinators to set up home care physical therapy for him as well, and any other home care services they are willing to receive. Plan: -OT and PT today, OT and PT tomorrow, consider dispo tomorrow pending the results of the OT PT work -Lung contusion-breathing well on room air, no pneumothorax. Continue incentive spirometry. -Subarachnoid hemorrhage-stable on repeat CTH. No acute neurologic changes. Q4 hr neurochecks. Hold warfarin, recieved Kcentra for reversal. Reimage if change in neurochecks -Dispo-possible safe discharge to home depending on how he does with PT and OT tomorrow Greater than 35 minutes were spent discussing the patient's care with his nurse and his physical therapist, discussing his care with the doggy daycare activities director, and discussing at length with the patient and his regarding expectations for safe discharge to home, and reviewing his chart. COVID-19 COVID-19 status: Negative Result date/Date tested (Pos, Neg/Pending): 06/21/20 Time Spent With Patient Time with patient: Greater than 35 minutes Quality VTE Deep Vein Thrombosis/Pulmonary Embolism Present on Admission: No
[2020-06-24] MEDS: MIDODRINE HCL 5 MG TABLET PO (17:38)
[2020-06-24 19:29] VITALS: BP 131/54; PULSE 66; RESP 18; TEMP 37; O2SAT 98
[2020-06-24] MEDS: ATORVASTATIN 20 MG TABLET 10 MG PO (21:04)
[2020-06-25 00:46] VITALS: BP 187/88; PULSE 88; RESP 20; TEMP 37.6; O2SAT 94
[2020-06-25 01:01] VITALS: BP 163/75
[2020-06-25 05:33] VITALS: BP 168/78; PULSE 78; RESP 20; TEMP 37; O2SAT 100
[2020-06-25] MEDS: LEVOTHYROXINE 100 MCG TABLET PO (06:09)
[2020-06-25 07:45] VITALS: BP 152/71; PULSE 88; RESP 16; TEMP 36.3; O2SAT 93
--- NOTE | 2020-06-25 10:08 | PT.IPTN ---
Current Diagnoses Hypothyroidism, unspecified (06/21/20) Atherosclerotic heart disease of [place] coronary artery without angina pectoris (06/21/20) Unspecified atrial fibrillation (06/21/20) Nontraumatic subarachnoid hemorrhage, unspecified (06/21/20) Unspecified intestinal obstruction, unspecified as to partial versus complete obstruction (06/21/20) Chronic kidney disease, unspecified (06/21/20) Contusion of other part of head, initial encounter (06/21/20) Laceration without foreign body of scalp, initial encounter (06/21/20) Traumatic subarachnoid hemorrhage without loss of consciousness, initial encounter (06/21/20) Contusion of lung, unspecified, initial encounter (06/21/20) Unspecified fall, initial encounter (06/21/20) 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 fx; subarachnoid hemorrhage; diff. walk Onset Date 06/21/20 Precautions Other Precautions falls; BP M3 PT-IP Subjective Start: 06/23/20 13:28 Freq: NEEDED Status: Active Protocol: Document 06/25/20 10:08 AB (Rec: 06/25/20 12:14 AB [email or web address]) Subjective Physical Therapy Visit Type Type Treatment Note Visit Start Time 10:08 Visit Stop Time 10:53 Total Visit Minutes 45 Number of MANAGER REHAB Visits 0 Physical Therapy Visit Comments Patient Comments pt is agreeable to do PT; spouse in room for caregiver training Therapy Pain Assessment Pain Present Pain Present Denied Pain M4 PT-IP Mobility and Gait Start: 06/23/20 13:28 Freq: NEEDED Status: Active Protocol: Document 06/25/20 10:08 AB (Rec: 06/25/20 12:14 AB [email or web address]) PT-Bed Mobility Assessment Rolling Type of Rolling Log Rolling Level of Assist Standby Assistance,Contact Guard Assistance Supine to Sit Supine to Sit Standby Assistance,Contact Guard Assistance Sit to Supine Sit to Supine Standby Assistance,Contact Guard Assistance PT-Transfer Assessment Sit to and From Stand Sit to and from Stand Minimal Assistance,1 Person Assistance,Use of Upper Extremities Equipment Transfer Assistive Device Bed Rail,Front Wheeled Walker Orthotic/Prosthetic Devices or Brace: No Transfers Transfer Destination Bed,Chair,Toilet Transfer Technique ambulated using FWW Transfer Ability Level of Assist Minimal Assistance,Moderate Assistance,1 Person Assistance ,Use of Upper Extremities Comments Mobility Comments pt sitting on chair and spouse in room. caregiver training conducted. spouse was able to put safety belt on pt. pt completed sit to stand from the chair with spouse assisting and pt transferred to bed using FWW with LOB and PT has to provide min A for safety. pt completed sit<> supine and initially was not going to do log roll bed mobility and PT has to instruct pt appropriately. educated spouse regarding instructing and proving pt cues for safety. informed spouse that pt is impulsive and has to provide pt proper instruction prior to mobility for safety. educated spouse again regarding importance of log roll bed mobility due to pt's compression fractures. spouse stated that she did not know about the log roll bed mobility but PT did caregiver training with spouse yesterday and was also given handouts regarding back precautions and log roll bed mobility. Repeated log roll bed mobility x 2 sets with spouse assisting pt and completed. completed with less instruction from PT and spouse instructing pt but still requires occasional cues from PT. spouse assisted pt from bed to the toilet using FWW mod A and cues. pt continues to be impulsive and spouse struggling to instruct pt appropriately. PT has provide proper cues. Spouse assisted pt out from the toilet and into the chair using fWW and has another LOB requiring PT to assist. pt rested on the chair. educated spouse again regarding providing proper instructions and tell pt to slow down when needed. Spouse assisted pt with sit to stand from chair and ambulated out of the room using FWW. pt completed up/down platform step using FWW and ambulated in the hallway using FWW. pt ambulated back to his room and rested on the chair. Spouse providing more cues to pt. pt agreed to ambulate again. spouse assisted pt and ambulated 75 ft using FWW in the hallway. pt requested to go back to bed and completed sit to supine with spouse assisting. positioned pt in bed. call light and table placed within reach. educated spouse again regarding need for another caregiver even for a few hours and spouse has questions regarding resources. informed spouse that the d/c c4 planner should be able to provide spouse info. Infored d/c c4 planner Jeanine regarding spouse's concerns. informed spouse regarding PT's concerns regarding pt going home but spojulianne refuses pt to go to SNF and is determined to take pt home. educated pt and spouse again regarding safe mobility and instructions and spouse stated that she is more confident today that she can assist pt. informed residential case manager and nurse regarding pt's mobility and caregiver training result. Gait Assessment Gait Gait Assistance Required: Minimum Assistance,Moderate Assistance,1 Person Assist Distance (Feet) 75 Able to Maintain Weight Bearing Status Yes During Gait Assistive Devices Assistive Device Gait Belt,Front Wheeled Walker Orthotic/Prosthetic Devices or Brace: No Gait Deviations General Gait Pattern Antalgic,Decreased Feet Clearance,Festinating Factors Limiting Gait Function Factors Limiting Gait Function Decreased Activity Tolerance, Decreased Strength,Difficulty Following Directions,Poor Balance,Poor Safety Awareness Stair Climbing Assessment Evaluation Level of Assist On Stairs Minimal Assistance,1 Person Assistance Devices Stair Climbing Assistive Devices Front Wheel Walker Technique/Endurance Stair Climbing Technique Step to Step Number of Steps Climbed 1 Stair Climbing Set # Repetitions (reps) 1 M5 PT-IP Objective Assessments Start: 06/23/20 13:28 Freq: NEEDED Status: Active Protocol: Document 06/23/20 11:16 AB (Rec: 06/23/20 13:50 AB [email or web address]) Orientation Orientation/Cognition Level of Alertness Alert Orientation Name Safety Awareness Decreased Safety Awareness Memory Description Short Term Impaired Comments requires increase time to complete tasks and difficulty following directions Gross Range of Motion Lower Extremity ROM Assessment Within Functional Limits Strength Lower Extremity Strength Hip 4-/5 Knee 4-/5 Muscle Tone Muscle Tone WNL Yes M6 PT-IP Treatment Start: 06/23/20 13:28 Freq: NEEDED Status: Active Protocol: Document 06/25/20 10:08 AB (Rec: 06/25/20 12:15 AB [id number]) Physical Therapy Treatment Education Education Provided Safety M7 PT-IP Assessment and Plan Start: 06/23/20 13:28 Freq: NEEDED Status: Active Protocol: Document 06/25/20 10:08 AB (Rec: 06/25/20 12:14 AB [id number]) PT Summary Assessment and Plan Potential Rehabilitation Potential Fair Summary Impairments Pain,ROM,Strength,Balance, Coordination,Sensation,Tone, Cognition,Bed Mobility, Transfers,Gait,Activity Tolerance Progress Towards Goals Slow Progress - Other Assessment Summary caregiver training conducted and spouse assisted pt but continues to require cues from PT for safety. educated spouse regarding pt's safety needs and instructions needed for mobility. spouse refuses for pt to go to SNF. pt will need homehealth PT. Goals Bed Mobility Goal Standby Assistance Transfer Goal Standby Assistance,Front Wheeled Walker Gait Goal Standby Assistance,Front Wheel Walker Gait Distance 100 Other Goals up/down platform step using FWW SBA Days to Meet Goals 5 Frequency of Treatment Frequency Of Treatment Once a Day Treatment Plan Physical Therapy Treatment Plan Bed Mobility Training,Transfer Training,Gait Training, Therapeutic Exercise,Balance Retraining,Discharge Planning, Hot or Cold Pack,Neuromuscular Re-ed,Coordination Retraining Recommendations To Nursing Amount of Assist Needed 1 Person Assist Discharge Recommendations PT Discharge Recommendations Home with 04/02 Assist,Home Health,SNF Rehab Transportation Needs at Discharge Private Vehicle
[2020-06-25] MEDS: POTASSIUM CHLORIDE 20 MEQ TAB PO (10:31)
[2020-06-25 12:04] VITALS: BP 124/52; PULSE 69; RESP 14; TEMP 36.4; O2SAT 100
--- NOTE | 2020-06-25 12:55 | OT.IP.TRT ---
Current Diagnoses Hypothyroidism, unspecified (06/21/20) Atherosclerotic heart disease of [place] coronary artery without angina pectoris (06/21/20) Unspecified atrial fibrillation (06/21/20) Nontraumatic subarachnoid hemorrhage, unspecified (06/21/20) Unspecified intestinal obstruction, unspecified as to partial versus complete obstruction (06/21/20) Chronic kidney disease, unspecified (06/21/20) Contusion of other part of head, initial encounter (06/21/20) Laceration without foreign body of scalp, initial encounter (06/21/20) Traumatic subarachnoid hemorrhage without loss of consciousness, initial encounter (06/21/20) Contusion of lung, unspecified, initial encounter (06/21/20) Unspecified fall, initial encounter (06/21/20) 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 (06/21/20) Occupational Therapy Treatment Note M2 OT-IP Current Condition Start: 06/24/20 14:11 Freq: Status: Active Protocol: Document 06/24/20 14:12 CGR (Rec: 06/24/20 14:37 CGR [email or web address]) Occupational Therapy Current Condition Current Condition Evaluation Date 06/24/20 Treatment Diagnosis Fall down stairs, subarachniod hemorrhage, lung contusion Diagnosis Onset Date 06/21/20 M3 OT- IP Subjective and Pain Start: 06/24/20 14:11 Freq: Status: Active Protocol: Document 06/25/20 14:18 CGR (Rec: 06/25/20 14:33 CGR [email or web address]) OT- Subjective Occupational Therapy Visit Type Type Progress Note Visit Start Time 12:10 Visit Stop Time 12:55 Total Visit Minutes 45 OT Pain Assessment Pain When Pain Assessed At Rest Pain Present Pain Present Pain Reported Location Generalized Scale Used did not rate Management Techniques Modification of Treatment,Re- positioning M4 OT- IP ADL's Start: 06/24/20 14:11 Freq: Status: Active Protocol: Document 06/25/20 14:18 CGR (Rec: 06/25/20 14:33 CGR [email or web address]) OT [id number] General Evaluation Self-Feeding Ability Independent Comments OT Self-Feeding Comments lunch at end of session OT ADL-Grooming General Evaluation Grooming Ability Total Assistance Areas Needing Assistance Combing/Brushing Hair Comments OT Grooming Comments brushed hair d/t georgie OT ADL-Oral Care Comments Oral Care Comments Not performed OT ADL-Dressing General Eval Upper Body Dressing Ability Minimal Assistance Lower Body Dressing Ability Moderate Assistance,Maximum Assistance Areas Needing Assistance Pull-Over Shirt,Underpants/ Brief,Socks Comments OT Dressing Comments Pt's assisted pt with dressing. Encouraged to allow pt to perform as much of the task as possible. OT ADL-Toileting Comments OT Toileting Comments Not performed OT ADL-Bathing Bathing Type Bathing Type Shower General Evaluation Bathing Ability Moderate Assistance Areas Needing Assistance Retrieving/Setting Up Items, Wash/Dry Back,Wash/Dry Lower Extremities Devices Bathing Equipment Hand Held Shower Sprayer, Shower Chair with Arms,Grab Bars Comments OT Bathing Comments Pt showered with assist from his . Pt and educated on safe practices in the shower during session. M5 OT- IP IADL's Start: 06/24/20 14:11 Freq: Status: Active Protocol: Document 06/24/20 14:12 CGR (Rec: 06/24/20 14:37 CGR [email or web address]) OT-Instrumental Activities of Daily Living Deficits IADL Deficits Identified Deficits Home Safety Awareness Awareness of Need for Assistance at Home Decreased Awareness Ability to Problem Solve Emergency Unable to Problem Solve Situations Medication Management Medication Management Caregiver Administers Money Management Money Management Caregiver Provides Assistance Meal Preparation Meal Preparation Caregiver Provides Assist Consulting It Architect Consulting It Architect Caregiver Provides Assist Driving Driving Comments 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 M6 OT- IP Functional Cognition Start: 06/24/20 14:11 Freq: Status: Active Protocol: Document 06/24/20 14:12 CGR (Rec: 06/24/20 14:37 CGR [email or web address]) Cognitive Factors Limiting Selfcare Function Cognitive Ability Level of Alertness Alert,Drowsy Patient Orientation Name,Age,Birthday,Month,Date, Year,Day of Week,Place, Situation Attention Span Ability Capable of Focused Attention, Capable of Sustained Attention Ability to Follow Commands Able to Follow One Step Commands with Increased Time, Able to Follow One Step Commands with Repetition OT- Vision and Hearing OT- Hearing Assessment OT- Hearing Assessment Hearing Impaired,Use of Hearing Aids OT- Vision Assessment Visual Acuity Glasses All The Time Visual Attentiveness WFL Occular Pursuits WFL Visual Convergence WFL Vision Assessment Comments Pt without smooth persuits. M7 OT- IP Mobility and Balance Start: 06/24/20 14:11 Freq: Status: Active Protocol: Document 06/25/20 14:18 CGR (Rec: 06/25/20 14:33 CGR [email or web address]) OT- Bed Mobility Assessment Rolling Type of Rolling Log Rolling,Roll to Left Level of Assistance Minimal Assistance Sit to Supine Sit to Supine Assist Contact Guard Assistance Scooting Scooting to Edge of Bed Standby Assistance OT-Transfer Assessment Sit to and From Stand Sit to and from Stand Contact Guard Assistance, Minimal Assistance Transfers Transfer Ability Contact Guard Assistance, Minimal Assistance Technique Transfer Destination Bed,Chair,Shower Stall Transfer Technique Stand Step Pivot Devices Transfer Assistive Devices Gait Belt,Front Wheeled Walker Comments Mobility Comments Pt still needs verbal cues for hand placement and safety with use of walker. OT- Gait Assessment Gait Gait Assistance Required: Contact Guard Assist,Minimum Assistance Assistive Devices Assistive Device Gait Belt,Front Wheeled Walker OT- Balance Assessment Sitting Balance and Reactions Static Sitting Balance Ability Good Dynamic Sitting Balance Ability Good M8 OT- IP Objective Assessments Start: 06/24/20 14:11 Freq: Status: Active Protocol: Document 06/24/20 14:12 CGR (Rec: 06/24/20 14:37 CGR [email or web address]) OT Gross Range of Motion Upper Extremity Range of Motion Assessment Within Functional Limits OT Strength Upper Extremity Strength Assessment Within Functional Limits Comments Strength Comments grossly 4/5 OT- Coordination Assessment Upper Extremity Finger to Nose Test Within Functional Limits Finger Tapping Test Within Functional Limits OT-Muscle Tone Assessment Muscle Tone WNL Yes OT Sensation Assessment Edema Edema Absent M9 OT- IP Assessment and Plan Start: 06/24/20 14:11 Freq: Status: Active Protocol: Document 06/25/20 14:18 CGR (Rec: 06/25/20 14:33 CGR [email or web address]) OT Summary Assessment and Plan Potential Rehabilitation Potential Good Analytic Complexity at Evaluation Moderate Summary OT Impairments Pain,Balance,Functional Cognition,Functional Mobility, Grooming,Dressing,Toileting, Bathing,Toilet Transfers, Shower Transfers,Activity Tolerance Progress Towards Goals Slow Progress due to Pain Assessment Summary Pt presents as a moderate complexity evaluation s/p admit for fall. Pt and educated on home safety and performed shower with verbal cues and assist as needed. Pt can be impulsive at times and pt's appears to have some memory deficits and is unable to remember precautions and home safety. Concerns for pt to return home with at this time but they are refusing SNF. Goals Grooming Goal Independent Dressing Goal Independent Toileting Goal Independent Bathing Goal Independent Toilet Transfer Goal Independent Shower Transfer Goal Independent Days to Meet Goals 5 Frequency of Treatment Frequency Of Treatment Once a Day Treatment Plan OT Treatment Plan ADL Training,Functional Cognition Training,Functional Mobility,Patient/Family Education,Discharge Planning Other Treatment Recommendations and Next shower Treatment Focus Discharge Recommendations OT Discharge Recommendations Home with Assistance Home Equipment Needs grab bars, per she just purchased 2ww and shower chair with back. Transportation Needs at Discharge Private Vehicle
--- NOTE | 2020-06-25 14:00 | CM.DPC ---
DCP Discharge Home with HH Per MD and Surgeon, pt medically stable to d/c home with spouse and HH today and no identified barriers to discharge at this time (although some concern with spouse having some memory issues and pt with dementia). PT and OT worked with pt and spouse today on further CG training and showering. SW met bedside with spouse again and explained role and provided the [facility] brochure with a note on how HH will contact them and with the Senior Resource Guidebook with notes signifying PP CG agencies and other resources to assist them in the community. Spouse very appreciative but seems somewhat forgetful. SW updated RN who will walk them through the d/c pwk and instructions and also highlighted important information for spouse. SW called [facility] and provided update on pt discharge and faxed the d/c summary to review and confirmed they have the F2F and orders. Plan: Patient to d/c home via spouse POV and [facility] to start pt on services after discharge. DERIK Cheatham
--- NOTE | 2020-06-25 14:11 | PC.NURSE ---
Day shift note: Patient discharged home post OT/PT therapy, resources given to patient and spouse regarding home health and physical therapy. Discussed importance of F/U with PMD, discontinuing Warfarin until further instructions by Cardiology, and worsening symptoms to return to ED. Fall risk prevention information given to Yun. Patient dressed with assistance. Shower with OT. Home via private vehicle accompanied by spouse.
--- NOTE | 2020-06-27 12:42 | P.DS_ITS ---
History of Present Illness History of Present Illness Chief complaint: fell down stairs/cut left side of head/bleeding Narrative: 85 y.o man on warfarin who presented sp fall down stairs. Discharge Providers Provider Date of admission: 06/21/20 14:42 Discharge Date: 06/25/20 Primary care physician: Sachin Vu MD Consults: 06/21/20 13:01 Consult to General Surgery Stat Comment: Consulting Provider: Beck Giron Reason for consultation: trauma and admission 06/21/20 13:56 Consult to Physical Therapy Evaluate & Treat Comment: Physician Instructions: Evaluate and Treat 06/23/20 12:03 Consult to Physical Therapy Evaluate & Treat Comment: Physician Instructions: Evaluate and Treat 06/24/20 12:26 Consult to Occupational Therapy Evaluate & Treat Comment: Physician Instructions: Evaluate and treat 06/24/20 12:40 Consult to Occupational Therapy Evaluate & Treat Comment: please see today and tomorrow if possible. Physician Instructions: Evaluate and treat. possible home tomorrow 06/24/20 13:36 Consult to Home Health Routine Comment: Reason For Exam: Home health upon DC 06/24/20 22:28 Consult to Speech Therapy Evaluate & Treat Comment: cough and chocking with swallowing Physician Instructions: Evaluate and treat Discharge provider: Murray Mcqueen MD Summary Hospital Course Discharge Diagnosis: subarchnoid hemorrhage traumatic fall Hospital Course: Patient was admitted 06/21 s/p fall down stairs on anticoagulation. At admission he was hemodynamically stable and neurologically intact. Workup demonstrated a subarachonoid bleed and he recieved [facility] Warfarin was held. There were spinal fractures age indeterminate. Case was discussed with neuosurgery who felt that care could be managed here. Repeat CTH demonstrated no expansion of brain hemorrhoage. Therapy recommended home with assistance which was arranged. Exam Vital Signs (past 8 hours): Oxygen Delivery Method Room Air Oxygen Flow Rate 0 Narrative Exam Narrative: Gen-Elderly man alert and oriented no acute distress Chest-Non labored resp Abdomen-Soft non tender Ext-warm well perfused. Objective Labs Result Diagrams: 06/21/20 11:20 06/21/20 11:20 [facility] Medical History (Updated 06/24/20 @ 16:31 by Joie Randle MD) Atrial fibrillation CAD (coronary artery disease) CHF (congestive heart failure) Chronic kidney disease Colon cancer COPD (chronic obstructive pulmonary disease) Hearing loss History of skin cancer Hodgkin lymphoma Hypertension Hypothyroidism Orthostatic hypotension Small bowel obstruction Surgical History History of carotid endarterectomy History of colon resection Pacemaker Family History Mother Traumatic amputation of leg Father Heart disease Smoker Social History marital status: household members: spouse Smoking Status: Former smoker alcohol intake: never Discharge Plan Discharge Plan Patient Disposition: Home Provider Discharge Comment: You had a traumatic fall that resulted in a lung contustion (bruised lung), sub arachnoid hemorrhage (bleeding on the surface of the brain, and a scalp laceration. These injuries are stable and improving at the time of discharge. If you have worsening confusion, shortness of breath, unsteadiness, headache, or other concerning symptoms once you arrive home, you should call 911 and return to the hospital immediately. Hold your blood thinner (Warfarin) until you have been to see your tool crib attendant and primary care doctor, and have discussed the risks of restarting blood thinners versus the risk of another fall and another head bleed. Continue your other medications as prescribed. Follow the instructions and recommendations given to you by the physical therapist and occupational therapist. Contact the outpatient physical therapist provided by the mobile home laborer at the time of discharge. Continue working on your physical strength and mobility as much as safely possible at home. You will need to have the georgie removed from your scalp in one week. Please have this done by your primary doctor, or contact [facility] for a follow up appointment with one of our doctors to check your wound and remove the georgie. Please contact your primary care doctor and your tool crib attendant and make appointments to be seen next week. Discharge orders & Medications Prescriptions: Continued atorvastatin [Lipitor] 10 MG tablet 10 mg PO BEDTIME Qty: 0 RF: 0 fludrocortisone 0.1 mg Tablet 0.1 mg PO Q OTHER DAY RF: 0 levothyroxine 100 mcg Tablet 100 mcg PO DAILY RF: 0 midodrine 5 mg tablet 5 mg PO QPM RF: 0 magnesium oxide 400 mg (241.3 mg magnesium) Tablet 400 mg PO DAILY RF: 0 tetrahydrozoline-peg 0.05-1 % Drops 1 drp OPHTHALMIC (EYE) DIRECTED RF: 0 albuterol sulfate [Ventolin HFA] 90 mcg/actuation Hfa Aerosol Inhaler 2 puff INHALATION Q6H PRN (Reason: Shortness Of Breath) RF: 0 multivitamin Capsule 1 cap PO DAILY RF: 0 cholecalciferol (vitamin D3) [Vitamin D3] 1,000 unit Capsule 1,000 unit PO DAILY RF: 0 amiodarone 100 mg tablet 100 mg PO Q OTHER DAY RF: 0 [place]-3 Fish Oil 300-1,000 mg Capsule 1 cap PO DAILY RF: 0 CoQ-10 200 mg 200 mg PO DAILY RF: 0 flaxseed 4 oz PO DAILY RF: 0 Discontinued warfarin 5 mg tablet 7.5 mg PO SUMOWEFRSA RF: 0 warfarin 5 mg tablet 10 mg PO TUTH RF: 0 Follow up/Referrals: Beck Giron MD [Physician] - (Follow up for removal of scalp georgie.) Sachin Vu MD [Primary Care Provider] - Diet/Activity/Treatments Diet: Diet as Tolerated Skin/Wound/Dressing Care Report to your healthcare provider any signs of infection, such as:: chills, fever, night sweats, increased pain, unusual drainage and unusual redness Visit Report/Discharge Packet Instructions: DI for Concussion, DI for Post-traumatic Headache, DI for Trauma, Closed Head Injury, DI for Pulmonary Contusion Discharge Data Primary Care Provider: Sachin Vu Quality VTE Deep Vein Thrombosis/Pulmonary Embolism Present on Admission: No
== END 2020-06-25 14:00 | disposition home health service (06) | DRG 964 ==
LOC: ED 13:16 → AC 16:31
PROVIDERS: Admitting Provider Specialist; Emergency Provider Emergency Medicine; PCP Internal Medicine; Referring Provider Emergency Medicine; Visit Provider Specialist
DX: S06.6X0A Traumatic subarachnoid hemorrhage without loss of consciousness, initial encounter (principal); D68.32 Hemorrhagic disorder due to extrinsic circulating anticoagulants; S27.329A Contusion of lung, unspecified, initial encounter; I48.19 Other persistent atrial fibrillation; I42.9 Cardiomyopathy, unspecified; T45.515A Adverse effect of anticoagulants, initial encounter; Z79.01 Long term (current) use of anticoagulants; J44.9 Chronic obstructive pulmonary disease, unspecified; I12.9 Hypertensive chronic kidney disease with stage 1 through stage 4 chronic kidney disease, or unspecified chronic kidney disease; N18.30 Chronic kidney disease, stage 3 unspecified; J98.4 Other disorders of lung; I95.9 Hypotension, unspecified; I25.10 Atherosclerotic heart disease of native coronary artery without angina pectoris; Z87.891 Personal history of nicotine dependence; E03.9 Hypothyroidism, unspecified; Z95.0 Presence of cardiac pacemaker; Z20.828 Contact with and (suspected) exposure to other viral communicable diseases; W10.9XXA Fall (on) (from) unspecified stairs and steps, initial encounter; Y92.099 Unspecified place in other non-institutional residence as the place of occurrence of the external cause
CPT/HCPCS: 36415; 70450; 71260; 72125; 73600; 74177; 80053; 82550; 82553; 83690; 84484; 85025; 85610; 85730; 87635; 93005; 93010; 96360; 96361; 97162; 97166; 97530; 97535; 99231; 99232; 99238; 99285; A9270; C9132; J3430; Q9967

== ENCOUNTER → 2020-12-08 16:36 | Outpatient (CLI) | payer OTHER, SELFPAY ==
[2020-06-21 15:01] VITALS: BMI 24.5
[2020-12-08 18:14] LABS: Add Manual Diff / Slide Review NO; Basophils Absolute Auto 0 /uL (0-100); Basophils Percent Auto 0.4 % (0-2); Eosinophils Absolute Auto 100 /uL (0-450); Eosinophils Percent Auto 1.4 % (2-4); Hematocrit 36.3 % (41-53); Hemoglobin 12.5 g/dL (13.5-17.5); Lymphocytes Absolute Auto 900 /uL (1100-4500); Lymphocytes Percent Auto 12.1 % (25-40); Mean Corpuscular HGB Conc 34.4 % (30-36); Mean Corpuscular Hemoglobin 31.2 PG (26-34); Mean Corpuscular Volume 90.9 fL (80-100); Monocytes Absolute Auto 500 /uL (0-900); Neutrophils Absolute Auto 5700 /uL (1500-7000); Neutrophils Percent Auto 79.1 % (50-75); Platelet Count 183 X10^3/uL (150-400); Red Cell Distribution Width 14.5 % (11.6-14.8); White Blood Cell Count 7.2 X10^3/uL (4.5-11.0)
[2020-12-08 18:22] LABS: Alanine Aminotransferase 25 IU/L (<50); Albumin 4.1 g/dL (3.5-5.0); Albumin Globulin Ratio 1.4 (1.0-2.8); Alkaline Phosphatase 36 U/L (38-126); Aspartate Aminotransferase 30 IU/L (17-59); BUN Creatinine Ratio 24.2 (6-22); Bilirubin Total 0.3 mg/dL (0.2-1.3); Blood Urea Nitrogen 40 mg/dL (9-20); Calcium 9.6 mg/dL (8.4-10.2); Carbon Dioxide 27 mmol/L (22-32); Chloride 104 mmol/L (98-107); Estimated Glomerular Filt Rate 39.8 mL/min (>60); Globulin 2.9 g/dL (1.7-4.1); Glucose 89 mg/dL (80-110); HEMOLYSIS 20 (0-50); Potassium 5.2 mmol/L (3.4-5.1); Sodium 139 mmol/L (137-145)
[2020-12-08 18:53] LABS: TSH w/ Reflex to FT4 5.19 uIU/mL (0.47-4.68)
[2020-12-08 20:36] LABS: Free T4, Direct Thyroxine 1.58 ng/dL (0.78-2.19)
== END ==
PROVIDERS: PCP Internal Medicine; Referring Provider Internal Medicine; Visit Provider Internal Medicine
DX: E03.9 Hypothyroidism, unspecified (principal); E78.00 Pure hypercholesterolemia, unspecified; N18.9 Chronic kidney disease, unspecified
CPT/HCPCS: 36415; 80053; 84439; 84443; 84481; 85025

== ENCOUNTER 2021-05-08 21:56 | Emergency (ER) | payer OTHER, SELFPAY ==
[2020-06-21 15:01] VITALS: BMI 24.5
--- NOTE | 2021-05-08 22:05 | ED.GENADULT ---
HPI - General Adult General Chief complaint: Cardiac Arrest/CPR Stated complaint: CPR Time Seen by Provider: 05/08/21 22:05 Source: EMS Mode of arrival: EMS Limitations: other (CPR) History of Present Illness HPI narrative: Patient is a 85-year-old male who arrived by EMS as CPR progress. EMS reports they were called to the facility after the patient's heard which she thought was the patient falling at home. Upon arrival patient was found unresponsive. He was intubated with an LMA. Up to the point of arrival in the emergency department he has received 5 rounds of epinephrine. Total of 450 mg of amiodarone and 4 mg of magnesium. He has had episodes of ventricular tachycardia and ventricular fibrillation. He has received a total of 6 shocks by EMS. Resuscitative efforts have been ongoing for at least 30 minutes prior to arrival. It is known that the patient has cardiac disease and also cancer. Review of Systems Review of Systems ROS Unobtainable: Unobtainable due to medical condition Patient History Medical History Cardiac disease Social History marital status: lives independently: Yes Exam Initial Vital Signs Initial Vital Signs: Vital Signs Pulse Rate 0 L 05/08/21 22:12 Respiratory Rate 0 L 05/08/21 22:12 Const General: ill appearing HENMT Head: normal to inspection and normocephalic Mouth: other (LMA place) Eyes Other: Pupils 8 mm dilated bilateral Resp Other: LMA in place. Patient being ventilated by bag, there are breath sounds bilaterally with bagging. Cardio Other: No pulse felt. No cardiac activity. GI Other: Soft and nondistended, Skin Other: No specific lesions noted Neuro Other: Non responsive, moves no extremities Extrem Other: Grossly intact Course Orders Ordered: ED Orders 05/08/21 21:58 COVID19 -Nasal swab/Pre-Proc Stat Vital Signs Vital signs: Vital Signs - 8 hr 05/08/21 22:12 Pulse Rate 0 L Respiratory Rate 0 L Medical Decision Making Lab Data Labs: Lab Results 05/08/21 Range/Units 21:58 SARS-CoV-2 (PCR) Negative (Negative) MDM Narrative Medical decision making narrative: Resuscitative efforts have been going on for least 30 minutes. And received multiple rounds of medications and attempts at defibrillation for V-tach/VFib by EMS prior to arrival. Our 1st pulse check in the emergency department shows no pulses. Bedside ultrasound shows 0 cardiac activity. He was given 1 round of epinephrine here in the ER. One more pulse check again shows no cardiac activity on bedside ultrasound had no pulses. Given the resuscitative efforts up to this point it was felt that further attempts at resuscitation would be futile. Time of was 2202. Patient's arrived to the emergency department. She was informed of the unfortunate circumstance of her passing. Discharge Plan Departure Patient Disposition: Clinical Impression: Cardiac arrest
[2021-05-08 22:12] VITALS: PULSE 0; RESP 0; O2SAT 74
[2021-05-08 22:43] LABS: COVID19 -Nasal RAPID Negative (Negative)
--- NOTE | 2021-05-09 00:12 | PC.NURSE ---
See paper charting for [employer].
== END 2021-05-09 00:54 | disposition expired ==
PROVIDERS: Emergency Provider Emergency Medicine
DX: I46.9 Cardiac arrest, cause unspecified (principal); Z20.822 Contact with and (suspected) exposure to COVID-19
CPT/HCPCS: 87635; 92950; 99284; 99285; C9803; J0171